=== PATIENT | male | born 1975 | race American Indian/Alaskan Native ===

== ENCOUNTER 2017-02-12 09:15 | Inpatient (IN) | payer MEDICARE, MEDICAID, OTHER ==
[2017-02-12 09:19] VITALS: BMI 40.4
--- NOTE | 2017-02-12 10:19 | ED PDOC ---
Arrival/HPI - General Chief Complaint: Psychiatric Evaluation Time Seen by Provider: 02/12/17 09:20 Historian: Patient - History of Present Illness Narrative History of Present Illness (Text): 02/12/17 10:16 Patient with past medical history of paranoid schizophrenia, presents for psychiatric evaluation for fear of living outside in the normal environment, states that he was recently d/c 1 week ago, after being hospitalized for psychiatric treatment for 6 months. States that he is afraid that people outside are going to kill him and he does not feel safe. States that he is compliant with his psych meds, risperdol and zoloft. Other psychiatric symptoms : (+) auditory hallucinations, (-) suicidal ideation, (-) homicidal ideation. Otherwise: (-) trauma, (-) fever, (-) headache, (-) dyspnea, (-) vomiting, (-) substance abuse, (-) suicidal ideation, (-) patient intent of initiating a suicide attempt, (-) plan. PMD none Past Medical History - Provider Review Nursing Documentation Reviewed: Yes - Past History Past History: Non-Contributing - Infectious Disease Hx of Infectious Diseases: None - Tetanus Immunization Tetanus Immunization: Unknown - Past Medical History Past Medical History: No Previous - Cardiac Hx Cardiac Disorders: No Hx Angina: No Hx Atrial Fibrillation: No Hx Cardiac Arrhythmia: No Hx Circulatory Problems: No Hx Congestive Heart Failure: No Hx VT: No Hx Heart Murmur: No Hx Heart Transplant: No - Pulmonary Hx Tuberculosis: No - Neurological HX Cerebrovascular Accident: No Hx Seizures: No - HEENT Hx HEENT Disorder: No - Renal Hx Renal Disorder: No - Endocrine/Metabolic Hx Endocrine Disorders: No - Hematological/Oncological Hx Cancer: No - Integumentary Hx Dermatological Disorder: Yes - Musculoskeletal/Rheumatological Hx Musculoskeletal Disorders: No Hx Falls: No - Gastrointestinal Hx Gastrointestinal Disorders: No - Genitourinary/Gynecological Hx Sexually Transmitted Diseases: No - Psychiatric Hx Depression: Yes Hx Schizophrenia: Yes (With previous suicide attempt 20 years ago) Hx Substance Use: Yes - Past Surgical History Past Surgical History: No Previous - Anesthesia Hx Anesthesia: No Hx Anesthesia Reactions: No Hx Malignant Hyperthermia: No - Suicidal Assessment Feels Threatened In Home Enviroment: No Family/Social History - Physician Review Nursing Documentation Reviewed: Yes Family/Social History: Unknown Family HX Smoking Status: Current Some Days Smoker Hx Alcohol Use: Yes Frequency of alcohol use: Socially Hx Substance Use: Yes Hx Substance Use Treatment: No Allergies/Home Meds Allergies/Adverse Reactions: Allergies No Known Allergies Allergy (Verified 05/14/16 05:07) Review of Systems - Review of Systems Constitutional: Normal. absent: Fatigue, Weight Change, Fevers Respiratory: Normal. absent: SOB, Cough Cardiovascular: Normal. absent: Chest Pain, Palpitations Gastrointestinal: Normal. absent: Abdominal Pain, Stool Changes Musculoskeletal: Normal. absent: Arthralgias, Back Pain Skin: Normal. absent: Rash, Skin Lesions Neurological: Normal. absent: Headache, Dizziness Psychiatric: Normal, Anxiety. absent: Depression, Suicidal Ideation Physical Exam - Physical Exam Narrative Physical Exam (Text): 02/12/17 10:19 GENERAL APPEARANCE: Patient is awake, alert, oriented x 3, is anxious. SKIN: Warm, dry; (-) cyanosis. HEAD: (-) scalp swelling, (-) scalp tenderness. EYES: (-) conjunctival pallor, (-) scleral icterus, (-) nystagmus. ENMT: Mucous membranes moist. Airway patent: (-) stridor. NECK: (-) tenderness, (-) stiffness, (-) lymphadenopathy. CHEST AND RESPIRATORY: (-) rales, (-) rhonchi, (-) wheezes; breath sounds equal. ABDOMEN: Soft, (-) distention, (-) tenderness, (-) guarding. NEURO AND PSYCH: Mental status as above. Affect: flat. Memory: Intact. manager data: Pupils equal and reactive; EOMI; (-) facial asymmetry; tongue and uvula midline. Strength and DTRs symmetric. Vital Signs Temp Pulse Resp BP Pulse Ox 02/12/17 09:15 98.7 F 85 18 144/97 H 97 Medical Decision Making ED Course and Treatment: 02/12/17 10:19 41 yo M with past medical history of paranoid schizophrenia presents for psychiatric evaluation today after being recently discharged from a six-month psychiatric hospitalization. Plan: -- Labs -- Etoh / drug screen -- Urinalysis -- EKG -- CXR -- PES evaluation 02/12/17 15:42 EKG: NSR at 74 bpm, (-) acute ST changes, as read by ANDREW. Chest x-ray: NAD, as read by PA Labs reviewed. Patient is medically cleared for PES evaluation. PES called and notified of consultation. PES evaluated the patient and decision made for further inpatient psychiatric treatment. - Lab Interpretations Lab Results: 02/12/17 11:10 02/12/17 11:10 Lab Results 02/12/17 14:45: Urine Color Yellow, Urine Appearance Clear, Urine pH 6.5, Ur Specific [place] 1.020, Urine Protein Negative, Urine Glucose (UA) Negative, Urine Ketones Negative, Urine Blood Negative, Urine Nitrate Negative, Urine Bilirubin Negative, Urine Urobilinogen 1.0 H, Ur Leukocyte Esterase Negative, Urine Opiates Screen Negative, Urine Methadone Screen Negative, Ur Barbiturates Screen Negative, Ur Phencyclidine Scrn Negative, Ur Amphetamines Screen Negative , U Benzodiazepines Scrn Negative, U Oth Cocaine Metabols Negative, U Cannabinoids Screen Negative 02/12/17 11:10: WBC 6.7, RBC 4.90, Hgb 13.1 L, Hct 38.6 L, MCV 78.8 L, MCH 26.7 , MCHC 33.9, RDW 15.6 H, Plt Count 263, MPV 9.4, Gran % 79.7 H, Lymph % (Auto) 12.8 L, [place] % (Auto) 7.0 H, Eos % (Auto) 0.4 L, Baso % (Auto) 0.1, Gran # 5.35 , Lymph # 0.9 L, [place] # 0.5, Eos # 0.0, Baso # 0.01, Sodium 139, Potassium 3.5 L , Chloride 102, Carbon Dioxide 26, Anion Gap 15, BUN 14, Creatinine 0.9, Est GFR ( Amer) > 60, Est GFR (Non-Af Amer) > 60, Random Glucose 116 H, Calcium 9.1, Total Bilirubin 0.3, AST 34, ALT 26, Alkaline Phosphatase 111, Total Protein 8.5 H, Albumin 4.3, Globulin 4.2, Albumin/Globulin Ratio 1.0 L, Alcohol, Quantitative < 10 - RAD Interpretation Radiology Orders: 02/12/17 09:30 CHEST PORTABLE [RAD] Stat - Medication Orders Current Medication Orders: Benztropine Mesylate (Cogentin) 1 mg PO HS GONZALO Risperidone (Risperdal Tab) 1 mg PO BID GONZALO PRN Reason: Protocol Sertraline HCl (Zoloft) 50 mg PO DAILY GONZALO Zaleplon (Sonata) 10 mg PO HS PRN PRN Reason: Insomnia Discontinued Medications Potassium Chloride (Potassium Chloride Oral Soln) 20 meq PO STAT STA Stop: 02/12/17 15:45 Last Admin: 02/12/17 17:28 Dose: 20 MEQ - PA / [employer] / Resident Statement /DO has reviewed & agrees with the documentation as recorded. Disposition/Present on Arrival - Present on Arrival Any Indicators Present on Arrival: No History of DVT/PE: No History of Uncontrolled Diabetes: No Urinary Catheter: No History of Decub. Ulcer: No History Surgical Site Infection Following: None - Disposition Have Diagnosis and Disposition been Completed?: Yes Diagnosis: Schizophrenia Disposition: HOSPITALIZED Disposition Time: 15:30 Patient Plan: Admission Patient Problems: Current Active Problems Problem Status Diagnosed Schizophrenia Acute Condition: STABLE
[2017-02-12 11:47] LABS: ADD MANUAL DIFF? NO
[2017-02-12 11:52] LABS: BASO # 0.01 K/mm3 (0.0-2.0); BASO % 0.1 % (0.0-3.0); EOS % 0.4 % (1.5-5.0); GRAN # 5.35 (1.4-6.5); GRAN % 79.7 % (50.0-68.0); HEMATOCRIT 38.6 % (42.0-52.0); LYMPH # 0.9 (1.2-3.4); LYMPH % 12.8 % (22.0-35.0); MEAN CELL VOLUME 78.8 fL (80.0-105.0); MEAN CORPUSCULAR HEMOGLOBIN 26.7 pg (25.0-35.0); MEAN CORPUSCULAR HGB CONC 33.9 g/dl (31.0-37.0); MEAN PLATELET VOLUME 9.4 fl (7.0-11.0); MONO # 0.5 (0.1-0.6); PLATELET COUNT 263 10^3/uL (120.0-450.0); RED CELL DISTRIBUTION WIDTH 15.6 % (11.5-14.5); WHITE BLOOD COUNT 6.7 10^3/ul (4.5-11.0)
[2017-02-12 12:02] LABS: ALKALINE PHOSPHATASE 111 U/L (38-133); ALT/SGPT 26 U/L (7-56); AST/SGOT 34 U/L (15-59); BILIRUBIN,TOTAL 0.3 mg/dL (0.2-1.3); BLOOD UREA NITROGEN 14 mg/dL (7-21); CALCIUM 9.1 mg/dL (8.4-10.5); CARBON DIOXIDE 26 mmol/L (21-33); CHLORIDE 102 mmol/L (98-107); GFR AFRICAN-AMERICAN > 60; GLUCOSE,RANDOM 116 mg/dL (70-110); POTASSIUM 3.5 mmol/L (3.6-5.0); SODIUM 139 mmol/L (132-148); TOTAL PROTEIN 8.5 g/dL (5.8-8.3)
--- NOTE | 2017-02-12 14:50 | RAD ---
HISTORY: PES COMPARISON: No prior. FINDINGS: LUNGS: No active pulmonary disease. PLEURA: No significant pleural effusion identified, no pneumothorax apparent. CARDIOVASCULAR: Normal. OSSEOUS STRUCTURES: No significant abnormalities. VISUALIZED UPPER ABDOMEN: Normal. OTHER FINDINGS: None. IMPRESSION: No active disease.
[2017-02-12 14:56] LABS: PH,URINE 6.5 (4.7-8.0); URINE BILIRUBIN NEGATIVE (NEGATIVE); URINE BLOOD NEGATIVE (NEGATIVE); URINE GLUCOSE (UA) NEGATIVE (NEGATIVE); URINE KETONE NEGATIVE (NEGATIVE); URINE LEUKOCYTE ESTERASE NEGATIVE Leu/uL (NEGATIVE); URINE PROTEIN NEGATIVE mg/dL (<30 mg/dL)
[2017-02-12 14:58] LABS: URINE APPEARANCE CLEAR (CLEAR); URINE COLOR YELLOW (YELLOW)
[2017-02-12] MEDS ORDERED: Potassium Chloride 20 mEq/15 ml LIQ UD PO STA (15:44)
--- NOTE | 2017-02-12 16:58 | CARD ---
APPROVED REPORT EKG Measurement Heart [id number] <Conclusion> Normal sinus rhythm Normal ECG
[2017-02-13 08:19] LABS: CHOLESTEROL 186 mg/dL (130-200); GLUCOSE,FASTING 102 mg/dL (65-110)
[2017-02-13 08:29] LABS: FREE T4 0.85 ng/dL (0.78-2.19); THYROID STIMULATING HORMONE 1.3 MIU/ml (0.46-4.68)
[2017-02-13] MEDS: OLANZapine 5 mg Disintegrating Tab PO SCH (11:54)
--- NOTE | 2017-02-13 15:54 | PCM.PSYCH ---
Initial Psychiatric Evaluation - Initial Psychiatric Evaluation Type of Admission: Voluntary Legal Status: Capacity (pt has capacity to sign consent for treatment) Chief Complaint (in patient's own words): "I don't know, I feel there is no escape from this situation, gangs are after me..., [employer] are trying to kill me." Patient's Reaction to Hospitalization: pt was admitted for for worsening of psychotic symptoms, inability to function, extreme paranoia, voices telling that all of his family History of Present Illness and Precipitating Events: Patient is a 41 years old -[place] male with long and debilitating h/o schizophrenia of paranoid type, multiple psychiatric admissions in the past, most recent less than a week ago [facility] where he staid for the six months, pt currently unemployed, lives in the hotel, was brought to the hospital by police for worsening of psychosis, feeling that gang members after him, hearing voices telling pt that all of his family are , pt needs further evaluation and stabilization , medication adjustment, observation. patient was seen in the treatment team meeting, patient presented to have acceptable personal hygiene, fare ADLs, flat affect, seems to be internally preoccupied, responding to internal stimuli, irritable, patient also had upper extremity pill-rolling tremor. S customs entry writer is very familiar with this patient from the previous admissions into psychiatric inpatient treatment here in [place], patient presented worst compared with the previous admissions. as per PES report: "pt was in the exchange place by the [place] [employer], who then called an ambulance for him to be sent to the hospital. Pt. stated he was at exchange place running from myself. Pt. stated, people are trying to kill me, gang members, I dont feel safe. Pt. stated that while he is not homeless, he chooses to live on the street because, I dont want to be around my family because I dont want to do anything to hurt them. Pt said that whenever he goes a gang members are after him, pt said that he chose to live in the hotel because he does not want his family to be killed. Pt said that he hears voices telling "my family is ". pt reported that he was compliant with medications, pt was on Invega sustenna and risperdal. pt was offered to be on clozaril, but pt did not want to have frequent lab work. Pt still has ICMS worker, will call for collaterals. Reported depressed mood, and feelings of hopelessness and helplessness, but denied any homicidal ideation or suicidal ideation. No reported manic symptoms reported anxiety but no reported panic attacks. No reported substance abuse Past psychiatric history: [facility] a week ago [facility] April 2016. History of multiple inpatient psychiatric hospitalizations History of follow-up with an unknown psychiatrist at [facility] , last follow-up is unknown History of suicidal ideation with 2 attempts in the past, last attempt was 3 years ago when patient slit his wrist, patient has a old scar on the right wrist History of homicidal ideation without any attempt in the past No history of any other substance abuse History of arrests due to assaultive behavior but denies any legal charges in the past Past medical history Sleep apnea obesity pt denied using any drugs, reported to smoke a pack a day, refused to be on nicotine patch, counseling provided. pt denied h/o abuse. pt willing to try zyprexa and this customs entry writer will switch to prolixin in order to have a Prolixin decanoate. family h/o unknown. 02/12/17 11:10 02/12/17 11:10 Lab Results 02/13/17 07:30: Fasting Glucose 102, Triglycerides 108, Cholesterol 186, LDL Cholesterol Direct 97, HDL Cholesterol 43, Free T4 0.85, TSH 3rd Generation 1.3 02/12/17 21:15: POC Glucose (mg/dL) 149 H 02/12/17 14:45: Urine Color Yellow, Urine Appearance Clear, Urine pH 6.5, Ur Specific [place] 1.020, Urine Protein Negative, Urine Glucose (UA) Negative, Urine Ketones Negative, Urine Blood Negative, Urine Nitrate Negative, Urine Bilirubin Negative, Urine Urobilinogen 1.0 H, Ur Leukocyte Esterase Negative, Urine Opiates Screen Negative, Urine Methadone Screen Negative, Ur Barbiturates Screen Negative, Ur Phencyclidine Scrn Negative, Ur Amphetamines Screen Negative , U Benzodiazepines Scrn Negative, U Oth Cocaine Metabols Negative, U Cannabinoids Screen Negative 02/12/17 11:10: WBC 6.7, RBC 4.90, Hgb 13.1 L, Hct 38.6 L, MCV 78.8 L, MCH 26.7 , MCHC 33.9, RDW 15.6 H, Plt Count 263, MPV 9.4, Gran % 79.7 H, Lymph % (Auto) 12.8 L, [place] % (Auto) 7.0 H, Eos % (Auto) 0.4 L, Baso % (Auto) 0.1, Gran # 5.35 , Lymph # 0.9 L, [place] # 0.5, Eos # 0.0, Baso # 0.01, Sodium 139, Potassium 3.5 L , Chloride 102, Carbon Dioxide 26, Anion Gap 15, BUN 14, Creatinine 0.9, Est GFR ( Amer) > 60, Est GFR (Non-Af Amer) > 60, Random Glucose 116 H, Calcium 9.1, Total Bilirubin 0.3, AST 34, ALT 26, Alkaline Phosphatase 111, Total Protein 8.5 H, Albumin 4.3, Globulin 4.2, Albumin/Globulin Ratio 1.0 L, Alcohol, Quantitative < 10 Vital Signs Temp Pulse Resp BP Pulse Ox 02/13/17 08:02 97.3 F L 89 20 135/88 02/12/17 19:04 98.1 F 85 18 137/92 H 95 02/12/17 09:15 98.7 F 85 18 144/97 H 97 Current Medications: Active Medications Generic Name Dose Route Start Last Admin Trade Name Freq PRN Reason Stop Dose Admin Benztropine Mesylate 1 mg 02/12/17 22:00 02/12/17 21:29 Cogentin PO 1 mg HS GONZALO Administration Risperidone 1 mg 02/13/17 08:00 02/13/17 09:18 Risperdal Tab PO 1 mg BID GONZALO Administration Protocol Sertraline HCl 50 mg 02/13/17 08:00 02/13/17 09:18 Zoloft PO 50 mg DAILY GONZALO Administration Zaleplon 10 mg 02/12/17 18:30 Sonata PO HS PRN Insomnia meds reviewed. Past Psychiatric History - Past Psychiatric History Previous Treatment History: Inpatient Prior Professional Help: see HPI Prior Psychiatric Treatment: see HPI At what hospital: see HPI Duration: see HPI Nature of Treatment: see HPI Explanation of prior treatment: see HPI History of Abuse: denied History of ETOH/Drug Use: denied History of Family Illness: see HPI Pertinent Medical Hx (Current Medical&Sleep Prob, Allergies): Allergies Allergy/AdvReac Type Severity Reaction Status Date / Time No Known Allergies Allergy Verified 02/12/17 21:26 Benztropine [Cogentin] 1 mg PO BID #60 tab 05/19/16 Sertraline [Zoloft] 200 mg PO DAILY #60 tab 05/19/16 risperiDONE [RisperDAL Tab] 3 mg PO BID #60 tab 05/19/16 Review of Systems - Review of Systems Systems not reviewed;Unavailable: Acuity of Condition - EENT Eyes: As Per HPI Ears: As Per HPI Nose/Mouth/Throat: As Per HPI - Cardiovascular Cardiovascular: As Per HPI - Respiratory Respiratory: As Per HPI - Gastrointestinal Gastrointestinal: As Per HPI - Genitourinary Genitourinary: As Per HPI - Reproductive: Male Reproductive:Male: As Per HPI - Musculoskeletal Musculoskeletal: As Par HPI - Integumentary Integumentary: As Per HPI - Neurological Neurological: As Per HPI - Psychiatric Psychiatric: As Per HPI - Endocrine Endocrine: As Per HPI - Hematologic/Lymphatic Hematologic: As Per HPI Mental Status Examination - Personal Presentation Personal Presentation: Looks stated age - Affect Affect: Flat - Motor Activity Motor Activity: Psychomotor Retardation - Reliability in Providing Information Reliability in Providing Information: Poor, due to alteration in thoughts, Poor , due to altered mood, Poor, due to cognitve impairment - Speech Speech: Disorganized - Mood Mood: Depressed, Anxious - Formal Thought Process Formal Thought Process: Hallucinations, Delusions, Paranoia, Circumstantial - Hallucinations/Delusions Hallucinations: Auditory Delusions: Persecution - Obsessions/Compulsions Obsessions: None Compulsions: None - Cognitive Functions Orientation: Person, Place Sensorium: Alert Attention/Concentration: Easily distracted Abstract Thinking: [place] Estimate of Intelligence: Average Judgement: Intact, as evidence by: Insight regarding need for hospitalization - Risk Risk: Suicidal, Self-mutilation, Diminished functioning - Strength & Assets Inventory Strength & Assets Inventory: Cooperative - Limitations Limitations: Other (severe mental illness) DSM 5 DX - DSM 5 DSM 5 Diagnosis: schizophrenia paranoid type Rule out schizoaffective disorder - Recommended/Plan of Treatment Treatment Recommendations and Plan of Treatment: milieu, structure, supportive therapy Will call for collateral information from ICMS worker or medical reports from the most recent hospitalization Will increase dose of Cogentin to 1 mg 3 times a day for EPS pt was on invega and risperdal, will d/c it we'll consider Prolixin decanoate monthly injection and will discontinue Abilifcassi Mccoy We'll start Zyprexa Zydis 5 mg daily for psychotic symptoms Medication for sleep, sonata 5mg hs Medical team evaluation We'll monitor closely We'll consider boarding home placement Projected ELOS: 10days Prognosis: guarded Discharge Plan and Discharge Criteria: Pt will be not depressed or manic, will be more hopeful, will be not psychotic or anxious, will be tolerating medications well, will not have major side effects, will be able to function, will not pose threat to self or others. - Smoking Cessation Smoking Cessation Initiated: Yes
[2017-02-14] MEDS: OLANZapine 5 mg Disintegrating Tab PO SCH ×2 (11:50→22:47)
--- NOTE | 2017-02-14 15:16 | CON ---
DATE: 02/14/2017 HISTORY OF PRESENT ILLNESS: The patient is 41 years old, known to me from previous admission. I cam e to Emergency Room because he was feeling depressed. The patient is currently homeless. The patien rory was admitted in psych unit before and he was in the unit for almost 6 months when he got discharged . He states he was fearful that people are after him and going to kill him and he does not feel safe . He states he takes his medication that was prescribed to him. That includes Risperdal and Zoloft. He does complain of auditory hallucination, feel depressed at times. No headache, no nausea, no vo miting, no fever, no chills. PAST MEDICAL HISTORY: Significant for obesity, hypertension, schizophrenia. ALLERGIES: He is not allergic to any medications. MEDICATIONS AT HOME: He is on Risperdal 3 mg twice a day, Zoloft ____ daily and Cogentin 1 mg twice a day. SOCIAL HISTORY: He has used illicit drugs in the past, but not lately. He does drink whatever he ca n find and he is currently a smoker. PHYSICAL EXAMINATION: GENERAL: He is awake and alert, comfortable lying in bed, not in any distress. VITAL SIGNS: He is afebrile, pulse 67, respirations 20, blood pressure 121/71. LUNGS: Bilateral fair airflow, no rhonchi or crackle. HEART: S1, S2 audible. No murmur. ABDOMEN: Soft, nontender, no rebound, no guarding. NEUROLOGIC: He is awake and alert, communicative. Moves all extremities. His urinalysis is unremarkable. LABORATORY EXAM: WBC 6.7, hemoglobin 13, hematocrit 38, platelet of 263. Chemistry: Sodium 139, po tassium 3.5, chloride 102, CO2 of 26, BUN 14, creatinine 0.9, blood sugar of 149. Urinalysis unremar kable. Urine tox is negative. ASSESSMENT AND PLAN: 1. Schizophrenia. 2. Depression. 3. Hypertension. 4. Morbid obesity. 5. Normocytic anemia, probably thalassemia because his MCV is 78 and his RDW is high. That is a pic ture of mild thalassemia. PLAN: The patient is currently on Ativan, lorazepam, Cogentin. I will order for hemoglobin electrop horesis. Thanks for consult. We will follow up with you. Crissy Gramajo MD cc: [phone] TT: 02/14/2017 15:16:09 Confirmation # [id number] Dictation # [id number]
--- NOTE | 2017-02-14 16:20 | PCM.PYCHPN ---
Psychiatric Progress Note - Psychiatric Progress Note Patient seen today, length of contact: 30 minutes Patient Chief Complaint: "I don't feels safe in here" Problems Identified/Issues Discussed: Suicide/ homicide prevention, past psychiatric h/o, current psychiatric symptoms , medical problems, risk/benefits and alternatives of medications, medications compliance, coping strategies, substance abuse h/o, relapse prevention, importance of follow up with psychiatrist and therapist, discharge plan. Medical Problems: obesity was seen by medical team Diagnostic Results: 02/12/17 11:10 02/12/17 11:10 Lab Results 02/13/17 07:30: Fasting Glucose 102, Triglycerides 108, Cholesterol 186, LDL Cholesterol Direct 97, HDL Cholesterol 43, Free T4 0.85, TSH 3rd Generation 1.3 02/12/17 21:15: POC Glucose (mg/dL) 149 H 02/12/17 14:45: Urine Color Yellow, Urine Appearance Clear, Urine pH 6.5, Ur Specific [place] 1.020, Urine Protein Negative, Urine Glucose (UA) Negative, Urine Ketones Negative, Urine Blood Negative, Urine Nitrate Negative, Urine Bilirubin Negative, Urine Urobilinogen 1.0 H, Ur Leukocyte Esterase Negative, Urine Opiates Screen Negative, Urine Methadone Screen Negative, Ur Barbiturates Screen Negative, Ur Phencyclidine Scrn Negative, Ur Amphetamines Screen Negative , U Benzodiazepines Scrn Negative, U Oth Cocaine Metabols Negative, U Cannabinoids Screen Negative 02/12/17 11:10: WBC 6.7, RBC 4.90, Hgb 13.1 L, Hct 38.6 L, MCV 78.8 L, MCH 26.7 , MCHC 33.9, RDW 15.6 H, Plt Count 263, MPV 9.4, Gran % 79.7 H, Lymph % (Auto) 12.8 L, [place] % (Auto) 7.0 H, Eos % (Auto) 0.4 L, Baso % (Auto) 0.1, Gran # 5.35 , Lymph # 0.9 L, [place] # 0.5, Eos # 0.0, Baso # 0.01, Sodium 139, Potassium 3.5 L , Chloride 102, Carbon Dioxide 26, Anion Gap 15, BUN 14, Creatinine 0.9, Est GFR ( Amer) > 60, Est GFR (Non-Af Amer) > 60, Random Glucose 116 H, Calcium 9.1, Total Bilirubin 0.3, AST 34, ALT 26, Alkaline Phosphatase 111, Total Protein 8.5 H, Albumin 4.3, Globulin 4.2, Albumin/Globulin Ratio 1.0 L, Alcohol, Quantitative < 10 Vital Signs Temp Pulse Resp BP Pulse Ox 02/14/17 10:00 98.5 F 67 20 121/71 02/13/17 08:02 97.3 F L 89 20 135/88 02/12/17 19:04 98.1 F 85 18 137/92 H 95 02/12/17 09:15 98.7 F 85 18 144/97 H 97 DSM 5 Symptoms Update: Patient is a 41 years old -[place] male with long and debilitating h/o schizophrenia of paranoid type, multiple psychiatric admissions in the past, most recent less than a week ago [facility] where he staid for the six months, pt currently unemployed, lives in the hotel, was brought to the hospital by police for worsening of psychosis, feeling that gang members after him, hearing voices telling pt that all of his family are , pt needs further evaluation and stabilization , medication adjustment, observation. patient was seen in his room, patient presented to have acceptable personal hygiene, fare ADLs, flat affect, seems to be internally preoccupied, responding to internal stimuli, irritable, patient also had upper extremity pill-rolling tremor. pt still paranoid, guarded, psychotic. pt reported feeling "not safe in here", denied voices. pt tolerates meds well, no side effects, pt still has tremor in UE. pt was seen by medical team. impression: DSM 5 Diagnosis: schizophrenia paranoid type Rule out schizoaffective disorder Medication Change: Yes (Zyprexa increased) Medical Record Reviewed: Yes Consults ordered or reviewed: medical consult appreciated Mental Status Examination - Cognitive Function Orientation: Person, Place Memory: Impaired Attention: Poor Concentration: Poor Association: Loose Fund of Knowledge: Poor - Mood Mood: Depressed, Anxious - Affect Affect: Flat - Formal Thought Process Formal Thought Process: Hallucinations, Delusions, Paranoia, Circumstantial - Suicidal Ideation Suicidal Ideation: No - Homicidal Ideation Homicidal Ideation: No Goal/Treatment Plan - Goal/Treatment Plan Need for Continued Stay: Remain at risks for inpatient hospitalization, Severe depression anxiety, Discharge may exacerbated symptoms, Severe functional impairment Progress Toward Problem(s) and Goals/Treatment Plan: milieu, structure, supportive therapy Will call for collateral information from ICMS worker or medical reports from the most recent hospitalization Will increase dose of Cogentin to mg 3 times a day for EPS pt was on invega and risperdal, will d/c it we'll consider Prolixin decanoate monthly injection and will discontinue Abilify [place] We'll start Zyprexa Zydis 5 mg bid for psychotic symptoms Medication for sleep, sonata 5mg hs Medical team evaluation We'll monitor closely We'll consider boarding home placement Estimated Date of D/C: 02/24/17 (wwe'll monitor closely)
[2017-02-15] MEDS: OLANZapine 5 mg Disintegrating Tab PO SCH (09:51)
--- NOTE | 2017-02-15 16:46 | PCM.PYCHPN ---
Psychiatric Progress Note - Psychiatric Progress Note Patient seen today, length of contact: 30 minutes Patient Chief Complaint: "medication make me weak, I feel very anxious, people are making me feel unease " Problems Identified/Issues Discussed: Suicide/ homicide prevention, past psychiatric h/o, current psychiatric symptoms , medical problems, risk/benefits and alternatives of medications, medications compliance, coping strategies, substance abuse h/o, relapse prevention, importance of follow up with psychiatrist and therapist, discharge plan. Medical Problems: obesity was seen by medical team Diagnostic Results: 02/12/17 11:10 02/12/17 11:10 Lab Results 02/13/17 07:30: Fasting Glucose 102, Triglycerides 108, Cholesterol 186, LDL Cholesterol Direct 97, HDL Cholesterol 43, Free T4 0.85, TSH 3rd Generation 1.3 02/12/17 21:15: POC Glucose (mg/dL) 149 H 02/12/17 14:45: Urine Color Yellow, Urine Appearance Clear, Urine pH 6.5, Ur Specific [place] 1.020, Urine Protein Negative, Urine Glucose (UA) Negative, Urine Ketones Negative, Urine Blood Negative, Urine Nitrate Negative, Urine Bilirubin Negative, Urine Urobilinogen 1.0 H, Ur Leukocyte Esterase Negative, Urine Opiates Screen Negative, Urine Methadone Screen Negative, Ur Barbiturates Screen Negative, Ur Phencyclidine Scrn Negative, Ur Amphetamines Screen Negative , U Benzodiazepines Scrn Negative, U Oth Cocaine Metabols Negative, U Cannabinoids Screen Negative 02/12/17 11:10: WBC 6.7, RBC 4.90, Hgb 13.1 L, Hct 38.6 L, MCV 78.8 L, MCH 26.7 , MCHC 33.9, RDW 15.6 H, Plt Count 263, MPV 9.4, Gran % 79.7 H, Lymph % (Auto) 12.8 L, [place] % (Auto) 7.0 H, Eos % (Auto) 0.4 L, Baso % (Auto) 0.1, Gran # 5.35 , Lymph # 0.9 L, [place] # 0.5, Eos # 0.0, Baso # 0.01, Sodium 139, Potassium 3.5 L , Chloride 102, Carbon Dioxide 26, Anion Gap 15, BUN 14, Creatinine 0.9, Est GFR ( Amer) > 60, Est GFR (Non-Af Amer) > 60, Random Glucose 116 H, Calcium 9.1, Total Bilirubin 0.3, AST 34, ALT 26, Alkaline Phosphatase 111, Total Protein 8.5 H, Albumin 4.3, Globulin 4.2, Albumin/Globulin Ratio 1.0 L, Alcohol, Quantitative < 10 Vital Signs Temp Pulse Resp BP Pulse Ox 02/14/17 10:00 98.5 F 67 20 121/71 02/13/17 08:02 97.3 F L 89 20 135/88 02/12/17 19:04 98.1 F 85 18 137/92 H 95 02/12/17 09:15 98.7 F 85 18 144/97 H 97 Temp Pulse Resp BP Pulse Ox 97.5 F L 49 L 20 106/54 L 95 02/15/17 07:30 02/15/17 07:30 02/15/17 07:30 02/15/17 07:30 02/12/17 19:04 DSM 5 Symptoms Update: Patient is a 41 years old -[place] male with long and debilitating h/o schizophrenia of paranoid type, multiple psychiatric admissions in the past, most recent less than a week ago [facility] where he staid for the six months, pt currently unemployed, lives in the hotel, was brought to the hospital by police for worsening of psychosis, feeling that gang members after him, hearing voices telling pt that all of his family are , pt needs further evaluation and stabilization , medication adjustment, observation. patient was seen in his room, patient presented to have acceptable personal hygiene, fare ADLs, flat affect, seems to be internally preoccupied, responding to internal stimuli, irritable, patient also had upper extremity pill-rolling tremor, pt still paranoid and psychotic, said he does not like medication "it is make me feel weak", pt's ICMS worker provided with the list of meds: Cogentin(2mg) BID Risperdone (6mg) BID Zoloft(200mg) AM Trazadone(100mg) HS Invega Sustena(234mg) every 4 weeks ( last injection on 02/06/17) pt's pill rolling tremor is not improving, will try amantadine, will d/c zyprexa , will start prolixin (low potency medication FGA), will increase ativan. pt tolerates meds well, no side effects, pt still has tremor in UE. pt was seen by medical team. impression: DSM 5 Diagnosis: schizophrenia paranoid type Rule out schizoaffective disorder Medication Change: Yes (prolixin, d/c zyprexa, increase ativan, d/c cogentin, start amantadine) Medical Record Reviewed: Yes Consults ordered or reviewed: medical consult appreciated Mental Status Examination - Cognitive Function Orientation: Person, Place Memory: Impaired Attention: Poor Concentration: Poor Association: Loose Fund of Knowledge: Poor - Mood Mood: Depressed, Anxious - Affect Affect: Flat - Formal Thought Process Formal Thought Process: Hallucinations, Delusions, Paranoia, Circumstantial - Suicidal Ideation Suicidal Ideation: No - Homicidal Ideation Homicidal Ideation: No Goal/Treatment Plan - Goal/Treatment Plan Need for Continued Stay: Remain at risks for inpatient hospitalization, Severe depression anxiety, Discharge may exacerbated symptoms, Severe functional impairment Progress Toward Problem(s) and Goals/Treatment Plan: milieu, structure, supportive therapy Will call for collateral information from ICMS worker or medical reports from the most recent hospitalization (appreciated) d/c Cogentin will start amantadine 100mg po tid for EPS will d/c zyprexa will stat prolixin 5mg tid for psychosis will not initiate risperdal (high EPS risk) will increase ativan 1mg bid for anxiety will not start zoloft will initiate prozac 20mg po daily Medication for sleep, sonata 5mg hs Medical team evaluation We'll monitor closely We'll consider boarding home placement pt still does not want to be on clozaril SW evaluation Estimated Date of D/C: 02/24/17 (wwe'll monitor closely)
--- NOTE | 2017-02-15 20:14 | PN ---
DATE: 02/15/2017 The patient is 41 years old, seen and examined lying in bed, comfortable, sleepy but arousable. VITAL SIGNS: He is afebrile, pulse 86, respirations 20, blood pressure 121/83. LUNGS: Bilateral fair airflow. No rhonchi or crackle. HEART: S1, S2 audible. No murmur. ABDOMEN: Soft and nontender, no rebound, no guarding. NEUROLOGICALLY: The patient is awake and alert, communicative, ambulatory. ASSESSMENT AND PLAN: 1. Schizophrenia. 2. Morbid obesity. 3. Borderline hypertension. 4. Hyperlipidemia. PLAN: The patient is medically stable. I will sign off and see the patient p.r.n. Her psych medica tion will be adjusted by psychiatrist. Crissy Gramajo MD cc: [phone] TT: 02/15/2017 20:14:12 Confirmation # [id number] Dictation # [id number] albino
[2017-02-16 01:26] LABS: HEMATOCRIT 36.4 % (38.5-50.0); RDW 18.5 % (11.0-15.0)
--- NOTE | 2017-02-16 10:47 | PCM.PYCHPN ---
Psychiatric Progress Note - Psychiatric Progress Note Patient seen today, length of contact: 30 minutes Patient Chief Complaint: "I need to give a chance to a new medication" Problems Identified/Issues Discussed: Suicide/ homicide prevention, past psychiatric h/o, current psychiatric symptoms , medical problems, risk/benefits and alternatives of medications, medications compliance, coping strategies, substance abuse h/o, relapse prevention, importance of follow up with psychiatrist and therapist, discharge plan. Medical Problems: obesity was seen by medical team Diagnostic Results: 02/12/17 11:10 02/12/17 11:10 Lab Results 02/13/17 07:30: Fasting Glucose 102, Triglycerides 108, Cholesterol 186, LDL Cholesterol Direct 97, HDL Cholesterol 43, Free T4 0.85, TSH 3rd Generation 1.3 02/12/17 21:15: POC Glucose (mg/dL) 149 H 02/12/17 14:45: Urine Color Yellow, Urine Appearance Clear, Urine pH 6.5, Ur Specific [place] 1.020, Urine Protein Negative, Urine Glucose (UA) Negative, Urine Ketones Negative, Urine Blood Negative, Urine Nitrate Negative, Urine Bilirubin Negative, Urine Urobilinogen 1.0 H, Ur Leukocyte Esterase Negative, Urine Opiates Screen Negative, Urine Methadone Screen Negative, Ur Barbiturates Screen Negative, Ur Phencyclidine Scrn Negative, Ur Amphetamines Screen Negative , U Benzodiazepines Scrn Negative, U Oth Cocaine Metabols Negative, U Cannabinoids Screen Negative 02/12/17 11:10: WBC 6.7, RBC 4.90, Hgb 13.1 L, Hct 38.6 L, MCV 78.8 L, MCH 26.7 , MCHC 33.9, RDW 15.6 H, Plt Count 263, MPV 9.4, Gran % 79.7 H, Lymph % (Auto) 12.8 L, [place] % (Auto) 7.0 H, Eos % (Auto) 0.4 L, Baso % (Auto) 0.1, Gran # 5.35 , Lymph # 0.9 L, [place] # 0.5, Eos # 0.0, Baso # 0.01, Sodium 139, Potassium 3.5 L , Chloride 102, Carbon Dioxide 26, Anion Gap 15, BUN 14, Creatinine 0.9, Est GFR ( Amer) > 60, Est GFR (Non-Af Amer) > 60, Random Glucose 116 H, Calcium 9.1, Total Bilirubin 0.3, AST 34, ALT 26, Alkaline Phosphatase 111, Total Protein 8.5 H, Albumin 4.3, Globulin 4.2, Albumin/Globulin Ratio 1.0 L, Alcohol, Quantitative < 10 Vital Signs Temp Pulse Resp BP Pulse Ox 02/14/17 10:00 98.5 F 67 20 121/71 02/13/17 08:02 97.3 F L 89 20 135/88 02/12/17 19:04 98.1 F 85 18 137/92 H 95 02/12/17 09:15 98.7 F 85 18 144/97 H 97 Temp Pulse Resp BP Pulse Ox 97.5 F L 49 L 20 106/54 L 95 02/15/17 07:30 02/15/17 07:30 02/15/17 07:30 02/15/17 07:30 02/12/17 19:04 Temp Pulse Resp BP Pulse Ox 97.7 F 58 L 20 98/58 L 95 02/16/17 07:51 02/16/17 07:51 02/16/17 07:51 02/16/17 07:51 02/12/17 19:04 Laboratory Results - last 24 hr 02/15/17 08:00 Hemoglobinopathy Red Blood Count 4.55 Hemoglobinopathy Hct 36.4 L Hemoglobinopathy Hgb 12.0 L Hemoglobinopathy MCV 79.9 L Hemoglobinopathy MCH 26.4 L Hemoglobinopathy RDW 18.5 H DSM 5 Symptoms Update: Patient is a 41 years old -Brazilian male with long and debilitating h/o schizophrenia of paranoid type, multiple psychiatric admissions in the past, most recent less than a week ago [facility] where he staid for the six months, pt currently unemployed, lives in the hotel, was brought to the hospital by police for worsening of psychosis, feeling that gang members after him, hearing voices telling pt that all of his family are , pt needs further evaluation and stabilization , medication adjustment, observation. patient was seen next to the nursing station, pt presented with some improvements with his hygiene, affect still constricted but more reactive. pt said that he still feels paranoid and has feeling that his family is . At the same time pt said that he feels more comfortable in the unit. pt's EPS symptoms are much better, there is no pill rolling tremor observed today. pt said he likes Amantadine better than cogenting. pt tolerates meds well, no side effects, pt still has tremor in UE. pt was seen by medical team. impression: DSM 5 Diagnosis: schizophrenia paranoid type Rule out schizoaffective disorder Medication Change: Yes (prolixin increased ) Medical Record Reviewed: Yes Consults ordered or reviewed: medical consult appreciated pt is f/u by medical team on daily basis Mental Status Examination - Cognitive Function Orientation: Person, Place Memory: Impaired Attention: Poor Concentration: Poor Association: Loose Fund of Knowledge: Poor - Mood Mood: Depressed, Anxious - Affect Affect: Flat - Formal Thought Process Formal Thought Process: Hallucinations, Delusions, Paranoia, Circumstantial - Suicidal Ideation Suicidal Ideation: No - Homicidal Ideation Homicidal Ideation: No Goal/Treatment Plan - Goal/Treatment Plan Need for Continued Stay: Remain at risks for inpatient hospitalization, Severe depression anxiety, Discharge may exacerbated symptoms, Severe functional impairment Progress Toward Problem(s) and Goals/Treatment Plan: milieu, structure, supportive therapy ICMS worker collaterals (appreciated), med list reviewed, see note 02/15/17 amantadine 100mg po tid for EPS prolixin 10mg amhs for psychosis with the plan to give prolixin Dec upon d/c ativan 1mg bid for anxiety prozac 20mg po daily for depression and anxiety Medication for sleep, sonata 5mg hs Medical team evaluation We'll monitor closely We'll consider boarding home placement pt still does not want to be on clozaril SW evaluation Estimated Date of D/C: 02/24/17 (wwe'll monitor closely)
[2017-02-16 12:51] LABS: HEMOGLOBIN F <1.0 Percent (<2.0)
--- NOTE | 2017-02-17 18:08 | PCM.PYCHPN ---
Psychiatric Progress Note - Psychiatric Progress Note Patient seen today, length of contact: 30 minutes Patient Chief Complaint: "voices are better, but I still feel paranoid" Problems Identified/Issues Discussed: Suicide/ homicide prevention, past psychiatric h/o, current psychiatric symptoms , medical problems, risk/benefits and alternatives of medications, medications compliance, coping strategies, substance abuse h/o, relapse prevention, importance of follow up with psychiatrist and therapist, discharge plan. Medical Problems: obesity was seen by medical team Diagnostic Results: 02/12/17 11:10 02/12/17 11:10 Lab Results 02/13/17 07:30: Fasting Glucose 102, Triglycerides 108, Cholesterol 186, LDL Cholesterol Direct 97, HDL Cholesterol 43, Free T4 0.85, TSH 3rd Generation 1.3 02/12/17 21:15: POC Glucose (mg/dL) 149 H 02/12/17 14:45: Urine Color Yellow, Urine Appearance Clear, Urine pH 6.5, Ur Specific [place] 1.020, Urine Protein Negative, Urine Glucose (UA) Negative, Urine Ketones Negative, Urine Blood Negative, Urine Nitrate Negative, Urine Bilirubin Negative, Urine Urobilinogen 1.0 H, Ur Leukocyte Esterase Negative, Urine Opiates Screen Negative, Urine Methadone Screen Negative, Ur Barbiturates Screen Negative, Ur Phencyclidine Scrn Negative, Ur Amphetamines Screen Negative , U Benzodiazepines Scrn Negative, U Oth Cocaine Metabols Negative, U Cannabinoids Screen Negative 02/12/17 11:10: WBC 6.7, RBC 4.90, Hgb 13.1 L, Hct 38.6 L, MCV 78.8 L, MCH 26.7 , MCHC 33.9, RDW 15.6 H, Plt Count 263, MPV 9.4, Gran % 79.7 H, Lymph % (Auto) 12.8 L, [place] % (Auto) 7.0 H, Eos % (Auto) 0.4 L, Baso % (Auto) 0.1, Gran # 5.35 , Lymph # 0.9 L, [place] # 0.5, Eos # 0.0, Baso # 0.01, Sodium 139, Potassium 3.5 L , Chloride 102, Carbon Dioxide 26, Anion Gap 15, BUN 14, Creatinine 0.9, Est GFR ( Amer) > 60, Est GFR (Non-Af Amer) > 60, Random Glucose 116 H, Calcium 9.1, Total Bilirubin 0.3, AST 34, ALT 26, Alkaline Phosphatase 111, Total Protein 8.5 H, Albumin 4.3, Globulin 4.2, Albumin/Globulin Ratio 1.0 L, Alcohol, Quantitative < 10 Vital Signs Temp Pulse Resp BP Pulse Ox 02/14/17 10:00 98.5 F 67 20 121/71 02/13/17 08:02 97.3 F L 89 20 135/88 02/12/17 19:04 98.1 F 85 18 137/92 H 95 02/12/17 09:15 98.7 F 85 18 144/97 H 97 Temp Pulse Resp BP Pulse Ox 97.5 F L 49 L 20 106/54 L 95 02/15/17 07:30 02/15/17 07:30 02/15/17 07:30 02/15/17 07:30 02/12/17 19:04 Temp Pulse Resp BP Pulse Ox 97.7 F 58 L 20 98/58 L 95 02/16/17 07:51 02/16/17 07:51 02/16/17 07:51 02/16/17 07:51 02/12/17 19:04 Laboratory Results - last 24 hr 02/15/17 08:00 Hemoglobinopathy Red Blood Count 4.55 Hemoglobinopathy Hct 36.4 L Hemoglobinopathy Hgb 12.0 L Hemoglobinopathy MCV 79.9 L Hemoglobinopathy MCH 26.4 L Hemoglobinopathy RDW 18.5 H Temp Pulse Resp BP Pulse Ox 97.3 F L 71 20 114/75 95 02/17/17 07:19 02/17/17 16:30 02/17/17 07:19 02/17/17 16:30 02/12/17 19:04 DSM 5 Symptoms Update: Patient is a 41 years old -A[place]ij[place] male with long and debilitating h/o schizophrenia of paranoid type, multiple psychiatric admissions in the past, most recent less than a week ago [facility] where he staid for the six months, pt currently unemployed, lives in the hotel, was brought to the hospital by police for worsening of psychosis, feeling that gang members after him, hearing voices telling pt that all of his family are , pt needs further evaluation and stabilization , medication adjustment, observation. patient was seen at the treatment team, pt presented with some improvements with his hygiene, affect still constricted but more reactive. pt said that he still feels paranoid and has feeling that his family is . At the same time pt said that he feels more comfortable in the unit. pt reported that voices "still there, but it is less, they are not bothering me no more", pt said that he still feels that gang members are after him. meeting with ICMS worker [employer] today. pt's EPS symptoms are much better, there is some mild tremor observed today, willing to increase amantadine. pt tolerates meds well, no side effects, pt still has tremor in UE, but improving. pt was seen by medical team. impression: DSM 5 Diagnosis: schizophrenia paranoid type Rule out schizoaffective disorder Medication Change: Yes (amantadine increased, prolixin increased) Medical Record Reviewed: Yes Consults ordered or reviewed: medical consult appreciated pt is f/u by medical team on daily basis Mental Status Examination - Cognitive Function Orientation: Person, Place Memory: Impaired Attention: Poor Concentration: Poor Association: Loose Fund of Knowledge: Poor - Mood Mood: Depressed, Anxious - Affect Affect: Flat - Formal Thought Process Formal Thought Process: Hallucinations, Delusions, Paranoia, Circumstantial - Suicidal Ideation Suicidal Ideation: No - Homicidal Ideation Homicidal Ideation: No Goal/Treatment Plan - Goal/Treatment Plan Need for Continued Stay: Remain at risks for inpatient hospitalization, Severe depression anxiety, Discharge may exacerbated symptoms, Severe functional impairment Progress Toward Problem(s) and Goals/Treatment Plan: milieu, structure, supportive therapy ICMS worker collaterals (appreciated), med list reviewed, see note 02/15/17, meeting 02/17/17 appreciated amantadine 100mg po tid for EPS prolixin 10mg tid for psychosis with the plan to give prolixin Dec upon d/c ativan 1mg bid for anxiety prozac 20mg po daily for depression and anxiety Medication for sleep, [place] 5mg hs Medical team evaluation We'll monitor closely We'll consider boarding home placement pt still does not want to be on clozaril SW evaluation Estimated Date of D/C: 02/24/17 (wwe'll monitor closely)
--- NOTE | 2017-02-18 09:25 | PCM.PYCHPN ---
Psychiatric Progress Note - Psychiatric Progress Note Patient seen today, length of contact: 25 minutes Patient Chief Complaint: "a little depressed" Problems Identified/Issues Discussed: I reviewed assessment and recent notes. Patient was interviewed at bedside. Patient responds to my questions from underneath his sheet. He appears paranoid and admits to paranoia. He is generally calm and cooperative during questioning. He is oriented to month and year. Affect is withdrawn and internally preoccupied. Speech is under productive. Patient indicates that he remains "a little depressed". Denies having any hallucinations since yesterday. Patient does not appear to be actively responding to internal stimuli during my meeting with him. Patient denies any new discomfort or pain and has been tolerating medications Nursing notes indicate that patient has been withdrawn on the unit. He remains in control and there were no behavioral issues overnight Diagnostic Results: schizophrenia paranoid type Rule out schizoaffective disorder Medication Change: No ( ) Medical Record Reviewed: Yes (reports, labs, vitals, notes) Mental Status Examination - Cognitive Function Orientation: Person, Place Memory: Impaired Attention: Poor Concentration: Poor Association: Loose Fund of Knowledge: Poor - Mood Mood: Depressed ("a little depressed"), Anxious - Affect Affect: Flat - Speech Speech: Soft - Formal Thought Process Formal Thought Process: Hallucinations (denies), Delusions, Paranoia, Circumstantial - Suicidal Ideation Suicidal Ideation: No - Homicidal Ideation Homicidal Ideation: No Goal/Treatment Plan - Goal/Treatment Plan Need for Continued Stay: Remain at risks for inpatient hospitalization, Severe depression anxiety, Discharge may exacerbated symptoms, Severe functional impairment Progress Toward Problem(s) and Goals/Treatment Plan: * c/w current tx and plan * No new labs over the weekend * Vitals reviewed and noted below: Selected Entries 02/17/17 02/17/17 07:19 16:30 Temperature 97.3 F L Pulse Rate 53 L 71 Respiratory 20 Rate Blood Pressure 97/58 L 114/75 Estimated Date of D/C: 02/24/17 (wwe'll monitor closely)
--- NOTE | 2017-02-19 09:58 | PCM.PYCHPN ---
Psychiatric Progress Note - Psychiatric Progress Note Patient seen today, length of contact: 25 minutes Patient Chief Complaint: "a little depressed" Problems Identified/Issues Discussed: I reviewed recent notes and met with patient at bedside. Patient is a little more alert and focused this morning though still appears withdrawn preoccupied and paranoid. He is generally calm and cooperative during questioning. He is oriented to month and year. Speech is under-productive. Patient indicates that he remains "a little depressed". Denies hallucinations today. Patient does not appear to be actively responding to internal stimuli during my meeting with him. Patient denies any new discomfort or pain and has been tolerating medications Nursing notes indicate that patient appears flat and withdrawn on the unit. Hallucinations are a little better with prolixin. He remains in control and there were no behavioral issues overnight Diagnostic Results: schizophrenia paranoid type Rule out schizoaffective disorder Medication Change: No ( ) Medical Record Reviewed: Yes (reports, labs, vitals, notes) Mental Status Examination - Cognitive Function Orientation: Person, Place Memory: Impaired Attention: Poor Concentration: Poor Association: Loose Fund of Knowledge: Poor - Mood Mood: Depressed ("a little depressed"), Anxious - Affect Affect: Flat - Speech Speech: Soft (underproductive) - Formal Thought Process Formal Thought Process: Hallucinations (improving with prolixin), Delusions, Paranoia, Circumstantial - Suicidal Ideation Suicidal Ideation: No - Homicidal Ideation Homicidal Ideation: No Goal/Treatment Plan - Goal/Treatment Plan Need for Continued Stay: Remain at risks for inpatient hospitalization, Severe depression anxiety, Discharge may exacerbated symptoms, Severe functional impairment Progress Toward Problem(s) and Goals/Treatment Plan: * c/w current tx and plan * No new labs over the weekend * Vitals reviewed and noted below: Selected Entries 02/19/17 07:55 Temperature 97.3 F L Pulse Rate 84 Respiratory 20 Rate Blood Pressure 132/80 Estimated Date of D/C: 02/24/17 (we'll monitor closely)
--- NOTE | 2017-02-20 18:40 | PCM.PYCHPN ---
Psychiatric Progress Note - Psychiatric Progress Note Patient seen today, length of contact: 30min Patient Chief Complaint: "I am depressed, I also feel paranoid..." Problems Identified/Issues Discussed: Suicide/ homicide prevention, past psychiatric h/o, current psychiatric symptoms , medical problems, risk/benefits and alternatives of medications, medications compliance, coping strategies, substance abuse h/o, relapse prevention, importance of follow up with psychiatrist and therapist, discharge plan. Medical Problems: obesity was seen by medical team Diagnostic Results: 02/12/17 11:10 02/12/17 11:10 Lab Results 02/13/17 07:30: Fasting Glucose 102, Triglycerides 108, Cholesterol 186, LDL Cholesterol Direct 97, HDL Cholesterol 43, Free T4 0.85, TSH 3rd Generation 1.3 02/12/17 21:15: POC Glucose (mg/dL) 149 H 02/12/17 14:45: Urine Color Yellow, Urine Appearance Clear, Urine pH 6.5, Ur Specific [place] 1.020, Urine Protein Negative, Urine Glucose (UA) Negative, Urine Ketones Negative, Urine Blood Negative, Urine Nitrate Negative, Urine Bilirubin Negative, Urine Urobilinogen 1.0 H, Ur Leukocyte Esterase Negative, Urine Opiates Screen Negative, Urine Methadone Screen Negative, Ur Barbiturates Screen Negative, Ur Phencyclidine Scrn Negative, Ur Amphetamines Screen Negative , U Benzodiazepines Scrn Negative, U Oth Cocaine Metabols Negative, U Cannabinoids Screen Negative 02/12/17 11:10: WBC 6.7, RBC 4.90, Hgb 13.1 L, Hct 38.6 L, MCV 78.8 L, MCH 26.7 , MCHC 33.9, RDW 15.6 H, Plt Count 263, MPV 9.4, Gran % 79.7 H, Lymph % (Auto) 12.8 L, [place] % (Auto) 7.0 H, Eos % (Auto) 0.4 L, Baso % (Auto) 0.1, Gran # 5.35 , Lymph # 0.9 L, [place] # 0.5, Eos # 0.0, Baso # 0.01, Sodium 139, Potassium 3.5 L , Chloride 102, Carbon Dioxide 26, Anion Gap 15, BUN 14, Creatinine 0.9, Est GFR ( Amer) > 60, Est GFR (Non-Af Amer) > 60, Random Glucose 116 H, Calcium 9.1, Total Bilirubin 0.3, AST 34, ALT 26, Alkaline Phosphatase 111, Total Protein 8.5 H, Albumin 4.3, Globulin 4.2, Albumin/Globulin Ratio 1.0 L, Alcohol, Quantitative < 10 Vital Signs Temp Pulse Resp BP Pulse Ox 02/14/17 10:00 98.5 F 67 20 121/71 02/13/17 08:02 97.3 F L 89 20 135/88 02/12/17 19:04 98.1 F 85 18 137/92 H 95 02/12/17 09:15 98.7 F 85 18 144/97 H 97 Temp Pulse Resp BP Pulse Ox 97.5 F L 49 L 20 106/54 L 95 02/15/17 07:30 02/15/17 07:30 02/15/17 07:30 02/15/17 07:30 02/12/17 19:04 Temp Pulse Resp BP Pulse Ox 97.7 F 58 L 20 98/58 L 95 02/16/17 07:51 02/16/17 07:51 02/16/17 07:51 02/16/17 07:51 02/12/17 19:04 Laboratory Results - last 24 hr 02/15/17 08:00 Hemoglobinopathy Red Blood Count 4.55 Hemoglobinopathy Hct 36.4 L Hemoglobinopathy Hgb 12.0 L Hemoglobinopathy MCV 79.9 L Hemoglobinopathy MCH 26.4 L Hemoglobinopathy RDW 18.5 H Temp Pulse Resp BP Pulse Ox 97.3 F L 71 20 114/75 95 02/17/17 07:19 02/17/17 16:30 02/17/17 07:19 02/17/17 16:30 02/12/17 19:04 Temp Pulse Resp BP Pulse Ox 97.9 F 79 20 115/76 93 L 02/20/17 07:00 02/20/17 17:56 02/20/17 07:00 02/20/17 17:56 02/18/17 07:00 DSM 5 Symptoms Update: Patient is a 41 years old -Welsh male with long and debilitating h/o schizophrenia of paranoid type, multiple psychiatric admissions in the past, most recent less than a week ago [facility] where he staid for the six months, pt currently unemployed, lives in the hotel, was brought to the hospital by police for worsening of psychosis, feeling that gang members after him, hearing voices telling pt that all of his family are , pt needs further evaluation and stabilization , medication adjustment, observation. patient was seen at the treatment team, pt presented with some improvements with his hygiene, affect still constricted but more reactive. pt said that he still feels paranoid and has feeling that his family is "I called them today, they are okay". At the same time pt said that he feels more comfortable in the unit. pt reported that voices "are better", pt said that he still feels that gang members are after him. pt was educated about Boarding home, pt was receptive pt's EPS symptoms are much better, there is some mild tremor observed today. pt tolerates meds well, no side effects, pt still has tremor in UE, but improving. pt was seen by medical team. impression: DSM 5 Diagnosis: schizophrenia paranoid type Rule out schizoaffective disorder Medication Change: Yes (prozac increased, prolixin increased) Medical Record Reviewed: Yes (reports, labs, vitals, notes) Consults ordered or reviewed: medical consult appreciated pt is f/u by medical team on daily basis Mental Status Examination - Cognitive Function Orientation: Person, Place Memory: Impaired Attention: Poor Concentration: Poor Association: Loose Fund of Knowledge: Poor - Mood Mood: Depressed ("a little depressed"), Anxious - Affect Affect: Flat - Speech Speech: Soft (underproductive) - Formal Thought Process Formal Thought Process: Hallucinations (improving with prolixin), Delusions, Paranoia, Circumstantial - Suicidal Ideation Suicidal Ideation: No - Homicidal Ideation Homicidal Ideation: No Goal/Treatment Plan - Goal/Treatment Plan Need for Continued Stay: Remain at risks for inpatient hospitalization, Severe depression anxiety, Discharge may exacerbated symptoms, Severe functional impairment Progress Toward Problem(s) and Goals/Treatment Plan: milieu, structure, supportive therapy ICMS worker collaterals (appreciated), med list reviewed, see note 02/15/17, meeting 02/17/17 appreciated amantadine 100mg po tid for EPS prolixin 20mg amhs for psychosis with the plan to give prolixin Dec upon d/c ativan was decreased 0.5bid for anxiety prozac 30mg po daily for depression and anxiety Medication for sleep, sonata 5mg hs Medical team evaluation We'll monitor closely We'll consider boarding home placement pt still does not want to be on clozaril SW evaluation Estimated Date of D/C: 02/24/17 (we'll monitor closely)
--- NOTE | 2017-02-21 11:38 | PCM.PYCHPN ---
Psychiatric Progress Note - Psychiatric Progress Note Patient seen today, length of contact: 30min Patient Chief Complaint: "I have nausea today" Problems Identified/Issues Discussed: Suicide/ homicide prevention, past psychiatric h/o, current psychiatric symptoms , medical problems, risk/benefits and alternatives of medications, medications compliance, coping strategies, substance abuse h/o, relapse prevention, importance of follow up with psychiatrist and therapist, discharge plan. Medical Problems: obesity was seen by medical team Diagnostic Results: 02/12/17 11:10 02/12/17 11:10 Lab Results 02/13/17 07:30: Fasting Glucose 102, Triglycerides 108, Cholesterol 186, LDL Cholesterol Direct 97, HDL Cholesterol 43, Free T4 0.85, TSH 3rd Generation 1.3 02/12/17 21:15: POC Glucose (mg/dL) 149 H 02/12/17 14:45: Urine Color Yellow, Urine Appearance Clear, Urine pH 6.5, Ur Specific [place] 1.020, Urine Protein Negative, Urine Glucose (UA) Negative, Urine Ketones Negative, Urine Blood Negative, Urine Nitrate Negative, Urine Bilirubin Negative, Urine Urobilinogen 1.0 H, Ur Leukocyte Esterase Negative, Urine Opiates Screen Negative, Urine Methadone Screen Negative, Ur Barbiturates Screen Negative, Ur Phencyclidine Scrn Negative, Ur Amphetamines Screen Negative , U Benzodiazepines Scrn Negative, U Oth Cocaine Metabols Negative, U Cannabinoids Screen Negative 02/12/17 11:10: WBC 6.7, RBC 4.90, Hgb 13.1 L, Hct 38.6 L, MCV 78.8 L, MCH 26.7 , MCHC 33.9, RDW 15.6 H, Plt Count 263, MPV 9.4, Gran % 79.7 H, Lymph % (Auto) 12.8 L, [place] % (Auto) 7.0 H, Eos % (Auto) 0.4 L, Baso % (Auto) 0.1, Gran # 5.35 , Lymph # 0.9 L, [place] # 0.5, Eos # 0.0, Baso # 0.01, Sodium 139, Potassium 3.5 L , Chloride 102, Carbon Dioxide 26, Anion Gap 15, BUN 14, Creatinine 0.9, Est GFR ( Amer) > 60, Est GFR (Non-Af Amer) > 60, Random Glucose 116 H, Calcium 9.1, Total Bilirubin 0.3, AST 34, ALT 26, Alkaline Phosphatase 111, Total Protein 8.5 H, Albumin 4.3, Globulin 4.2, Albumin/Globulin Ratio 1.0 L, Alcohol, Quantitative < 10 Vital Signs Temp Pulse Resp BP Pulse Ox 02/14/17 10:00 98.5 F 67 20 121/71 02/13/17 08:02 97.3 F L 89 20 135/88 02/12/17 19:04 98.1 F 85 18 137/92 H 95 02/12/17 09:15 98.7 F 85 18 144/97 H 97 Temp Pulse Resp BP Pulse Ox 97.5 F L 49 L 20 106/54 L 95 02/15/17 07:30 02/15/17 07:30 02/15/17 07:30 02/15/17 07:30 02/12/17 19:04 Temp Pulse Resp BP Pulse Ox 97.7 F 58 L 20 98/58 L 95 02/16/17 07:51 02/16/17 07:51 02/16/17 07:51 02/16/17 07:51 02/12/17 19:04 Laboratory Results - last 24 hr 02/15/17 08:00 Hemoglobinopathy Red Blood Count 4.55 Hemoglobinopathy Hct 36.4 L Hemoglobinopathy Hgb 12.0 L Hemoglobinopathy MCV 79.9 L Hemoglobinopathy MCH 26.4 L Hemoglobinopathy RDW 18.5 H Temp Pulse Resp BP Pulse Ox 97.3 F L 71 20 114/75 95 02/17/17 07:19 02/17/17 16:30 02/17/17 07:19 02/17/17 16:30 02/12/17 19:04 Temp Pulse Resp BP Pulse Ox 97.9 F 79 20 115/76 93 L 02/20/17 07:00 02/20/17 17:56 02/20/17 07:00 02/20/17 17:56 02/18/17 07:00 Temp Pulse Resp BP Pulse Ox 97.5 F L 52 L 20 104/67 93 L 02/21/17 08:32 02/21/17 08:32 02/21/17 08:32 02/21/17 08:32 02/18/17 07:00 DSM 5 Symptoms Update: Patient is a 41 years old -L[place] male with long and debilitating h/o schizophrenia of paranoid type, multiple psychiatric admissions in the past, most recent less than a week ago [facility] where he staid for the six months, pt currently unemployed, lives in the hotel, was brought to the hospital by police for worsening of psychosis, feeling that gang members after him, hearing voices telling pt that all of his family are , pt needs further evaluation and stabilization , medication adjustment, observation. patient was seen at the treatment team, pt presented with some improvements with his hygiene, affect still constricted but more reactive. pt said that he has some nausea, seems it is due to the prozac increased yesterday, denied vomiting, denied diarrhea. pt was educated about side effects of meds. pt said that he still feels paranoid and has feeling that his family is "I called them today, they are okay". At the same time pt said that he feels more comfortable in the unit. pt reported that voices "are better", pt said that he still feels that gang members are after him. pt was educated about Boarding home, pt was receptive, will meet with SW about options. pt's EPS symptoms are much better, there is some mild tremor observed today. pt tolerates meds well, no side effects, pt still has tremor in UE, but improving. pt was seen by medical team. impression: DSM 5 Diagnosis: schizophrenia paranoid type Rule out schizoaffective disorder Medication Change: No (prozac increased, prolixin increased 02/20/17) Medical Record Reviewed: Yes (reports, labs, vitals, notes) Consults ordered or reviewed: medical consult appreciated pt is f/u by medical team on daily basis Mental Status Examination - Cognitive Function Orientation: Person, Place Memory: Impaired Attention: Poor (some improvement) Concentration: Poor (some improvement) Association: Loose Fund of Knowledge: Poor - Mood Mood: Depressed ("a little depressed"), Anxious - Affect Affect: Flat - Speech Speech: Soft (underproductive) - Formal Thought Process Formal Thought Process: Hallucinations (improving with prolixin), Delusions, Paranoia, Circumstantial - Suicidal Ideation Suicidal Ideation: No - Homicidal Ideation Homicidal Ideation: No Goal/Treatment Plan - Goal/Treatment Plan Need for Continued Stay: Remain at risks for inpatient hospitalization, Severe depression anxiety, Discharge may exacerbated symptoms, Severe functional impairment Progress Toward Problem(s) and Goals/Treatment Plan: milieu, structure, supportive therapy ICMS worker collaterals (appreciated), med list reviewed, see note 02/15/17, meeting 02/17/17 appreciated amantadine 100mg po tid for EPS prolixin 20mg amhs for psychosis with the plan to give prolixin Dec upon d/c increased 02/20/17 considering the fact pt was psychotic on the Invega Sustena(234mg) every 4 weeks. PT's last injection on 02/06/17. it will be d/c with the plan to give Prolixin Dec. ativan was decreased 0.5bid for anxiety 02/20/17 prozac 30mg po daily for depression and anxiety increased 02/20/17 Medication for sleep, sonata 5mg hs Medical team evaluation We'll monitor closely We'll consider boarding home placement pt still does not want to be on clozaril SW evaluation Estimated Date of D/C: 02/24/17 (we'll monitor closely)
--- NOTE | 2017-02-22 11:59 | PCM.PYCHPN ---
Psychiatric Progress Note - Psychiatric Progress Note Patient seen today, length of contact: 25 min Patient Chief Complaint: "better" Problems Identified/Issues Discussed: I reviewed recent notes and met with patient at bedside. Patient appears brighter with more reactive and related affect during questioning. Focus is also improving. He remains oriented to month your location circumstances. Patient still appears a little withdrawn and preoccupied however he's not demonstrating any overt signs of disorganization or hallucinations. Patient indicates that his hallucinations and paranoia are improving though at times he still hears voices telling him that people are out to get him. Patient does not demonstrate hyper vigilance on the unit. He is generally calm and cooperative during questioning. Speech is under productive and soft. Patient denies any new discomfort or pain and has been tolerating medications Nursing notes indicate that patient appears flat and withdrawn on the unit. Hallucinations are improving. He remains in control and there were no behavioral issues overnight Diagnostic Results: schizophrenia paranoid type Rule out schizoaffective disorder Medication Change: No ( ) Medical Record Reviewed: Yes (reports, labs, vitals, notes) Mental Status Examination - Cognitive Function Orientation: Person, Place Memory: Impaired Attention: WNL (some improvement) Concentration: Poor (some improvement) Association: Loose Fund of Knowledge: Poor - Mood Mood: Depressed ("better"), Anxious - Affect Affect: Flat - Speech Speech: Soft (underproductive) - Formal Thought Process Formal Thought Process: Hallucinations (hallucinations and paranoia are improving though at times he still hears voices telling him that people are out to get him), Delusions, Paranoia, Circumstantial - Suicidal Ideation Suicidal Ideation: No - Homicidal Ideation Homicidal Ideation: No Goal/Treatment Plan - Goal/Treatment Plan Need for Continued Stay: Remain at risks for inpatient hospitalization, Severe depression anxiety, Discharge may exacerbated symptoms, Severe functional impairment Progress Toward Problem(s) and Goals/Treatment Plan: * c/w current tx and plan * c/w amantadine 100mg po tid for EPS * c/w ativan which was decreased to 0.5 bid for anxiety 02/20/17 * c/w prolixin, increased on 02/20/17 to 20mg amhs for psychosis with the plan to give prolixin Dec upon d/c ~possibly to Boarding Home if patient agrees * c/w Prozac 30 mg po daily for depression and anxiety * c/w Sonata 10 mg HS for insomnia * pt's EPS symptoms are much better, pt still has tremor in UE, but improving. * Continue to communicate with ICMS worker prn. Meeting was on 02/17/17 * No new labs overnight * Vitals reviewed and noted below: Selected Entries 02/22/17 06:31 Temperature 98.1 F Pulse Rate 57 L Respiratory 18 Rate Blood Pressure 97/56 L O2 Sat by Pulse 98 Oximetry Estimated Date of D/C: 02/24/17 (we'll monitor closely)
--- NOTE | 2017-02-23 10:55 | PCM.PYCHPN ---
Psychiatric Progress Note - Psychiatric Progress Note Patient seen today, length of contact: 25 min Patient Chief Complaint: "better" Problems Identified/Issues Discussed: I reviewed recent notes and met with patient at bedside. Patient still appears brighter with more reactive and related affect during questioning. Focus is definitely also improving. He remains well-oriented to circumstances. Still appears a little withdrawn and preoccupied however he's not demonstrating any overt signs of disorganization or hallucinations.Speech is under productive and soft. Patient indicates that his hallucinations and paranoia are improving though at times he still hears voices (mostly at night) telling him that people are out to get him. He tries his best to ignore these voices at night. Patient does not demonstrate hyper vigilance on the unit and paranoia seems to be improving as he is less guarded and engages more freely during our interviews. Patient is generally calm and cooperative during questioning. Patient denies any new discomfort or pain and has been tolerating medications Nursing notes indicate that patient appears more animated on unit. Smiles more readily and broadly. Attending groups but not verbally participating. He remains in good control and there were no behavioral issues overnight Diagnostic Results: schizophrenia paranoid type Rule out schizoaffective disorder Medication Change: No ( ) Medical Record Reviewed: Yes (reports, labs, vitals, notes) Mental Status Examination - Cognitive Function Orientation: Person, Place Memory: Impaired Attention: WNL (some improvement) Concentration: WNL (some improvement) Association: Loose Fund of Knowledge: Poor - Mood Mood: Depressed ("better"), Anxious - Affect Affect: Flat - Speech Speech: Soft (underproductive) - Formal Thought Process Formal Thought Process: Hallucinations (hallucinations and paranoia are improving though at times he still hears voices telling him that people are out to get him), Delusions, Paranoia, Circumstantial (improving) - Suicidal Ideation Suicidal Ideation: No - Homicidal Ideation Homicidal Ideation: No Goal/Treatment Plan - Goal/Treatment Plan Need for Continued Stay: Remain at risks for inpatient hospitalization, Severe depression anxiety, Discharge may exacerbated symptoms, Severe functional impairment Progress Toward Problem(s) and Goals/Treatment Plan: * c/w current tx and plan * c/w amantadine 100mg po tid for EPS * c/w ativan which was decreased to 0.5 bid for anxiety 02/20/17 * c/w prolixin, increased on 02/20/17 to 20mg amhs for psychosis with the plan to give prolixin Dec upon d/c ~possibly to Boarding Home if patient agrees * c/w Prozac 30 mg po daily for depression and anxiety * c/w Sonata 10 mg HS for insomnia * pt's EPS symptoms are much better, pt still has tremor in UE, but improving. * Continue to communicate with ICMS worker prn. Meeting was on 02/17/17 * No new labs overnight * Vitals reviewed and noted below: Selected Entries 02/22/17 02/22/17 02/23/17 06:31 18:00 06:28 Temperature 98.1 F 97.8 F Pulse Rate 57 L 74 58 L Respiratory 18 20 Rate Blood Pressure 97/56 L 112/81 102/59 L Estimated Date of D/C: 02/24/17 (we'll monitor closely)
--- NOTE | 2017-02-24 11:10 | PCM.PYCHPN ---
Psychiatric Progress Note - Psychiatric Progress Note Patient seen today, length of contact: 25 min Patient Chief Complaint: "better" Problems Identified/Issues Discussed: I reviewed recent notes and met with patient at bedside. Patient still appears brighter with more reactive and related affect during questioning. Focus is definitely also improving. He remains well-oriented to circumstances. Still appears a little withdrawn and preoccupied however he's not demonstrating any overt signs of disorganization or hallucinations. Speech is under productive and soft. Patient indicates that his hallucinations and paranoia are improving though he still hears voices (mostly at night) telling him that people are out to get him. He tries his best to ignore these voices at night. Patient does not demonstrate hypervigilance on the unit and paranoia seems to be improving as he is less guarded and engages more freely during our interviews. Patient is generally calm and cooperative during questioning. Patient denies any new discomfort or pain and has been tolerating medications Nursing notes indicate that patient appears more animated on unit though still isolative and withdrawn. Smiles more readily and broadly. Attending groups but not verbally participating. He remains in good control and there were no behavioral issues overnight Diagnostic Results: schizophrenia paranoid type Rule out schizoaffective disorder Medication Change: No ( ) Medical Record Reviewed: Yes (reports, labs, vitals, notes) Mental Status Examination - Cognitive Function Orientation: Person, Place Memory: Impaired Attention: WNL (some improvement) Concentration: WNL (some improvement) Association: Loose Fund of Knowledge: Poor - Mood Mood: Depressed ("better"), Anxious - Affect Affect: Flat - Speech Speech: Soft (underproductive) - Formal Thought Process Formal Thought Process: Hallucinations (hallucinations and paranoia are improving though at times he still hears voices telling him that people are out to get him), Delusions, Paranoia, Circumstantial (improving) - Suicidal Ideation Suicidal Ideation: No - Homicidal Ideation Homicidal Ideation: No Goal/Treatment Plan - Goal/Treatment Plan Need for Continued Stay: Remain at risks for inpatient hospitalization, Severe depression anxiety, Discharge may exacerbated symptoms, Severe functional impairment Progress Toward Problem(s) and Goals/Treatment Plan: * c/w current tx and plan * c/w amantadine 100mg po tid for EPS * c/w ativan which was decreased to 0.5 bid for anxiety 02/20/17 * c/w prolixin, increased on 02/20/17 to 20mg amhs for psychosis with the plan to give prolixin Dec upon d/c ~possibly to Boarding Home if patient agrees * c/w Prozac 30 mg po daily for depression and anxiety * c/w Sonata 10 mg HS for insomnia * Pt's EPS symptoms are much better, pt still has tremor in UE, but improving. * Continue to communicate with ICMS worker prn. Meeting was on 02/17/17 * No new labs overnight * Vitals reviewed and noted below: Selected Entries 02/24/17 02/24/17 08:34 16:25 Temperature 98.2 F Pulse Rate 56 L 80 Respiratory 18 Rate Blood Pressure 96/56 L 132/88 Estimated Date of D/C: 02/24/17 (we'll monitor closely)
--- NOTE | 2017-02-25 09:22 | PCM.PYCHPN ---
Psychiatric Progress Note - Psychiatric Progress Note Patient seen today, length of contact: 25 min Patient Chief Complaint: "better" Problems Identified/Issues Discussed: I reviewed recent notes and met with patient at bedside. Patient still appears brighter with more reactive and related affect during questioning. Focus demonstrates sustained improvement. He is well-oriented to circumstances. Still appears a little withdrawn and preoccupied however he's not demonstrating any overt signs of disorganization, paranoia or hallucinations. Speech is under productive and soft. Patient indicates that his hallucinations and paranoia persist but are improving. He still hears voices (mostly at night) telling him that people are out to get him. Denies any recent changes in perceptual disturbance, specifically denies any changes in intensity or frequency of hallucinations. Denies command type auditory hallucinations. Patient does not demonstrate hypervigilance on the unit and paranoia does seem to be improving as he is less guarded and engages more freely during our interviews. Patient is generally calm and cooperative during questioning. Patient denies any new discomfort or pain and has been tolerating medications. Nursing notes indicate that patient appears more animated on unit though can still be isolative and withdrawn. Smiles more readily and broadly. Attending groups but not verbally participating. He has been understanding and patient about the delay in finding disposition for him. He remains in good control and there were no behavioral issues overnight Diagnostic Results: schizophrenia paranoid type Rule out schizoaffective disorder Medication Change: No ( ) Medical Record Reviewed: Yes (reports, labs, vitals, notes) Mental Status Examination - Cognitive Function Orientation: Person, Place Memory: Impaired Attention: WNL (some improvement) Concentration: WNL (some improvement) Association: Loose Fund of Knowledge: Poor - Mood Mood: Depressed ("better"), Anxious - Affect Affect: Flat - Speech Speech: Soft (underproductive) - Formal Thought Process Formal Thought Process: Hallucinations (hallucinations and paranoia are improving though at times he still hears voices telling him that people are out to get him), Delusions, Paranoia, Circumstantial (improving) - Suicidal Ideation Suicidal Ideation: No - Homicidal Ideation Homicidal Ideation: No Goal/Treatment Plan - Goal/Treatment Plan Need for Continued Stay: Remain at risks for inpatient hospitalization, Severe depression anxiety, Discharge may exacerbated symptoms, Severe functional impairment Progress Toward Problem(s) and Goals/Treatment Plan: * c/w current tx and plan * c/w amantadine 100mg po tid for EPS * c/w ativan which was decreased to 0.5 bid for anxiety 02/20/17 * c/w prolixin, increased on 02/20/17 to 20mg amhs for psychosis with the plan to give prolixin Dec upon d/c ~possibly to Boarding Home if patient agrees * c/w Prozac 30 mg po daily for depression and anxiety * c/w Sonata 10 mg HS for insomnia * Pt's EPS symptoms are much better, pt still has tremor in UE, but improving. * Continue to communicate with ICMS worker prn. Meeting was on 02/17/17 * No new labs overnight * Vitals reviewed and noted below: Selected Entries 02/25/17 06:45 Temperature 98.0 F Pulse Rate 57 L Respiratory 16 Rate Blood Pressure 97/57 L Estimated Date of D/C: 02/24/17 (we'll monitor closely)
--- NOTE | 2017-02-26 08:59 | PCM.PYCHPN ---
Psychiatric Progress Note - Psychiatric Progress Note Patient seen today, length of contact: 25 min Patient Chief Complaint: "better" Problems Identified/Issues Discussed: I reviewed recent notes and met with patient at bedside. Patient still appears brighter with more reactive and related affect during questioning. Focus demonstrates sustained improvement. He is well-oriented to circumstances. Patient appears a little withdrawn and preoccupied however he's not demonstrating any overt signs of disorganization, paranoia or hallucinations. Speech is under-productive and soft. Patient indicates that his hallucinations and paranoia persist but are improving. He still hears voices (mostly at night) telling him that people are out to get him. Denies any recent changes in perceptual disturbance, specifically denies any changes in intensity, quality or frequency of hallucinations. Denies command type auditory hallucinations. Patient does not demonstrate hypervigilance on the unit and paranoia does seem to be improving as he is less guarded and engages more freely during our interviews. Patient is generally calm and cooperative during questioning. Patient denies any new discomfort or pain and has been tolerating medications. Nursing notes indicate that patient appears more animated on unit though can still be isolative and withdrawn. Smiles more readily. Attending groups but not verbally participating. He has been understanding and patient about the delay in finding disposition for him. He remains in good control and there were no behavioral issues over the weekend. Ativan is being decreased today due to reports of daytime sedation, patient is agreeable. Diagnostic Results: schizophrenia paranoid type Rule out schizoaffective disorder Medication Change: Yes (ativan decreased on 02/26/17 ) Medical Record Reviewed: Yes (reports, labs, vitals, notes) Mental Status Examination - Cognitive Function Orientation: Person, Place Memory: Impaired Attention: WNL (some improvement) Concentration: WNL (some improvement) Association: Loose Fund of Knowledge: Poor - Mood Mood: Depressed ("better"), Anxious - Affect Affect: Flat - Speech Speech: Soft (underproductive) - Formal Thought Process Formal Thought Process: Hallucinations (hallucinations and paranoia are improving though at times he still hears voices telling him that people are out to get him), Delusions, Paranoia, Circumstantial (improving) - Suicidal Ideation Suicidal Ideation: No - Homicidal Ideation Homicidal Ideation: No Goal/Treatment Plan - Goal/Treatment Plan Need for Continued Stay: Remain at risks for inpatient hospitalization, Severe depression anxiety, Discharge may exacerbated symptoms, Severe functional impairment Progress Toward Problem(s) and Goals/Treatment Plan: * c/w current tx and plan * c/w amantadine 100mg po tid for EPS * c/w ativan which was decreased from 0.5/0.5 to 0.5 HS on 02/26/17 * c/w prolixin, increased on 02/20/17 to 20mg amhs for psychosis with the plan to give prolixin Dec upon d/c ~possibly to an agreed upon Boarding Home * c/w Prozac 30 mg po daily for depression and anxiety * c/w Sonata 10 mg HS for insomnia * Pt's EPS symptoms are much better, pt still has tremor in UE, but improving. * Continue to communicate with ICMS worker prn. Meeting was on 02/17/17 * No new labs overnight * Vitals reviewed and noted below: Selected Entries 02/25/17 02/25/17 06:45 16:22 Temperature 98.0 F Pulse Rate 57 L 73 Respiratory 16 Rate Blood Pressure 97/57 L 120/81 Estimated Date of D/C: 02/24/17 (we'll monitor closely)
--- NOTE | 2017-02-27 05:17 | PCM.PYCHPN ---
Psychiatric Progress Note - Psychiatric Progress Note Patient seen today, length of contact: 25 min Patient Chief Complaint: "better" Problems Identified/Issues Discussed: I reviewed recent notes and met with patient at bedside. Patient still appears brighter with more reactive and related affect during questioning. Focus demonstrates sustained improvement. He is well-oriented to circumstances. Patient appears a little withdrawn and preoccupied however he's not demonstrating any overt signs of disorganization, paranoia or hallucinations. Speech is under-productive and soft. Patient indicates that his hallucinations and paranoia persist but are improving. He still hears voices (mostly at night) telling him that people are out to get him. Denies any recent changes in perceptual disturbance, specifically denies any changes in intensity, quality or frequency of hallucinations. Denies command type auditory hallucinations. Patient does not demonstrate hypervigilance on the unit and paranoia does seem to be improving as he is less guarded and engages more freely during our interviews. Patient is generally calm and cooperative during questioning. Patient denies any new discomfort or pain and has been tolerating medications. Nursing notes indicate that patient appears more animated on unit though can still be isolative and withdrawn. Smiles more readily. Attending groups but not verbally participating. He has been understanding and patient about the delay in finding disposition for him. He remains in good control and there were no behavioral issues over the weekend. Ativan is being decreased today due to reports of daytime sedation, patient is agreeable. Diagnostic Results: schizophrenia paranoid type Rule out schizoaffective disorder Medication Change: Yes (ativan decreased on 02/26/17 ) Medical Record Reviewed: Yes (reports, labs, vitals, notes) Mental Status Examination - Cognitive Function Orientation: Person, Place Memory: Impaired Attention: WNL (some improvement) Concentration: WNL (some improvement) Association: Loose Fund of Knowledge: Poor - Mood Mood: Depressed ("better"), Anxious - Affect Affect: Flat - Speech Speech: Soft (underproductive) - Formal Thought Process Formal Thought Process: Hallucinations (hallucinations and paranoia are improving though at times he still hears voices telling him that people are out to get him), Delusions, Paranoia, Circumstantial (improving) - Suicidal Ideation Suicidal Ideation: No - Homicidal Ideation Homicidal Ideation: No Goal/Treatment Plan - Goal/Treatment Plan Need for Continued Stay: Remain at risks for inpatient hospitalization, Severe depression anxiety, Discharge may exacerbated symptoms, Severe functional impairment Progress Toward Problem(s) and Goals/Treatment Plan: * c/w current tx and plan * c/w amantadine 100mg po tid for EPS * c/w ativan which was decreased from 0.5/0.5 to 0.5 HS on 02/26/17 * c/w prolixin, increased on 02/20/17 to 20mg amhs for psychosis with the plan to give prolixin Dec upon d/c ~possibly to an agreed upon Boarding Home * c/w Prozac 30 mg po daily for depression and anxiety * c/w Sonata 10 mg HS for insomnia * Pt's EPS symptoms are much better, pt still has tremor in UE, but improving. * Continue to communicate with ICMS worker prn. Meeting was on 02/17/17 * No new labs overnight * Vitals reviewed and noted below: Selected Entries 02/26/17 02/26/17 06:36 10:00 Temperature 98.2 F Pulse Rate 56 L 63 Respiratory 16 Rate Blood Pressure 101/55 L 113/81 Estimated Date of D/C: 02/24/17 (we'll monitor closely)
[2017-02-27 06:53] VITALS: O2SAT 100
--- NOTE | 2017-02-27 11:03 | PCM.PYCHPN ---
Psychiatric Progress Note - Psychiatric Progress Note Patient seen today, length of contact: 25 min Patient Chief Complaint: "better" Problems Identified/Issues Discussed: I reviewed recent notes and met with patient at bedside. Patient still appears brighter with more reactive and related affect during questioning. Focus demonstrates sustained improvement. He is well-oriented to circumstances. Patient appears a little withdrawn and preoccupied however he's not demonstrating any overt signs of disorganization, paranoia or hallucinations. Speech is under-productive and soft. Patient indicates that his hallucinations and paranoia persist but are improving. He still hears voices (mostly at night) telling him that people are out to get him. Denies any recent changes in perceptual disturbance, specifically denies any changes in intensity, quality or frequency of hallucinations. Denies command type auditory hallucinations. Patient does not demonstrate hypervigilance on the unit and paranoia does seem to be improving as he is less guarded and engages more freely during our interviews. Patient is generally calm and cooperative during questioning. Patient denies any new discomfort or pain and has been tolerating medications. Nursing notes indicate that patient appears more animated on unit though can still be isolative and withdrawn. Smiles more readily. Attending groups but not verbally participating very much. He remains in good control and there were no behavioral issues over the weekend. Patient is tolerating decrease in Ativan well thus far. Diagnostic Results: schizophrenia paranoid type Rule out schizoaffective disorder Medication Change: Yes (ativan decreased on 02/26/17 ) Medical Record Reviewed: Yes (reports, labs, vitals, notes) Mental Status Examination - Cognitive Function Orientation: Person, Place Memory: Impaired Attention: WNL (some improvement) Concentration: WNL (some improvement) Association: Loose Fund of Knowledge: Poor - Mood Mood: Depressed ("better"), Anxious - Affect Affect: Flat - Speech Speech: Soft (underproductive) - Formal Thought Process Formal Thought Process: Hallucinations (hallucinations and paranoia are improving though at times he still hears voices telling him that people are out to get him), Delusions, Paranoia, Circumstantial (improving) - Suicidal Ideation Suicidal Ideation: No - Homicidal Ideation Homicidal Ideation: No Goal/Treatment Plan - Goal/Treatment Plan Need for Continued Stay: Remain at risks for inpatient hospitalization, Severe depression anxiety, Discharge may exacerbated symptoms, Severe functional impairment Progress Toward Problem(s) and Goals/Treatment Plan: * c/w current tx and plan * c/w amantadine 100mg po tid for EPS * c/w ativan which was decreased from 0.5/0.5 to 0.5 HS on 02/26/17 * c/w prolixin, increased on 02/20/17 to 20mg amhs for psychosis with the plan to give prolixin Dec upon d/c ~possibly to an agreed upon Boarding Home * c/w Prozac 30 mg po daily for depression and anxiety * c/w Sonata 10 mg HS for insomnia * Pt's EPS symptoms are much better, pt still has tremor in UE, but improving. * Continue to communicate with ICMS worker prn. Meeting was on 02/17/17 * No new labs overnight * Vitals reviewed and noted below: Selected Entries 02/26/17 02/26/17 06:36 10:00 Temperature 98.2 F Pulse Rate 56 L 63 Respiratory 16 Rate Blood Pressure 101/55 L 113/81 Estimated Date of D/C: 02/24/17 (we'll monitor closely)
--- NOTE | 2017-02-28 10:18 | PCM.PYCHPN ---
Psychiatric Progress Note - Psychiatric Progress Note Patient seen today, length of contact: 25 min Patient Chief Complaint: "better" Problems Identified/Issues Discussed: I reviewed recent notes and met with patient at bedside. Patient still appears brighter with more reactive and related affect during questioning. Focus demonstrates sustained improvement. He is well-oriented to circumstances. Patient still appears a little withdrawn and preoccupied however he does not demonstrate any overt signs of disorganization, paranoia or hallucinations. Speech is under-productive and soft. Patient indicates that his hallucinations and paranoia persist but continue to improve. He still hears voices (mostly at night) telling him that people are out to get him. Denies any recent changes in perceptual disturbance, specifically denies any changes in intensity, quality or frequency of hallucinations. Denies command type auditory hallucinations. Patient does not demonstrate hypervigilance on the unit and paranoia does seem to be improving as he is less guarded and engages more freely with me and other staff members. Patient is generally calm and cooperative during questioning. Patient denies any new discomfort or pain and has been tolerating medications. Nursing notes indicate that patient appears more animated on unit though can still be isolative and withdrawn. Smiles more readily. Attending groups but not verbally participating very much. He remains in good control and there were no behavioral issues overnight. Patient is tolerating decrease in Ativan well thus far. Insight and judgment are improving. Diagnostic Results: schizophrenia paranoid type Rule out schizoaffective disorder Medication Change: Yes (ativan decreased on 02/26/17 ) Medical Record Reviewed: Yes (reports, labs, vitals, notes) Mental Status Examination - Cognitive Function Orientation: Person, Place Memory: Impaired Attention: WNL (some improvement) Concentration: WNL (some improvement) Association: Loose Fund of Knowledge: Poor - Mood Mood: Depressed ("better"), Anxious - Affect Affect: Flat - Speech Speech: Soft (underproductive) - Formal Thought Process Formal Thought Process: Hallucinations (hallucinations and paranoia are improving though at times he still hears voices telling him that people are out to get him), Delusions, Paranoia, Circumstantial (improving) - Suicidal Ideation Suicidal Ideation: No - Homicidal Ideation Homicidal Ideation: No Goal/Treatment Plan - Goal/Treatment Plan Need for Continued Stay: Remain at risks for inpatient hospitalization, Severe depression anxiety, Discharge may exacerbated symptoms, Severe functional impairment Progress Toward Problem(s) and Goals/Treatment Plan: * c/w current tx and plan * Note Dr. Gramajo signed off case on 02/15/17 * c/w amantadine 100mg po tid for EPS * c/w ativan which was decreased from 0.5/0.5 to 0.5 HS on 02/26/17 * c/w prolixin, increased on 02/20/17 to 20mg amhs for psychosis with the plan to give prolixin Dec upon d/c ~possibly to an agreed upon Boarding Home * c/w Prozac 30 mg po daily for depression and anxiety * c/w Sonata 10 mg HS for insomnia * Pt's EPS symptoms are much better, pt still has tremor in UE, but improving. * Continue to communicate with ICMS worker prn. Meeting was on 02/17/17 * No new labs overnight * Vitals reviewed and noted below: Selected Entries 02/27/17 02/27/17 06:52 16:30 Temperature 98.1 F Pulse Rate 92 H 67 Respiratory 20 Rate Blood Pressure 88/50 L 116/74 Estimated Date of D/C: 02/24/17 (we'll monitor closely)
[2017-03-01] MEDS ORDERED: fluPHENAZine Decanoate 25 mg/mL Inj(5ml) IM ONE (10:30)
--- NOTE | 2017-03-01 10:33 | PCM.PYCHPN ---
Psychiatric Progress Note - Psychiatric Progress Note Patient seen today, length of contact: 25 min Patient Chief Complaint: "better" Problems Identified/Issues Discussed: I reviewed recent notes and met with patient at bedside. Patient still appears brighter with more reactive and related affect during questioning. Focus demonstrates sustained improvement. He is well-oriented to circumstances. Patient still appears a little withdrawn and preoccupied however he does not demonstrate any overt signs of disorganization, paranoia or hallucinations. Speech is under-productive and soft. Patient indicates that his hallucinations and paranoia persist but continue to improve. He still hears voices (mostly at night) telling him that people are out to get him. Denies any recent changes in perceptual disturbance, specifically denies any changes in intensity, quality or frequency of hallucinations. Denies command type auditory hallucinations. Patient does not demonstrate hypervigilance on the unit and paranoia does seem to be improving as he is less guarded and engages more freely with me and other staff members. Patient is generally calm and cooperative during questioning. Patient denies any new discomfort or pain and has been tolerating medications. Patient is agreeable to prolixin dec today. Nursing notes indicate that patient appears more animated on unit though can still be isolative and withdrawn. Smiles more readily. Attending groups but not verbally participating very much. He remains in good control and there were no behavioral issues overnight. Patient is tolerating decrease in Ativan well thus far. Insight and judgment are improving. Diagnostic Results: schizophrenia paranoid type Rule out schizoaffective disorder Medication Change: Yes (ativan decreased on 02/26/17 ) Medical Record Reviewed: Yes (reports, labs, vitals, notes) Mental Status Examination - Cognitive Function Orientation: Person, Place Memory: Impaired Attention: WNL (some improvement) Concentration: WNL (some improvement) Association: Loose Fund of Knowledge: Poor - Mood Mood: Depressed ("better"), Anxious - Affect Affect: Flat - Speech Speech: Soft (underproductive) - Formal Thought Process Formal Thought Process: Hallucinations (hallucinations and paranoia are improving though at times he still hears voices telling him that people are out to get him), Delusions, Paranoia, Circumstantial (improving) - Suicidal Ideation Suicidal Ideation: No - Homicidal Ideation Homicidal Ideation: No Goal/Treatment Plan - Goal/Treatment Plan Need for Continued Stay: Remain at risks for inpatient hospitalization, Severe depression anxiety, Discharge may exacerbated symptoms, Severe functional impairment Progress Toward Problem(s) and Goals/Treatment Plan: * c/w current tx and plan * Note Dr. Gramajo signed off case on 02/15/17 * c/w amantadine 100mg po tid for EPS * c/w ativan which was decreased from 0.5/0.5 to 0.5 HS on 02/26/17 * c/w prolixin, increased on 02/20/17 to 20mg amhs for psychosis, patient to receive Prolixin Decanoate 12.5 mg x1 today in preparation for patient's discharge tomorrow. * c/w Prozac 30 mg po daily for depression and anxiety * c/w Sonata 10 mg HS for insomnia * Pt's EPS symptoms are much better, pt still has tremor in UE, but improving. * Continue to communicate with ICMS worker prn. Meeting was on 02/17/17 * No new labs overnight * Vitals reviewed and noted below: Selected Entries 02/28/17 02/28/17 06:37 16:43 Temperature 98.1 F Pulse Rate 68 68 Respiratory 20 Rate Blood Pressure 99/60 L 115/77 Estimated Date of D/C: 02/24/17 (we'll monitor closely) - Smoking Cessation Smoking Cessation Initiated: No
[2017-03-01 16:20] VITALS: PULSE 66
[2017-03-02 06:52] VITALS: BP 100/61; RESP 20; TEMP 97.8
--- NOTE | 2017-03-02 10:41 | PCM.PYCHDC ---
Mental Status Examination - Mental Status Examination Orientation: Person, Place, Situation Memory: Intact Mood: Neutral Affect: Flat Speech: Appropriate Attention: WNL Concentration: WNL Association: WNL Fund of Knowledge: WNL Formal Thought Process: Hallucinations (Much improved), Paranoia (Much improved) , Loosening of associations (Much improved) Description of patient's judgement and insight: Much improved, Fair I/J Psychotic Thoughts and Behaviors: Denies VH. AH much improved, no CAH PI much improved Paranoid delusions much improved Suicidal Ideation: No Current Homicidal Ideation?: No Discharge Summary - Discharge Note Reason for Hospitalization: Patient is a 41 years old -Nepalese male with long and debilitating h/o schizophrenia of paranoid type, multiple psychiatric admissions in the past, most recent less than a week ago [facility] where he staid for the six months, pt currently unemployed, lives in the hotel, was brought to the hospital by police for worsening of psychosis, feeling that gang members after him, hearing voices telling pt that all of his family are , pt needs further evaluation and stabilization , medication adjustment, observation. Psychiatric History (includes Medical, Family, Personal Hx): see HPI Laboratory Data: Laboratory Tests 02/12/17 02/12/17 02/12/17 11:10 14:45 21:15 WBC 6.7 RBC 4.90 Hgb 13.1 L Hct 38.6 L MCV 78.8 L MCH 26.7 MCHC 33.9 RDW 15.6 H Plt Count 263 MPV 9.4 Gran % 79.7 H Lymph % (Auto) 12.8 L Page % (Auto) 7.0 H Eos % (Auto) 0.4 L Baso % (Auto) 0.1 Gran # 5.35 Lymph # 0.9 L Page # 0.5 Eos # 0.0 Baso # 0.01 Hemoglobin A Hemoglobin A2 Hemoglobin C Hemoglobin F () Hemoglobin S Variant Hemoglobin Hemoglobinopathy Red Blood Count Hemoglobinopathy Hct Hemoglobinopathy Hgb Hemoglobinopathy MCV Hemoglobinopathy MCH Hemoglobinopathy RDW Hemoglobinopathy Interp Sodium 139 Potassium 3.5 L Chloride 102 Carbon Dioxide 26 Anion Gap 15 BUN 14 Creatinine 0.9 Est GFR ( Amer) > 60 Est GFR (Non-Af Amer) > 60 POC Glucose (mg/dL) 149 H Random Glucose 116 H Fasting Glucose Calcium 9.1 Total Bilirubin 0.3 AST 34 ALT 26 Alkaline Phosphatase 111 Total Protein 8.5 H Albumin 4.3 Globulin 4.2 Albumin/Globulin Ratio 1.0 L Triglycerides Cholesterol LDL Cholesterol Direct HDL Cholesterol Free T4 TSH 3rd Generation Urine Color Yellow Urine Appearance Clear Urine pH 6.5 Ur Specific Esmond 1.020 Urine Protein Negative Urine Glucose (UA) Negative Urine Ketones Negative Urine Blood Negative Urine Nitrate Negative Urine Bilirubin Negative Urine Urobilinogen 1.0 H Ur Leukocyte Esterase Negative Urine Opiates Screen Negative Urine Methadone Screen Negative Ur Barbiturates Screen Negative Ur Phencyclidine Scrn Negative Ur Amphetamines Screen Negative U Benzodiazepines Scrn Negative U Oth Cocaine Metabols Negative U Cannabinoids Screen Negative Alcohol, Quantitative < 10 02/13/17 02/15/17 07:30 08:00 WBC RBC Hgb Hct MCV MCH MCHC RDW Plt Count MPV Gran % Lymph % (Auto) Page % (Auto) Eos % (Auto) Baso % (Auto) Gran # Lymph # Page # Eos # Baso # Hemoglobin A 97.3 Hemoglobin A2 1.7 L Hemoglobin C 0.0 Hemoglobin F () <1.0 Hemoglobin S 0.0 Variant Hemoglobin 0.0 Hemoglobinopathy Red Blood Count 4.55 Hemoglobinopathy Hct 36.4 L Hemoglobinopathy Hgb 12.0 L Hemoglobinopathy MCV 79.9 L Hemoglobinopathy MCH 26.4 L Hemoglobinopathy RDW 18.5 H Hemoglobinopathy Interp See note Sodium Potassium Chloride Carbon Dioxide Anion Gap BUN Creatinine Est GFR ( Amer) Est GFR (Non-Af Amer) POC Glucose (mg/dL) Random Glucose Fasting Glucose 102 Calcium Total Bilirubin AST ALT Alkaline Phosphatase Total Protein Albumin Globulin Albumin/Globulin Ratio Triglycerides 108 Cholesterol 186 LDL Cholesterol Direct 97 HDL Cholesterol 43 Free T4 0.85 TSH 3rd Generation 1.3 Urine Color Urine Appearance Urine pH Ur Specific Esmond Urine Protein Urine Glucose (UA) Urine Ketones Urine Blood Urine Nitrate Urine Bilirubin Urine Urobilinogen Ur Leukocyte Esterase Urine Opiates Screen Urine Methadone Screen Ur Barbiturates Screen Ur Phencyclidine Scrn Ur Amphetamines Screen U Benzodiazepines Scrn U Oth Cocaine Metabols U Cannabinoids Screen Alcohol, Quantitative Consultations:: List each consultation separately and include: 1. Reason for request. 2. Findings. 3. Follow-up Consultations: Dr. Gramajo signed off case on 02/25/17 Summary of Hospital Course include:: 1. Description of specific treatment plan utilized for patients during their course of treatmen. 2. Summarize the time- course for resolution of acute symptoms and/or regressed behaviors. 3. Describe issues identified and worked on during hospitalization. 4. Describe medication utilized. 5. Describe medical problems identified and treated. 6. Reassessment of suicide risk Summary of Hospital Course: Patient is a 41 years old -Nepalese male with long and debilitating h/o schizophrenia of paranoid type, multiple psychiatric admissions in the past, most recent less than a week ago [facility] where he staid for the six months, pt currently unemployed, lives in the hotel, was brought to the hospital by police for worsening of psychosis, feeling that gang members after him, hearing voices telling pt that all of his family are , pt needs further evaluation and stabilization , medication adjustment, observation. Patient scheduled for discharge today and this provider meets with him to ensure stability for discharge. Patient reports improvement since his admission and denies having any new concerns. Indicates mood is improved and that he is more hopeful. Denies having any wishes, suicidal thoughts or thoughts to harm others. Patient also consistently reported that AH and PI were much improved since admission. Paranoid delusions much improved. Focus and eye contact are good. Patient is fairly related and affect demonstrates moderate range with appropriate reactivity. Overall he feels very comfortable with today's discharge date and after care plans. Reported to smoke a pack a day, refused to be on nicotine patch, counseling provided. - Final Diagnosis (DSM 5) Condition upon Discharge: STABLE DSM 5: schizophrenia paranoid type Rule out schizoaffective disorder Disposition: HOME/ ROUTINE Follow-up Treatment Plan: PER MIMI: 02/28/17 15:22 - by Pari Velázquez (REFER TO NOTE FOR FULL DISPOSITION SUMMARY) As per Sallie Madison, Coordinator at [facility], there are no beds available at this time, however a B level apartment in [facility] may become available in the next few days. instructed Sallie to contact pt's ICMS worker , Jamar Meier after regarding bed status as pt will be discharged. FOLLOWING MEDICATIONS 2 WEEKS + 1 RF WERE CALLED INTO [facility]: * amantadine 100mg po tid for EPS * ativan 0.5 HS for anxiety and EPS * prolixin 20mg amhs for psychosis, * Prozac 30 mg po daily for depression and anxiety * Sonata 10 mg HS for insomnia ~Patient to received Prolixin Decanoate 12.5 mg x1 on 03/01/17 - Smoking Cessation Smoking Cessation Medication prescribed: No Reason for not providing: Patient refused - Antipsychotic Medications Pt discharged on 2 or more routine antipsychotic medications: No
== END 2017-03-02 12:14 | disposition home or self-care (01) | DRG 885 ==
LOC: ED 09:15 → ERH 15:36 → PSYC 17:56
PROVIDERS: ADMIT Psychiatry & Neurology Psychiatry; ATTEND Psychiatry & Neurology Psychiatry
DX: F20.0 Paranoid schizophrenia (principal); E66.01 Morbid (severe) obesity due to excess calories; I10 Essential (primary) hypertension; D56.9 Thalassemia, unspecified; E78.5 Hyperlipidemia, unspecified; F17.210 Nicotine dependence, cigarettes, uncomplicated; G25.2 Other specified forms of tremor; G47.30 Sleep apnea, unspecified; Z59.0 Homelessness; Z79.899 Other long term (current) drug therapy; Z91.5 Personal history of self-harm; D58.2 Other hemoglobinopathies; G47.00 Insomnia, unspecified

== ENCOUNTER 2017-05-21 23:01 | Inpatient (IN) | payer MEDICARE, MEDICAID, OTHER ==
--- NOTE | 2017-05-21 23:10 | ED PDOC ---
Arrival/HPI - General Time Seen by Provider: 05/21/17 23:09 Historian: Patient - History of Present Illness Narrative History of Present Illness (Text): 05/21/17 23:09 Juan Carlos Cope is a 41 year old male who presents to the Emergency department transferred from [facility] [place] for schizophrenia. Patient states he has been hearing voices for 2 weeks. Patient was medically cleared at previous institution and accepted for psychiatric admission by psychiatrist pinion staker. Patient denies any fever, chills, chest pain, shortness of breath, nausea, vomiting, diarrhea, urinary symptoms, back pain, neck pain, headache, dizziness , or any other complaints. Symptom Onset: Gradual Symptom Course: Unchanged Activities at Onset: Light Context: Other (Transferred from [facility] [place]) Past Medical History - Provider Review Nursing Documentation Reviewed: Yes - Past History Past History: Non-Contributing - Infectious Disease Hx of Infectious Diseases: None - Tetanus Immunization Tetanus Immunization: Unknown - Past Medical History Past Medical History: No Previous - Cardiac Hx Hypertension: No - Pulmonary Hx Sleep Apnea: Yes - Neurological Hx Seizures: No - HEENT Hx HEENT Disorder: No - Endocrine/Metabolic Hx Endocrine Disorders: No - Hematological/Oncological Hx Cancer: No - Integumentary Hx Dermatological Disorder: No - Musculoskeletal/Rheumatological Hx Musculoskeletal Disorders: No Hx Falls: No - Gastrointestinal Hx Gastrointestinal Disorders: No - Genitourinary/Gynecological Hx Sexually Transmitted Diseases: No - Psychiatric Hx Anxiety: Yes Hx Depression: Yes Hx Paranoia: Yes Hx Schizophrenia: Yes (With previous suicide attempt 20 years ago) Hx Substance Use: No - Past Surgical History Past Surgical History: No Previous - Anesthesia Hx Anesthesia: No Hx Anesthesia Reactions: No Hx Malignant Hyperthermia: No - Suicidal Assessment Feels Threatened In Home Enviroment: No Family/Social History - Physician Review Nursing Documentation Reviewed: Yes Family/Social History: Unknown Family HX Smoking Status: Heavy Smoker > 10 Cigarettes Daily Hx Alcohol Use: No Hx Substance Use: No Hx Substance Use Treatment: No Allergies/Home Meds Allergies/Adverse Reactions: Allergies No Known Allergies Allergy (Verified 05/22/17 01:54) Home Medications: Home Meds Medication Instructions Recorded Confirmed Benztropine [Benztropine Mesylate] 1 mg PO BID 05/22/17 05/22/17 Sertraline [Zoloft] 100 mg PO DAILY 05/22/17 05/22/17 risperiDONE [RisperDAL Tab] 3 mg PO BID 05/22/17 05/22/17 traZODone [trazodone Hydrochloride] 100 mg PO HS 05/22/17 05/22/17 Review of Systems - Physician Review All systems were reviewed & negative as marked: Yes - Review of Systems Constitutional: Normal. absent: Fevers Eyes: Normal ENT: Normal Respiratory: Normal. absent: SOB, Cough Cardiovascular: Normal. absent: Chest Pain Gastrointestinal: Normal. absent: Abdominal Pain, Nausea, Vomiting Genitourinary Male: Normal. absent: Dysuria, Frequency, Hematuria, Urinary Output Changes Musculoskeletal: Normal. absent: Back Pain, Neck Pain Skin: Normal. absent: Rash Neurological: Normal. absent: Headache, Dizziness Endocrine: Normal Hemo/Lymphatic: Normal Psychiatric: Other (+audio hallucinations) Physical Exam Vital Signs Reviewed: Yes Vital Signs Temp Pulse Resp BP Pulse Ox 05/21/17 23:29 98.1 F 73 19 134/82 97 Temperature: Afebrile Blood Pressure: Normal Pulse: Regular Respiratory Rate: Normal Appearance: Positive for: Well-Appearing, Non-Toxic, Comfortable Pain Distress: None Mental Status: Positive for: Alert and Oriented X 3 - Systems Exam Head: Present: Atraumatic, Normocephalic Pupils: Present: PERRL Extroacular Muscles: Present: EOMI Conjunctiva: Present: Normal Mouth: Present: Moist Mucous Membranes Neck: Present: Normal Range of Motion Respiratory/Chest: Present: Clear to Auscultation, Good Air Exchange. No: Respiratory Distress, Accessory Muscle Use Cardiovascular: Present: Regular Rate and Rhythm, Normal S1, S2. No: Murmurs Abdomen: Present: Normal Bowel Sounds. No: Tenderness, Distention, Peritoneal Signs Back: Present: Normal Inspection Upper Extremity: Present: Normal Inspection. No: Cyanosis, Edema Lower Extremity: Present: Normal Inspection. No: Edema Neurological: Present: GCS=15, CN II-XII Intact, Speech Normal Skin: Present: Warm, Dry, Normal Color. No: Rashes Psychiatric: Present: Alert, Oriented x 3, Normal Insight, Normal Concentration Medical Decision Making ED Course and Treatment: 05/21/17 23:10 Impression: 41 year old male presented for hearing voices for 2 weeks. Differential Diagnosis included but are not limited to: schizophrenia Plan: -- Admission to Behavioral Health Prior Visits: Notes and results from previous visits were reviewed. On 05/21/2017, pt was seen at [facility] [place] for audio hallucinations and paranoia. Pt was subsequently transferred to [facility] for admission. Progress Notes: Patient was medically cleared at previous institution and accepted for psychiatric admission by psychiatrist pinion staker. Pt will be admitted to behavioral health for schizophrenia under Dr. Mendoza 's service. - Medication Orders Current Medication Orders: Acetaminophen (Tylenol 325mg Tab) 650 mg PO Q4H PRN PRN Reason: Pain, Mild (1-3) Al Hydrox/Mg Hydrox/Simethicone (Maalox Plus 30 Ml) 30 ml PO DAILY PRN PRN Reason: Upset Stomach Benztropine Mesylate (Cogentin) 0.5 mg PO BID [facility] Last Admin: 05/22/17 17:29 Dose: 0.5 mg Diphenhydramine HCl (Benadryl) 50 mg PO HS [facility] Last Admin: 05/22/17 22:03 Dose: 50 mg Lorazepam (Ativan) 0.5 mg PO TID GONZALO PRN Reason: Protocol Last Admin: 05/22/17 17:29 Dose: 0.5 mg Re-Assess: Reassess Psych Meds Document 05/22/17 18:29 TW (Rec: 05/22/17 18:35 [id number]) Reassess Psych Med Effective Magnesium Hydroxide (Milk Of Magnesia) 30 ml PO DAILY PRN PRN Reason: Constipation Risperidone (Risperdal Tab) 1 mg PO BID GONZALO PRN Reason: Protocol Last Admin: 05/22/17 17:29 Dose: 1 mg Re-Assess: Reassess Psych Meds Document 05/22/17 18:29 TW (Rec: 05/22/17 18:36 [id number]) Reassess Psych Med Effective Sertraline HCl (Zoloft) 50 mg PO DAILY [facility] Last Admin: 05/22/17 09:06 Dose: 50 mg Discontinued Medications Lorazepam (Ativan) 0.5 mg PO ONCE ONE PRN Reason: Protocol Stop: 05/22/17 00:37 Last Admin: 05/22/17 00:56 Dose: 0.5 mg Re-Assess: Reassess Psych Meds Document 05/22/17 08:43 TW (Rec: 05/22/17 08:43 [id number]) Reassess Psych Med Effective - Scribe Statement The provider has reviewed the documentation as recorded by the Priteshiberica Delacruz All medical record entries made by the Priteshiberica were at my direction and personally dictated by me. I have reviewed the chart and agree that the record accurately reflects my personal performance of the history, physical exam, medical decision making, and the department course for this patient. I have also personally directed, reviewed, and agree with the discharge instructions and disposition. Disposition/Present on Arrival - Present on Arrival Any Indicators Present on Arrival: No History of DVT/PE: No History of Uncontrolled Diabetes: No Urinary Catheter: No History Surgical Site Infection Following: None - Disposition Have Diagnosis and Disposition been Completed?: Yes Diagnosis: Schizophrenia Disposition: HOSPITALIZED Disposition Time: 23:15 Patient Problems: Current Active Problems Problem Status Onset Schizophrenia Acute Condition: GOOD
[2017-05-21 23:14] VITALS: BMI 44.5
[2017-05-22] MEDS ORDERED: Alum-Mag Hydrox-Simethicone Susp (30 mL) PO PRN (00:25)
[2017-05-22] MEDS ORDERED: Magnesium Hydroxide Susp 30 ml UD PO PRN (00:25)
--- NOTE | 2017-05-22 01:49 | PCM.BM ---
<Alexander Sharma - Last Filed: 05/22/17 01:49> Treatment Plan Problems - Problems identified on initial assessmt hearing voices Date Initiated: 05/22/17 Time Initiated: 01:00 Assessment reference: NA Status: Active depression Date Initiated: 05/22/17 Time Initiated: 01:00 Assessment reference: NA Status: Active Treatment assets and liabiliti Patient Assests: cooperative, educated, self-reliant, ADL independent, negotiates basic needs, good past tx response, cognitively intact Patient Liabilities: live alone, financial problems, poor support system, other (pt is homeless) - Milieu Protocol Maintain good personal hygiene: daily Encourage regular showers, every shift Remind patient to perform daily oral care, every shift Assist patient to perform ADL's Conduct patient checks and document Observation sheet: Q15 minutes Maintain personal safety: daily Educate patient to report safety concerns to staff, every shift Educate patient to report safety concerns to staff, every shift Monitor environment for contraband/sharps Medication safety: Monitor for expected outcome, potential side effects: every shift, Assess barriers to learning: every shift, Assess readiness for medication education: every shift Family Contact Family involvement: Family/SO is involved Family contact: Patient agrees to contact Family contact name: pooja rey - Goals for Treatment Patient goals for treatment: to get better and rachelle to m medications <Pari Velázquez - Last Filed: 05/22/17 09:03> Family Contact Family contact name: Pooja Rey(sister) Family contacted how many times per week?: 2 Discharge/Continuing Care - Education Needs Education Needs: Patient Medication, Patient Diagnosis/Disease Process, Patient Coping Skills, Patient Placement options, Patient Community resources, Patient Aftercare Safety Plan <Geovanny Woods - Last Filed: 05/22/17 09:06> Treatment Plan Problems - Problems identified on initial assessmt Auditory Hallucinations Date Initiated: 05/22/17 Time Initiated: 09:06 Status: Active Priority: 1 Hopelessness Date Initiated: 05/22/17 Time Initiated: 09:07 Assessment reference: NA Priority: 2 Medication nonadherence Date Initiated: 05/22/17 Time Initiated: 09:07 Assessment reference: NA Status: Active Priority: 3 <Renetta Mendoza - Last Filed: 05/22/17 15:11> - Diagnosis (1) Morbidly obese Status: Acute Interventions: 05/22/17 15:11 Pt will be seen by medical team as needed Medications will be confirmed and resumed Additional consultation by specialists as needed Lab work as needed (CBC, CMP, TSH, free T4, UA, Urine test for females as needed) CXR as needed EKG Physical therapy valuation as needed (2) Schizoaffective disorder Status: Acute Interventions: 05/22/17 15:12 Psychoeducation/psychotherapy Psychopharmacology/adjustment of medications as needed/ monitoring possible side effects Evaluate pt on daily basis Compliance with medications and follow up appointments Long acting medication if pt is noncompliant with pill form Suicide and homicide risk assessment and prevention, coping strategies, safety plan Relapse prevention Reduction of symptoms Improve functional status Possible assertive community treatment Cognitive behavioral therapy Family intervention Possible social skill training as outpatient (3) Suicidal ideation Status: Acute Interventions: 05/22/17 15:12 Psychoeducation/psychotherapy Psychopharmacology/adjustment of medications as needed/ monitoring possible side effects Evaluate pt on daily basis Compliance with medications and follow up appointments Long acting medication if pt is noncompliant with pill form Suicide and homicide risk assessment and prevention, coping strategies, safety plan Relapse prevention Reduction of symptoms Improve functional status Possible assertive community treatment Cognitive behavioral therapy Family intervention Possible social skill training as outpatient <Sulma Gillis - Last Filed: 05/23/17 09:28> Family Contact - Outside Agency [facility] Care involvment: Not involved Agency contact name: [facility]
[2017-05-22 07:34] LABS: GLUCOSE,FASTING 107 mg/dL (65-110); HDL CHOLESTEROL 45 mg/dL (29-60)
[2017-05-22 07:45] LABS: LDL CHOLESTEROL 117 mg/dL (0-129)
--- NOTE | 2017-05-22 15:27 | PCM.PSYCH ---
Initial Psychiatric Evaluation - Initial Psychiatric Evaluation Type of Admission: Voluntary Legal Status: Capacity (pt has capacity to sign sonsent for treatment) Chief Complaint (in patient's own words): "I was hearing voiced that they will kill me, I was not feeling safe, I came to the hospital for help, I was not taking my medications because of my insurance". Patient's Reaction to Hospitalization: pt was admitted for evaluation of depressive, psychotic symptoms, suicidal ideation, no intent or plan to kill himself. History of Present Illness and Precipitating Events: Patient is a 41 years old -Sammarinese male with long and debilitating h/o schizophrenia of paranoid type, multiple psychiatric admissions in the past, most recent was less than a month in [facility] where he staid for a week, pt currently unemployed, homeless, lives on the streets, was transferred from the [facility] ED for evaluation of worsening of psychosis, feeling that gang members after him, hearing voices telling pt that they will kill him, pt also said that he is off his meds because he was not able to see psychiatrist due to his insurance, pt needs further evaluation and stabilization , medication adjustment, observation. patient was seen in the treatment team meeting, patient presented to have poor personal hygiene, malodorous, fare ADLs, flat affect, seems to be internally preoccupied, responding to internal stimuli, irritable, patient also had upper extremity pill-rolling tremor, not new. This jingle writer is very familiar with this patient from the previous admissions into psychiatric inpatient treatment here in [place], patient presented worse compared with the previous admissions. Pt said that whenever he goes a gang members are after him, they are threatening pt to kill him. as per report pt supposed to be on prolixin, but pt said that Risperdal was helping him the most. Reported depressed mood, and feelings of hopelessness and helplessness, but denied any homicidal ideation or suicidal ideation. No reported manic symptoms reported anxiety but no reported panic attacks. No reported substance abuse Past psychiatric history: [facility] months ago [facility] April 2016. History of multiple inpatient psychiatric hospitalizations History of follow-up with an unknown psychiatrist at [facility] , last follow-up is unknown History of suicidal ideation with 2 attempts in the past, last attempt was 3 years ago when patient slit his wrist, patient has a old scar on the right wrist History of homicidal ideation without any attempt in the past No history of any other substance abuse History of arrests due to assaultive behavior but denies any legal charges in the past Past medical history Sleep apnea obesity pt denied using any drugs, reported to smoke a pack a day, refused to be on nicotine patch, counseling provided. pt denied h/o abuse. family h/o unknown. Lab Results 05/22/17 06:45: TSH 3rd Generation 1.01 05/22/17 06:45: Fasting Glucose 107, Triglycerides 88, Cholesterol 182, LDL Cholesterol Direct 117, HDL Cholesterol 45 Temp Pulse Resp BP Pulse Ox 98.3 F 69 20 120/76 97 05/22/17 01:35 05/22/17 01:35 05/22/17 01:35 05/22/17 01:35 05/21/17 23:29 Current Medications: Active Medications Generic Name Dose Route Start Last Admin Trade Name Freq PRN Reason Stop Dose Admin Acetaminophen 650 mg 05/22/17 00:25 Tylenol 325mg Tab PO Q4H PRN Pain, Mild (1-3) Al Hydrox/Mg Hydrox/Simethicone 30 ml 05/22/17 00:25 Maalox Plus 30 Ml PO DAILY PRN Upset Stomach Benztropine Mesylate 0.5 mg 05/22/17 08:00 Cogentin PO BID GONZALO Fluphenazine HCl 5 mg 05/22/17 08:00 Prolixin PO DAILY GONZALO Protocol Lorazepam 0.5 mg 05/22/17 08:00 Ativan PO TID GONZALO Protocol Magnesium Hydroxide 30 ml 05/22/17 00:25 Milk Of Magnesia PO DAILY PRN Constipation Sertraline HCl 50 mg 05/22/17 08:00 Zoloft PO DAILY GONZALO Trazodone HCl 50 mg 05/22/17 00:19 Desyrel PO HS PRN Insomnia Past Psychiatric History - Past Psychiatric History Previous Treatment History: Inpatient Prior Professional Help: see HPI Prior Psychiatric Treatment: see HPI At what hospital: see HPI Duration: see HPI Nature of Treatment: see HPI Explanation of prior treatment: see HPI History of Abuse: see HPI History of ETOH/Drug Use: see HPI History of Family Illness: see HPI Pertinent Medical Hx (Current Medical&Sleep Prob, Allergies): Allergies Allergy/AdvReac Type Severity Reaction Status Date / Time No Known Allergies Allergy Verified 05/22/17 01:54 Benztropine [Benztropine Mesylate] 1 mg PO BID 05/22/17 Sertraline [Zoloft] 100 mg PO DAILY 05/22/17 risperiDONE [RisperDAL Tab] 3 mg PO BID 05/22/17 traZODone [trazodone Hydrochloride] 100 mg PO HS 05/22/17 DSM 5 DX - DSM 5 DSM 5 Diagnosis: schizophrenia paranoid type Rule out schizoaffective disorder - Recommended/Plan of Treatment Treatment Recommendations and Plan of Treatment: milieu, structure, supportive therapy Will call for collateral information from ICMS worker Will start Cogentin0.5bid for EPS pt wants to be on risperdal, was started 1mg po bid for psychosis pt does not want to be on prolixin Medication for sleep, Benadayl 50mg po hs for EPS and insomnia Sertraline [Zoloft] 50mg po daily for mdd and anxiety Medical team evaluation We'll monitor closely We'll consider boarding home placement SW evaluation Projected ELOS: 10days Prognosis: guarded Discharge Plan and Discharge Criteria: Pt will be not depressed or manic, will be more hopeful, will be not psychotic or anxious, will be not having thoughts of harming self or others, will be tolerating medications well, will not have major side effects, will be able to function, will not pose threat to self or others. - Smoking Cessation Smoking Cessation Initiated: Yes
--- NOTE | 2017-05-23 14:01 | PCM.PYCHPN ---
Psychiatric Progress Note - Psychiatric Progress Note Patient seen today, length of contact: 30 minutes Patient Chief Complaint: "I I'm not doing Well now, I constantly hear voices, there is still talking to me' Problems Identified/Issues Discussed: Suicide/ homicide prevention, past psychiatric h/o, current psychiatric symptoms , medical problems, risk/benefits and alternatives of medications, medications compliance, coping strategies, substance abuse h/o, relapse prevention, importance of follow up with psychiatrist and therapist, discharge plan. Medical Problems: Sleep apnea obesity Diagnostic Results: Lab Results 05/22/17 06:45: TSH 3rd Generation 1.01 05/22/17 06:45: Fasting Glucose 107, Triglycerides 88, Cholesterol 182, LDL Cholesterol Direct 117, HDL Cholesterol 45 Vital Signs Temp Pulse Resp BP Pulse Ox 05/23/17 07:22 98.3 F 61 20 121/92 H 05/22/17 15:48 92 H 119/73 05/22/17 01:35 98.3 F 69 20 120/76 05/22/17 01:01 20 05/21/17 23:29 98.1 F 73 19 134/82 97 DSM 5 Symptoms Update: Patient is a 41 years old -Honduran male with long and debilitating h/o schizophrenia of paranoid type, multiple psychiatric admissions in the past, most recent was less than a month in [facility] where he staid for a week, pt currently unemployed, homeless, lives on the streets, was transferred from the [facility] ED for evaluation of worsening of psychosis, feeling that gang members after him, hearing voices telling pt that they will kill him, pt also said that he is off his meds because he was not able to see psychiatrist due to his insurance, pt needs further evaluation and stabilization , medication adjustment, observation. patient was seen at his room, personal hygiene is mildly better, still has strong body odor, fare ADLs, flat affect, seems to be internally preoccupied, responding to internal stimuli, irritable, patient also had upper extremity pill -rolling tremor, not new. patient reported that voices are still bothering him, last time "just now", patient had impression that getting member will kill him as well as his family. Patient reported that he was compliant with the medications, no side effects observed or reported, aims 0, no EPS. as per nursing report patient is self isolative, not participating in any groups , preferred to stay alone, no behavioral incidents, compliance with the medications good DSM 5 Diagnosis: schizophrenia paranoid type Rule out schizoaffective disorder Medication Change: Yes (risperdal increased Cogentin increased) Medical Record Reviewed: Yes Consults ordered or reviewed: medical consult appreciated Mental Status Examination - Cognitive Function Orientation: Person, Place, Situation Memory: Intact Attention: Poor Concentration: Poor Association: Loose Fund of Knowledge: Poor - Mood Mood: Depressed, Anxious - Affect Affect: Constricted - Speech Speech: Appropriate - Formal Thought Process Formal Thought Process: Hallucinations, Delusions, Paranoia - Suicidal Ideation Suicidal Ideation: No - Homicidal Ideation Homicidal Ideation: No Goal/Treatment Plan - Goal/Treatment Plan Need for Continued Stay: Remain at risks for inpatient hospitalization, Severe depression anxiety, Discharge may exacerbated symptoms, Failed transitioning, Severe functional impairment Progress Toward Problem(s) and Goals/Treatment Plan: milieu, structure, supportive therapy we will increase Cogentin to 0.5 milligrams 3 times a day for EPS risperdal, will be increased to 1 mg 3 times a dayfor psychosis pt does not want to be on prolixin Medication for sleep, Benadayl 50mg po hs for EPS and insomnia Sertraline [Zoloft] 50mg po daily for mdd and anxiety Medical consultation appreciated We'll monitor closely We'll consider boarding home placement SW evaluation Estimated Date of D/C: 06/02/17 (we will monitor closely) - Smoking Cessation Smoking Cessation Initiated: Yes
--- NOTE | 2017-05-24 14:04 | PCM.PYCHPN ---
Psychiatric Progress Note - Psychiatric Progress Note Patient seen today, length of contact: 30 minutes Patient Chief Complaint: "I still hear voices, there is still talking to me' Problems Identified/Issues Discussed: Suicide/ homicide prevention, past psychiatric h/o, current psychiatric symptoms , medical problems, risk/benefits and alternatives of medications, medications compliance, coping strategies, substance abuse h/o, relapse prevention, importance of follow up with psychiatrist and therapist, discharge plan. Medical Problems: Sleep apnea obesity Diagnostic Results: Lab Results 05/22/17 06:45: TSH 3rd Generation 1.01 05/22/17 06:45: Fasting Glucose 107, Triglycerides 88, Cholesterol 182, LDL Cholesterol Direct 117, HDL Cholesterol 45 Vital Signs Temp Pulse Resp BP Pulse Ox 05/23/17 07:22 98.3 F 61 20 121/92 H 05/22/17 15:48 92 H 119/73 05/22/17 01:35 98.3 F 69 20 120/76 05/22/17 01:01 20 05/21/17 23:29 98.1 F 73 19 134/82 97 DSM 5 Symptoms Update: Patient is a 41 years old -Turkish male with long and debilitating h/o schizophrenia of paranoid type, multiple psychiatric admissions in the past, most recent was less than a month in [facility] where he staid for a week, pt currently unemployed, homeless, lives on the streets, was transferred from the [facility] ED for evaluation of worsening of psychosis, feeling that gang members after him, hearing voices telling pt that they will kill him, pt also said that he is off his meds because he was not able to see psychiatrist due to his insurance, pt needs further evaluation and stabilization , medication adjustment, observation. patient was seen at his room, personal hygiene is mildly better, still has strong body odor, fare ADLs, flat affect, seems to be internally preoccupied, responding to internal stimuli, irritable, patient has improvement with tremor, pill rolling. patient reported that voices are still bothering him, last time "just now", patient had impression that getting member will kill him as well as his family. Patient reported that he was compliant with the medications, no side effects observed or reported, aims 0, no EPS. as per nursing report patient is self isolative, not participating in any groups , preferred to stay alone, no behavioral incidents, compliance with the medications good DSM 5 Diagnosis: schizophrenia paranoid type Rule out schizoaffective disorder Medication Change: Yes (risperdal increased zoloft 100mg ) Medical Record Reviewed: Yes Mental Status Examination - Cognitive Function Orientation: Person, Place, Situation Memory: Intact Attention: Poor Concentration: Poor Association: Loose Fund of Knowledge: Poor - Mood Mood: Depressed, Anxious - Affect Affect: Constricted - Speech Speech: Appropriate - Formal Thought Process Formal Thought Process: Hallucinations, Delusions, Paranoia - Suicidal Ideation Suicidal Ideation: No - Homicidal Ideation Homicidal Ideation: No Goal/Treatment Plan - Goal/Treatment Plan Need for Continued Stay: Remain at risks for inpatient hospitalization, Severe depression anxiety, Discharge may exacerbated symptoms, Failed transitioning, Severe functional impairment Progress Toward Problem(s) and Goals/Treatment Plan: milieu, structure, supportive therapy Cogentin to 0.5 milligrams 3 times a day for EPS risperdal, will be increased to 1 mg bid and 2mg hs for psychosis pt does not want to be on prolixin Medication for sleep, Benadayl 50mg po hs for EPS and insomnia Sertraline [Zoloft] 100mg po daily for mdd and anxiety Medical consultation appreciated We'll monitor closely We'll consider boarding home placement SW evaluation Estimated Date of D/C: 06/02/17 (we will monitor closely)
--- NOTE | 2017-05-25 12:58 | PCM.PYCHPN ---
Psychiatric Progress Note - Psychiatric Progress Note Patient seen today, length of contact: 30 minutes Patient Chief Complaint: "I still hear voices, they are threatening to kill me" Problems Identified/Issues Discussed: Suicide/ homicide prevention, past psychiatric h/o, current psychiatric symptoms , medical problems, risk/benefits and alternatives of medications, medications compliance, coping strategies, substance abuse h/o, relapse prevention, importance of follow up with psychiatrist and therapist, discharge plan. Medical Problems: Sleep apnea obesity Diagnostic Results: Lab Results 05/22/17 06:45: TSH 3rd Generation 1.01 05/22/17 06:45: Fasting Glucose 107, Triglycerides 88, Cholesterol 182, LDL Cholesterol Direct 117, HDL Cholesterol 45 Vital Signs Temp Pulse Resp BP Pulse Ox 05/23/17 07:22 98.3 F 61 20 121/92 H 05/22/17 15:48 92 H 119/73 05/22/17 01:35 98.3 F 69 20 120/76 05/22/17 01:01 20 05/21/17 23:29 98.1 F 73 19 134/82 97 Temp Pulse Resp BP Pulse Ox 97.9 F 64 20 119/81 97 05/25/17 07:27 05/25/17 07:27 05/25/17 07:27 05/25/17 07:27 05/21/17 23:29 DSM 5 Symptoms Update: Patient is a 41 years old -Indian male with long and debilitating h/o schizophrenia of paranoid type, multiple psychiatric admissions in the past, most recent was less than a month in [facility] where he staid for a week, pt currently unemployed, homeless, lives on the streets, was transferred from the [facility] ED for evaluation of worsening of psychosis, feeling that gang members after him, hearing voices telling pt that they will kill him, pt also said that he is off his meds because he was not able to see psychiatrist due to his insurance, pt needs further evaluation and stabilization , medication adjustment, observation. patient was seen at his room, personal hygiene is mildly better, no body odor, fare ADLs, pt was smiling once during the conversation, pt said that "voices are coming down", pt said that he still hears them "but they are not that loud, they are telling me that they will kill me". Patient reported that he was compliant with the medications, no side effects observed or reported, aims 0, no EPS. as per nursing report patient is self isolative, not participating in any groups , preferred to stay alone, no behavioral incidents, compliance with the medications good DSM 5 Diagnosis: schizophrenia paranoid type Rule out schizoaffective disorder Medication Change: No (yesterday risperdal and zoloft were increased) Medical Record Reviewed: Yes Consults ordered or reviewed: medical consult appreciated Mental Status Examination - Cognitive Function Orientation: Person, Place, Situation Memory: Intact Attention: Poor Concentration: Poor Association: Loose Fund of Knowledge: Poor - Mood Mood: Depressed, Anxious - Affect Affect: Constricted - Speech Speech: Appropriate - Formal Thought Process Formal Thought Process: Hallucinations ("voices were threatening to kill me"), Delusions, Paranoia - Suicidal Ideation Suicidal Ideation: No - Homicidal Ideation Homicidal Ideation: No Goal/Treatment Plan - Goal/Treatment Plan Need for Continued Stay: Remain at risks for inpatient hospitalization, Severe depression anxiety, Discharge may exacerbated symptoms, Failed transitioning, Severe functional impairment Progress Toward Problem(s) and Goals/Treatment Plan: milieu, structure, supportive therapy Cogentin to 0.5 milligrams 3 times a day for EPS risperdal 1 mg bid and 2mg hs for psychosis pt does not want to be on prolixin Medication for sleep, Benadayl 50mg po hs for EPS and insomnia Sertraline [Zoloft] 100mg po daily for mdd and anxiety Medical consultation appreciated We'll monitor closely We'll consider boarding home placement SW evaluation Estimated Date of D/C: 06/02/17 (we will monitor closely)
--- NOTE | 2017-05-26 10:26 | PCM.PYCHPN ---
Psychiatric Progress Note - Psychiatric Progress Note Patient seen today, length of contact: 30 minutes Patient Chief Complaint: "I don't know, I feel depressed, I am hearing voices..." Problems Identified/Issues Discussed: Suicide/ homicide prevention, past psychiatric h/o, current psychiatric symptoms , medical problems, risk/benefits and alternatives of medications, medications compliance, coping strategies, substance abuse h/o, relapse prevention, importance of follow up with psychiatrist and therapist, discharge plan. Medical Problems: Sleep apnea obesity Diagnostic Results: Lab Results 05/22/17 06:45: TSH 3rd Generation 1.01 05/22/17 06:45: Fasting Glucose 107, Triglycerides 88, Cholesterol 182, LDL Cholesterol Direct 117, HDL Cholesterol 45 Vital Signs Temp Pulse Resp BP Pulse Ox 05/23/17 07:22 98.3 F 61 20 121/92 H 05/22/17 15:48 92 H 119/73 05/22/17 01:35 98.3 F 69 20 120/76 05/22/17 01:01 20 05/21/17 23:29 98.1 F 73 19 134/82 97 Temp Pulse Resp BP Pulse Ox 97.9 F 64 20 119/81 97 05/25/17 07:27 05/25/17 07:27 05/25/17 07:27 05/25/17 07:27 05/21/17 23:29 Temp Pulse Resp BP Pulse Ox 97.9 F 64 20 97/66 L 97 05/26/17 07:56 05/26/17 07:56 05/26/17 07:56 05/26/17 07:56 05/21/17 23:29 DSM 5 Symptoms Update: Patient is a 41 years old -Vietnamese male with long and debilitating h/o schizophrenia of paranoid type, multiple psychiatric admissions in the past, most recent was less than a month in [facility] where he staid for a week, pt currently unemployed, homeless, lives on the streets, was transferred from the [facility] ED for evaluation of worsening of psychosis, feeling that gang members after him, hearing voices telling pt that they will kill him, pt also said that he is off his meds because he was not able to see psychiatrist due to his insurance, pt needs further evaluation and stabilization , medication adjustment, observation. patient was seen at his room, personal hygiene is mildly better, no body odor, fare ADLs, pt was depressed, flat affect, pt said that he feeld "depressed, voices are bothering me today...", paranoid, willing to increase meds. Patient reported that he was compliant with the medications, no side effects observed or reported, aims 0, no EPS. as per nursing report patient is self isolative, not participating in any groups , preferred to stay alone, no behavioral incidents, compliance with the medications good DSM 5 Diagnosis: schizophrenia paranoid type Rule out schizoaffective disorder Medication Change: Yes (risperdal and zoloft increased) Medical Record Reviewed: Yes Consults ordered or reviewed: medical consult appreciated Mental Status Examination - Cognitive Function Orientation: Person, Place, Situation Memory: Intact Attention: Poor Concentration: Poor Association: Loose Fund of Knowledge: Poor - Mood Mood: Depressed, Anxious - Affect Affect: Constricted - Speech Speech: Appropriate - Formal Thought Process Formal Thought Process: Hallucinations ("voices were threatening to kill me"), Delusions, Paranoia - Suicidal Ideation Suicidal Ideation: No - Homicidal Ideation Homicidal Ideation: No Goal/Treatment Plan - Goal/Treatment Plan Need for Continued Stay: Remain at risks for inpatient hospitalization, Severe depression anxiety, Discharge may exacerbated symptoms, Failed transitioning, Severe functional impairment Progress Toward Problem(s) and Goals/Treatment Plan: milieu, structure, supportive therapy Cogentin to 1 milligrams 3 times a day for EPS risperdal 1.5 mg bid and 2mg hs for psychosis pt does not want to be on prolixin Medication for sleep, Benadayl 50mg po hs for EPS and insomnia Sertraline [Zoloft] 150mg po daily for mdd and anxiety Medical consultation appreciated We'll monitor closely We'll consider boarding home placement SW evaluation Estimated Date of D/C: 06/02/17 (we will monitor closely)
--- NOTE | 2017-05-27 13:32 | PCM.PYCHPN ---
Psychiatric Progress Note - Psychiatric Progress Note Patient seen today, length of contact: 30 minutes Patient Chief Complaint: "I feel little better" Problems Identified/Issues Discussed: Suicide/ homicide prevention, past psychiatric h/o, current psychiatric symptoms , medical problems, risk/benefits and alternatives of medications, medications compliance, coping strategies, substance abuse h/o, relapse prevention, importance of follow up with psychiatrist and therapist, discharge plan. Medical Problems: Sleep apnea obesity Diagnostic Results: Lab Results 05/22/17 06:45: TSH 3rd Generation 1.01 05/22/17 06:45: Fasting Glucose 107, Triglycerides 88, Cholesterol 182, LDL Cholesterol Direct 117, HDL Cholesterol 45 Vital Signs Temp Pulse Resp BP Pulse Ox 05/23/17 07:22 98.3 F 61 20 121/92 H 05/22/17 15:48 92 H 119/73 05/22/17 01:35 98.3 F 69 20 120/76 05/22/17 01:01 20 05/21/17 23:29 98.1 F 73 19 134/82 97 Temp Pulse Resp BP Pulse Ox 97.9 F 64 20 119/81 97 05/25/17 07:27 05/25/17 07:27 05/25/17 07:27 05/25/17 07:27 05/21/17 23:29 Temp Pulse Resp BP Pulse Ox 97.9 F 64 20 97/66 L 97 05/26/17 07:56 05/26/17 07:56 05/26/17 07:56 05/26/17 07:56 05/21/17 23:29 Temp Pulse Resp BP Pulse Ox 98 F 67 17 112/67 97 05/27/17 07:07 05/27/17 07:07 05/27/17 07:07 05/27/17 07:07 05/21/17 23:29 DSM 5 Symptoms Update: Patient is a 41 years old -Y[place]i male with long and debilitating h/o schizophrenia of paranoid type, multiple psychiatric admissions in the past, most recent was less than a month in [facility] where he staid for a week, pt currently unemployed, homeless, lives on the streets, was transferred from the [facility] ED for evaluation of worsening of psychosis, feeling that gang members after him, hearing voices telling pt that they will kill him, pt also said that he is off his meds because he was not able to see psychiatrist due to his insurance, pt needs further evaluation and stabilization , medication adjustment, observation. patient was seen at his room, personal hygiene is mildly better, no body odor, fare ADLs, pt was depressed, flat affect, pt said that he feels "little better, voices are not that much today", meds were adjusted yesterday. Patient reported that he was compliant with the medications, no side effects observed or reported, aims 0, no EPS. as per nursing report patient is self isolative, not participating in any groups , preferred to stay alone, sleeps most of the time, no behavioral incidents, compliance with the medications good DSM 5 Diagnosis: schizophrenia paranoid type Rule out schizoaffective disorder Medication Change: Yes (risperdal and zoloft increased) Medical Record Reviewed: Yes Consults ordered or reviewed: medical consult appreciated Mental Status Examination - Cognitive Function Orientation: Person, Place, Situation Memory: Intact Attention: Poor (somewhat better) Concentration: Poor (somewhat better) Association: Loose Fund of Knowledge: Poor - Mood Mood: Depressed (in little better), Anxious - Affect Affect: Constricted - Speech Speech: Appropriate - Formal Thought Process Formal Thought Process: Hallucinations ("voices were threatening to kill me"), Delusions, Paranoia - Suicidal Ideation Suicidal Ideation: No - Homicidal Ideation Homicidal Ideation: No Goal/Treatment Plan - Goal/Treatment Plan Need for Continued Stay: Remain at risks for inpatient hospitalization, Severe depression anxiety, Discharge may exacerbated symptoms, Failed transitioning, Severe functional impairment Progress Toward Problem(s) and Goals/Treatment Plan: milieu, structure, supportive therapy Cogentin to 1 milligrams 3 times a day for EPS risperdal 1.5 mg bid and 2mg hs for psychosis pt does not want to be on prolixin Medication for sleep, Benadayl 50mg po hs for EPS and insomnia Sertraline [Zoloft] 150mg po daily for mdd and anxiety Medical consultation appreciated We'll monitor closely We'll consider boarding home placement SW evaluation Estimated Date of D/C: 06/02/17 (we will monitor closely)
--- NOTE | 2017-05-28 12:13 | PCM.PYCHPN ---
Psychiatric Progress Note - Psychiatric Progress Note Patient seen today, length of contact: 30 minutes Patient Chief Complaint: "no good today, I don't know why, I was not sleeping because of the voices" Problems Identified/Issues Discussed: Suicide/ homicide prevention, past psychiatric h/o, current psychiatric symptoms , medical problems, risk/benefits and alternatives of medications, medications compliance, coping strategies, substance abuse h/o, relapse prevention, importance of follow up with psychiatrist and therapist, discharge plan. Medical Problems: Sleep apnea obesity Diagnostic Results: Lab Results 05/22/17 06:45: TSH 3rd Generation 1.01 05/22/17 06:45: Fasting Glucose 107, Triglycerides 88, Cholesterol 182, LDL Cholesterol Direct 117, HDL Cholesterol 45 Vital Signs Temp Pulse Resp BP Pulse Ox 05/23/17 07:22 98.3 F 61 20 121/92 H 05/22/17 15:48 92 H 119/73 05/22/17 01:35 98.3 F 69 20 120/76 05/22/17 01:01 20 05/21/17 23:29 98.1 F 73 19 134/82 97 Temp Pulse Resp BP Pulse Ox 97.9 F 64 20 119/81 97 05/25/17 07:27 05/25/17 07:27 05/25/17 07:27 05/25/17 07:27 05/21/17 23:29 Temp Pulse Resp BP Pulse Ox 97.9 F 64 20 97/66 L 97 05/26/17 07:56 05/26/17 07:56 05/26/17 07:56 05/26/17 07:56 05/21/17 23:29 Temp Pulse Resp BP Pulse Ox 98 F 67 17 112/67 97 05/27/17 07:07 05/27/17 07:07 05/27/17 07:07 05/27/17 07:07 05/21/17 23:29 Temp Pulse Resp BP Pulse Ox 97.9 F 75 21 120/75 97 05/28/17 07:41 05/28/17 07:41 05/28/17 07:41 05/28/17 07:41 05/21/17 23:29 DSM 5 Symptoms Update: Patient is a 41 years old -[place] male with long and debilitating h/o schizophrenia of paranoid type, multiple psychiatric admissions in the past, most recent was less than a month in [facility] where he staid for a week, pt currently unemployed, homeless, lives on the streets, was transferred from the [facility] ED for evaluation of worsening of psychosis, feeling that gang members after him, hearing voices telling pt that they will kill him, pt also said that he is off his meds because he was not able to see psychiatrist due to his insurance, pt needs further evaluation and stabilization , medication adjustment, observation. patient was seen next to the nursing station, personal hygiene is mildly better , no body odor, fare ADLs, pt was depressed, flat affect, pt said that he feels "no good today, I don't know why, I was not sleeping because of the voices", as per report pt sleeps all day long, pt was advised not to take naps. risperdal will be increased today. Patient reported that he was compliant with the medications, no side effects observed or reported, aims 0, no EPS. as per nursing report patient is self isolative, not participating in any groups , preferred to stay alone, sleeps most of the time, no behavioral incidents, compliance with the medications good DSM 5 Diagnosis: schizophrenia paranoid type Rule out schizoaffective disorder Medication Change: Yes (risperdal increased) Medical Record Reviewed: Yes Consults ordered or reviewed: medical consult appreciated Mental Status Examination - Cognitive Function Orientation: Person, Place, Situation Memory: Intact Attention: Poor (somewhat better) Concentration: Poor (somewhat better) Association: Loose Fund of Knowledge: Poor - Mood Mood: Depressed ("I do not feel good today"), Anxious - Affect Affect: Constricted - Speech Speech: Appropriate - Formal Thought Process Formal Thought Process: Hallucinations ("voices were threatening to kill me"), Delusions, Paranoia - Suicidal Ideation Suicidal Ideation: No - Homicidal Ideation Homicidal Ideation: No Goal/Treatment Plan - Goal/Treatment Plan Need for Continued Stay: Remain at risks for inpatient hospitalization, Severe depression anxiety, Discharge may exacerbated symptoms, Failed transitioning, Severe functional impairment Progress Toward Problem(s) and Goals/Treatment Plan: milieu, structure, supportive therapy Cogentin to 1 milligrams 3 times a day for EPS risperdal 2mg bid and 2mg hs for psychosis pt does not want to be on prolixin Medication for sleep, Benadayl 50mg po hs for EPS and insomnia Sertraline [Zoloft] 150mg po daily for mdd and anxiety Medical consultation appreciated We'll monitor closely We'll consider boarding home placement SW evaluation Estimated Date of D/C: 06/02/17 (we will monitor closely)
--- NOTE | 2017-05-29 11:02 | PCM.BM ---
<Marnie Bates - Last Filed: 05/29/17 10:58> Treatment Plan Problems - Problems identified on initial assessmt hearing voices Date Initiated: 05/22/17 Time Initiated: 01:00 Assessment reference: NA Status: Active depression Date Initiated: 05/22/17 Time Initiated: 01:00 Date resolved: 05/29/17 Assessment reference: NA Status: Active Auditory Hallucinations Date Initiated: 05/22/17 Time Initiated: 09:06 Status: Active Priority: 1 Hopelessness Date Initiated: 05/22/17 Time Initiated: 09:07 Date resolved: 05/29/17 Assessment reference: NA Priority: 2 Medication nonadherence Date Initiated: 05/22/17 Time Initiated: 09: Date resolved: 05/29/17 Assessment reference: NA Status: Active Priority: 3 Treatment assets and liabiliti Patient Assests: cooperative, educated, self-reliant, ADL independent, negotiates basic needs, good past tx response, cognitively intact Patient Liabilities: live alone, financial problems, poor support system, other (pt is homeless) - Milieu Protocol Maintain good personal hygiene: daily Encourage regular showers, every shift Remind patient to perform daily oral care, every shift Assist patient to perform ADL's Conduct patient checks and document Observation sheet: Q15 minutes Maintain personal safety: daily Educate patient to report safety concerns to staff, every shift Educate patient to report safety concerns to staff, every shift Monitor environment for contraband/sharps Medication safety: Monitor for expected outcome, potential side effects: every shift, Assess barriers to learning: every shift, Assess readiness for medication education: every shift Milieu Narrative: milieu, structure, supportive therapy Cogentin to 1 milligrams 3 times a day for EPS risperdal 2mg bid and 2mg hs for psychosis pt does not want to be on prolixin Medication for sleep, Benadayl 50mg po hs for EPS and insomnia Sertraline [Zoloft] 150mg po daily for mdd and anxiety Medical consultation appreciated We'll monitor closely We'll consider boarding home placement SW evaluation Family Contact Family involvement: Family/SO is involved Family contact: Patient agrees to contact - Outside Agency [facility] Care involvment: Not involved Agency contact name: [facility] - Goals for Treatment Patient goals for treatment: "To get better." Discharge/Continuing Care - Education Needs Education Needs: Patient Medication, Patient Diagnosis/Disease Process, Patient Coping Skills, Patient Placement options, Patient Community resources, Patient Aftercare Safety Plan - Additional Comments milieu, structure, supportive therapy Cogentin to 1 milligrams 3 times a day for EPS risperdal 2mg bid and 2mg hs for psychosis pt does not want to be on prolixin Medication for sleep, Benadayl 50mg po hs for EPS and insomnia Sertraline [Zoloft] 150mg po daily for mdd and anxiety Medical consultation appreciated We'll monitor closely We'll consider boarding home placement SW evaluation - Treatment Team Participation Patient/Family/SO Statement: milieu, structure, supportive therapy Cogentin to 1 milligrams 3 times a day for EPS risperdal 2mg bid and 2mg hs for psychosis pt does not want to be on prolixin Medication for sleep, Benadayl 50mg po hs for EPS and insomnia Sertraline [Zoloft] 150mg po daily for mdd and anxiety Medical consultation appreciated We'll monitor closely We'll consider boarding home placement SW evaluation <Renetta Mendoza - Last Filed: 05/29/17 12:44> - Diagnosis (1) Morbidly obese Status: Acute Interventions: 05/29/17 12:44 heart healthy diet Patient was seen by med Team (2) Schizoaffective disorder Status: Chronic Interventions: 05/29/17 12:45 medication compliance Less psychotic No agitation improving (3) Suicidal ideation Status: Ruled-out Interventions: 05/29/17 12:45 patient denied thoughts of harming himself or other, denied intent or plan <Pari Velázquez - Last Filed: 05/29/17 15:29> Discharge/Continuing Care - Education Needs Education Needs: Patient Medication, Patient Diagnosis/Disease Process, Patient Coping Skills, Patient Placement options, Patient Community resources - Discharge Discharge Criteria: Tolerates medication w/o severe side effects, Free of Suicidal thoughts, Free of paranoid thoughts, Reduction of target symptoms Discharge to:: Other - Additional Comments 05/29/17 15:29 to friend's apartment in [place], [place] <Sulma Gillis - Last Filed: 05/29/17 16:14>
--- NOTE | 2017-05-29 14:06 | PCM.PYCHPN ---
Psychiatric Progress Note - Psychiatric Progress Note Patient seen today, length of contact: 30 minutes Patient Chief Complaint: "I hear voices only at night...' Problems Identified/Issues Discussed: Suicide/ homicide prevention, past psychiatric h/o, current psychiatric symptoms , medical problems, risk/benefits and alternatives of medications, medications compliance, coping strategies, substance abuse h/o, relapse prevention, importance of follow up with psychiatrist and therapist, discharge plan. Medical Problems: Sleep apnea obesity Diagnostic Results: Lab Results 05/22/17 06:45: TSH 3rd Generation 1.01 05/22/17 06:45: Fasting Glucose 107, Triglycerides 88, Cholesterol 182, LDL Cholesterol Direct 117, HDL Cholesterol 45 Vital Signs Temp Pulse Resp BP Pulse Ox 05/23/17 07:22 98.3 F 61 20 121/92 H 05/22/17 15:48 92 H 119/73 05/22/17 01:35 98.3 F 69 20 120/76 05/22/17 01:01 20 05/21/17 23:29 98.1 F 73 19 134/82 97 Temp Pulse Resp BP Pulse Ox 97.9 F 64 20 119/81 97 05/25/17 07:27 05/25/17 07:27 05/25/17 07:27 05/25/17 07:27 05/21/17 23:29 Temp Pulse Resp BP Pulse Ox 97.9 F 64 20 97/66 L 97 05/26/17 07:56 05/26/17 07:56 05/26/17 07:56 05/26/17 07:56 05/21/17 23:29 Temp Pulse Resp BP Pulse Ox 98 F 67 17 112/67 97 05/27/17 07:07 05/27/17 07:07 05/27/17 07:07 05/27/17 07:07 05/21/17 23:29 Temp Pulse Resp BP Pulse Ox 97.9 F 75 21 120/75 97 05/28/17 07:41 05/28/17 07:41 05/28/17 07:41 05/28/17 07:41 05/21/17 23:29 Temp Pulse Resp BP Pulse Ox 97.3 F L 69 20 126/80 97 05/29/17 07:31 05/29/17 07:31 05/29/17 07:31 05/29/17 07:31 07/09/17 23:29 DSM 5 Symptoms Update: Patient is a 41 years old -Spanish male with long and debilitating h/o schizophrenia of paranoid type, multiple psychiatric admissions in the past, most recent was less than a month in [facility] where he staid for a week, pt currently unemployed, homeless, lives on the streets, was transferred from the [facility] ED for evaluation of worsening of psychosis, feeling that gang members after him, hearing voices telling pt that they will kill him, pt also said that he is off his meds because he was not able to see psychiatrist due to his insurance, pt needs further evaluation and stabilization , medication adjustment, observation. patient was seen today at the treatment team meeting, personal hygiene is mildly better, no body odor, fare ADLs, pt was depressed, flat affect, pt said that he feels "little better, I am hearing voices at the night time only", was in agreement to increase hs risperdal. Patient reported that he was compliant with the medications, no side effects observed or reported, aims 0, no EPS. as per nursing report patient is self isolative, not participating in any groups , preferred to stay alone, sleeps most of the time, no behavioral incidents, compliance with the medications good DSM 5 Diagnosis: schizophrenia paranoid type Rule out schizoaffective disorder Medication Change: Yes (risperdal increased) Medical Record Reviewed: Yes Consults ordered or reviewed: medical consult appreciated Mental Status Examination - Cognitive Function Orientation: Person, Place, Situation Memory: Intact Attention: Poor (somewhat better) Concentration: Poor (somewhat better) Association: Loose Fund of Knowledge: Poor - Mood Mood: Depressed ("I do not feel good today"), Anxious - Affect Affect: Constricted - Speech Speech: Appropriate - Formal Thought Process Formal Thought Process: Hallucinations ("voices were threatening to kill me"), Delusions, Paranoia - Suicidal Ideation Suicidal Ideation: No - Homicidal Ideation Homicidal Ideation: No Goal/Treatment Plan - Goal/Treatment Plan Need for Continued Stay: Remain at risks for inpatient hospitalization, Severe depression anxiety, Discharge may exacerbated symptoms, Failed transitioning, Severe functional impairment Progress Toward Problem(s) and Goals/Treatment Plan: milieu, structure, supportive therapy Cogentin to 1 milligrams 3 times a day for EPS risperdal 2mg bid and 3mg hs for psychosis pt does not want to be on prolixin Medication for sleep, Benadayl 50mg po hs for EPS and insomnia Sertraline [Zoloft] 150mg po daily for mdd and anxiety Medical consultation appreciated We'll monitor closely We'll consider boarding home placement SW evaluation Estimated Date of D/C: 06/02/17 (we will monitor closely)
[2017-05-30 06:51] VITALS: O2SAT 96
--- NOTE | 2017-05-30 15:51 | PCM.PYCHPN ---
Psychiatric Progress Note - Psychiatric Progress Note Patient seen today, length of contact: 30 minutes Patient Chief Complaint: "I think risperdal needs to build up in my system" Problems Identified/Issues Discussed: Suicide/ homicide prevention, past psychiatric h/o, current psychiatric symptoms , medical problems, risk/benefits and alternatives of medications, medications compliance, coping strategies, substance abuse h/o, relapse prevention, importance of follow up with psychiatrist and therapist, discharge plan. Medical Problems: Sleep apnea obesity Diagnostic Results: Lab Results 05/22/17 06:45: TSH 3rd Generation 1.01 05/22/17 06:45: Fasting Glucose 107, Triglycerides 88, Cholesterol 182, LDL Cholesterol Direct 117, HDL Cholesterol 45 Vital Signs Temp Pulse Resp BP Pulse Ox 05/23/17 07:22 98.3 F 61 20 121/92 H 05/22/17 15:48 92 H 119/73 05/22/17 01:35 98.3 F 69 20 120/76 05/22/17 01:01 20 05/21/17 23:29 98.1 F 73 19 134/82 97 Temp Pulse Resp BP Pulse Ox 97.9 F 64 20 119/81 97 05/25/17 07:27 05/25/17 07:27 05/25/17 07:27 05/25/17 07:27 05/21/17 23:29 Temp Pulse Resp BP Pulse Ox 97.9 F 64 20 97/66 L 97 05/26/17 07:56 05/26/17 07:56 05/26/17 07:56 05/26/17 07:56 05/21/17 23:29 Temp Pulse Resp BP Pulse Ox 98 F 67 17 112/67 97 05/27/17 07:07 05/27/17 07:07 05/27/17 07:07 05/27/17 07:07 05/21/17 23:29 Temp Pulse Resp BP Pulse Ox 97.9 F 75 21 120/75 97 05/28/17 07:41 05/28/17 07:41 05/28/17 07:41 05/28/17 07:41 05/21/17 23:29 Temp Pulse Resp BP Pulse Ox 97.3 F L 69 20 126/80 97 05/29/17 07:31 05/29/17 07:31 05/29/17 07:31 05/29/17 07:31 05/21/17 23:29 Temp Pulse Resp BP Pulse Ox 97.7 F 87 20 125/91 H 96 05/30/17 06:50 05/30/17 06:50 05/30/17 06:50 05/30/17 06:50 05/30/17 06:50 DSM 5 Symptoms Update: Patient is a 41 years old -Cub[place] male with long and debilitating h/o schizophrenia of paranoid type, multiple psychiatric admissions in the past, most recent was less than a month in [facility] where he staid for a week, pt currently unemployed, homeless, lives on the streets, was transferred from the [facility] ED for evaluation of worsening of psychosis, feeling that gang members after him, hearing voices telling pt that they will kill him, pt also said that he is off his meds because he was not able to see psychiatrist due to his insurance, pt needs further evaluation and stabilization , medication adjustment, observation. patient was seen today at the treatment team meeting room, personal hygiene is mildly better, no body odor, fare ADLs, pt was depressed, flat affect, pt said that he feels "little better, I am hearing voices at the night time only, they are saying that they will kill me, it not that I am scared but it is annoying, I think risperdal needs to build up in my system", risperdal was increased yesterday. Patient reported that he was compliant with the medications, no side effects observed or reported, aims 0, no EPS. as per nursing report patient started to go to groups. med compliance is good. DSM 5 Diagnosis: schizophrenia paranoid type Rule out schizoaffective disorder Medication Change: Yes (risperdal increased yesteday) Medical Record Reviewed: Yes Consults ordered or reviewed: medical consult appreciated Mental Status Examination - Cognitive Function Orientation: Person, Place, Situation Memory: Intact Attention: Poor (somewhat better) Concentration: Poor (somewhat better) Association: Loose Fund of Knowledge: Poor - Mood Mood: Depressed ("I do not feel good today"), Anxious - Affect Affect: Constricted - Speech Speech: Appropriate - Formal Thought Process Formal Thought Process: Hallucinations ("voices were threatening to kill me"), Delusions, Paranoia - Suicidal Ideation Suicidal Ideation: No - Homicidal Ideation Homicidal Ideation: No Goal/Treatment Plan - Goal/Treatment Plan Need for Continued Stay: Remain at risks for inpatient hospitalization, Severe depression anxiety, Discharge may exacerbated symptoms, Failed transitioning, Severe functional impairment Progress Toward Problem(s) and Goals/Treatment Plan: milieu, structure, supportive therapy Cogentin to 1 milligrams 3 times a day for EPS risperdal 2mg bid and 3mg hs for psychosis pt does not want to be on prolixin Medication for sleep, Benadayl 50mg po hs for EPS and insomnia Sertraline [Zoloft] 150mg po daily for mdd and anxiety Medical consultation appreciated We'll monitor closely We'll consider boarding home placement SW evaluation Estimated Date of D/C: 06/02/17 (we will monitor closely)
--- NOTE | 2017-05-31 15:54 | PCM.PYCHPN ---
Psychiatric Progress Note - Psychiatric Progress Note Patient seen today, length of contact: 30 minutes Patient Chief Complaint: "I don't think I am ready for discharge, I am struggling with depression" Problems Identified/Issues Discussed: Suicide/ homicide prevention, past psychiatric h/o, current psychiatric symptoms , medical problems, risk/benefits and alternatives of medications, medications compliance, coping strategies, substance abuse h/o, relapse prevention, importance of follow up with psychiatrist and therapist, discharge plan. Medical Problems: Sleep apnea obesity Diagnostic Results: Lab Results 05/22/17 06:45: TSH 3rd Generation 1.01 05/22/17 06:45: Fasting Glucose 107, Triglycerides 88, Cholesterol 182, LDL Cholesterol Direct 117, HDL Cholesterol 45 Vital Signs Temp Pulse Resp BP Pulse Ox 05/23/17 07:22 98.3 F 61 20 121/92 H 05/22/17 15:48 92 H 119/73 05/22/17 01:35 98.3 F 69 20 120/76 05/22/17 01:01 20 05/21/17 23:29 98.1 F 73 19 134/82 97 Temp Pulse Resp BP Pulse Ox 97.9 F 64 20 119/81 97 05/25/17 07:27 05/25/17 07:27 05/25/17 07:27 05/25/17 07:27 05/21/17 23:29 Temp Pulse Resp BP Pulse Ox 97.9 F 64 20 97/66 L 97 05/26/17 07:56 05/26/17 07:56 05/26/17 07:56 05/26/17 07:56 05/21/17 23:29 Temp Pulse Resp BP Pulse Ox 98 F 67 17 112/67 97 05/27/17 07:07 05/27/17 07:07 05/27/17 07:07 05/27/17 07:07 05/21/17 23:29 Temp Pulse Resp BP Pulse Ox 97.9 F 75 21 120/75 97 05/28/17 07:41 05/28/17 07:41 05/28/17 07:41 05/28/17 07:41 05/21/17 23:29 Temp Pulse Resp BP Pulse Ox 97.3 F L 69 20 126/80 97 05/29/17 07:31 05/29/17 07:31 05/29/17 07:31 05/29/17 07:31 05/21/17 23:29 Temp Pulse Resp BP Pulse Ox 97.7 F 87 20 125/91 H 96 05/30/17 06:50 05/30/17 06:50 05/30/17 06:50 05/30/17 06:50 05/30/17 06:50 DSM 5 Symptoms Update: Patient is a 41 years old -Palest[place] male with long and debilitating h/o schizophrenia of paranoid type, multiple psychiatric admissions in the past, most recent was less than a month in [facility] where he staid for a week, pt currently unemployed, homeless, lives on the streets, was transferred from the [facility] ED for evaluation of worsening of psychosis, feeling that gang members after him, hearing voices telling pt that they will kill him, pt also said that he is off his meds because he was not able to see psychiatrist due to his insurance, pt needs further evaluation and stabilization , medication adjustment, observation. [facility] personal hygiene is mildly better, no body odor, fare ADLs, pt was depressed, flat affect, pt said that "I am fighting with my depression now, I don't know what to do", pt still hears voices , verbalized that he is not ready for d/c. will increase zoloft. Patient reported that he was compliant with the medications, no side effects observed or reported, aims 0, no EPS. as per nursing report patient started to go to groups. med compliance is good. DSM 5 Diagnosis: schizophrenia paranoid type Rule out schizoaffective disorder Medication Change: Yes (risperdal increased yesteday) Medical Record Reviewed: Yes Mental Status Examination - Cognitive Function Orientation: Person, Place, Situation Memory: Intact Attention: Poor (somewhat better) Concentration: Poor (somewhat better) Association: Loose Fund of Knowledge: Poor - Mood Mood: Depressed ("I do not feel good today"), Anxious - Affect Affect: Constricted - Speech Speech: Appropriate - Formal Thought Process Formal Thought Process: Hallucinations ("voices were threatening to kill me"), Delusions, Paranoia - Suicidal Ideation Suicidal Ideation: No - Homicidal Ideation Homicidal Ideation: No Goal/Treatment Plan - Goal/Treatment Plan Need for Continued Stay: Remain at risks for inpatient hospitalization, Severe depression anxiety, Discharge may exacerbated symptoms, Failed transitioning, Severe functional impairment Progress Toward Problem(s) and Goals/Treatment Plan: milieu, structure, supportive therapy Cogentin to 1 milligrams 3 times a day for EPS risperdal 2mg bid and 3mg hs for psychosis pt does not want to be on prolixin Medication for sleep, Benadayl 50mg po hs for EPS and insomnia Sertraline [Zoloft] 200mg po daily for mdd and anxiety Medical consultation appreciated We'll monitor closely We'll consider boarding home placement SW evaluation Estimated Date of D/C: 06/02/17 (we will monitor closely)
[2017-06-01 07:24] VITALS: RESP 20
--- NOTE | 2017-06-01 15:54 | PCM.PYCHPN ---
Psychiatric Progress Note - Psychiatric Progress Note Patient seen today, length of contact: 30 minutes Patient Chief Complaint: "voices are bothering me, but I am not paying attention..." Problems Identified/Issues Discussed: Suicide/ homicide prevention, past psychiatric h/o, current psychiatric symptoms , medical problems, risk/benefits and alternatives of medications, medications compliance, coping strategies, substance abuse h/o, relapse prevention, importance of follow up with psychiatrist and therapist, discharge plan. Medical Problems: Sleep apnea obesity Diagnostic Results: Lab Results 05/22/17 06:45: TSH 3rd Generation 1.01 05/22/17 06:45: Fasting Glucose 107, Triglycerides 88, Cholesterol 182, LDL Cholesterol Direct 117, HDL Cholesterol 45 Vital Signs Temp Pulse Resp BP Pulse Ox 05/23/17 07:22 98.3 F 61 20 121/92 H 05/22/17 15:48 92 H 119/73 05/22/17 01:35 98.3 F 69 20 120/76 05/22/17 01:01 20 05/21/17 23:29 98.1 F 73 19 134/82 97 Temp Pulse Resp BP Pulse Ox 97.9 F 64 20 119/81 97 05/25/17 07:27 05/25/17 07:27 05/25/17 07:27 05/25/17 07:27 05/21/17 23:29 Temp Pulse Resp BP Pulse Ox 97.9 F 64 20 97/66 L 97 05/26/17 07:56 05/26/17 07:56 05/26/17 07:56 05/26/17 07:56 05/21/17 23:29 Temp Pulse Resp BP Pulse Ox 98 F 67 17 112/67 97 05/27/17 07:07 05/27/17 07:07 05/27/17 07:07 05/27/17 07:07 05/21/17 23:29 Temp Pulse Resp BP Pulse Ox 97.9 F 75 21 120/75 97 05/28/17 07:41 05/28/17 07:41 05/28/17 07:41 05/28/17 07:41 05/21/17 23:29 Temp Pulse Resp BP Pulse Ox 97.3 F L 69 20 126/80 97 05/29/17 07:31 05/29/17 07:31 05/29/17 07:31 05/29/17 07:31 05/21/17 23:29 Temp Pulse Resp BP Pulse Ox 97.7 F 87 20 125/91 H 96 05/30/17 06:50 05/30/17 06:50 05/30/17 06:50 05/30/17 06:50 05/30/17 06:50 DSM 5 Symptoms Update: Patient is a 41 years old -Maldivian male with long and debilitating h/o schizophrenia of paranoid type, multiple psychiatric admissions in the past, most recent was less than a month in [facility] [place] where he staid for a week, pt currently unemployed, homeless, lives on the streets, was transferred from the [facility] ED for evaluation of worsening of psychosis, feeling that gang members after him, hearing voices telling pt that they will kill him, pt also said that he is off his meds because he was not able to see psychiatrist due to his insurance, pt needs further evaluation and stabilization , medication adjustment, observation. patient was seen today in his room, personal hygiene is mildly better, no body odor, fare ADLs. pt was deeply sleeping, at the same time pt c/o "voices bothering me"it is impossible to sleep and to have voices at the same time. Pt was in agreement to be d/c tomorrow. Patient reported that he was compliant with the medications, no side effects observed or reported, aims 0, no EPS. as per nursing report patient started to go to groups. med compliance is good. DSM 5 Diagnosis: schizophrenia paranoid type Rule out schizoaffective disorder Medication Change: No Medical Record Reviewed: Yes Consults ordered or reviewed: medical consult appreciated Mental Status Examination - Cognitive Function Orientation: Person, Place, Situation Memory: Intact Attention: Poor (somewhat better) Concentration: Poor (somewhat better) Association: Loose (better) Fund of Knowledge: Poor - Mood Mood: Depressed ("I am okay"), Anxious (denied) - Affect Affect: Constricted - Speech Speech: Appropriate - Formal Thought Process Formal Thought Process: Hallucinations ("voices are bothering me, but I am not paying attention"), Delusions (better), Paranoia (better) - Suicidal Ideation Suicidal Ideation: No - Homicidal Ideation Homicidal Ideation: No Goal/Treatment Plan - Goal/Treatment Plan Need for Continued Stay: Remain at risks for inpatient hospitalization, Severe depression anxiety, Discharge may exacerbated symptoms, Failed transitioning, Severe functional impairment Progress Toward Problem(s) and Goals/Treatment Plan: milieu, structure, supportive therapy Cogentin to 1 milligrams 3 times a day for EPS risperdal 2mg bid and 3mg hs for psychosis pt does not want to be on prolixin Medication for sleep, Benadayl 50mg po hs for EPS and insomnia Sertraline [Zoloft] 200mg po daily for mdd and anxiety Medical consultation appreciated We'll monitor closely We'll consider boarding home placement SW evaluation Estimated Date of D/C: 06/02/17 (we will monitor closely)
[2017-06-02 07:31] VITALS: BP 113/77; PULSE 67; TEMP 97.4
--- NOTE | 2017-06-02 16:31 | PCM.PYCHDC ---
Mental Status Examination - Mental Status Examination Orientation: Person, Place, Situation, Time Memory: Intact Mood: Neutral Affect: Constricted (but reactive mood congruent) Speech: Appropriate Attention: WNL Language: Word Retrieval Association: WNL Fund of Knowledge: WNL Formal Thought Process: Hallucinations (auditory hallucinations, which are chronic) Description of patient's judgement and insight: Pt has improved insight into mental and medical illness, pt was compliant with medications and unit rules and regulations, pt was going to groups, was calm, cooperative, socially appropriate, no behavioral incidents, no agitation, no aggression. Psychotic Thoughts and Behaviors: Pt denied v/a/t hallucinations, denied paranoid ideations, pt does not appear to be psychotic, and thought process is goal directed. Suicidal Ideation: No Current Homicidal Ideation?: No Plan: pt adamantly denied thoughts of harming self or others denied intent or plan. Discharge Summary - Discharge Note Reason for Hospitalization: pt was admitted for evaluation of depressive, psychotic symptoms, suicidal ideation, no intent or plan to kill himself. Psychiatric History (includes Medical, Family, Personal Hx): see HPI Laboratory Data: Lab Results 05/22/17 06:45: TSH 3rd Generation 1.01 05/22/17 06:45: Fasting Glucose 107, Triglycerides 88, Cholesterol 182, LDL Cholesterol Direct 117, HDL Cholesterol 45 Vital Signs Temp Pulse Resp BP Pulse Ox 06/02/17 07:30 97.4 F L 67 20 113/77 06/01/17 15:55 79 128/88 06/01/17 07:22 97.8 F 71 20 132/87 05/31/17 16:00 100 H 141/86 05/31/17 07:23 97.9 F 76 22 142/89 05/30/17 16:00 89 126/88 05/30/17 06:50 97.7 F 87 20 125/91 H 96 05/29/17 16:00 81 114/61 05/29/17 07:31 97.3 F L 69 20 126/80 05/28/17 16:41 94 H 117/82 05/28/17 07:41 97.9 F 75 21 120/75 05/27/17 16:36 78 116/66 05/27/17 07:07 98 F 67 17 112/67 05/26/17 16:00 66 130/79 05/26/17 07:56 97.9 F 64 20 97/66 L 05/26/17 07:47 97.9 F 64 20 05/25/17 15:00 84 126/81 05/25/17 07:27 97.9 F 64 20 119/81 05/24/17 16:21 100 H 143/91 H 05/24/17 06:49 97.6 F 57 L 18 117/77 05/23/17 16:34 56 L 119/69 05/23/17 07:22 98.3 F 61 20 121/92 H 05/22/17 15:48 92 H 119/73 05/22/17 01:35 98.3 F 69 20 120/76 05/22/17 01:01 20 05/21/17 23:29 98.1 F 73 19 134/82 97 Consultations:: List each consultation separately and include: 1. Reason for request. 2. Findings. 3. Follow-up Consultations: medical consult appreciated see notes for more detailed information Summary of Hospital Course include:: 1. Description of specific treatment plan utilized for patients during their course of treatmen. 2. Summarize the time- course for resolution of acute symptoms and/or regressed behaviors. 3. Describe issues identified and worked on during hospitalization. 4. Describe medication utilized. 5. Describe medical problems identified and treated. 6. Reassessment of suicide risk Summary of Hospital Course: Patient is a 41 years old -Turkish male with long and debilitating h/o schizophrenia of paranoid type, multiple psychiatric admissions in the past, most recent was less than a month in [facility] [place] where he staid for a week, pt currently unemployed, homeless, lives on the streets, was transferred from the [facility] ED for evaluation of worsening of psychosis, feeling that gang members after him, hearing voices telling pt that they will kill him, pt also said that he is off his meds because he was not able to see psychiatrist due to his insurance, pt needs further evaluation and stabilization , medication adjustment, observation. initially patient presented to have poor personal hygiene, malodorous, fare ADLs , flat affect, seems to be internally preoccupied, responding to internal stimuli, irritable, patient also had upper extremity pill-rolling tremor, not new. This advertising copywriter is very familiar with this patient from the previous admissions into psychiatric inpatient treatment here in [place], patient presented worse compared with the previous admissions. Pt said that whenever he goes a gang members are after him, they are threatening pt to kill him. as per report pt supposed to be on prolixin, but pt said that Risperdal was helping him the most. Reported depressed mood, and feelings of hopelessness and helplessness, but denied any homicidal ideation or suicidal ideation. No reported manic symptoms reported anxiety but no reported panic attacks. No reported substance abuse Past psychiatric history: [facility] [place] last month [facility] two months ago [facility] [place] April 2016. History of multiple inpatient psychiatric hospitalizations History of follow-up with an unknown psychiatrist at [facility] , last follow-up is unknown History of suicidal ideation with 2 attempts in the past, last attempt was 3 years ago when patient slit his wrist, patient has a old scar on the right wrist History of homicidal ideation without any attempt in the past No history of any other substance abuse History of arrests due to assaultive behavior but denies any legal charges in the past Past medical history Sleep apnea obesity pt denied using any drugs, reported to smoke a pack a day, refused to be on nicotine patch, counseling provided. pt denied h/o abuse. family h/o unknown. Lab Results 05/22/17 06:45: TSH 3rd Generation 1.01 05/22/17 06:45: Fasting Glucose 107, Triglycerides 88, Cholesterol 182, LDL Cholesterol Direct 117, HDL Cholesterol 45 Temp Pulse Resp BP Pulse Ox 98.3 F 69 20 120/76 97 05/22/17 01:35 05/22/17 01:35 05/22/17 01:35 05/22/17 01:35 05/21/17 23:29 patient was stabilized on the following medications: Cogentin to 1 milligrams 3 times a day for EPS risperdal 2mg bid and 3mg hs for psychosis Medication for sleep, Benadayl 50mg po hs for EPS and insomnia Sertraline [Zoloft] 200mg po daily for mdd and anxiety all meds were titrated up slowly. Patient tolerated medications well, no side effects observed or reported, aims 0 , no EPS. (pt has some resting tremor on is right UE, with improved significantly after cogentin was increased) pt had tendency of sleeping long hours, pt also was feeling very comfortable at the unit, takes passive role in his treatment. Over the course of this hospitalization pt was attending groups, pt also had medication management, had therapeutic milieu. Overall pt improved significantly, pt's affect became brighter, pt was less depressed, has realistic future oriented plans, pt also does not appear to be psychotic, or anxious, pt was socially appropriate, no behavioral issues, pts insight improved as well and soon pt deemed to be ready for discharge. At the time of the discharge pt denied been depressed, denied thoughts of harming self or others, denied psychotic symptoms, and pt does not appeared to be psychotic, denied been anxious, was considered to pose no threat to self or others, will be following up at [facility], information about follow up appointment, time and address provided to the pt, it is patient responsibility to follow up with outpatient clinic, PMD as well as specialists (see SW note for more detailed information). In case pt will need to obtain results of studies pending at discharge pt was provided with contact information of Psychiatric Inpatient unit [phone] as well as Medical Record Department [phone]. pt denied smoking or using drugs. pt was provided with prescriptions for all of medications (please see medication reconciliation form) Pt was educated about safety plan in case of worsening of symptoms or in case of suicidal or homicidal ideation call 911 or go to the nearest ER, also was educated to take meds as prescribed and stay away from drugs, pt verbalized understanding. - Diagnosis (1) Morbidly obese Status: Chronic Priority: High Comment: - will need nutrition counseling and consult - will order controlled calorie diet - hypertriglyceridemia noted - patientis high risk for DM II, monitor - U/A pending (2) Schizoaffective disorder Status: Chronic (3) Suicidal ideation Status: Ruled-out - Final Diagnosis (DSM 5) Condition upon Discharge: GOOD Disposition: HOME/ ROUTINE Follow-up Treatment Plan: At the time of the discharge pt denied been depressed, denied thoughts of harming self or others, denied psychotic symptoms, and pt does not appeared to be psychotic, denied been anxious, was considered to pose no threat to self or others, will be following up at [facility] information about follow up appointment, time and address provided to the pt, it is patient responsibility to follow up with outpatient clinic, PMD as well as specialists (see SW note for more detailed information). In case pt will need to obtain results of studies pending at discharge pt was provided with contact information of Psychiatric Inpatient unit [phone] as well as Medical Record Department [phone]. pt denied smoking or using drugs. pt was provided with prescriptions for all of medications (please see medication reconciliation form) Pt was educated about safety plan in case of worsening of symptoms or in case of suicidal or homicidal ideation call 911 or go to the nearest ER, also was educated to take meds as prescribed and stay away from drugs, pt verbalized understanding. Prescriptions/Medication Reconciliation: Benztropine [Cogentin] 1 mg PO HS #14 tab Benztropine [Cogentin] 1 mg PO BID #30 tab DiphenhydrAMINE [Benadryl] 50 mg PO HS #14 cap risperiDONE [RisperDAL Tab] 2 mg PO BID #30 tab risperiDONE [RisperDAL Tab] 3 mg PO HS #14 tab Sertraline [Zoloft] 200 mg PO DAILY #30 tab - Smoking Cessation Smoking Cessation Medication prescribed: No Reason for not providing: pt denied smoking - Antipsychotic Medications Pt discharged on 2 or more routine antipsychotic medications: No
== END 2017-06-02 13:59 | disposition home or self-care (01) | DRG 885 ==
LOC: ED 23:01 → ERH 23:14 → PSYC 23:41
PROVIDERS: ADMIT Psychiatry & Neurology Psychiatry; ATTEND Psychiatry & Neurology Psychiatry
DX: F20.0 Paranoid schizophrenia (principal); R45.851 Suicidal ideations; Z68.41 Body mass index [BMI] 40.0-44.9, adult; E66.01 Morbid (severe) obesity due to excess calories; F25.9 Schizoaffective disorder, unspecified; E78.1 Pure hyperglyceridemia; G25.2 Other specified forms of tremor; G47.00 Insomnia, unspecified; G47.30 Sleep apnea, unspecified; Z79.899 Other long term (current) drug therapy; Z91.5 Personal history of self-harm; F32.89 Other specified depressive episodes; F41.9 Anxiety disorder, unspecified

== ENCOUNTER 2017-11-25 11:13 | Inpatient (IN) | payer MEDICARE, OTHER ==
--- NOTE | 2017-11-25 11:30 | ED PDOC ---
Arrival/HPI - General Time Seen by Provider: 11/25/17 11:29 Historian: Patient - History of Present Illness Narrative History of Present Illness (Text): 11/25/17 11:29 42 y/o male, pmh including hyerplipidemia, psychiatric history including schizoaffective and schizophrenia, nkda, c/o feeling hearing voices and not taking his medications plus has idea of harming other people. Pt. stated that he has not been taking his psychiatric medication, admits been hearing voices which telling him to harm other people, no night sweat, no rash, no numbness or tingling, no other medical or psychological complaints. Past Medical History - Provider Review Nursing Documentation Reviewed: Yes - Past History Past History: Non-Contributing - Infectious Disease Hx of Infectious Diseases: None - Tetanus Immunization Tetanus Immunization: Unknown - Past Medical History Past Medical History: No Previous - Cardiac Hx Hypertension: No - Pulmonary Hx Sleep Apnea: Yes - Neurological Hx Seizures: No - HEENT Hx HEENT Disorder: No - Renal Hx Renal Disorder: No - Endocrine/Metabolic Hx Endocrine Disorders: No - Hematological/Oncological Hx Cancer: No - Integumentary Hx Dermatological Disorder: No - Musculoskeletal/Rheumatological Hx Musculoskeletal Disorders: No Hx Falls: No - Gastrointestinal Hx Gastrointestinal Disorders: No - Genitourinary/Gynecological Hx Sexually Transmitted Diseases: No - Psychiatric Hx Substance Use: No - Past Surgical History Past Surgical History: No Previous - Anesthesia Hx Anesthesia: No Hx Anesthesia Reactions: No Hx Malignant Hyperthermia: No - Suicidal Assessment Feels Threatened In Home Enviroment: No Family/Social History - Physician Review Nursing Documentation Reviewed: Yes Family/Social History: Unknown Family HX Smoking Status: Heavy Smoker > 10 Cigarettes Daily Hx Alcohol Use: No Hx Substance Use: No Hx Substance Use Treatment: No Allergies/Home Meds Allergies/Adverse Reactions: Allergies No Known Allergies Allergy (Verified 11/25/17 11:31) Home Medications: Home Meds Medication Instructions Recorded Confirmed No Known Home Med 11/25/17 11/25/17 Review of Systems - Review of Systems Constitutional: absent: Fatigue, Fevers Eyes: absent: Vision Changes ENT: absent: Hearing Changes Respiratory: absent: SOB, Cough Cardiovascular: absent: Chest Pain Gastrointestinal: absent: Abdominal Pain, Nausea, Vomiting Neurological: absent: Headache, Dizziness Hemo/Lymphatic: absent: Adenopathy, Easy Bleeding Psychiatric: absent: Anxiety, Depression, Suicidal Ideation Physical Exam Vital Signs Reviewed: Yes Vital Signs Temp Pulse Resp BP Pulse Ox 11/25/17 11:32 97.4 F L 84 21 143/84 95 11/25/17 11:31 97.4 F L 84 21 143/84 95 Temperature: Afebrile Blood Pressure: Normal Pulse: Regular Respiratory Rate: Normal Appearance: Positive for: Well-Appearing, Non-Toxic, Comfortable Pain Distress: None Mental Status: Positive for: Alert and Oriented X 3 - Systems Exam Head: Present: Atraumatic, Normocephalic Pupils: Present: PERRL Extroacular Muscles: Present: EOMI Conjunctiva: Present: Normal Mouth: Present: Moist Mucous Membranes Neck: Present: Normal Range of Motion Respiratory/Chest: Present: Clear to Auscultation, Good Air Exchange. No: Respiratory Distress, Accessory Muscle Use Cardiovascular: Present: Regular Rate and Rhythm, Normal S1, S2. No: Murmurs Abdomen: Present: Normal Bowel Sounds. No: Tenderness, Distention, Peritoneal Signs Back: Present: Normal Inspection Upper Extremity: Present: Normal Inspection. No: Cyanosis, Edema Lower Extremity: Present: Normal Inspection. No: Edema Neurological: Present: GCS=15, Speech Normal, Motor Func Grossly Intact, Gait Normal, Memory Normal Skin: Present: Warm, Dry, Normal Color. No: Rashes Psychiatric: Present: Alert, Oriented x 3, Normal Concentration, Hallucinations. No: Agitated, Depressed Mood, Delusional, Intoxicated, Lethargic Medical Decision Making ED Course and Treatment: 11/25/17 11:53 -labs -ekg/cxr -PES notified -Observe and reassess 11/25/17 15:15 -Chest xray show no active disease -Labs are non-significant -UA show no acute findings -UDS show no acute findings -Pt. is medically stable and clear for the psychiatric evaluation, pending PES evaluation. -Pt. evaluated by the PES 11/25/17 16:24 -Pt. evaluated by the PES Jhonny, pt. need to be admitted for schizophrenia to Dr. Renetta Phelan, - Lab Interpretations Lab Results: 11/25/17 12:50 11/25/17 12:50 Lab Results 11/25/17 14:38: Urine Opiates Screen Negative, Urine Methadone Screen Negative, Ur Barbiturates Screen Negative, Ur Phencyclidine Scrn Negative, Ur Amphetamines Screen Negative, U Benzodiazepines Scrn Negative, U Oth Cocaine Metabols Negative, U Cannabinoids Screen Negative 11/25/17 14:38: Urine Color Yellow, Urine Appearance Clear, Urine pH 6.0, Ur Specific [place] 1.025, Urine Protein Negative, Urine Glucose (UA) Negative, Urine Ketones Negative, Urine Blood Negative, Urine Nitrate Negative, Urine Bilirubin Negative, Urine Urobilinogen 0.2, Ur Leukocyte Esterase Negative 11/25/17 12:50: WBC 7.0, RBC 5.43, Hgb 14.8, Hct 44.5, MCV 82.0, MCH 27.3, MCHC 33.3, RDW 14.4, Plt Count 262, MPV 10.8, Gran % 58.7, Lymph % (Auto) 26.2, [place] % (Auto) 10.4 H, Eos % (Auto) 4.4, Baso % (Auto) 0.3, Gran # 4.10, Lymph # 1.8, [place] # 0.7 H, Eos # 0.3, Baso # 0.02 11/25/17 12:50: Alcohol, Quantitative < 10 11/25/17 12:50: Salicylates < 1 L, Acetaminophen < 10.0 L 11/25/17 12:50: Sodium 139, Potassium 4.4, Chloride 103, Carbon Dioxide 27, Anion Gap 13, BUN 16, Creatinine 1.0, Est GFR ( Amer) > 60, Est GFR (Non- Af Amer) > 60, Random Glucose 104, Calcium 9.5, Total Bilirubin 0.2, AST 20, ALT 33, Alkaline Phosphatase 114, Total Protein 7.5, Albumin 4.1, Globulin 3.4, Albumin/Globulin Ratio 1.2 - RAD Interpretation Radiology Orders: 11/25/17 11:43 CHEST PORTABLE [RAD] Stat - PA / THERAPIST RADIATION / Resident Statement MD/DO has reviewed & agrees with the documentation as recorded. Disposition/Present on Arrival - Present on Arrival Any Indicators Present on Arrival: No History of DVT/PE: No History of Uncontrolled Diabetes: No Urinary Catheter: No History of Decub. Ulcer: No History Surgical Site Infection Following: None - Disposition Have Diagnosis and Disposition been Completed?: Yes Diagnosis: Schizophrenia Disposition: HOSPITALIZED Disposition Time: 16:25 Patient Plan: Admission Condition: GOOD Referrals: Anne Marie Sierra Req, [Primary Care Provider] - Follow up with primary
[2017-11-25 11:31] VITALS: BMI 43.4
--- NOTE | 2017-11-25 13:04 | RAD ---
HISTORY: medical clearance COMPARISON: 02/12/2017 FINDINGS: LUNGS: No active pulmonary disease. PLEURA: No significant pleural effusion identified, no pneumothorax apparent. CARDIOVASCULAR: Normal. OSSEOUS STRUCTURES: No significant abnormalities. VISUALIZED UPPER ABDOMEN: Normal. OTHER FINDINGS: None. IMPRESSION: No active disease.
[2017-11-25 13:11] LABS: BASO # 0.02 [, K/mm3] (0.0-2.0); BASO % 0.3 % (0.0-3.0); EOS # 0.3 (0.0-0.7); EOS % 4.4 % (1.5-5.0); GRAN # 4.1 (1.4-6.5); GRAN % 58.7 % (50.0-68.0); HEMOGLOBIN 14.8 g/dL (14.0-18.0); LYMPH # 1.8 (1.2-3.4); LYMPH % 26.2 % (22.0-35.0); MEAN CORPUSCULAR HEMOGLOBIN 27.3 pg (25.0-35.0); MEAN CORPUSCULAR HGB CONC 33.3 g/dl (31.0-37.0); MEAN PLATELET VOLUME 10.8 fl (7.0-11.0); MONO # 0.7 (0.1-0.6); MONO % 10.4 % (1.0-6.0); RBC 5.43 [, 10^6/uL] (3.5-6.1); RED CELL DISTRIBUTION WIDTH 14.4 % (11.5-14.5)
[2017-11-25 13:12] LABS: ALB/GLOB RATIO 1.2 (1.1-1.8); ALBUMIN 4.1 g/dL (3.0-4.8); ALT/SGPT 33 U/L (7-56); AST/SGOT 20 U/L (17-59); BLOOD UREA NITROGEN 16 mg/dL (7-21); CALCIUM 9.5 mg/dL (8.4-10.5); GFR AFRICAN-AMERICAN > 60; GFR NON-AFRICAN AMERICAN > 60
[2017-11-25 13:16] LABS: ACETAMINOPHEN < 10.0 ug/ml (10.0-20.0); SALICYLATE < 1 mg/dL (2.0-20.0)
[2017-11-25 14:55] LABS: URINE APPEARANCE CLEAR (CLEAR); URINE BILIRUBIN NEGATIVE (NEGATIVE); URINE BLOOD NEGATIVE (NEGATIVE); URINE COLOR YELLOW (YELLOW); URINE GLUCOSE (UA) NEGATIVE (NEGATIVE); URINE LEUKOCYTE ESTERASE NEGATIVE Leu/uL (NEGATIVE); URINE NITRATE NEGATIVE (NEGATIVE); URINE PROTEIN NEGATIVE mg/dL (<30 mg/dL); URINE UROBILINOGEN 0.2 E.U./dL (<1 E.U./dL)
[2017-11-25 15:10] LABS: BARBITURATES, UR NEGATIVE (NEGATIVE); BENZODIAZEPINES, UR NEGATIVE (NEGATIVE); OPIATES, UR NEGATIVE (NEGATIVE); PHENCYCLIDINE, UR NEGATIVE (NEGATIVE)
--- NOTE | 2017-11-25 15:35 | CARD ---
APPROVED REPORT EKG Measurement Heart [id number] <Conclusion> Normal sinus rhythm Normal ECG
--- NOTE | 2017-11-25 23:21 | PCM.BM ---
<Alexander Sharma - Last Filed: 11/25/17 23:18> Treatment Plan Problems - Problems identified on initial assessmt AUDITORY HALLUCINATION Date Initiated: 11/25/17 Time Initiated: 20:00 Assessment reference: NA Status: Active DEPRESSION Date Initiated: 11/25/17 Assessment reference: NA Status: Active MEDS NON COMPLIANCE Date Initiated: 11/25/17 Time Initiated: 20:00 Assessment reference: NA Status: Active Treatment assets and liabiliti Patient Assests: adapts well, cooperative, educated, self-reliant, ADL independent, negotiates basic needs, good past tx response, cognitively intact Patient Liabilities: live alone, financial problems, poor support system, relationship conflicts, medical problems - Milieu Protocol Maintain good personal hygiene: every other day Encourage regular showers, every shift Remind patient to perform daily oral care, every shift Assist patient to perform ADL's Maintain personal safety: every shift Educate patient to report safety concerns to staff, every shift Monitor environment for contraband/sharps Medication safety: Monitor for expected outcome, potential side effects: every shift, Assess barriers to learning: every shift, Assess readiness for medication education: every shift Family Contact Family involvement: Family/SO is involved Family contact: Patient agrees to contact Discharge/Continuing Care - Education Needs Education Needs: Patient Medication, Patient Diagnosis/Disease Process, Patient Coping Skills, Patient Placement options, Patient Community resources, Patient Activities of Daily Living, Patient Health Practices/Safety - Discharge Discharge Criteria: Tolerates medication w/o severe side effects, Free of Suicidal thoughts, Free of paranoid thoughts, Normal sleep pattern, Ability to care for self <Marisela Brown - Last Filed: 11/26/17 10:33> - Diagnosis (1) Schizophrenia Status: Acute Interventions: RISPERDAL 2 MG AMHS WITH PLAN TO TITRATE TO 2/2/3 11/26/17 10:33 (2) Anxiety disorder Status: Acute Interventions: ZOLOFT 100 MG DAILY WITH PLAN TO TITRATE T0 200 MG DAILY 11/26/17 10:34 (3) Depressed Status: Acute Interventions: ZOLOFT 100 MG DAILY WITH PLAN TO TITRATE T0 200 MG DAILY 11/26/17 10:34 <Pari Velázquez - Last Filed: 11/27/17 16:34> Family Contact Family involvement: Famliy/SO not involved
[2017-11-25] MEDS ORDERED: Alum-Mag Hydrox-Simethicone Susp (30 mL) PO PRN (23:25)
[2017-11-25] MEDS ORDERED: Magnesium Hydroxide Susp 30 ml UD PO PRN (23:25)
[2017-11-26 08:09] LABS: GLUCOSE,FASTING 105 mg/dL (65-110); HDL CHOLESTEROL 36 mg/dL (29-60)
[2017-11-26 08:20] LABS: LDL CHOLESTEROL 87 mg/dL (0-129)
--- NOTE | 2017-11-26 10:33 | PCM.PSYCH ---
Initial Psychiatric Evaluation - Initial Psychiatric Evaluation Type of Admission: Voluntary History of Present Illness and Precipitating Events: Patient is a 42 yo AA male with Schizoaffective Disorder-Paranoid type, history of numerous admissions-most recently at [facility] in 07/2017, history of poor compliance with medications and aftercare, who presented to our Emergency Room on 11/15/17 complaining of paranoia and command auditory hallucinations to harm other people in context of noncompliance with medications. I reviewed his prior admission records as well as recent notes on the unit. Patient has had multiple admissions with similar symptoms of paranoia, suicidal/ homicidal thoughts and hallucinations in context of medication noncompliance. Patient was interviewed privately at bedside. He appears unkempt and preoccupied. His eye contact and focus are poor. He is oriented to month, year and location. Behavior is calm however patient is only superficially engaged during questioning . Affect is guarded and flat. Patient indicates he came to the ER to be stabilized on his medications again. Patient has not taken medications or followed up with outpatient treatment since discharge from [facility] in July 2017. He continues to endorse frequent auditory hallucinations, voices that tell patient that gang members are following him and will harm him. The voices also tell him to hurt others, something he doesn't want to do. Patient feels paranoid and distressed by the hallucinations. He feels depressed but doesn't want to . His major stressor is homelessness and loss of Medicaid benefits. Patient feels that discharge medications were beneficial before he stopped taking them. He indicates that he couldn't take his medications or see a psychiatrist due to loss of Medicaid. Patient presented in May 2017 with a similar story. At times, patient is an inconsistent historian and his insight and judgment are poor. PSYCHIATRIC HISTORY ~Patient has a long history of Paranoid Schizophrenia with multiple admissions at [facility] and [facility]. Patient has also been hospitalized at [place] in the past year. ~His most recent admission was to [facility] from 07/27/17-08/11/17. He was discharged on: Cogentin 1 mg po bid, Risperdal 2 mg po bid, Geodon 60 mg po bid , Zoloft 200 mg po daily, Trazodone 100 mg HS ~Hospitalized at [facility] from in 05/2017, discharged on Risperdal , cogentin 1 TID, Benadryl 50 HS and zoloft 200 mg daily. ~Hospitalized at [facility] 01/19/15-01/28/15 for hallucinations to harm self and/or others. He was discharged on Risperdal 3 BID, Cogentin 1 BID, Ativan 1 qday, Trazodone 100 qhs and Haldol 0.5 mg BID. ~Patient's other admission at [facility] was 12/22/14-12/31/14 with similar complaints and similar discharge medications. ~He also has a prior admission at [facility] in [place] in 2009 and [facility] in 2007. Reports his first psychiatric admission was in his early thirties. Patient reports 3 prior suicide attempts, however he is vague about circumstances except that he "tried to use a razor to cut myself". Per [facility] records 07/2017: Pt reports one prior suicide attempt 2 years ago by cutting his wrist SOCIAL HISTORY Born and raised in [place]. Single, never , no children. He is homeless and sleeps at shelters. He has been unemployed since 2007. 9th grade education. Denies drug or alcohol issues. Patient has a history of smoking tobacco 1-2 packs daily. Per prior records, patient has history of arrests due to assaultive behavior but denies any legal charges in past Current Medications: Active Medications Generic Name Dose Route Start Last Admin Trade Name Freq PRN Reason Stop Dose Admin Acetaminophen 650 mg 11/25/17 23:25 Tylenol 325mg Tab PO Q4H PRN Pain, Mild (1-3) Al Hydrox/Mg Hydrox/Simethicone 30 ml 11/25/17 23:25 Maalox Plus 30 Ml PO DAILY PRN Upset Stomach Benztropine Mesylate 1 mg 11/26/17 08:00 Cogentin PO BID GONZALO Benztropine Mesylate 1 mg 11/25/17 22:00 11/25/17 21:23 Cogentin PO 1 mg HS GONZALO Administration Diphenhydramine HCl 50 mg 11/25/17 22:00 11/25/17 21:23 Benadryl PO 50 mg HS GONZALO Administration Haloperidol 5 mg 11/25/17 19:56 Haldol PO Q8 PRN Moderate Agitation Lorazepam 2 mg 11/25/17 19:56 Ativan PO Q8 PRN Severe Agitation Magnesium Hydroxide 30 ml 11/25/17 23:25 Milk Of Magnesia PO DAILY PRN Constipation Risperidone 2 mg 11/25/17 22:00 11/25/17 21:23 Risperdal Tab PO 2 mg AMHS GONZALO Administration Sertraline HCl 50 mg 11/26/17 08:00 Zoloft PO DAILY GONZALO Past Psychiatric History - Past Psychiatric History Pertinent Medical Hx (Current Medical&Sleep Prob, Allergies): Allergies Allergy/AdvReac Type Severity Reaction Status Date / Time No Known Allergies Allergy Verified 11/25/17 23:24 No Known Home Med 11/25/17 Mental Status Examination - Personal Presentation Personal Presentation: Looks stated age - Affect Affect: Constricted - Motor Activity Motor Activity: Calm - Reliability in Providing Information Reliability in Providing Information: Poor, due to alteration in thoughts - Speech Speech: Organized - Mood Mood: Depressed - Formal Thought Process Formal Thought Process: Hallucinations ("to hurt others" and that gang members are following him), Delusions - Cognitive Functions Orientation: Person, Place, Situation Sensorium: Alert Attention/Concentration: Easily distracted Estimate of Intelligence: Average Judgement: Imparied, as evidence by: Poor judgement, Imparied, as evidence by: Lack of insight into illness - Risk Risk: Suicidal, Homicidal, Diminished functioning - Strength & Assets Inventory Strength & Assets Inventory: Cooperative DSM 5 DX - DSM 5 DSM 5 Diagnosis: Schizoaffective Disorder, Paranoid Type - Recommended/Plan of Treatment Treatment Recommendations and Plan of Treatment: * group, milieu and supportive tx * Risperdal 2 mg AMHS, with plan to titrate to prior effective dose of 2/2/3 * Cogentin 1 mg BID and HS for EPS prophylaxis * Zoloft 100 mg po daily, with plan to titrate to prior effective dose of 200 mg daily * Benadryl 50 mg HS * Awaiting medical f/u * Vitals reviewed and noted below: 11/25/17 11/26/17 17:09 07:43 Temperature 97.9 F 97.7 F Pulse Rate 88 72 Respiratory 19 20 Rate Blood Pressure 106/62 ER LABS AND STUDIES 11/25/17 15:15 -Chest xray show no active disease 11/25/17 14:38: Urine Opiates Screen Negative, Urine Methadone Screen Negative, Ur Barbiturates Screen Negative, Ur Phencyclidine Scrn Negative, Ur Amphetamines Screen Negative, U Benzodiazepines Scrn Negative, U Oth Cocaine Metabols Negative, U Cannabinoids Screen Negative 11/25/17 14:38: Urine Color Yellow, Urine Appearance Clear, Urine pH 6.0, Ur Specific [place] 1.025, Urine Protein Negative, Urine Glucose (UA) Negative, Urine Ketones Negative, Urine Blood Negative, Urine Nitrate Negative, Urine Bilirubin Negative, Urine Urobilinogen 0.2, Ur Leukocyte Esterase Negative 11/25/17 12:50: WBC 7.0, RBC 5.43, Hgb 14.8, Hct 44.5, MCV 82.0, MCH 27.3, MCHC 33.3, RDW 14.4, Plt Count 262, MPV 10.8, Gran % 58.7, Lymph % (Auto) 26.2, [place] % (Auto) 10.4 H, Eos % (Auto) 4.4, Baso % (Auto) 0.3, Gran # 4.10, Lymph # 1.8, [place] # 0.7 H, Eos # 0.3, Baso # 0.02 11/25/17 12:50: Alcohol, Quantitative < 10 11/25/17 12:50: Salicylates < 1 L, Acetaminophen < 10.0 L 11/25/17 12:50: Sodium 139, Potassium 4.4, Chloride 103, Carbon Dioxide 27, Anion Gap 13, BUN 16, Creatinine 1.0, Est GFR ( Amer) > 60, Est GFR (Non- Af Amer) > 60, Random Glucose 104, Calcium 9.5, Total Bilirubin 0.2, AST 20, ALT 33, Alkaline Phosphatase 114, Total Protein 7.5, Albumin 4.1, Globulin 3.4, Albumin/Globulin Ratio 1.2 FLOOR LABS 11/26/17 11/26/17 07:45 07:45 Fasting Glucose 105 Triglycerides 118 Cholesterol 148 LDL Cholesterol Direct 87 HDL Cholesterol 36 TSH 3rd Generation 1.72
--- NOTE | 2017-11-26 14:26 | CON ---
DATE: HISTORY OF PRESENT ILLNESS: I was called to see him in the psychiatric floor. He is a 42-year-old man, who from what I understand stopped taking his medications, started hearing voices to hurt other people, not doing well overall, new to come to the hospital. PAST MEDICAL HISTORY: He has a past medical history of sleep apnea, high cholesterol, history of schizoaffective disorder and schizophrenia, also having auditory hallucinations. ALLERGIES: NO KNOWN DRUG ALLERGIES. MEDICATIONS: He just told me he wants his Risperdal, I understand he stopped taking it. FAMILY HISTORY: Unknown. SOCIAL HISTORY: Heavy smoker. No alcohol. No drug. REVIEW OF SYSTEMS: No acute vision or hearing changes. No shortness of breath or cough. No chest pain or palpitation. No abdominal pain, nausea, vomiting, nausea, vomiting, constipation, or diarrhea. No headaches or dizziness. No sweating. No swelling. No easily bleeding. He is definitely got some anxiety situations. He is upset. He is asking for his Risperdal. He is hearing voices. PHYSICAL EXAMINATION: GENERAL: He is seen in bed upset, well-appearing, alert and oriented x3. VITAL SIGNS: He has a 97.4 temperature, 84 pulse, 21 respiratory rate, 143/84 blood pressure, and 95% O2 saturation. HEENT: Head is normocephalic and atraumatic. Extraocular muscles intact. Throat is moist. NECK: Supple. Thyroid midline. No palpable lymphadenopathy overall appreciative. HEART: Regular rate. Normal S1 and S2. LUNGS: Decreased breath sounds. Clear to auscultation. ABDOMEN: Soft and nontender. Positive bowel sounds. No guarding, rebound, or CVA tenderness. EXTREMITIES: No edema. NEUROLOGIC: GCS is 50. Cranial nerves II through XII are grossly intact. Speech is normal. SKIN: Warm and dry. No apparent rashes or ulcers appreciated. PSYCHIATRY: Alert and oriented x3. He is having some auditory hallucinations from what I understand. LABORATORY DATA: He had blood test. Urine is clean. Toxicology is clean. Sodium 139, potassium 4.4, BUN 16, creatinine 1, GFR is greater than 60, sugar 104, calcium 9.5, total bilirubin is 0.2, AST is 20, ALT is 33, alkaline phosphatase 114, total protein is 7.5, albumin is 4.1, and globulin 3.4. Cholesterol 148. TSH is 1.72. White count is 7.0, hemoglobin 14.8, hematocrit 44.5, and platelets of 262. Chest x-ray is clear. EKG has normal sinus rhythm. ASSESSMENT: Schizoaffective disorder, history of schizophrenia, and high cholesterol. PLAN: I will watch him medically. Repeat his labs tomorrow. He is here for being out of his medications. Otis Garrett DO
--- NOTE | 2017-11-27 13:05 | PN ---
DATE: 11/27/2017 SUBJECTIVE: I saw Juan Carlos in the Psych Unit. He slept very, very well, very He has taken his medications, not feeling great yet. PHYSICAL EXAMINATION: VITAL SIGNS: Temperature 97.3, 61 pulse, 99/63 blood pressure, 20 respiratory rate, and 98% O2 saturation on room air. HEART: Regular rate. LUNGS: Decreased breath sounds, but clear. ABDOMEN: Soft and obese. EXTREMITIES: No edema. MEDICATIONS: He is currently on Ativan, Benadryl, Cogentin, Haldol, Maalox, milk of magnesia, Risperdal, Tylenol, and Zoloft. LABORATORY DATA: He has a nonreactive RPR. Toxicology is negative. Urine is negative. Chemistry is completely normal, 139 sodium, potassium is 4.4, BUN is 16, and creatinine is 1. GFR is greater than 60. Sugar is 104, calcium is 9.5, and total bilirubin is 0.2. AST is 20, ALT is 33, and alkaline phosphatase is 114. Total protein is 7.5 and albumin is 4.1. Triglycerides are 118 and cholesterol is 148. TSH is 1.72. White count is 7, hemoglobin is 14.8, hematocrit is 44.5, and platelets are 262. DIAGNOSTIC DATA: Chest x-ray reveals no acute disease. EKG with normal sinus rhythm. ASSESSMENT AND PLAN: We will continue with aggressive treatment and care as per Psychiatry. I encouraged him to participate in groups. I will watch medically. I encouraged him to eat a diet. Otis Garrett DO MTDSherrie
--- NOTE | 2017-11-27 13:38 | PCM.PYCHPN ---
Psychiatric Progress Note - Psychiatric Progress Note Patient seen today, length of contact: 30min Patient Chief Complaint: "I stopped taking medications, started to hear voices...." Problems Identified/Issues Discussed: Suicide/ homicide prevention, past psychiatric h/o, current psychiatric symptoms , medical problems, risk/benefits and alternatives of medications, medications compliance, coping strategies, substance abuse h/o, relapse prevention, importance of follow up with psychiatrist and therapist, discharge plan. Medical Problems: denied any major medical issues, but pt is obese Diagnostic Results: 11/25/17 12:50 11/25/17 12:50 Lab Results 11/26/17 07:45: RPR Nonreactive 11/26/17 07:45: TSH 3rd Generation 1.72 11/26/17 07:45: Fasting Glucose 105, Triglycerides 118, Cholesterol 148, LDL Cholesterol Direct 87, HDL Cholesterol 36 11/25/17 14:38: Urine Opiates Screen Negative, Urine Methadone Screen Negative, Ur Barbiturates Screen Negative, Ur Phencyclidine Scrn Negative, Ur Amphetamines Screen Negative, U Benzodiazepines Scrn Negative, U Oth Cocaine Metabols Negative, U Cannabinoids Screen Negative 11/25/17 14:38: Urine Color Yellow, Urine Appearance Clear, Urine pH 6.0, Ur Specific [place] 1.025, Urine Protein Negative, Urine Glucose (UA) Negative, Urine Ketones Negative, Urine Blood Negative, Urine Nitrate Negative, Urine Bilirubin Negative, Urine Urobilinogen 0.2, Ur Leukocyte Esterase Negative 11/25/17 12:50: WBC 7.0, RBC 5.43, Hgb 14.8, Hct 44.5, MCV 82.0, MCH 27.3, MCHC 33.3, RDW 14.4, Plt Count 262, MPV 10.8, Gran % 58.7, Lymph % (Auto) 26.2, [place] % (Auto) 10.4 H, Eos % (Auto) 4.4, Baso % (Auto) 0.3, Gran # 4.10, Lymph # 1.8, [place] # 0.7 H, Eos # 0.3, Baso # 0.02 11/25/17 12:50: Alcohol, Quantitative < 10 11/25/17 12:50: Salicylates < 1 L, Acetaminophen < 10.0 L 11/25/17 12:50: Sodium 139, Potassium 4.4, Chloride 103, Carbon Dioxide 27, Anion Gap 13, BUN 16, Creatinine 1.0, Est GFR ( Amer) > 60, Est GFR (Non- Af Amer) > 60, Random Glucose 104, Calcium 9.5, Total Bilirubin 0.2, AST 20, ALT 33, Alkaline Phosphatase 114, Total Protein 7.5, Albumin 4.1, Globulin 3.4, Albumin/Globulin Ratio 1.2 Vital Signs Temp Pulse Resp BP Pulse Ox 11/27/17 07:02 97.3 F L 61 20 99/63 L 11/26/17 10:00 97.6 F 72 11/26/17 07:43 97.7 F 72 20 106/62 11/25/17 20:11 20 11/25/17 17:09 97.9 F 88 19 98 11/25/17 15:00 98.1 F 85 17 130/87 98 11/25/17 11:32 97.4 F L 84 21 143/84 95 11/25/17 11:31 97.4 F L 84 21 143/84 95 DSM 5 Symptoms Update: as per 's note: Patient is a 42 yo AA male with Schizoaffective Disorder-Paranoid type, history of numerous admissions-most recently at [facility] in 07/2017, history of poor compliance with medications and aftercare, who presented to our Emergency Room on 11/15/17 complaining of paranoia and command auditory hallucinations to harm other people in context of noncompliance with medications. pt was seen and examined at the treatment team meeting, pt presented to be with some psychomotor retardation, good ADLs. this telegraphic typewriter mechanic reviewed the admission note, meds, labs reviewed, discussed with staff. this telegraphic typewriter mechanic is very familiar with this pt from multiple psych admissions, pt presented the same way as usual, some psychomotor retardation, flat affect, said he was not compliant with meds and follow up appt because he lost his medicaid, pt said that he has medicare only. pt said last month he started to hear voices, said voices are negative, denied command type hallucinations today , but prior to come to the hospital pt had command type hallucinations to harm others. pt said current set of meds are "fine", denied side effects, none elicited, AIMS 0, no EPS. as per staff, pt is withdrawn, no behavioral issues. Impression: Schizoaffective disorder Medication Change: No ( resumed meds) Medical Record Reviewed: Yes Consults ordered or reviewed: notes reviewed, consult appreciated Mental Status Examination - Cognitive Function Orientation: Person, Place, Situation Memory: Impaired Attention: Poor Concentration: Poor Association: Loose Fund of Knowledge: Poor (baseline) - Mood Mood: Depressed - Affect Affect: Constricted - Speech Speech: Appropriate (but underproductive, poverty of speech) - Formal Thought Process Formal Thought Process: Hallucinations ("to hurt others" and that gang members are following him), Delusions - Suicidal Ideation Suicidal Ideation: No - Homicidal Ideation Homicidal Ideation: No Goal/Treatment Plan - Goal/Treatment Plan Need for Continued Stay: Remain at risks for inpatient hospitalization, Severe depression anxiety, Discharge may exacerbated symptoms, Failed transitioning, Severe functional impairment Progress Toward Problem(s) and Goals/Treatment Plan: Milieu/structure/supportive therapy Medical consult appreciated, see medical team note for more detailed info SW consultation for discharge plan and social issues Med management Risperdal 2mg po amhs for psychosis and mood stabilization cogentin 1mg po tid for possible EPS Zoloft 100mg po daily for depression and anxiety Family involvement Follow up on labs Will monitor closely Pt was educated about risk/benefits and alternatives of medications, coping strategies (safety plan, suicide prevention), relapse prevention, importance of follow up with psychiatrist and therapist, stay away from drugs/alcohol/smoking Estimated Date of D/C: 12/04/17 (will monitor closely) - Smoking Cessation Smoking Cessation Initiated: Yes Reason for not providing: pt smokes, but refused to have nicotine patch
--- NOTE | 2017-11-28 15:43 | PN ---
DATE: 11/28/2017 SUBJECTIVE: I saw Juan Carlos, resting comfortably in bed. He slept well. He has had no complaints. He is trying group. He is eating well. No complaints. He is trying to get better on Ativan, Benadryl, Cogentin, Haldol, Maalox, milk of magnesia, Risperdal, Tylenol, and Zoloft. PHYSICAL EXAMINATION: VITAL SIGNS: 97.8 temp, 86 pulse, 116/70 blood pressure, 17 respiratory rate. HEENT: Head is atraumatic and normocephalic. HEART: Regular rate. LUNGS: Clear to auscultation. ABDOMEN: Soft, obese, nontender. EXTREMITIES: No edema. LABORATORY DATA: He had labs on 11/25/2017 and he did well. Thyroid was good. Urine was good. Toxicology was good. RPR was nonreactive. ASSESSMENT AND PLAN: We will continue with aggressive treatment and care by Psychiatry. I encouraged him to participate in groups, eat the food well, take the medications, and he tells me he is starting to feel a little bit better. We will follow. Otis Garrett DO
--- NOTE | 2017-11-28 15:44 | PCM.PYCHPN ---
Psychiatric Progress Note - Psychiatric Progress Note Patient seen today, length of contact: 30min Patient Chief Complaint: "voices are getting down" Problems Identified/Issues Discussed: Suicide/ homicide prevention, past psychiatric h/o, current psychiatric symptoms , medical problems, risk/benefits and alternatives of medications, medications compliance, coping strategies, substance abuse h/o, relapse prevention, importance of follow up with psychiatrist and therapist, discharge plan. Medical Problems: denied any major medical issues, but pt is obese Diagnostic Results: 11/25/17 12:50 11/25/17 12:50 Lab Results 11/26/17 07:45: RPR Nonreactive 11/26/17 07:45: TSH 3rd Generation 1.72 11/26/17 07:45: Fasting Glucose 105, Triglycerides 118, Cholesterol 148, LDL Cholesterol Direct 87, HDL Cholesterol 36 11/25/17 14:38: Urine Opiates Screen Negative, Urine Methadone Screen Negative, Ur Barbiturates Screen Negative, Ur Phencyclidine Scrn Negative, Ur Amphetamines Screen Negative, U Benzodiazepines Scrn Negative, U Oth Cocaine Metabols Negative, U Cannabinoids Screen Negative 11/25/17 14:38: Urine Color Yellow, Urine Appearance Clear, Urine pH 6.0, Ur Specific [place] 1.025, Urine Protein Negative, Urine Glucose (UA) Negative, Urine Ketones Negative, Urine Blood Negative, Urine Nitrate Negative, Urine Bilirubin Negative, Urine Urobilinogen 0.2, Ur Leukocyte Esterase Negative 11/25/17 12:50: WBC 7.0, RBC 5.43, Hgb 14.8, Hct 44.5, MCV 82.0, MCH 27.3, MCHC 33.3, RDW 14.4, Plt Count 262, MPV 10.8, Gran % 58.7, Lymph % (Auto) 26.2, [place] % (Auto) 10.4 H, Eos % (Auto) 4.4, Baso % (Auto) 0.3, Gran # 4.10, Lymph # 1.8, [place] # 0.7 H, Eos # 0.3, Baso # 0.02 11/25/17 12:50: Alcohol, Quantitative < 10 11/25/17 12:50: Salicylates < 1 L, Acetaminophen < 10.0 L 11/25/17 12:50: Sodium 139, Potassium 4.4, Chloride 103, Carbon Dioxide 27, Anion Gap 13, BUN 16, Creatinine 1.0, Est GFR ( Amer) > 60, Est GFR (Non- Af Amer) > 60, Random Glucose 104, Calcium 9.5, Total Bilirubin 0.2, AST 20, ALT 33, Alkaline Phosphatase 114, Total Protein 7.5, Albumin 4.1, Globulin 3.4, Albumin/Globulin Ratio 1.2 Vital Signs Temp Pulse Resp BP Pulse Ox 11/27/17 07:02 97.3 F L 61 20 99/63 L 11/26/17 10:00 97.6 F 72 11/26/17 07:43 97.7 F 72 20 106/62 11/25/17 20:11 20 11/25/17 17:09 97.9 F 88 19 98 11/25/17 15:00 98.1 F 85 17 130/87 98 11/25/17 11:32 97.4 F L 84 21 143/84 95 11/25/17 11:31 97.4 F L 84 21 143/84 95 Temp Pulse Resp BP Pulse Ox 97.8 F 56 L 17 116/70 98 11/28/17 07:05 11/28/17 07:05 11/28/17 07:05 11/28/17 07:05 11/25/17 17:09 DSM 5 Symptoms Update: Patient is a 42 yo AA male with Schizoaffective Disorder-Paranoid type, history of numerous admissions-most recently at [facility]] in 07/2017, history of poor compliance with medications and aftercare, who presented to our Emergency Room on 11/15/17 complaining of paranoia and command auditory hallucinations to harm other people in context of noncompliance with medications. pt was seen next to the nursing station, pt presented to be with some psychomotor retardation, good ADLs. pt said that "voices are getting down...", some psychomotor retardation, flat affect, said he was not compliant with meds and follow up appt because he lost his medicaid, pt said that he has medicare only. pt said last month he started to hear voices, said voices are negative, denied command type hallucinations today, but prior to come to the hospital pt had command type hallucinations to harm others. pt said current set of meds are "fine", denied side effects, none elicited, AIMS 0, no EPS. as per staff, pt is withdrawn, no behavioral issues. Impression: Schizoaffective disorder Medication Change: No ( resumed meds) Medical Record Reviewed: Yes Consults ordered or reviewed: notes reviewed, consult appreciated Mental Status Examination - Cognitive Function Orientation: Person, Place, Situation Memory: Impaired Attention: Poor Concentration: Poor Association: Loose Fund of Knowledge: Poor (baseline) - Mood Mood: Depressed - Affect Affect: Constricted - Speech Speech: Appropriate (but underproductive, poverty of speech) - Formal Thought Process Formal Thought Process: Hallucinations ("voices are getting down"), Delusions ( gangs after me....) - Suicidal Ideation Suicidal Ideation: No - Homicidal Ideation Homicidal Ideation: No Goal/Treatment Plan - Goal/Treatment Plan Need for Continued Stay: Remain at risks for inpatient hospitalization, Severe depression anxiety, Discharge may exacerbated symptoms, Failed transitioning, Severe functional impairment Progress Toward Problem(s) and Goals/Treatment Plan: Milieu/structure/supportive therapy Medical consult appreciated, see medical team note for more detailed info SW consultation for discharge plan and social issues Med management Risperdal 2mg po am and 3mg po hs for psychosis and mood stabilization cogentin 1mg po tid for possible EPS Zoloft 100mg po daily for depression and anxiety Family involvement Follow up on labs Will monitor closely Pt was educated about risk/benefits and alternatives of medications, coping strategies (safety plan, suicide prevention), relapse prevention, importance of follow up with psychiatrist and therapist, stay away from drugs/alcohol/smoking Estimated Date of D/C: 12/04/17 (will monitor closely)
--- NOTE | 2017-11-29 15:41 | PN ---
DATE: SUBJECTIVE: I saw him resting comfortably in bed. He slept well. He is hungry. He is eating his food. He is taking his medication, may be a little bit better. He is on Ativan, Benadryl, Cogentin, Haldol, Maalox, milk of magnesia, Risperdal, Tylenol, and Zoloft. PHYSICAL EXAMINATION: VITAL SIGNS: Temperature 97.2, pulse 77, blood pressure 118/88, and respiratory rate 20. HEENT: Head is atraumatic and normocephalic. HEART: Regular rate. LUNGS: Clear to auscultation. ABDOMEN: Soft, obese. EXTREMITIES: No edema. LABORATORY DATA: He had labs on 11/25/2017. His CBC was very good. The SMA-20 was very good. His thyroid was good at 1.72. His urine was clean. His toxicology was clean. RPR was nonreactive. ASSESSMENT AND PLAN: He is being seen by Psychiatry. He has schizoaffective disorder, high cholesterol, schizophrenia. He is also a little paranoid. Poor compliance with his medicines that is what brought him here. I will continue with aggressive treatment and care per Psychiatry. I encouraged him to participate in groups, take his medications, and eat. He understands that he is starting to get better. We will follow. Otis Garrett DO
--- NOTE | 2017-11-29 16:36 | PCM.PYCHPN ---
Psychiatric Progress Note - Psychiatric Progress Note Patient seen today, length of contact: 30min Patient Chief Complaint: "voices are getting down, still have feeling that Shila is after me" Problems Identified/Issues Discussed: Suicide/ homicide prevention, past psychiatric h/o, current psychiatric symptoms , medical problems, risk/benefits and alternatives of medications, medications compliance, coping strategies, substance abuse h/o, relapse prevention, importance of follow up with psychiatrist and therapist, discharge plan. Medical Problems: denied any major medical issues, but pt is obese Diagnostic Results: 11/25/17 12:50 11/25/17 12:50 Lab Results 11/26/17 07:45: RPR Nonreactive 11/26/17 07:45: TSH 3rd Generation 1.72 11/26/17 07:45: Fasting Glucose 105, Triglycerides 118, Cholesterol 148, LDL Cholesterol Direct 87, HDL Cholesterol 36 11/25/17 14:38: Urine Opiates Screen Negative, Urine Methadone Screen Negative, Ur Barbiturates Screen Negative, Ur Phencyclidine Scrn Negative, Ur Amphetamines Screen Negative, U Benzodiazepines Scrn Negative, U Oth Cocaine Metabols Negative, U Cannabinoids Screen Negative 11/25/17 14:38: Urine Color Yellow, Urine Appearance Clear, Urine pH 6.0, Ur Specific [place] 1.025, Urine Protein Negative, Urine Glucose (UA) Negative, Urine Ketones Negative, Urine Blood Negative, Urine Nitrate Negative, Urine Bilirubin Negative, Urine Urobilinogen 0.2, Ur Leukocyte Esterase Negative 11/25/17 12:50: WBC 7.0, RBC 5.43, Hgb 14.8, Hct 44.5, MCV 82.0, MCH 27.3, MCHC 33.3, RDW 14.4, Plt Count 262, MPV 10.8, Gran % 58.7, Lymph % (Auto) 26.2, [place] % (Auto) 10.4 H, Eos % (Auto) 4.4, Baso % (Auto) 0.3, Gran # 4.10, Lymph # 1.8, [place] # 0.7 H, Eos # 0.3, Baso # 0.02 11/25/17 12:50: Alcohol, Quantitative < 10 11/25/17 12:50: Salicylates < 1 L, Acetaminophen < 10.0 L 11/25/17 12:50: Sodium 139, Potassium 4.4, Chloride 103, Carbon Dioxide 27, Anion Gap 13, BUN 16, Creatinine 1.0, Est GFR ( Amer) > 60, Est GFR (Non- Af Amer) > 60, Random Glucose 104, Calcium 9.5, Total Bilirubin 0.2, AST 20, ALT 33, Alkaline Phosphatase 114, Total Protein 7.5, Albumin 4.1, Globulin 3.4, Albumin/Globulin Ratio 1.2 Vital Signs Temp Pulse Resp BP Pulse Ox 11/27/17 07:02 97.3 F L 61 20 99/63 L 11/26/17 10:00 97.6 F 72 11/26/17 07:43 97.7 F 72 20 106/62 11/25/17 20:11 20 11/25/17 17:09 97.9 F 88 19 98 11/25/17 15:00 98.1 F 85 17 130/87 98 11/25/17 11:32 97.4 F L 84 21 143/84 95 11/25/17 11:31 97.4 F L 84 21 143/84 95 Temp Pulse Resp BP Pulse Ox 97.8 F 56 L 17 116/70 98 11/28/17 07:05 11/28/17 07:05 11/28/17 07:05 11/28/17 07:05 11/25/17 17:09 Temp Pulse Resp BP Pulse Ox 97.2 F L 57 L 20 111/68 98 11/29/17 07:44 11/29/17 16:10 11/29/17 07:44 11/29/17 16:10 11/25/17 17:09 DSM 5 Symptoms Update: Patient is a 42 yo AA male with Schizoaffective Disorder-Paranoid type, history of numerous admissions-most recently at [facility] in 07/2017, history of poor compliance with medications and aftercare, who presented to our Emergency Room on 11/15/17 complaining of paranoia and command auditory hallucinations to harm other people in context of noncompliance with medications. pt was seen next to the nursing station, pt presented to be with some psychomotor retardation, good ADLs. pt said that "voices are getting down..., I still feel [employer]afia is after me", some psychomotor retardation, flat affect, said he was not compliant with meds and follow up appt because he lost his medicaid, pt said that he has medicare only, will speak to the about medicaid application. pt said current set of meds are "fine", denied side effects, none elicited, AIMS 0, no EPS. as per staff, pt is withdrawn, no behavioral issues. Impression: Schizoaffective disorder Medication Change: Yes (risperdal increased) Medical Record Reviewed: Yes Mental Status Examination - Cognitive Function Orientation: Person, Place, Situation Memory: Impaired Attention: Poor Concentration: Poor Association: Loose Fund of Knowledge: Poor (baseline) - Mood Mood: Depressed - Affect Affect: Constricted - Speech Speech: Appropriate (but underproductive, poverty of speech) - Formal Thought Process Formal Thought Process: Hallucinations ("voices are getting down"), Delusions ( [employer]afia is after me) - Suicidal Ideation Suicidal Ideation: No - Homicidal Ideation Homicidal Ideation: No Goal/Treatment Plan - Goal/Treatment Plan Need for Continued Stay: Remain at risks for inpatient hospitalization, Severe depression anxiety, Discharge may exacerbated symptoms, Failed transitioning, Severe functional impairment Progress Toward Problem(s) and Goals/Treatment Plan: Milieu/structure/supportive therapy Medical consult appreciated, see medical team note for more detailed info consultation for discharge plan and social issues Med management Risperdal 2mg po am and 3mg po hs for psychosis and mood stabilization cogentin 1mg po tid for possible EPS Zoloft 100mg po daily for depression and anxiety Family involvement Follow up on labs Will monitor closely Pt was educated about risk/benefits and alternatives of medications, coping strategies (safety plan, suicide prevention), relapse prevention, importance of follow up with psychiatrist and therapist, stay away from drugs/alcohol/smoking Estimated Date of D/C: 12/04/17 (will monitor closely)
--- NOTE | 2017-11-30 15:03 | PN ---
DATE: SUBJECTIVE: I saw him. He is having some teeth problems, he had some Tylenol, he is to see a dentist. Otherwise, he is a little bit better. He is on Ativan, Benadryl, Cogentin, Haldol, MiraLax, milk of magnesia, Risperdal, Tylenol and Zoloft. PHYSICAL EXAMINATION: VITAL SIGNS: Temperature 97.3, 72 pulse, 106/75 blood pressure, 20 respiratory rate. HEENT: Head is atraumatic and normocephalic. HEART: Regular rate. LUNGS: Clear to auscultation. ABDOMEN: Soft, obese. EXTREMITIES: No edema. LABORATORY DATA: He had labs on 11/25/2017 and they were good. Thyroid was good. Urine was good. Tox screen was good. ASSESSMENT AND PLAN: We will continue with aggressive treatment and care as per psychiatry. Schizoaffective disorder, high cholesterol, schizophrenia, paranoia and tooth pain. Otis Garrett DO
--- NOTE | 2017-11-30 16:57 | PCM.PYCHPN ---
Psychiatric Progress Note - Psychiatric Progress Note Patient seen today, length of contact: 30min Patient Chief Complaint: "I am feeling better, but still little paranoid" Problems Identified/Issues Discussed: Suicide/ homicide prevention, past psychiatric h/o, current psychiatric symptoms , medical problems, risk/benefits and alternatives of medications, medications compliance, coping strategies, substance abuse h/o, relapse prevention, importance of follow up with psychiatrist and therapist, discharge plan. Medical Problems: denied any major medical issues, but pt is obese Diagnostic Results: 11/25/17 12:50 11/25/17 12:50 Lab Results 11/26/17 07:45: RPR Nonreactive 11/26/17 07:45: TSH 3rd Generation 1.72 11/26/17 07:45: Fasting Glucose 105, Triglycerides 118, Cholesterol 148, LDL Cholesterol Direct 87, HDL Cholesterol 36 11/25/17 14:38: Urine Opiates Screen Negative, Urine Methadone Screen Negative, Ur Barbiturates Screen Negative, Ur Phencyclidine Scrn Negative, Ur Amphetamines Screen Negative, U Benzodiazepines Scrn Negative, U Oth Cocaine Metabols Negative, U Cannabinoids Screen Negative 11/25/17 14:38: Urine Color Yellow, Urine Appearance Clear, Urine pH 6.0, Ur Specific [place] 1.025, Urine Protein Negative, Urine Glucose (UA) Negative, Urine Ketones Negative, Urine Blood Negative, Urine Nitrate Negative, Urine Bilirubin Negative, Urine Urobilinogen 0.2, Ur Leukocyte Esterase Negative 11/25/17 12:50: WBC 7.0, RBC 5.43, Hgb 14.8, Hct 44.5, MCV 82.0, MCH 27.3, MCHC 33.3, RDW 14.4, Plt Count 262, MPV 10.8, Gran % 58.7, Lymph % (Auto) 26.2, [place] % (Auto) 10.4 H, Eos % (Auto) 4.4, Baso % (Auto) 0.3, Gran # 4.10, Lymph # 1.8, [place] # 0.7 H, Eos # 0.3, Baso # 0.02 11/25/17 12:50: Alcohol, Quantitative < 10 11/25/17 12:50: Salicylates < 1 L, Acetaminophen < 10.0 L 11/25/17 12:50: Sodium 139, Potassium 4.4, Chloride 103, Carbon Dioxide 27, Anion Gap 13, BUN 16, Creatinine 1.0, Est GFR ( Amer) > 60, Est GFR (Non- Af Amer) > 60, Random Glucose 104, Calcium 9.5, Total Bilirubin 0.2, AST 20, ALT 33, Alkaline Phosphatase 114, Total Protein 7.5, Albumin 4.1, Globulin 3.4, Albumin/Globulin Ratio 1.2 Vital Signs Temp Pulse Resp BP Pulse Ox 11/27/17 07:02 97.3 F L 61 20 99/63 L 11/26/17 10:00 97.6 F 72 11/26/17 07:43 97.7 F 72 20 106/62 11/25/17 20:11 20 11/25/17 17:09 97.9 F 88 19 98 11/25/17 15:00 98.1 F 85 17 130/87 98 11/25/17 11:32 97.4 F L 84 21 143/84 95 11/25/17 11:31 97.4 F L 84 21 143/84 95 Temp Pulse Resp BP Pulse Ox 97.8 F 56 L 17 116/70 98 11/28/17 07:05 11/28/17 07:05 11/28/17 07:05 11/28/17 07:05 11/25/17 17:09 Temp Pulse Resp BP Pulse Ox 97.2 F L 57 L 20 111/68 98 11/29/17 07:44 11/29/17 16:10 11/29/17 07:44 11/29/17 16:10 11/25/17 17:09 DSM 5 Symptoms Update: Patient is a 42 yo AA male with Schizoaffective Disorder-Paranoid type, history of numerous admissions-most recently at [facility] in 07/2017, history of poor compliance with medications and aftercare, who presented to our Emergency Room on 11/15/17 complaining of paranoia and command auditory hallucinations to harm other people in context of noncompliance with medications. pt was seen next to the nursing station, pt presented to be with some psychomotor retardation, good ADLs. pt said that "voices are getting down..., I still feel Mafia is after me", asked to increase dose of Risperdal, pt has some positive changes, smiled back to this tag writer for the first time today. pt said current set of meds are "fine", denied side effects, none elicited, AIMS 0, no EPS. as per staff, pt is withdrawn, no behavioral issues. Impression: Schizoaffective disorder Medication Change: Yes (risperdal increased) Medical Record Reviewed: Yes Consults ordered or reviewed: notes reviewed, consult appreciated Mental Status Examination - Cognitive Function Orientation: Person, Place, Situation Memory: Impaired Attention: Poor (some improvement) Concentration: Poor (some improvement) Association: Loose Fund of Knowledge: Poor (baseline) - Mood Mood: Depressed ("I feel little better") - Affect Affect: Constricted (but more reactive today) - Speech Speech: Appropriate (but underproductive, poverty of speech) - Formal Thought Process Formal Thought Process: Hallucinations ("voices are getting down"), Delusions ( "I think I am doing better") - Suicidal Ideation Suicidal Ideation: No - Homicidal Ideation Homicidal Ideation: No Goal/Treatment Plan - Goal/Treatment Plan Need for Continued Stay: Remain at risks for inpatient hospitalization, Severe depression anxiety, Discharge may exacerbated symptoms, Failed transitioning, Severe functional impairment Progress Toward Problem(s) and Goals/Treatment Plan: Milieu/structure/supportive therapy Medical consult appreciated, see medical team note for more detailed info SW consultation for discharge plan and social issues Med management Risperdal 3mg po am and 3mg po hs for psychosis and mood stabilization cogentin 1mg po tid for possible EPS Zoloft 100mg po daily for depression and anxiety Family involvement Follow up on labs Will monitor closely Pt was educated about risk/benefits and alternatives of medications, coping strategies (safety plan, suicide prevention), relapse prevention, importance of follow up with psychiatrist and therapist, stay away from drugs/alcohol/smoking Estimated Date of D/C: 12/04/17 (will monitor closely)
--- NOTE | 2017-12-01 16:03 | PCM.PYCHPN ---
Psychiatric Progress Note - Psychiatric Progress Note Patient seen today, length of contact: 30min Patient Chief Complaint: "I am feeling better, Voices are gone, but still little paranoid" Problems Identified/Issues Discussed: Suicide/ homicide prevention, past psychiatric h/o, current psychiatric symptoms , medical problems, risk/benefits and alternatives of medications, medications compliance, coping strategies, substance abuse h/o, relapse prevention, importance of follow up with psychiatrist and therapist, discharge plan. Medical Problems: denied any major medical issues, but pt is obese Diagnostic Results: 11/25/17 12:50 11/25/17 12:50 Lab Results 11/26/17 07:45: RPR Nonreactive 11/26/17 07:45: TSH 3rd Generation 1.72 11/26/17 07:45: Fasting Glucose 105, Triglycerides 118, Cholesterol 148, LDL Cholesterol Direct 87, HDL Cholesterol 36 11/25/17 14:38: Urine Opiates Screen Negative, Urine Methadone Screen Negative, Ur Barbiturates Screen Negative, Ur Phencyclidine Scrn Negative, Ur Amphetamines Screen Negative, U Benzodiazepines Scrn Negative, U Oth Cocaine Metabols Negative, U Cannabinoids Screen Negative 11/25/17 14:38: Urine Color Yellow, Urine Appearance Clear, Urine pH 6.0, Ur Specific [place] 1.025, Urine Protein Negative, Urine Glucose (UA) Negative, Urine Ketones Negative, Urine Blood Negative, Urine Nitrate Negative, Urine Bilirubin Negative, Urine Urobilinogen 0.2, Ur Leukocyte Esterase Negative 11/25/17 12:50: WBC 7.0, RBC 5.43, Hgb 14.8, Hct 44.5, MCV 82.0, MCH 27.3, MCHC 33.3, RDW 14.4, Plt Count 262, MPV 10.8, Gran % 58.7, Lymph % (Auto) 26.2, [facility] % (Auto) 10.4 H, Eos % (Auto) 4.4, Baso % (Auto) 0.3, Gran # 4.10, Lymph # 1.8, [facility] # 0.7 H, Eos # 0.3, Baso # 0.02 11/25/17 12:50: Alcohol, Quantitative < 10 11/25/17 12:50: Salicylates < 1 L, Acetaminophen < 10.0 L 11/25/17 12:50: Sodium 139, Potassium 4.4, Chloride 103, Carbon Dioxide 27, Anion Gap 13, BUN 16, Creatinine 1.0, Est GFR ( Amer) > 60, Est GFR (Non- Af Amer) > 60, Random Glucose 104, Calcium 9.5, Total Bilirubin 0.2, AST 20, ALT 33, Alkaline Phosphatase 114, Total Protein 7.5, Albumin 4.1, Globulin 3.4, Albumin/Globulin Ratio 1.2 Vital Signs Temp Pulse Resp BP Pulse Ox 11/27/17 07:02 97.3 F L 61 20 99/63 L 11/26/17 10:00 97.6 F 72 11/26/17 07:43 97.7 F 72 20 106/62 11/25/17 20:11 20 11/25/17 17:09 97.9 F 88 19 98 11/25/17 15:00 98.1 F 85 17 130/87 98 11/25/17 11:32 97.4 F L 84 21 143/84 95 11/25/17 11:31 97.4 F L 84 21 143/84 95 Temp Pulse Resp BP Pulse Ox 97.8 F 56 L 17 116/70 98 11/28/17 07:05 11/28/17 07:05 11/28/17 07:05 11/28/17 07:05 11/25/17 17:09 Temp Pulse Resp BP Pulse Ox 97.2 F L 57 L 20 111/68 98 11/29/17 07:44 11/29/17 16:10 11/29/17 07:44 11/29/17 16:10 11/25/17 17:09 DSM 5 Symptoms Update: Patient is a 42 yo AA male with Schizoaffective Disorder-Paranoid type, history of numerous admissions-most recently at [facility] in 07/2017, history of poor compliance with medications and aftercare, who presented to our Emergency Room on 11/15/17 complaining of paranoia and command auditory hallucinations to harm other people in context of noncompliance with medications. pt was seen in his room, pt presented to be with some psychomotor retardation, good ADLs. pt said that "voices are gone, I feel less paranoid about Mafia", risperdal was increased yesterday, showed improvement. pt said current set of meds are "fine", denied side effects, none elicited, AIMS 0, no EPS. as per staff, pt is more visible, but prefer stay in his room, no behavioral issues. Impression: Schizoaffective disorder Medication Change: Yes (risperdal increased 11/30/17) Medical Record Reviewed: Yes Consults ordered or reviewed: notes reviewed, consult appreciated Mental Status Examination - Cognitive Function Orientation: Person, Place, Situation Memory: Impaired Attention: Poor (some improvement) Concentration: Poor (some improvement) Association: Loose Fund of Knowledge: Poor (baseline) - Mood Mood: Depressed ("I feel little better") - Affect Affect: Constricted (but more reactive today) - Speech Speech: Appropriate (but underproductive, poverty of speech) - Formal Thought Process Formal Thought Process: Hallucinations (vocies are gone), Delusions ("I think I am doing better") - Suicidal Ideation Suicidal Ideation: No - Homicidal Ideation Homicidal Ideation: No Goal/Treatment Plan - Goal/Treatment Plan Need for Continued Stay: Remain at risks for inpatient hospitalization, Severe depression anxiety, Discharge may exacerbated symptoms, Failed transitioning, Severe functional impairment Progress Toward Problem(s) and Goals/Treatment Plan: Milieu/structure/supportive therapy Medical consult appreciated, see medical team note for more detailed info SW consultation for discharge plan and social issues Med management Risperdal 3mg po am and 3mg po hs for psychosis and mood stabilization cogentin 1mg po tid for possible EPS Zoloft 100mg po daily for depression and anxiety Family involvement Follow up on labs Will monitor closely Pt was educated about risk/benefits and alternatives of medications, coping strategies (safety plan, suicide prevention), relapse prevention, importance of follow up with psychiatrist and therapist, stay away from drugs/alcohol/smoking Estimated Date of D/C: 12/04/17 (will monitor closely)
--- NOTE | 2017-12-01 16:47 | PN ---
DATE: SUBJECTIVE: I saw him resting comfortably in bed this morning. He is eating well. He is feeling well, going to the bathroom well. He states he is improving with taking the medication. He did have tooth pain that Tylenol helps. He is here for schizoaffective disorder, high cholesterol, schizophrenia, paranoia, and is having some tooth pain which Tylenol helps. OBJECTIVE: VITAL SIGNS: He has 97.3 temperature, 72 pulse, 106/75 blood pressure, 20 respiratory rate. HEAD: Atraumatic, normocephalic. HEART: Regular rate. LUNGS: Clear to auscultation. ABDOMEN: Soft, obese, nontender. EXTREMITIES: No edema. He is currently on Ativan, Benadryl, Cogentin, Haldol, Maalox, milk of magnesia, Risperdal, Tylenol, and Zoloft. Overall, I think he is slowly improving psychologically. He knows is here, he is going to find a dentist for his tooth pain. I encouraged him to participate in groups, take his medications, and let me know for anything going on. We will continue aggressive treatment and psychological care. Otis Garrett DO MTDD
--- NOTE | 2017-12-02 08:58 | PCM.PYCHPN ---
Psychiatric Progress Note - Psychiatric Progress Note Patient seen today, length of contact: 25 min Patient Chief Complaint: "better" Problems Identified/Issues Discussed: I reviewed recent notes. Patient was interviewed privately at bedside. He appears fairly groomed and cooperative. Alert and oriented x3. His eye contact and focus are improved since last weekend. Behavior is calm and affect remains a little guarded and flat. Patient reports improvement in paranoia and resolution of hallucinations. Staff notes indicate that patient has been calm and more visible but still mostly keeps to himself. Likes to stay in his room. There were no behavioral issues overnight. Diagnostic Results: Schizoaffective disorder Medication Change: Yes (risperdal increased 11/30/17) Medical Record Reviewed: Yes Mental Status Examination - Cognitive Function Orientation: Person, Place, Situation Memory: Impaired Attention: WNL (some improvement) Concentration: Poor (some improvement) Association: Loose Fund of Knowledge: Poor (baseline) - Mood Mood: Depressed ("I feel little better") - Affect Affect: Constricted (but more reactive today) - Speech Speech: Appropriate (but underproductive, poverty of speech) - Formal Thought Process Formal Thought Process: Hallucinations (denies), Delusions ("I think I am doing better"), Paranoia (Improving) - Suicidal Ideation Suicidal Ideation: No - Homicidal Ideation Homicidal Ideation: No Goal/Treatment Plan - Goal/Treatment Plan Need for Continued Stay: Remain at risks for inpatient hospitalization, Severe depression anxiety, Discharge may exacerbated symptoms, Failed transitioning, Severe functional impairment Progress Toward Problem(s) and Goals/Treatment Plan: * group, milieu and supportive tx * No new weekend labs thus far * Vitals reviewed and noted below: Selected Entries 11/30/17 11/30/17 11/30/17 07:38 10:00 16:00 Temperature 97.3 F L Pulse Rate 72 73 73 Respiratory 20 Rate Blood Pressure 106/75 112/69 112/69 12/01/17 08:00 Temperature 97.9 F Pulse Rate 62 Respiratory 20 Rate Blood Pressure 121/69 Estimated Date of D/C: 12/04/17 (will monitor closely)
--- NOTE | 2017-12-02 17:30 | PN ---
DATE: SUBJECTIVE: I saw him in his room taking a nap after breakfast. He is comfortable. He tells me he is feeling better. He is leaving on Monday, today is Monday. He is on Ativan, Benadryl, Cogentin, Haldol, Maalox, milk of magnesia, Risperdal, Tylenol, Zoloft. He is in good spirits. OBJECTIVE: VITAL SIGNS: 98.4 temperature, 70 pulse, 111/61 blood pressure, 20 respiratory rate. HEAD: Atraumatic, normocephalic. HEART: Regular rate, LUNGS: Clear to auscultation. ABDOMEN: Soft. EXTREMITIES: No edema. MEDICATIONS: He is currently on Ativan, Benadryl, Cogentin, Haldol, Maalox, milk of magnesia, Risperdal, Tylenol, Zoloft. LABORATORY DATA: His labs were good on the . Continue with aggressive treatment and care as per Psychiatry. He has schizoaffective disorder, high cholesterol, schizophrenia, tooth pain, paranoia. I believe the tooth pain has been letting up. Otis Garrett DO
--- NOTE | 2017-12-03 08:50 | PCM.PYCHPN ---
Psychiatric Progress Note - Psychiatric Progress Note Patient seen today, length of contact: 25 min Patient Chief Complaint: "better" Problems Identified/Issues Discussed: I reviewed recent notes and patient was interviewed privately at bedside. He appears fairly groomed and cooperative. Alert and oriented x3. His eye contact and focus are improved since last weekend. Behavior is calm and affect remains a little guarded and flat. Patient reports continued improvement in paranoia and resolution of hallucinations. Staff notes indicate that patient has been calm and more visible but still mostly keeps to himself. Likes to stay in his room. There were no behavioral issues over the weekend. Diagnostic Results: Schizoaffective disorder Medication Change: Yes (risperdal increased 11/30/17) Medical Record Reviewed: Yes Mental Status Examination - Cognitive Function Orientation: Person, Place, Situation Memory: Impaired Attention: WNL (some improvement) Concentration: Poor (some improvement) Association: Loose Fund of Knowledge: Poor (baseline) - Mood Mood: Depressed ("I feel little better") - Affect Affect: Constricted (but more reactive today) - Speech Speech: Appropriate (but underproductive, poverty of speech) - Formal Thought Process Formal Thought Process: Hallucinations (resolved (per patient)), Delusions ("I think I am doing better"), Paranoia (Improving) - Suicidal Ideation Suicidal Ideation: No - Homicidal Ideation Homicidal Ideation: No Goal/Treatment Plan - Goal/Treatment Plan Need for Continued Stay: Remain at risks for inpatient hospitalization, Severe depression anxiety, Discharge may exacerbated symptoms, Failed transitioning, Severe functional impairment Progress Toward Problem(s) and Goals/Treatment Plan: * group, milieu and supportive tx * Appreciate f/u by Dr. Garrett on 12/02/17 * No new weekend labs thus far * Vitals reviewed and noted below: 12/01/17 12/02/17 08:00 07:14 Temperature 97.9 F 98.4 F Pulse Rate 62 70 Respiratory 20 20 Rate Blood Pressure 121/69 111/61 Estimated Date of D/C: 12/04/17 (will monitor closely)
--- NOTE | 2017-12-03 18:59 | PN ---
DATE: SUBJECTIVE: I saw him resting comfortably in bed. He is doing better. He is eating well. Participating well. He tells me he is being discharge tomorrow. He is quite happy and he definitely feels so much better. MEDICATIONS: Ativan, Benadryl, Cogentin, Maalox, milk of magnesia,, Risperdal, Tylenol, and Zoloft. PHYSICAL EXAMINATION: VITAL SIGNS: 98.4 temperature, 70 pulse, 111/61 blood pressure and 20 respiratory rate. HEENT: Head atraumatic and normocephalic. HEART: Regular rate. LUNGS: Clear to auscultation. ABDOMEN: Soft and obese. EXTREMITIES: No edema. He definitely improved since he got to the hospital. I am happy to say medically and psychologically he is doing better. As per Psychiatry discharge tomorrow. I will see him one more time tomorrow, hopefully do well. If he needs nurses. Otis Garrett DO MTDD
[2017-12-04 07:00] VITALS: BP 111/59; PULSE 68; RESP 18; TEMP 98.1; O2SAT 95
--- NOTE | 2017-12-04 11:17 | PN ---
DATE: SUBJECTIVE: I understand he is going to be discharged today. I saw him in bed, we had a nice talk. He is very happy about going home. He feels a lot better. He is on Ativan, Benadryl, Cogentin, Maalox, milk of magnesia, Risperdal, Tylenol, and Zoloft. I do think he will be continuing with the medications can stay out of the hospital, he understands that. He is very happy about leaving, I will try and do that. PHYSICAL EXAMINATION: VITAL SIGNS: He has 98.1 temperature, 68 pulse, 111/59 blood pressure, 18 respiratory rate, and 95% O2 sat on room air. HEENT: Head is atraumatic and normocephalic. HEART: Regular rate. LUNGS: Clear to auscultation. ABDOMEN: Soft and obese. We discussed watching healthy diet, loose some weight. EXTREMITIES: No edema. LABORATORY DATA: Last labs on the , he did very well. ASSESSMENT AND PLAN: I am hoping he takes the medications, stays out of the hospital, and he is excited about going home and he was here for schizoaffective disorder, high cholesterol, schizophrenia, tooth pain, and paranoia. He will follow up with a dentist. Otis Garrett DO MTDD
--- NOTE | 2017-12-04 11:47 | PCM.BM ---
<Marnie Bates - Last Filed: 12/04/17 11:45> Treatment Plan Problems - Problems identified on initial assessmt AUDITORY HALLUCINATION Date Initiated: 11/25/17 Time Initiated: 20:00 Date resolved: 12/04/17 Assessment reference: NA Status: Referred DEPRESSION Date Initiated: 11/25/17 Date resolved: 12/04/17 Assessment reference: NA MEDS NON COMPLIANCE Date Initiated: 11/25/17 Time Initiated: 20:00 Date resolved: 12/04/17 Assessment reference: NA Status: Referred Treatment assets and liabiliti Patient Assests: adapts well, cooperative, educated, self-reliant, ADL independent, negotiates basic needs, good past tx response, cognitively intact Patient Liabilities: live alone, financial problems, poor support system, relationship conflicts, medical problems - Milieu Protocol Maintain good personal hygiene: every other day Encourage regular showers, every shift Remind patient to perform daily oral care, every shift Assist patient to perform ADL's Maintain personal safety: every shift Educate patient to report safety concerns to staff, every shift Monitor environment for contraband/sharps Medication safety: Monitor for expected outcome, potential side effects: every shift, Assess barriers to learning: every shift, Assess readiness for medication education: every shift Milieu Narrative: * group, milieu and supportive tx * Appreciate f/u by Dr. Garrett on 12/02/17 * No new weekend labs thus far * Vitals reviewed and noted below: 12/01/17 12/02/17 08:00 07:14 Temperature 97.9 F 98.4 F Pulse Rate 62 70 Respiratory 20 20 Rate Blood Pressure 121/69 111/61 Family Contact Family involvement: Famliy/SO not involved - Goals for Treatment Patient goals for treatment: "To stop hearing voices." Discharge/Continuing Care - Education Needs Education Needs: Patient Medication, Patient Diagnosis/Disease Process, Patient Coping Skills, Patient Placement options, Patient Community resources, Patient Activities of Daily Living, Patient Health Practices/Safety - Discharge Discharge Criteria: Tolerates medication w/o severe side effects, Free of Suicidal thoughts, Free of paranoid thoughts, Normal sleep pattern, Ability to care for self - Treatment Team Participation Patient/Family/SO Statement: * group, milieu and supportive tx * Appreciate f/u by Dr. Garrett on 12/02/17 * No new weekend labs thus far * Vitals reviewed and noted below: 12/01/17 12/02/17 08:00 07:14 Temperature 97.9 F 98.4 F Pulse Rate 62 70 Respiratory 20 20 Rate Blood Pressure 121/69 111/61 Treatment Plan Review - Problem AUDITORY HALLUCINATION Time Initiated: 20:00 MEDS NON COMPLIANCE Time Initiated: 20:00 <Renetta Mendoza - Last Filed: 12/04/17 17:12> - Diagnosis (1) Schizophrenia, chronic condition Status: Acute Interventions: 12/04/17 17:11 improving no voices residual paranoia deems ready for d/c denied thoughts of harming self or others
--- NOTE | 2017-12-04 17:22 | PCM.PYCHDC ---
Mental Status Examination - Mental Status Examination Orientation: Person, Place, Situation, Time Memory: Intact Mood: Neutral Affect: Constricted (but more reactive, mood congruent) Speech: Appropriate (but underproductive) Attention: WNL Concentration: WNL Association: WNL Fund of Knowledge: WNL Formal Thought Process: Paranoia (chronic paranoia which improved) Description of patient's judgement and insight: Pt has improved insight into mental and medical illness, pt was compliant with medications and unit rules and regulations, pt was going to groups, was calm, cooperative, socially appropriate, no behavioral incidents, no agitation, no aggression. Psychotic Thoughts and Behaviors: Pt denied v/a/t hallucinations, denied paranoid ideations, pt does not appear to be psychotic, and thought process is goal directed. Suicidal Ideation: No Current Homicidal Ideation?: No Plan: pt adamantly denied thoughts of harming self or others denied intent or plan. Discharge Summary - Discharge Note Reason for Hospitalization: worsening psychotic symptoms, paranoia command type hallucinations which improved Psychiatric History (includes Medical, Family, Personal Hx): patient has chronic schizophrenia, chronic noncompliance with meds Laboratory Data: 11/25/17 12:50 11/25/17 12:50 Lab Results 11/26/17 07:45: RPR Nonreactive 11/26/17 07:45: TSH 3rd Generation 1.72 11/26/17 07:45: Fasting Glucose 105, Triglycerides 118, Cholesterol 148, LDL Cholesterol Direct 87, HDL Cholesterol 36 11/25/17 14:38: Urine Opiates Screen Negative, Urine Methadone Screen Negative, Ur Barbiturates Screen Negative, Ur Phencyclidine Scrn Negative, Ur Amphetamines Screen Negative, U Benzodiazepines Scrn Negative, U Oth Cocaine Metabols Negative, U Cannabinoids Screen Negative 11/25/17 14:38: Urine Color Yellow, Urine Appearance Clear, Urine pH 6.0, Ur Specific [place] 1.025, Urine Protein Negative, Urine Glucose (UA) Negative, Urine Ketones Negative, Urine Blood Negative, Urine Nitrate Negative, Urine Bilirubin Negative, Urine Urobilinogen 0.2, Ur Leukocyte Esterase Negative 11/25/17 12:50: WBC 7.0, RBC 5.43, Hgb 14.8, Hct 44.5, MCV 82.0, MCH 27.3, MCHC 33.3, RDW 14.4, Plt Count 262, MPV 10.8, Gran % 58.7, Lymph % (Auto) 26.2, [place] % (Auto) 10.4 H, Eos % (Auto) 4.4, Baso % (Auto) 0.3, Gran # 4.10, Lymph # 1.8, [place] # 0.7 H, Eos # 0.3, Baso # 0.02 11/25/17 12:50: Alcohol, Quantitative < 10 11/25/17 12:50: Salicylates < 1 L, Acetaminophen < 10.0 L 11/25/17 12:50: Sodium 139, Potassium 4.4, Chloride 103, Carbon Dioxide 27, Anion Gap 13, BUN 16, Creatinine 1.0, Est GFR ( Amer) > 60, Est GFR (Non- Af Amer) > 60, Random Glucose 104, Calcium 9.5, Total Bilirubin 0.2, AST 20, ALT 33, Alkaline Phosphatase 114, Total Protein 7.5, Albumin 4.1, Globulin 3.4, Albumin/Globulin Ratio 1.2 Vital Signs Temp Pulse Resp BP Pulse Ox 12/04/17 06:59 98.1 F 68 18 111/59 L 95 12/02/17 07:14 98.4 F 70 20 111/61 12/01/17 08:00 97.9 F 62 20 121/69 11/30/17 16:00 73 112/69 11/30/17 10:00 73 112/69 11/30/17 07:38 97.3 F L 72 20 106/75 11/30/17 07:35 97.8 F 67 20 123/76 11/29/17 16:10 57 L 111/68 11/29/17 07:44 97.2 F L 77 20 118/88 11/28/17 15:59 65 98/54 L 11/28/17 07:05 97.8 F 56 L 17 116/70 11/27/17 07:02 97.3 F L 61 20 99/63 L 11/26/17 10:00 97.6 F 72 11/26/17 07:43 97.7 F 72 20 106/62 11/25/17 20:11 20 11/25/17 17:09 97.9 F 88 19 98 11/25/17 15:00 98.1 F 85 17 130/87 98 11/25/17 11:32 97.4 F L 84 21 143/84 95 11/25/17 11:31 97.4 F L 84 21 143/84 95 Consultations:: List each consultation separately and include: 1. Reason for request. 2. Findings. 3. Follow-up Consultations: notes reviewed, consult appreciated Summary of Hospital Course include:: 1. Description of specific treatment plan utilized for patients during their course of treatmen. 2. Summarize the time- course for resolution of acute symptoms and/or regressed behaviors. 3. Describe issues identified and worked on during hospitalization. 4. Describe medication utilized. 5. Describe medical problems identified and treated. 6. Reassessment of suicide risk Summary of Hospital Course: Patient is a 42 yo AA male with Schizoaffective Disorder-Paranoid type, history of numerous admissions-most recently at [facility] in 07/2017, history of poor compliance with medications and aftercare, who presented to our Emergency Room on 11/15/17 complaining of paranoia and command auditory hallucinations to harm other people in context of noncompliance with medications. Patient indicates he came to the ER to be stabilized on his medications again. Patient has not taken medications or followed up with outpatient treatment since discharge from [facility] in July 2017. pt endorsed frequent auditory hallucinations, voices that tell patient that gang members are following him and will harm him. The voices also tell him to hurt others, something he doesn't want to do. Patient feels paranoid and distressed by the hallucinations. He feels depressed but doesn't want to . His major stressor is homelessness and loss of Medicaid benefits. patient was stabilized on the following medications: Risperdal 3 mg twice a day titrated slowly. Psychotic symptoms and mood stabilization Cogentin 1 mg 3 times a day for EPS symptoms Zofran 100 mg daily for depression and anxiety Patient tolerated medications well, no side effects observed or reported, aims 0 , no EPS. Patient was seen by medical team, no major medical issues as of now. Over the course of this hospitalization pt was attending groups, pt also had medication management, had therapeutic milieu. Overall pt improved significantly, pt's affect became brighter, pt was less depressed, has realistic future oriented plans, pt also does not appear to be psychotic, or anxious, pt was socially appropriate, no behavioral issues, pts insight improved as well and soon pt deemed to be ready for discharge. At the time of the discharge pt denied been depressed, denied thoughts of harming self or others, denied psychotic symptoms, and pt does not appeared to be psychotic, denied been anxious, pt is not in imminent danger to self or others, will be following up at [facility], information about follow up appointment, time and address provided to the pt, it is patient responsibility to follow up with outpatient clinic, PMD as well as specialists (see SW note for more detailed information). In case pt will need to obtain results of studies pending at discharge pt was provided with contact information of Psychiatric Inpatient unit [phone] as well as Medical Record Department [phone]. patient denied smoking, does not use any drugs. pt was provided with prescriptions for all of medications (please see medication reconciliation form) Pt was educated about safety plan in case of worsening of symptoms or in case of suicidal or homicidal ideation call 911 or go to the nearest ER, also was educated to take meds as prescribed and stay away from drugs, pt verbalized understanding. - Diagnosis (1) Schizophrenia, chronic condition Status: Chronic Priority: High - Final Diagnosis (DSM 5) Condition upon Discharge: GOOD Disposition: HOME/ ROUTINE Follow-up Treatment Plan: At the time of the discharge pt denied been depressed, denied thoughts of harming self or others, denied psychotic symptoms, and pt does not appeared to be psychotic, denied been anxious, pt is not in imminent danger to self or others, will be following up at [facility], information about follow up appointment, time and address provided to the pt, it is patient responsibility to follow up with outpatient clinic, PMD as well as specialists (see SW note for more detailed information). In case pt will need to obtain results of studies pending at discharge pt was provided with contact information of Psychiatric Inpatient unit [phone] as well as Medical Record Department [phone]. patient denied smoking, does not use any drugs. pt was provided with prescriptions for all of medications (please see medication reconciliation form) Pt was educated about safety plan in case of worsening of symptoms or in case of suicidal or homicidal ideation call 911 or go to the nearest ER, also was educated to take meds as prescribed and stay away from drugs, pt verbalized understanding. Prescriptions/Medication Reconciliation: Benztropine [Cogentin] 1 mg PO TID #45 tab DiphenhydrAMINE [Benadryl] 50 mg PO HS #14 cap risperiDONE [RisperDAL Tab] 3 mg PO AMHS #30 tab Sertraline [Zoloft] 100 mg PO DAILY #14 tab - Smoking Cessation Smoking Cessation Medication prescribed: No Reason for not providing: pt denied smoking - Antipsychotic Medications Pt discharged on 2 or more routine antipsychotic medications: No
== END 2017-12-04 14:03 | disposition home or self-care (01) | DRG 885 ==
LOC: ED 11:13 → PSYC 16:25
PROVIDERS: ADMIT Psychiatry & Neurology Psychiatry; ATTEND Psychiatry & Neurology Psychiatry
DX: F20.0 Paranoid schizophrenia (principal); Z68.41 Body mass index [BMI] 40.0-44.9, adult; F32.9 Major depressive disorder, single episode, unspecified; E78.00 Pure hypercholesterolemia, unspecified; K08.89 Other specified disorders of teeth and supporting structures; E66.9 Obesity, unspecified; Z91.14 Patient's other noncompliance with medication regimen; Z59.0 Homelessness; Z72.0 Tobacco use

== ENCOUNTER 2018-10-12 19:49 | Inpatient (IN) | payer MEDICARE, OTHER ==
[2018-10-12 19:49] VITALS: BMI 44.9
--- NOTE | 2018-10-12 20:47 | ED PDOC ---
Arrival/HPI - General Chief Complaint: Psychiatric Evaluation Time Seen by Provider: 10/12/18 19:51 Historian: Patient - History of Present Illness Narrative History of Present Illness (Text): 10/12/18 20:43 42 year old male, whose past medical history includes schizophrenia, who presents to the Emergency department complaining of hearing voices x today. Patient states "they say they're going to kill me". Patient is suppose to be on medication but isn't. Patient denies any physical complaints, homicidal ideation, or suicidal ideation. Time/Duration: Other (today) Symptom Onset: Gradual Symptom Course: Unchanged Activities at Onset: Light Past Medical History - Provider Review Nursing Documentation Reviewed: Yes - Past History Past History: Non-Contributing - Infectious Disease Hx of Infectious Diseases: None - Tetanus Immunization Tetanus Immunization: Unknown - Past Medical History Past Medical History: No Previous - Cardiac Hx Hypertension: No - Pulmonary Hx Sleep Apnea: Yes - Neurological Hx Seizures: No - HEENT Hx HEENT Disorder: No - Renal Hx Renal Disorder: No - Endocrine/Metabolic Hx Endocrine Disorders: No - Hematological/Oncological Hx Cancer: No - Integumentary Hx Dermatological Disorder: No - Musculoskeletal/Rheumatological Hx Musculoskeletal Disorders: No Hx Falls: No - Gastrointestinal Hx Gastrointestinal Disorders: No - Genitourinary/Gynecological Hx Sexually Transmitted Diseases: No - Psychiatric Hx Depression: Yes Hx Schizophrenia: Yes Hx Substance Use: Yes - Past Surgical History Past Surgical History: No Previous - Anesthesia Hx Anesthesia: No Hx Anesthesia Reactions: No Hx Malignant Hyperthermia: No - Suicidal Assessment Feels Threatened In Home Enviroment: No Family/Social History - Physician Review Nursing Documentation Reviewed: Yes Family/Social History: Unknown Family HX Smoking Status: Heavy Smoker > 10 Cigarettes Daily Hx Alcohol Use: No Hx Substance Use: Yes Hx Substance Use Treatment: No Allergies/Home Meds Allergies/Adverse Reactions: Allergies No Known Allergies Allergy (Verified 03/13/18 10:02) Review of Systems - Physician Review All systems were reviewed & negative as marked: Yes - Review of Systems Constitutional: Normal Eyes: Normal ENT: Normal Respiratory: Normal. absent: SOB, Cough Cardiovascular: Normal. absent: Chest Pain Gastrointestinal: Normal. absent: Abdominal Pain, Diarrhea, Nausea, Vomiting Genitourinary Male: Normal. absent: Dysuria Musculoskeletal: Normal. absent: Back Pain, Neck Pain Skin: Normal. absent: Rash Neurological: Normal. absent: Headache, Dizziness Endocrine: Normal Hemo/Lymphatic: Normal Psychiatric: Other (hearing voices) Physical Exam - Physical Exam Narrative Physical Exam (Text): 10/12/18 20:48 Constitutional: No acute distress. Head: Normocephalic. Atraumatic. Eyes: PERRL. ENT: Moist mucous membranes. Neck: Supple. Cardiovascular: Regular rate. Chest: No tenderness. Respiratory: Clear to auscultation bilaterally. GI: Soft. Nontender. Nondistended. Back: No CVA tenderness. Musculoskeletal: Chronic skin changes to lower extremities. No tenderness or s welling of extremities. Skin: No rash. Neurologic: Alert, no focal deficit. Vital Signs Reviewed: Yes Vital Signs Temp Pulse Resp BP Pulse Ox 10/12/18 19:49 98.2 F 89 18 139/82 96 Temperature: Afebrile Blood Pressure: Normal Pulse: Regular Respiratory Rate: Normal Appearance: Positive for: Well-Appearing, Non-Toxic, Comfortable Pain Distress: None Mental Status: Positive for: Alert and Oriented X 3 Medical Decision Making ED Course and Treatment: 10/12/18 20:49 Impression: 42 year old male presents to the emergency department complaining of hearing voices. Plan: -- EKG -- Labs -- CXR -- UA -- Reassess and disposition Progress Notes: EKG reviewed, shows NSR at [address]/T wave changes. - Scribe Statement The provider has reviewed the documentation as recorded by the Scribe Dannielle Horne All medical record entries made by the Scribe were at my direction and perso felipa dictated by me. I have reviewed the chart and agree that the record accurately reflects my personal performance of the history, physical exam, medical decision making, and the department course for this patient. I have also personally directed, reviewed, and agree with the discharge instructions and disposition. Disposition/Present on Arrival - Present on Arrival Any Indicators Present on Arrival: No History of DVT/PE: No History of Uncontrolled Diabetes: No Urinary Catheter: No History of Decub. Ulcer: No History Surgical Site Infection Following: None - Disposition Have Diagnosis and Disposition been Completed?: Yes Diagnosis: Schizophrenia Disposition: HOSPITALIZED Disposition Time: 21:00 Patient Plan: Admission Patient Problems: Current Active Problems Problem Status Onset Schizophrenia Acute Condition: GUARDED
[2018-10-12 21:00] LABS: ACETAMINOPHEN < 10.0 ug/ml (10.0-20.0); SALICYLATE < 1 mg/dL (2.0-20.0)
[2018-10-12 21:01] LABS: ALB/GLOB RATIO 1.1 (1.1-1.8); ALBUMIN 3.9 g/dL (3.0-4.8); ALT/SGPT 21 U/L (7-56); AST/SGOT 24 U/L (17-59); BLOOD UREA NITROGEN 16 mg/dL (7-21); CALCIUM 8.7 mg/dL (8.4-10.5); GFR NON-AFRICAN AMERICAN > 60
[2018-10-12 21:13] LABS: HEMOGLOBIN 12.6 g/dL (14.0-18.0); MEAN CELL VOLUME 79.7 fl (80.0-105.0); MEAN CORPUSCULAR HEMOGLOBIN 26.3 pg (25.0-35.0); MEAN PLATELET VOLUME 9.6 fl (7.0-11.0); RBC 4.79 10^6/uL (3.5-6.1); RED CELL DISTRIBUTION WIDTH 17.4 % (11.5-14.5); WHITE BLOOD COUNT 6.7 10^3/uL (4.5-11.0)
[2018-10-12 21:14] LABS: BASO # 0.03 K/mm3 (0.0-2.0); BASO % 0.5 % (0.0-3.0); EOS # 0.3 (0.0-0.7); EOS % 4.5 % (1.5-5.0); GRAN # 4.24 (1.4-6.5); GRAN % 63.6 % (50.0-68.0); LYMPH # 1.5 (1.2-3.4); LYMPH % 21.9 % (22.0-35.0); MONO # 0.6 (0.1-0.6); MONO % 9.5 % (1.0-6.0)
[2018-10-12 23:56] LABS: URINE BILIRUBIN NEGATIVE (NEGATIVE); URINE BLOOD NEGATIVE (NEGATIVE); URINE GLUCOSE (UA) NEGATIVE (NEGATIVE); URINE LEUKOCYTE ESTERASE NEGATIVE Leu/uL (NEGATIVE); URINE PROTEIN NEGATIVE mg/dL (<30 mg/dL); URINE UROBILINOGEN 0.2 E.U./dL (<1 E.U./dL)
[2018-10-12 23:57] LABS: URINE APPEARANCE CLEAR (CLEAR); URINE COLOR YELLOW (YELLOW)
[2018-10-13 00:37] LABS: BARBITURATES, UR NEGATIVE (NEGATIVE); BENZODIAZEPINES, UR NEGATIVE (NEGATIVE); OPIATES, UR NEGATIVE (NEGATIVE); PHENCYCLIDINE, UR NEGATIVE (NEGATIVE)
[2018-10-13 00:53] VITALS: O2SAT 97
[2018-10-13] MEDS ORDERED: Magnesium Hydroxide Susp 30 ml UD PO PRN (01:18)
[2018-10-13] MEDS ORDERED: Alum-Mag Hydrox-Simethicone Susp (30 mL) PO PRN (01:18)
--- NOTE | 2018-10-13 02:34 | PCM.BM ---
<Colleen Steiner - Last Filed: 10/13/18 02:32> Treatment Plan Problems - Problems identified on initial assessmt hearing voices Date Initiated: 11/09/18 Time Initiated: 00:30 Assessment reference: NA Status: Active non-compliant with meds Date Initiated: 10/17/18 Time Initiated: 23:50 Assessment reference: NA Status: Active Treatment assets and liabiliti Patient Assests: cooperative, educated, self-reliant, ADL independent, physically healthy, negotiates basic needs, good past tx response, cognitively intact <Marisela Brown - Last Filed: 10/13/18 09:40> - Diagnosis (1) Schizo affective schizophrenia Status: Acute Interventions: * group, milieu and supportive tx * Risperdal 1 mg AMHS, with plan to titrate to prior effective dose of 3 mg bid * Cogentin 1 mg BID for EPS prophylaxis * Zoloft 50 mg po daily, with plan to titrate to 100-200 mg daily * Trazodone 50 mg HS, off label for sleep * Awaiting medical f/u 10/13/18 09:41 <Pari Velázquez - Last Filed: 10/15/18 12:14> Family Contact Family involvement: Famliy/SO not involved
--- NOTE | 2018-10-13 09:40 | PCM.PSYCH ---
Initial Psychiatric Evaluation - Initial Psychiatric Evaluation Type of Admission: Voluntary Legal Status: Capacity History of Present Illness and Precipitating Events: Patient is a 42 yo single AA male with Schizoaffective Disorder-Paranoid type, history of numerous admissions-most recently at [facility] in 03/2018, history of poor compliance with medications and aftercare (no longer attending [facility] program), who presented to our Emergency Room on 10/12/18 complaining of depression, paranoia and auditory hallucinations, voices saying "they are going to kill me". I reviewed his prior admission records as well as recent notes on the unit. Patient has had multiple admissions with similar symptoms of paranoia, suicidal/homicidal thoughts and hallucinations in context of medication noncompliance. Patient was interviewed privately at bedside. He appears unkempt and preoccupied. His eye contact and focus are poor. He is oriented to month, year and location. Behavior is calm however patient is only superficially engaged during questioning . Affect is guarded and flat. Patient indicates he came to the ER to be stabilized on his medications again. Patient has not taken medications or followed up with outpatient treatment. He continues to endorse intermittent auditory hallucinations, voices that tell patient that gang members are following him and will harm him. Patient has a history of hearing voices telling him to hurt others however he denies any CAH today. Patient feels paranoid and distressed by the hallucinations. He feels depressed but doesn't want to . His major stressor is homelessness. PSYCHIATRIC HISTORY ~Patient has a long history of Paranoid Schizophrenia with multiple admissions at [facility] and [facility]. Patient has also been hospitalized at [place] within the past 1- 2 years. ~~His most recent admission was to [facility] from 03/13/18-03/17/18. He was discharged on: Cogentin 1 mg po bid, Geodon 40 mg po bid, Zoloft 100 mg po daily, Trazodone 100 mg HS ~Hospitalized at 11/25/17-12/04/17. He was discharged on:Cogentin 1 mg po tid, Benadryl 50 mg po HS, Risperdal 3 mg AMHS, Zoloft 100 mg po daily. ~Hospitalized at [facility] from 07/27/17-08/11/17. He was discharged on: Cogentin 1 mg po bid, Risperdal 2 mg po bid, Geodon 60 mg po bid, Zoloft 200 mg po daily, Trazodone 100 mg HS ~Hospitalized at in 05/2017, discharged on Risperdal 3, cogentin 1 TID, Benadryl 50 HS and zoloft 200 mg daily. ~Hospitalized at 01/19/15-01/28/15 for hallucinations to harm self and/or others. He was discharged on Risperdal 3 BID, Cogentin 1 BID, Ativan 1 qday, Trazodone 100 qhs and Haldol 0.5 mg BID. ~Patient's other admission at was 12/22/14-12/31/14 with similar complaints and similar discharge medications. ~He also has a prior admission at [facility] in [place] in 2009 and [facility] in 2007. Reports his first psychiatric admission was in his early thirties. Patient reports 3 prior suicide attempts, however he is vague about circumstances except that he "tried to use a razor to cut myself". Per [facility] records 07/2017: Pt reports one prior suicide attempt 2 years ago by cutting his wrist SOCIAL HISTORY Born and raised in [place]. Single, never , no children. He is homeless. He has been unemployed since 2007. 9th grade education. Denies drug or alcohol issues however drank a few beers prior to coming to the ER on 10/12/18. Patient has a history of smoking tobacco 1-2 packs daily Per prior records, patient has history of arrests due to assaultive behavior but denies any legal charges in past The patient failed the outpatient lower level of care: Yes Current Medications: Active Medications Generic Name Dose Route Start Last Admin Trade Name Freq PRN Reason Stop Dose Admin Acetaminophen 650 mg 10/13/18 01:16 Tylenol 325mg Tab PO Q4H PRN Pain, moderate (4-7) Al Hydrox/Mg Hydrox/Simethicone 30 ml 10/13/18 01:18 Maalox Plus 30 Ml PO DAILY PRN Indigestion / Heartburn Magnesium Hydroxide 30 ml 10/13/18 01:18 Milk Of Magnesia PO DAILY PRN Constipation Zaleplon 10 mg 10/13/18 01:16 10/13/18 01:47 Sonata PO 10 mg HS PRN Administration Insomnia Present on Admission - Present on Admission Any Indicators Present on Admission: No - Notes: Notes:: Please refer to patient's physical exam and ROS findings from [facility] ER report dated 10/12/18 Review of Systems - Review of Systems Review of Systems: Please refer to patient's physical exam and ROS findings from [facility] ER report dated 10/12/18 - Constitutional Constitutional: As Per HPI - EENT Eyes: As Per HPI Ears: As Per HPI Nose/Mouth/Throat: As Per HPI - Cardiovascular Cardiovascular: As Per HPI - Respiratory Respiratory: As Per HPI - Gastrointestinal Gastrointestinal: As Per HPI - Genitourinary Genitourinary: As Per HPI - Reproductive: Male Reproductive:Male: As Per HPI - Musculoskeletal Musculoskeletal: As Per HPI - Integumentary Integumentary: As Per HPI - Neurological Neurological: As Per HPI - Psychiatric Psychiatric: Confusion, Difficulty Concentrating, Paranoia - Endocrine Endocrine: As Per HPI - Hematologic/Lymphatic Hematologic: As Per HPI Past Patient History - Past Psychiatric History Previous Treatment History: Inpatient Prior Professional Help: See HPI - PSYCHIATRIC Hx Depression: Yes Hx Schizophrenia: Yes Hx Substance Use: Yes - Infectious Disease Hx of Infectious Diseases: None - Tetanus Immunizations Tetanus Immunization: Unknown - Past Medical History & Family History Past Medical History?: Yes - CARDIAC Hx Hypertension: No - PULMONARY Hx Sleep Apnea: Yes - NEUROLOGICAL Hx Seizures: No - HEENT Hx HEENT Problems: No - RENAL Hx Chronic Kidney Disease: No - ENDOCRINE/METABOLIC Hx Endocrine Disorders: No - HEMATOLOGICAL/ONCOLOGICAL Hx Cancer: No - INTEGUMENTARY Hx Dermatological Problems: No - MUSCULOSKELETAL/RHEUMATOLOGICAL Hx Musculoskeletal Disorders: No Hx Falls: No - GASTROINTESTINAL Hx Gastrointestinal Disorders: No - GENITOURINARY/GYNECOLOGICAL Hx Sexually Transmitted Disorders: No - SURGICAL HISTORY Hx Surgeries: No - ANESTHESIA Hx Anesthesia: No Hx Anesthesia Reactions: No Hx Malignant Hyperthermia: No - Medical/Surgical History Reviewed & confirmed: by me (Please refer to patient's physical exam and ROS findings from [facility] ER report dated 10/12/18) Meds Allergies/Adverse Reactions: Allergies Allergy/AdvReac Type Severity Reaction Status Date / Time No Known Allergies Allergy Verified 03/13/18 10:02 Mental Status Examination - Personal Presentation Personal Presentation: Looks stated age - Affect Affect: Constricted - Motor Activity Motor Activity: Calm - Reliability in Providing Information Reliability in Providing Information: Poor, due to alteration in thoughts, Poor, due to altered mood - Speech Speech: Disorganized - Mood Mood: Depressed - Formal Thought Process Formal Thought Process: Hallucinations, Delusions, Paranoia, Loosening of associations - Hallucinations/Delusions Hallucinations: Auditory - Obsessions/Compulsions Obsessions: No Compulsions: No - Cognitive Functions Orientation: Person, Place, Situation (Superficial awareness) Sensorium: Drowsy Attention/Concentration: Easily distracted Abstract Thinking: [place] Estimate of Intelligence: Average Judgement: Imparied, as evidence by: Poor judgement, Imparied, as evidence by: Lack of insight into illness Memory: Recent impaired, as evidence by: Inability to recall events of the day, Remote intact, as evidenced by: Abilit to recall sig. life events - Risk Risk: Suicidal, Homicidal, Diminished functioning - Strength & Assets Inventory Strength & Assets Inventory: Cooperative Psychiatric Physical Exam - Physical Exam Reviewed and confirmed: Emergency Department Physical Exam (Please refer to patient's physical exam and ROS findings from [facility] ER report dated 10/12/18) Results - Vital Signs Recent Vital Signs: Last Vital Signs Temp 98.2 F 10/12/18 19:49 Pulse 78 10/12/18 23:49 Resp 18 10/13/18 01:53 BP 127/81 10/12/18 23:49 Pulse Ox 97 10/12/18 23:49 - Labs Result Diagrams: 10/12/18 20:45 10/12/18 20:45 Labs: Laboratory Results - last 24 hr 10/12/18 10/12/18 10/12/18 11:30 20:43 20:45 WBC 6.7 RBC 4.79 Hgb 12.6 L D Hct 38.2 L MCV 79.7 L MCH 26.3 MCHC 33.0 RDW 17.4 H Plt Count 288 MPV 9.6 Gran % 63.6 Lymph % (Auto) 21.9 L [place]ha % (Auto) 9.5 H Eos % (Auto) 4.5 Baso % (Auto) 0.5 Gran # 4.24 Lymph # (Auto) 1.5 Desha # (Auto) 0.6 Eos # (Auto) 0.3 Baso # (Auto) 0.03 Sodium Potassium Chloride Carbon Dioxide Anion Gap BUN Creatinine Est GFR ( Amer) Est GFR (Non-Af Amer) Random Glucose Calcium Total Bilirubin AST ALT Alkaline Phosphatase Total Protein Albumin Globulin Albumin/Globulin Ratio Urine Color Yellow Urine Appearance Clear Urine pH 6.0 Ur Specific [place] 1.015 Urine Protein Negative Urine Glucose (UA) Negative Urine Ketones Negative Urine Blood Negative Urine Nitrate Negative Urine Bilirubin Negative Urine Urobilinogen 0.2 Ur Leukocyte Esterase Negative Salicylates Urine Opiates Screen Negative Urine Methadone Screen Negative Acetaminophen Ur Barbiturates Screen Negative Ur Phencyclidine Scrn Negative Ur Amphetamines Screen Negative U Benzodiazepines Scrn Negative U Oth Cocaine Metabols Negative U Cannabinoids Screen Negative Alcohol, Quantitative 10/12/18 10/12/18 10/12/18 20:45 20:45 20:45 WBC RBC Hgb Hct MCV MCH MCHC RDW Plt Count MPV Gran % Lymph % (Auto) Desha % (Auto) Eos % (Auto) Baso % (Auto) Gran # Lymph # (Auto) Desha # (Auto) Eos # (Auto) Baso # (Auto) Sodium 136 Potassium 3.8 Chloride 102 Carbon Dioxide 24 Anion Gap 14 BUN 16 Creatinine 1.0 Est GFR ( Amer) > 60 Est GFR (Non-Af Amer) > 60 Random Glucose 127 H Calcium 8.7 Total Bilirubin 0.2 AST 24 ALT 21 Alkaline Phosphatase 87 Total Protein 7.3 Albumin 3.9 Globulin 3.4 Albumin/Globulin Ratio 1.1 Urine Color Urine Appearance Urine pH Ur Specific [place] Urine Protein Urine Glucose (UA) Urine Ketones Urine Blood Urine Nitrate Urine Bilirubin Urine Urobilinogen Ur Leukocyte Esterase Salicylates < 1 L Urine Opiates Screen Urine Methadone Screen Acetaminophen < 10.0 L Ur Barbiturates Screen Ur Phencyclidine Scrn Ur Amphetamines Screen U Benzodiazepines Scrn U Oth Cocaine Metabols U Cannabinoids Screen Alcohol, Quantitative 50 H - Impressions Impression: Please refer to patient's physical exam and ROS findings from [facility] ER report dated 10/12/18 DSM Plan - DSM 5 DSM 5 Diagnosis: Schizoaffective disorder Chronic noncompliance - Recommended/Plan of Treatment Treatment Recommendations and Plan of Treatment: * group, milieu and supportive tx * Risperdal 1 mg AMHS, with plan to titrate to prior effective dose of 3 mg bid * Cogentin 1 mg BID for EPS prophylaxis * Zoloft 50 mg po daily, with plan to titrate to 100-200 mg daily * Trazodone 50 mg HS, off label for sleep * Awaiting medical f/u * Vitals reviewed and noted below: Selected Entries 10/12/18 10/12/18 10/12/18 19:49 21:49 23:49 Temperature 98.2 F Pulse Rate 89 84 78 Respiratory 18 18 18 Rate Blood Pressure 139/82 134/82 127/81 10/13/18 01:53 Temperature Pulse Rate Respiratory 18 Rate Blood Pressure ER LABS AND STUDIES Please refer to patient's physical exam and ROS findings from [facility] ER report dated 10/12/18 11/25/17 15:15 Chest xray show no active disease 10/12/18 20:49 EKG reviewed, shows NSR at [address]/T wave changes. Admission LABS Laboratory Tests 10/12/18 10/12/18 10/12/18 11:30 20:43 20:45 WBC 6.7 RBC 4.79 Hgb 12.6 L D Hct 38.2 L MCV 79.7 L MCH 26.3 MCHC 33.0 RDW 17.4 H Plt Count 288 MPV 9.6 Gran % 63.6 Lymph % (Auto) 21.9 L Desha % (Auto) 9.5 H Eos % (Auto) 4.5 Baso % (Auto) 0.5 Gran # 4.24 Lymph # (Auto) 1.5 Desha # (Auto) 0.6 Eos # (Auto) 0.3 Baso # (Auto) 0.03 Sodium Potassium Chloride Carbon Dioxide Anion Gap BUN Creatinine Est GFR ( Amer) Est GFR (Non-Af Amer) Random Glucose Calcium Total Bilirubin AST ALT Alkaline Phosphatase Total Protein Albumin Globulin Albumin/Globulin Ratio Urine Color Yellow Urine Appearance Clear Urine pH 6.0 Ur Specific [place] 1.015 Urine Protein Negative Urine Glucose (UA) Negative Urine Ketones Negative Urine Blood Negative Urine Nitrate Negative Urine Bilirubin Negative Urine Urobilinogen 0.2 Ur Leukocyte Esterase Negative Salicylates Urine Opiates Screen Negative Urine Methadone Screen Negative Acetaminophen Ur Barbiturates Screen Negative Ur Phencyclidine Scrn Negative Ur Amphetamines Screen Negative U Benzodiazepines Scrn Negative U Oth Cocaine Metabols Negative U Cannabinoids Screen Negative Alcohol, Quantitative 10/12/18 10/12/18 10/12/18 20:45 20:45 20:45 WBC RBC Hgb Hct MCV MCH MCHC RDW Plt Count MPV Gran % Lymph % (Auto) Desha % (Auto) Eos % (Auto) Baso % (Auto) Gran # Lymph # (Auto) Desha # (Auto) Eos # (Auto) Baso # (Auto) Sodium 136 Potassium 3.8 Chloride 102 Carbon Dioxide 24 Anion Gap 14 BUN 16 Creatinine 1.0 Est GFR ( Amer) > 60 Est GFR (Non-Af Amer) > 60 Random Glucose 127 H Calcium 8.7 Total Bilirubin 0.2 AST 24 ALT 21 Alkaline Phosphatase 87 Total Protein 7.3 Albumin 3.9 Globulin 3.4 Albumin/Globulin Ratio 1.1 Urine Color Urine Appearance Urine pH Ur Specific [place] Urine Protein Urine Glucose (UA) Urine Ketones Urine Blood Urine Nitrate Urine Bilirubin Urine Urobilinogen Ur Leukocyte Esterase Salicylates < 1 L Urine Opiates Screen Urine Methadone Screen Acetaminophen < 10.0 L Ur Barbiturates Screen Ur Phencyclidine Scrn Ur Amphetamines Screen U Benzodiazepines Scrn U Oth Cocaine Metabols U Cannabinoids Screen Alcohol, Quantitative 50 H Prognosis: guarded Discharge Plan and Discharge Criteria: To outpatient services ([facility]) - Tobacco Cessation Tobacco Use Status for the last 30 days: Heavy User(>=5 cigs &/or cigars/pipes daily) Tobacco Use Treatment Practical Counseling Provided: Yes Tobacco Use Treatment FDA-Approved Cessation Medication Provided: No Reason for not providing: Patient refused tobacco cessation medication Initial Psych Certification - Initial Certification I certify that the inpatient psychiatric facility admission was medically necessary for either: Treatment which could reasonbly be expected to improve pt's condition, Diagnostic study I estimate of hospitalization is necessary for proper treatment of the patient: 7 Unit of Time: Days
--- NOTE | 2018-10-13 13:00 | RAD ---
Date of service: 10/12/2018 HISTORY: psych COMPARISON: Comparison chest 11/25/2017 FINDINGS: LUNGS: Poor inspiration with low lung volumes, crowded bronchovascular markings and mild bibasilar atelectasis.. PLEURA: No significant pleural effusion identified, no pneumothorax apparent. CARDIOVASCULAR: No aortic atherosclerotic calcification present. Heart size borderline enlarged.. No pulmonary vascular congestion. OSSEOUS STRUCTURES: No significant abnormalities. VISUALIZED UPPER ABDOMEN: Normal. OTHER FINDINGS: None. IMPRESSION: Poor inspiration with low lung volumes, crowded bronchovascular markings and mild bibasilar atelectasis..
--- NOTE | 2018-10-13 17:41 | CARD ---
APPROVED REPORT Date of service: 10/12/2018 EKG Measurement Heart [id number] <Conclusion> Normal sinus rhythm Left axis deviation Minimal voltage criteria for LVH, may be normal variant Abnormal ECG
--- NOTE | 2018-10-14 09:43 | PCM.PYCHPN ---
Psychiatric Progress Note - Psychiatric Progress Note Patient seen today, length of contact: 25 min Problems Identified/Issues Discussed: History of Present Illness and Precipitating Events: Patient is a 42 yo single AA male with Schizoaffective Disorder-Paranoid type, history of numerous admissions-most recently at [facility] in 03/2018, history of poor compliance with medications and aftercare (no longer attending [facility]), who presented to our Emergency Room on 10/12/18 complaining of depression, paranoia and auditory hallucinations, voices saying "they are going to kill me". I reviewed his prior admission records as well as recent notes on the unit. Patient has had multiple admissions with similar symptoms of paranoia, suicidal/homicidal thoughts and hallucinations in context of medication noncompliance. Patient was interviewed privately at bedside. He appears unkempt and preoccupied. His eye contact and focus are poor. He is oriented to month, year and location. Behavior is calm however patient is only superficially engaged during questioning . Affect is guarded and flat. Patient indicates he came to the ER to be stabilized on his medications again. Patient has not taken medications or followed up with outpatient treatment. He continues to endorse intermittent auditory hallucinations, voices that tell patient that gang members are following him and will harm him. Patient has a history of hearing voices telling him to hurt others however he denies any CAH today. Patient feels paranoid and distressed by the hallucinations. He feels depressed but doesn't want to . His major stressor is homelessness. PSYCHIATRIC HISTORY ~Patient has a long history of Paranoid Schizophrenia with multiple admissions at [facility] and [facility] Patient has also been hospitalized at [place] within the past 1- 2 years. ~~His most recent admission was to [facility] from 03/13/18-03/17/18. He was discharged on: Cogentin 1 mg po bid, Geodon 40 mg po bid, Zoloft 100 mg po daily, Trazodone 100 mg HS ~Hospitalized at [facility] 11/25/17-12/04/17. He was discharged on:Cogentin 1 mg po tid, Benadryl 50 mg po HS, Risperdal 3 mg AMHS, Zoloft 100 mg po daily. ~Hospitalized at [facility] from 07/27/17-9/29/17. He was discharged on: Cogentin 1 mg po bid, Risperdal 2 mg po bid, Geodon 60 mg po bid, Zoloft 200 mg po daily, Trazodone 100 mg HS ~Hospitalized at [facility] in 05/2017, discharged on Risperdal , cogentin 1 TID, Benadryl 50 HS and zoloft 200 mg daily. ~Hospitalized at [facility] 01/19/15-01/28/15 for hallucinations to harm self and/or others. He was discharged on Risperdal 3 BID, Cogentin 1 BID, Ativan 1 qday, Trazodone 100 qhs and Haldol 0.5 mg BID. ~Patient's other admission at [facility] was 12/22/14-12/31/14 with similar complaints and similar discharge medications. ~He also has a prior admission at [facility] in [place] in 2009 and [facility] in 2007. Reports his first psychiatric admission was in his early thirties. Patient reports 3 prior suicide attempts, however he is vague about circumstances except that he "tried to use a razor to cut myself". Per [facility] records 07/2017: Pt reports one prior suicide attempt 2 years ago by cutting his wrist SOCIAL HISTORY Born and raised in [place]. Single, never , no children. He is homeless. He has been unemployed since 2007. 9th grade education. Denies drug or alcohol issues however drank a few beers prior to coming to the ER on 10/12/18. Patient has a history of smoking tobacco 1-2 packs daily Per prior records, patient has history of arrests due to assaultive behavior but denies any legal charges in past PROGRESS NOTE 10/14/18 [facility]. He is calm and superficially cooperative with interview. Eye contact and focus remain poor. He states that he feels "okay". Affect is blunt. He continues to report auditory hallucinations, voices that tell him "they are going to kill you". He admits to paranoia however feels safe in the unit. Patient appears preoccupied but wasn't observed to be responding to internal stimuli. Patient has been in good control on the unit. Denies s/e, discomfort or pain. Generally keeps to himself and has been spending a lot of time in his room. There were no behavioral issues over the weekend. Diagnostic Results: Schizoaffective disorder Chronic noncompliance Medication Change: Yes (Increased risperdal and zoloft) Medical Record Reviewed: Yes Mental Status Examination - Cognitive Function Orientation: Person, Place, Situation (Superficial awareness) Attention: Poor Concentration: Poor Association: Loose Fund of Knowledge: Poor - Mood Mood: Depressed - Affect Affect: Constricted - Formal Thought Process Formal Thought Process: Hallucinations (persist), Delusions, Paranoia, Loosening of associations - Homicidal Ideation Homicidal Ideation: No Goal/Treatment Plan - Goal/Treatment Plan Progress Toward Problem(s) and Goals/Treatment Plan: * group, milieu and supportive tx * Risperdal increased to 2 mg AMHS on 10/14/18, with plan to titrate to prior effective dose of 3 mg bid * Cogentin 1 mg BID for EPS prophylaxis * Zoloft increased to 100 mg po daily on 10/14/18, with plan to titrate to 100- 200 mg daily * Trazodone 50 mg HS, off label for sleep * Awaiting medical f/u * Vitals reviewed and noted below: Selected Entries 10/13/18 10/13/18 07:00 16:00 Temperature 97.4 F L Pulse Rate 82 92 H Respiratory 20 Rate Blood Pressure 132/79 121/70 ER LABS AND STUDIES Please refer to patient's physical exam and ROS findings from [facility] [place] report dated 10/12/18 11/25/17 15:15 Chest xray show no active disease 10/12/18 20:49 EKG reviewed, shows NSR at [address]/T wave changes. Admission LABS Laboratory Tests 10/12/18 10/12/18 10/12/18 11:30 20:43 20:45 WBC 6.7 RBC 4.79 Hgb 12.6 L D Hct 38.2 L MCV 79.7 L MCH 26.3 MCHC 33.0 RDW 17.4 H Plt Count 288 MPV 9.6 Gran % 63.6 Lymph % (Auto) 21.9 L [place] % (Auto) 9.5 H Eos % (Auto) 4.5 Baso % (Auto) 0.5 Gran # 4.24 Lymph # (Auto) 1.5 [place] # (Auto) 0.6 Eos # (Auto) 0.3 Baso # (Auto) 0.03 Sodium Potassium Chloride Carbon Dioxide Anion Gap BUN Creatinine Est GFR ( Amer) Est GFR (Non-Af Amer) Random Glucose Calcium Total Bilirubin AST ALT Alkaline Phosphatase Total Protein Albumin Globulin Albumin/Globulin Ratio Urine Color Yellow Urine Appearance Clear Urine pH 6.0 Ur Specific [place] 1.015 Urine Protein Negative Urine Glucose (UA) Negative Urine Ketones Negative Urine Blood Negative Urine Nitrate Negative Urine Bilirubin Negative Urine Urobilinogen 0.2 Ur Leukocyte Esterase Negative Salicylates Urine Opiates Screen Negative Urine Methadone Screen Negative Acetaminophen Ur Barbiturates Screen Negative Ur Phencyclidine Scrn Negative Ur Amphetamines Screen Negative U Benzodiazepines Scrn Negative U Oth Cocaine Metabols Negative U Cannabinoids Screen Negative Alcohol, Quantitative 10/12/18 10/12/18 10/12/18 20:45 20:45 20:45 WBC RBC Hgb Hct MCV MCH MCHC RDW Plt Count MPV Gran % Lymph % (Auto) [place] % (Auto) Eos % (Auto) Baso % (Auto) Gran # Lymph # (Auto) [place] # (Auto) Eos # (Auto) Baso # (Auto) Sodium 136 Potassium 3.8 Chloride 102 Carbon Dioxide 24 Anion Gap 14 BUN 16 Creatinine 1.0 Est GFR ( Amer) > 60 Est GFR (Non-Af Amer) > 60 Random Glucose 127 H Calcium 8.7 Total Bilirubin 0.2 AST 24 ALT 21 Alkaline Phosphatase 87 Total Protein 7.3 Albumin 3.9 Globulin 3.4 Albumin/Globulin Ratio 1.1 Urine Color Urine Appearance Urine pH Ur Specific [place] Urine Protein Urine Glucose (UA) Urine Ketones Urine Blood Urine Nitrate Urine Bilirubin Urine Urobilinogen Ur Leukocyte Esterase Salicylates < 1 L Urine Opiates Screen Urine Methadone Screen Acetaminophen < 10.0 L Ur Barbiturates Screen Ur Phencyclidine Scrn Ur Amphetamines Screen U Benzodiazepines Scrn U Oth Cocaine Metabols U Cannabinoids Screen Alcohol, Quantitative 50 H
--- NOTE | 2018-10-15 16:23 | PCM.PYCHPN ---
Psychiatric Progress Note - Psychiatric Progress Note Patient seen today, length of contact: 25 min Patient Chief Complaint: "I hear male voice, they are going to kill me" Problems Identified/Issues Discussed: Suicide/ homicide prevention, past psychiatric h/o, current psychiatric symptoms, medical problems, risk/benefits and alternatives of medications, medications compliance, coping strategies, substance abuse h/o, relapse prevention, importance of follow up with psychiatrist and therapist, discharge plan. Medical Problems: pt is relatively healthy but obese Diagnostic Results: 10/12/18 20:45 10/12/18 20:45 Lab Results 10/12/18 20:45: Alcohol, Quantitative 50 H 10/12/18 20:45: Salicylates < 1 L, Acetaminophen < 10.0 L 10/12/18 20:45: Sodium 136, Potassium 3.8, Chloride 102, Carbon Dioxide 24, Anion Gap 14, BUN 16, Creatinine 1.0, Est GFR ( Amer) > 60, Est GFR (Non-Af Amer) > 60, Random Glucose 127 H, Calcium 8.7, Total Bilirubin 0.2, AST 24, ALT 21, Alkaline Phosphatase 87, Total Protein 7.3, Albumin 3.9, Globulin 3.4, Albumin/Globulin Ratio 1.1 10/12/18 20:45: WBC 6.7, RBC 4.79, Hgb 12.6 L D, Hct 38.2 L, MCV 79.7 L, MCH 26.3, MCHC 33.0, RDW 17.4 H, Plt Count 288, MPV 9.6, Gran % 63.6, Lymph % (Auto) 21.9 L, [place] % (Auto) 9.5 H, Eos % (Auto) 4.5, Baso % (Auto) 0.5, Gran # 4.24, Lymph # (Auto) 1.5, [place] # (Auto) 0.6, Eos # (Auto) 0.3, Baso # (Auto) 0.03 10/12/18 20:43: Urine Opiates Screen Negative, Urine Methadone Screen Negative, Ur Barbiturates Screen Negative, Ur Phencyclidine Scrn Negative, Ur Amphetamines Screen Negative, U Benzodiazepines Scrn Negative, U Oth Cocaine Metabols Negative, U Cannabinoids Screen Negative 10/12/18 11:30: Urine Color Yellow, Urine Appearance Clear, Urine pH 6.0, Ur Sp ecific [place] 1.015, Urine Protein Negative, Urine Glucose (UA) Negative, Urine Ketones Negative, Urine Blood Negative, Urine Nitrate Negative, Urine Bilirubin Negative, Urine Urobilinogen 0.2, Ur Leukocyte Esterase Negative Vital Signs Temp Pulse Resp BP Pulse Ox 10/15/18 07:29 97.3 F L 85 16 94/63 L 10/14/18 16:39 76 120/73 10/14/18 07:20 97.5 F L 91 H 18 109/71 10/13/18 16:00 92 H 121/70 10/13/18 07:00 97.4 F L 82 20 132/79 10/13/18 01:53 18 10/12/18 23:49 78 18 127/81 97 10/12/18 21:49 84 18 134/82 97 10/12/18 19:49 98.2 F 89 18 139/82 96 DSM 5 Symptoms Update: as per 's assessment: Patient is a 42 yo single AA male with Schizoaffective Disorder-Paranoid type, history of numerous admissions-most recently at [facility] in 03/2018, history of poor compliance with medications and aftercare ([facility] who presented to our Emergency Room on 10/12/18 complaining of depression, paranoia and auditory hallucinations, voices saying "they are going to kill me". pt is very familiar to this unit because of multiple psychiatric admissions in the past. pt was seen at the treatment team meeting, presented with poor personal hygiene, malodorous, poor ADLs. pt said that he staid on streets and currently he is homeless. pt said that he is afraid that he will be killed, "I hear man voice that they are going to kill me". pt reported that he was not taking meds for the past three months. pt agreed to be on risperdal, cogentin and trazodone. pt has h/o being on invega sustenna in the past, last injection was more than three months ago (as per pt). Patient feels paranoid and distressed by the hallucinations. He feels depressed but doesn't want to . Patient has been in good control on the unit over the weekend. pt tolerates meds well, no side effects observed or reported, AIMS 0, no EPS. Diagnostic Results: Schizoaffective disorder Chronic noncompliance Medication Change: No (Increased risperdal and zoloft yesterday) Medical Record Reviewed: Yes Consults ordered or reviewed: pt was seen by medical team in ED Mental Status Examination - Cognitive Function Orientation: Person, Place, Situation (Superficial awareness) Attention: Poor Concentration: Poor Association: Loose Fund of Knowledge: Poor - Mood Mood: Depressed - Affect Affect: Constricted - Formal Thought Process Formal Thought Process: Hallucinations (persist), Delusions, Paranoia, Loosening of associations - Homicidal Ideation Homicidal Ideation: No Goal/Treatment Plan - Goal/Treatment Plan Need for Continued Stay: Remain at risks for inpatient hospitalization, Severe depression anxiety, Discharge may exacerbated symptoms, Severe functional impairment Progress Toward Problem(s) and Goals/Treatment Plan: group, milieu and supportive tx Risperdal increased to 2 mg AMHS on 10/14/18, with plan to titrate to prior effective dose of 3 mg bid Cogentin 1 mg BID for EPS prophylaxis Zoloft increased to 100 mg po daily on 10/14/18, with plan to titrate to 100-200 mg daily Trazodone 50 mg HS, off label for sleep SW consultation for discharge plan and social issues Family involvement Follow up on labs Will monitor closely Pt was educated about risk/benefits and alternatives of medications, coping strategies (safety plan, suicide prevention), relapse prevention, importance of follow up with psychiatrist and therapist, stay away from drugs/alcohol/smoking Estimated Date of D/C: 10/22/18
[2018-10-16] MEDS ORDERED: DiphenhydrAMINE 1% 1 EA TUBE TOP PRN (10:17)
[2018-10-16] MEDS: Hydrocerin(120 gm) TOP SCH ×2 (11:49→17:07)
--- NOTE | 2018-10-16 15:35 | CP.PCM.CON ---
History of Present Illness - History of Present Illness History of Present Illness: PGY1 Medicine Consult Note for Dr. Fernandez Reason for consult: Lower extremity rash Patient is a 42 year old Male with past medical history of schizophrenia who presented to the Emergency Department on 10/12/18 complaining of hearing voices that day. Patient stated "they say they're going to kill me". Patient was on medications for schizophrenia, however is non-compliant. Patient denies any physical complaints, homicidal ideation, or suicidal ideation. Today the Patient was noted to have rash on bilateral lower extremities. Patient admits this to be a chronic issue. Patient admits to pruritus, and some tenderness to the areas affected. Patient otherwise denies fever, chills, nausea, vomiting, lesions, pus, bloody discharge, and/or other rash elsewhere. 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 Patient admits to history of smoking 1 pack per day > 20 years. PMH: Schizophrenia PSH: Patient denies Allergies: NKDA Family history: Hypertension and heart problems in mother Medications: Risperidone, Klonopin, INvega injections Review of Systems - Review of Systems All systems: reviewed and no additional remarkable complaints except Review of Systems: ROS negative other than mentioned in HPI. Past Patient History - Infectious Disease Hx of Infectious Diseases: None - Tetanus Immunizations Tetanus Immunization: Unknown - Past Medical History & Family History Past Medical History?: Yes - Past Social History Smoking Status: Heavy Smoker > 10 Cigarettes Daily - CARDIAC Hx Hypertension: No - PULMONARY Hx Sleep Apnea: Yes - NEUROLOGICAL Hx Seizures: No - HEENT Hx HEENT Problems: No - RENAL Hx Chronic Kidney Disease: No - ENDOCRINE/METABOLIC Hx Endocrine Disorders: No - HEMATOLOGICAL/ONCOLOGICAL Hx Cancer: No - INTEGUMENTARY Hx Dermatological Problems: No - MUSCULOSKELETAL/RHEUMATOLOGICAL Hx Musculoskeletal Disorders: No Hx Falls: No - GASTROINTESTINAL Hx Gastrointestinal Disorders: No - GENITOURINARY/GYNECOLOGICAL Hx Sexually Transmitted Disorders: No - PSYCHIATRIC Hx Depression: Yes Hx Schizophrenia: Yes Hx Substance Use: Yes - SURGICAL HISTORY Hx Surgeries: No - ANESTHESIA Hx Anesthesia: No Hx Anesthesia Reactions: No Hx Malignant Hyperthermia: No Meds Allergies/Adverse Reactions: Allergies Allergy/AdvReac Type Severity Reaction Status Date / Time No Known Allergies Allergy Verified 03/13/18 10:02 - Medications Medications: Current Medications Acetaminophen (Tylenol 325mg Tab) 650 mg PO Q4H PRN PRN Reason: Pain, moderate (4-7) Al Hydrox/Mg Hydrox/Simethicone (Maalox Plus 30 Ml) 30 ml PO DAILY PRN PRN Reason: Indigestion / Heartburn Benztropine Mesylate (Cogentin) 1 mg PO BID [facility] Last Admin: 10/16/18 09:25 Dose: 1 mg Diphenhydramine HCl (Benadryl Maximum Strength 1%) 1 ea TOP Q6H PRN PRN Reason: Itching / Pruritus Magnesium Hydroxide (Milk Of Magnesia) 30 ml PO DAILY PRN PRN Reason: Constipation Multi-Ingredient Cream (Hydrocerin Cream) 1 ea TOP BID [facility] Last Admin: 10/16/18 11:49 Dose: 1 applic Risperidone (Risperdal Tab) 2 mg PO HS [facility]; Protocol Risperidone (Risperdal Tab) 2 mg PO BID [facility]; Protocol Sertraline HCl (Zoloft) 100 mg PO DAILY [facility] Last Admin: 10/16/18 09:26 Dose: 100 mg Trazodone HCl (Desyrel) 50 mg PO HS [facility] Last Admin: 10/15/18 21:26 Dose: 50 mg Physical Exam - Constitutional Appears: Non-toxic, No Acute Distress - Head Exam Head Exam: ATRAUMATIC, NORMAL INSPECTION, NORMOCEPHALIC - Eye Exam Eye Exam: EOMI, Normal appearance, PERRL Pupil Exam: NORMAL ACCOMODATION - ENT Exam ENT Exam: Mucous Membranes Moist - Neck Exam Neck exam: Positive for: Normal Inspection - Respiratory Exam Respiratory Exam: Clear to Auscultation Bilateral, NORMAL BREATHING PATTERN - Cardiovascular Exam Cardiovascular Exam: REGULAR RHYTHM, +S1, +S2 - GI/Abdominal Exam GI & Abdominal Exam: Normal Bowel Sounds, Soft. absent: Tenderness - Extremities Exam Extremities exam: Positive for: pedal edema (non pitting edema +1 bilaterally) Additional comments: hyperpigmentation changes in bilateral lower extremities. Excoriations scabbed over noted in bilateral lower extremities. - Back Exam Back exam: NORMAL INSPECTION - Neurological Exam Neurological exam: Alert, CN II-XII Intact, Normal Gait, Oriented x3, Reflexes Normal - Psychiatric Exam Psychiatric exam: Flat Affect - Skin Skin Exam: Dry, Intact, Normal Color, Warm Results - Vital Signs Recent Vital Signs: Last Vital Signs Temp 98.2 F 10/16/18 06:46 Pulse 87 10/16/18 06:46 Resp 20 10/16/18 06:46 BP 116/71 10/16/18 06:46 Pulse Ox 97 10/12/18 23:49 - Labs Result Diagrams: 10/12/18 20:45 10/12/18 20:45 Labs: Laboratory Results - last 24 hr 10/16/18 11:00 NT-Pro-B Natriuret Pep < 11.1 Assessment & Plan - Assessment and Plan (Free Text) Assessment: Patient is a 42 year old Male with past medical history of schizophrenia who presented to the Emergency Department on 10/12/18 complaining of hearing voices that day. Patient stated "they say they're going to kill me". Patient was on medications for schizophrenia, however is non-compliant. Patient denies any physical complaints, homicidal ideation, or suicidal ideation. Today the Patient was noted to have rash on bilateral lower extremities. Patient admits this to be a chronic issue. Patient admits to pruritus, and some tenderness to the areas affected. Schizophrenia - Management per Psychiatric team Venous Stasis likely secondary to Chronic Venous Insufficiency - BNP ordered for AM - Afebrile - No leukocytosis - Start: Topical Benadryl Q6H PRN - Educated patient on avoiding scratching the area Thank you for allowing us to participate in the care of your Patient. Please consult again as needed. Patient seen and case discussed in detail with Dr. Rebecca Valentin PGY1
--- NOTE | 2018-10-16 15:37 | PCM.PYCHPN ---
Psychiatric Progress Note - Psychiatric Progress Note Patient seen today, length of contact: 30min Patient Chief Complaint: "I hear male voice, they are going to kill me" Problems Identified/Issues Discussed: Suicide/ homicide prevention, past psychiatric h/o, current psychiatric symptoms, medical problems, risk/benefits and alternatives of medications, medications compliance, coping strategies, substance abuse h/o, relapse prevention, importance of follow up with psychiatrist and therapist, discharge plan. Medical Problems: pt is relatively healthy but obese Diagnostic Results: 10/12/18 20:45 10/12/18 20:45 Lab Results 10/12/18 20:45: Alcohol, Quantitative 50 H 10/12/18 20:45: Salicylates < 1 L, Acetaminophen < 10.0 L 10/12/18 20:45: Sodium 136, Potassium 3.8, Chloride 102, Carbon Dioxide 24, Anion Gap 14, BUN 16, Creatinine 1.0, Est GFR ( Amer) > 60, Est GFR (Non- Af Amer) > 60, Random Glucose 127 H, Calcium 8.7, Total Bilirubin 0.2, AST 24, ALT 21, Alkaline Phosphatase 87, Total Protein 7.3, Albumin 3.9, Globulin 3.4, Albumin/Globulin Ratio 1.1 10/12/18 20:45: WBC 6.7, RBC 4.79, Hgb 12.6 L D, Hct 38.2 L, MCV 79.7 L, MCH 26.3, MCHC 33.0, RDW 17.4 H, Plt Count 288, MPV 9.6, Gran % 63.6, Lymph % (Auto) 21.9 L, [place] % (Auto) 9.5 H, Eos % (Auto) 4.5, Baso % (Auto) 0.5, Gran # 4.24, Lymph # (Auto) 1.5, [place] # (Auto) 0.6, Eos # (Auto) 0.3, Baso # (Auto) 0.03 10/12/18 20:43: Urine Opiates Screen Negative, Urine Methadone Screen Negative, Ur Barbiturates Screen Negative, Ur Phencyclidine Scrn Negative, Ur Amphetamines Screen Negative, U Benzodiazepines Scrn Negative, U Oth Cocaine Metabols Negative, U Cannabinoids Screen Negative 10/12/18 11:30: Urine Color Yellow, Urine Appearance Clear, Urine pH 6.0, Ur Spe cific [place] 1.015, Urine Protein Negative, Urine Glucose (UA) Negative, Urine Ketones Negative, Urine Blood Negative, Urine Nitrate Negative, Urine Bilirubin Negative, Urine Urobilinogen 0.2, Ur Leukocyte Esterase Negative Vital Signs Temp Pulse Resp BP Pulse Ox 10/15/18 07:29 97.3 F L 85 16 94/63 L 10/14/18 16:39 76 120/73 10/14/18 07:20 97.5 F L 91 H 18 109/71 10/13/18 16:00 92 H 121/70 10/13/18 07:00 97.4 F L 82 20 132/79 10/13/18 01:53 18 10/12/18 23:49 78 18 127/81 97 10/12/18 21:49 84 18 134/82 97 10/12/18 19:49 98.2 F 89 18 139/82 96 DSM 5 Symptoms Update: Patient is a 42 yo single AA male with Schizoaffective Disorder-Paranoid type, history of numerous admissions-most recently at [facility] in 03/2018, history of poor compliance with medications and aftercare (no longer attending [facility]), who presented to our Emergency Room on 10/12/18 complaining of depression, paranoia and auditory hallucinations, voices saying "they are going to kill me". pt is very familiar to this unit because of multiple psychiatric admissions in the past. pt was seen in his room, presented with poor personal hygiene, malodorous, poor ADLs. pt c/o voices, saying "to kill myself", pt denied any intent or plan to kill self or others. pt reported that he feels "little better". Patient feels paranoid and distressed by the hallucinations. He feels depressed but doesn't want to . Patient has been in good control on the unit over the weekend. pt tolerates meds well, no side effects observed or reported, AIMS 0, no EPS. Diagnostic Results: Schizoaffective disorder Chronic noncompliance Medication Change: Yes (riseprdal increased) Medical Record Reviewed: Yes Consults ordered or reviewed: pt was seen by medical team in ED Mental Status Examination - Cognitive Function Orientation: Person, Place, Situation (Superficial awareness) Attention: Poor Concentration: Poor Association: Loose Fund of Knowledge: Poor - Mood Mood: Depressed - Affect Affect: Constricted - Formal Thought Process Formal Thought Process: Hallucinations (persist), Delusions, Paranoia, Loosening of associations - Homicidal Ideation Homicidal Ideation: No Goal/Treatment Plan - Goal/Treatment Plan Need for Continued Stay: Remain at risks for inpatient hospitalization, Severe depression anxiety, Discharge may exacerbated symptoms, Severe functional imp airment Progress Toward Problem(s) and Goals/Treatment Plan: group, milieu and supportive tx Risperdal increased to 2 mg bid and for psychosis Cogentin 1 mg BID for EPS prophylaxis Zoloft 100 mg po daily for depression and anxiety Trazodone 50 mg HS, off label for sleep SW consultation for discharge plan and social issues Family involvement Follow up on labs Will monitor closely Pt was educated about risk/benefits and alternatives of medications, coping strategies (safety plan, suicide prevention), relapse prevention, importance of follow up with psychiatrist and therapist, stay away from drugs/alcohol/smoking Estimated Date of D/C: 10/22/18
[2018-10-17] MEDS: Hydrocerin(120 gm) TOP SCH ×2 (11:40→16:38)
--- NOTE | 2018-10-17 15:48 | PCM.PYCHPN ---
Psychiatric Progress Note - Psychiatric Progress Note Patient seen today, length of contact: 30min Patient Chief Complaint: "I hear male voice, they are going to kill me" Problems Identified/Issues Discussed: Suicide/ homicide prevention, past psychiatric h/o, current psychiatric symptoms, medical problems, risk/benefits and alternatives of medications, medications compliance, coping strategies, substance abuse h/o, relapse prevention, importance of follow up with psychiatrist and therapist, discharge plan. Medical Problems: pt is relatively healthy but obese Diagnostic Results: 10/12/18 20:45 10/12/18 20:45 Lab Results 10/12/18 20:45: Alcohol, Quantitative 50 H 10/12/18 20:45: Salicylates < 1 L, Acetaminophen < 10.0 L 10/12/18 20:45: Sodium 136, Potassium 3.8, Chloride 102, Carbon Dioxide 24, Anion Gap 14, BUN 16, Creatinine 1.0, Est GFR ( Amer) > 60, Est GFR (Non- Af Amer) > 60, Random Glucose 127 H, Calcium 8.7, Total Bilirubin 0.2, AST 24, ALT 21, Alkaline Phosphatase 87, Total Protein 7.3, Albumin 3.9, Globulin 3.4, Albumin/Globulin Ratio 1.1 10/12/18 20:45: WBC 6.7, RBC 4.79, Hgb 12.6 L D, Hct 38.2 L, MCV 79.7 L, MCH 26.3, MCHC 33.0, RDW 17.4 H, Plt Count 288, MPV 9.6, Gran % 63.6, Lymph % (Auto) 21.9 L, [place] % (Auto) 9.5 H, Eos % (Auto) 4.5, Baso % (Auto) 0.5, Gran # 4.24, Lymph # (Auto) 1.5, [place] # (Auto) 0.6, Eos # (Auto) 0.3, Baso # (Auto) 0.03 10/12/18 20:43: Urine Opiates Screen Negative, Urine Methadone Screen Negative, Ur Barbiturates Screen Negative, Ur Phencyclidine Scrn Negative, Ur Amphetamines Screen Negative, U Benzodiazepines Scrn Negative, U Oth Cocaine Metabols Negative, U Cannabinoids Screen Negative 10/12/18 11:30: Urine Color Yellow, Urine Appearance Clear, Urine pH 6.0, Ur Spe cific [place] 1.015, Urine Protein Negative, Urine Glucose (UA) Negative, Urine Ketones Negative, Urine Blood Negative, Urine Nitrate Negative, Urine Bilirubin Negative, Urine Urobilinogen 0.2, Ur Leukocyte Esterase Negative Vital Signs Temp Pulse Resp BP Pulse Ox 10/15/18 07:29 97.3 F L 85 16 94/63 L 10/14/18 16:39 76 120/73 10/14/18 07:20 97.5 F L 91 H 18 109/71 10/13/18 16:00 92 H 121/70 10/13/18 07:00 97.4 F L 82 20 132/79 10/13/18 01:53 18 10/12/18 23:49 78 18 127/81 97 10/12/18 21:49 84 18 134/82 97 10/12/18 19:49 98.2 F 89 18 139/82 96 DSM 5 Symptoms Update: Patient is a 42 yo single AA male with Schizoaffective Disorder-Paranoid type, history of numerous admissions-most recently at [facility] in 03/2018, history of poor compliance with medications and aftercare (no longer attending [facility]), who presented to our Emergency Room on 10/12/18 complaining of depression, paranoia and auditory hallucinations, voices saying "they are going to kill me". pt is very familiar to this unit because of multiple psychiatric admissions in the past. pt was seen in his room, presented with poor personal hygiene, malodorous, poor ADLs. pt voices are "little better", pt denied any intent or plan to kill self or others. c/o insomnia, does not want to increase medications. Patient feels paranoid and distressed by the hallucinations. He feels depressed but doesn't want to . Patient has been in good control on the unit over the weekend. pt tolerates meds well, no side effects observed or reported, AIMS 0, no EPS. Diagnostic Results: Schizoaffective disorder Chronic noncompliance Medication Change: Yes (riseprdal increased) Medical Record Reviewed: Yes Mental Status Examination - Cognitive Function Orientation: Person, Place, Situation (Superficial awareness) Attention: Poor Concentration: Poor Association: Loose Fund of Knowledge: Poor - Mood Mood: Depressed - Affect Affect: Constricted - Formal Thought Process Formal Thought Process: Hallucinations (persist), Delusions, Paranoia, Loosening of associations - Homicidal Ideation Homicidal Ideation: No Goal/Treatment Plan - Goal/Treatment Plan Need for Continued Stay: Remain at risks for inpatient hospitalization, Severe depression anxiety, Discharge may exacerbated symptoms, Severe functional impairment Progress Toward Problem(s) and Goals/Treatment Plan: group, milieu and supportive tx Risperdal increased to 2 mg bid and for psychosis Cogentin 1 mg BID for EPS prophylaxis Zoloft 100 mg po daily for depression and anxiety Trazodone 50 mg HS, off label for sleep SW consultation for discharge plan and social issues Family involvement Follow up on labs Will monitor closely Pt was educated about risk/benefits and alternatives of medications, coping strategies (safety plan, suicide prevention), relapse prevention, importance of follow up with psychiatrist and therapist, stay away from drugs/alcohol/smoking Estimated Date of D/C: 10/22/18
[2018-10-18] MEDS: Hydrocerin(120 gm) TOP SCH ×2 (09:30→17:16)
--- NOTE | 2018-10-18 14:30 | PCM.PYCHPN ---
Psychiatric Progress Note - Psychiatric Progress Note Patient seen today, length of contact: 30min Patient Chief Complaint: "I hear male voice, they are going to kill me, but they are not so loud " Problems Identified/Issues Discussed: Suicide/ homicide prevention, past psychiatric h/o, current psychiatric symptoms, medical problems, risk/benefits and alternatives of medications, medications compliance, coping strategies, substance abuse h/o, relapse prevention, importance of follow up with psychiatrist and therapist, discharge plan. Medical Problems: pt is relatively healthy but obese Diagnostic Results: 10/12/18 20:45 10/12/18 20:45 Lab Results 10/12/18 20:45: Alcohol, Quantitative 50 H 10/12/18 20:45: Salicylates < 1 L, Acetaminophen < 10.0 L 10/12/18 20:45: Sodium 136, Potassium 3.8, Chloride 102, Carbon Dioxide 24, Anion Gap 14, BUN 16, Creatinine 1.0, Est GFR ( Amer) > 60, Est GFR (Non- Af Amer) > 60, Random Glucose 127 H, Calcium 8.7, Total Bilirubin 0.2, AST 24, ALT 21, Alkaline Phosphatase 87, Total Protein 7.3, Albumin 3.9, Globulin 3.4, Albumin/Globulin Ratio 1.1 10/12/18 20:45: WBC 6.7, RBC 4.79, Hgb 12.6 L D, Hct 38.2 L, MCV 79.7 L, MCH 26.3, MCHC 33.0, RDW 17.4 H, Plt Count 288, MPV 9.6, Gran % 63.6, Lymph % (Auto) 21.9 L, [place] % (Auto) 9.5 H, Eos % (Auto) 4.5, Baso % (Auto) 0.5, Gran # 4.24, Lymph # (Auto) 1.5, [place] # (Auto) 0.6, Eos # (Auto) 0.3, Baso # (Auto) 0.03 10/12/18 20:43: Urine Opiates Screen Negative, Urine Methadone Screen Negative, Ur Barbiturates Screen Negative, Ur Phencyclidine Scrn Negative, Ur Amphetamines Screen Negative, U Benzodiazepines Scrn Negative, U Oth Cocaine Metabols Negative, U Cannabinoids Screen Negative 10/12/18 11:30: Urine Color Yellow, Urine Appearance Clear, Urine pH 6.0, Ur Specific [place] 1.015, Urine Protein Negative, Urine Glucose (UA) Negative, Urine Ketones Negative, Urine Blood Negative, Urine Nitrate Negative, Urine Bilirubin Negative, Urine Urobilinogen 0.2, Ur Leukocyte Esterase Negative Vital Signs Temp Pulse Resp BP Pulse Ox 10/15/18 07:29 97.3 F L 85 16 94/63 L 10/14/18 16:39 76 120/73 10/14/18 07:20 97.5 F L 91 H 18 109/71 10/13/18 16:00 92 H 121/70 10/13/18 07:00 97.4 F L 82 20 132/79 10/13/18 01:53 18 10/12/18 23:49 78 18 127/81 97 10/12/18 21:49 84 18 134/82 97 10/12/18 19:49 98.2 F 89 18 139/82 96 DSM 5 Symptoms Update: Patient is a 42 yo single AA male with Schizoaffective Disorder-Paranoid type, history of numerous admissions-most recently at [facility] in 03/2018, history of poor compliance with medications and aftercare (no longer attending [facility] program), who presented to our Emergency Room on 10/12/18 complaining of depression, paranoia and auditory hallucinations, voices saying "they are going to kill me". pt is very familiar to this unit because of multiple psychiatric admissions in the past. pt was seen in his room, presented with some improvement with personal hygiene, patient's symptoms taken shower. Patient reported that she feels "little better", patient reported that she still hears voices but "they are not so loud", patient complains of paranoia as well as insomnia, and depression. Patient denied any thoughts of harming himself or others but at times patient hears voices telling him that they are going to kill him. Patient has been in good control on the unit. pt tolerates meds well, no side effects observed or reported, AIMS 0, no EPS. Diagnostic Results: Schizoaffective disorder Chronic noncompliance Medication Change: Yes (riseprdal increased) Medical Record Reviewed: Yes Mental Status Examination - Cognitive Function Orientation: Person, Place, Situation (Superficial awareness) Attention: Poor (Some improvement) Concentration: Poor Association: Loose Fund of Knowledge: Poor - Mood Mood: Depressed - Affect Affect: Constricted - Formal Thought Process Formal Thought Process: Hallucinations (persist), Delusions, Paranoia, Loosening of associations - Homicidal Ideation Homicidal Ideation: No Goal/Treatment Plan - Goal/Treatment Plan Need for Continued Stay: Remain at risks for inpatient hospitalization, Severe depression anxiety, Discharge may exacerbated symptoms, Severe functional impairment Progress Toward Problem(s) and Goals/Treatment Plan: group, milieu and supportive tx Risperdal 2 mg bid and at bedtime for psychosis Cogentin 1 mg BID for EPS prophylaxis Zoloft 100 mg po daily for depression and anxiety Trazodone 100 mg HS, off label for sleep SW consultation for discharge plan and social issues Family involvement Follow up on labs Will monitor closely Pt was educated about risk/benefits and alternatives of medications, coping strategies (safety plan, suicide prevention), relapse prevention, importance of follow up with psychiatrist and therapist, stay away from drugs/alcohol/smoking Estimated Date of D/C: 10/22/18
[2018-10-19] MEDS: Hydrocerin(120 gm) TOP SCH ×2 (09:02→17:20)
--- NOTE | 2018-10-19 17:22 | PCM.PYCHPN ---
Psychiatric Progress Note - Psychiatric Progress Note Patient seen today, length of contact: 30min Patient Chief Complaint: "I hear male voice, they are going to kill me, but they are not so loud " Problems Identified/Issues Discussed: Suicide/ homicide prevention, past psychiatric h/o, current psychiatric symptoms, medical problems, risk/benefits and alternatives of medications, medications compliance, coping strategies, substance abuse h/o, relapse prevention, importance of follow up with psychiatrist and therapist, discharge plan. Medical Problems: pt is relatively healthy but obese Diagnostic Results: 10/12/18 20:45 10/12/18 20:45 Lab Results 10/12/18 20:45: Alcohol, Quantitative 50 H 10/12/18 20:45: Salicylates < 1 L, Acetaminophen < 10.0 L 10/12/18 20:45: Sodium 136, Potassium 3.8, Chloride 102, Carbon Dioxide 24, Anion Gap 14, BUN 16, Creatinine 1.0, Est GFR ( Amer) > 60, Est GFR (Non- Af Amer) > 60, Random Glucose 127 H, Calcium 8.7, Total Bilirubin 0.2, AST 24, ALT 21, Alkaline Phosphatase 87, Total Protein 7.3, Albumin 3.9, Globulin 3.4, Albumin/Globulin Ratio 1.1 10/12/18 20:45: WBC 6.7, RBC 4.79, Hgb 12.6 L D, Hct 38.2 L, MCV 79.7 L, MCH 26.3, MCHC 33.0, RDW 17.4 H, Plt Count 288, MPV 9.6, Gran % 63.6, Lymph % (Auto) 21.9 L, [place] % (Auto) 9.5 H, Eos % (Auto) 4.5, Baso % (Auto) 0.5, Gran # 4.24, Lymph # (Auto) 1.5, [place] # (Auto) 0.6, Eos # (Auto) 0.3, Baso # (Auto) 0.03 10/12/18 20:43: Urine Opiates Screen Negative, Urine Methadone Screen Negative, Ur Barbiturates Screen Negative, Ur Phencyclidine Scrn Negative, Ur Amphetamines Screen Negative, U Benzodiazepines Scrn Negative, U Oth Cocaine Metabols Negative, U Cannabinoids Screen Negative 10/12/18 11:30: Urine Color Yellow, Urine Appearance Clear, Urine pH 6.0, Ur Specific [place] 1.015, Urine Protein Negative, Urine Glucose (UA) Negative, Urine Ketones Negative, Urine Blood Negative, Urine Nitrate Negative, Urine Bilirubin Negative, Urine Urobilinogen 0.2, Ur Leukocyte Esterase Negative Vital Signs Temp Pulse Resp BP Pulse Ox 10/15/18 07:29 97.3 F L 85 16 94/63 L 10/14/18 16:39 76 120/73 10/14/18 07:20 97.5 F L 91 H 18 109/71 10/13/18 16:00 92 H 121/70 10/13/18 07:00 97.4 F L 82 20 132/79 10/13/18 01:53 18 10/12/18 23:49 78 18 127/81 97 10/12/18 21:49 84 18 134/82 97 10/12/18 19:49 98.2 F 89 18 139/82 96 DSM 5 Symptoms Update: Patient is a 42 yo single AA male with Schizoaffective Disorder-Paranoid type, history of numerous admissions-most recently at [facility] in 03/2018, history of poor compliance with medications and aftercare (no longer attending [facility] program), who presented to our Emergency Room on 10/12/18 complaining of depression, paranoia and auditory hallucinations, voices saying "they are going to kill me". Patient was seen next to the nursing station, this is the first day when patient was observed watching TV, today patient's birthday, patient was placed that pi tamy of cake was brought to the patient by kitchen, affect was little bit more reactive. Patient still reports hearing voices, but "they are not so loud", patient complains of paranoia as well as insomnia, and depression. Patient denied any thoughts of harming himself or others but at times patient hears voices telling him that they are going to kill him. Patient's hygiene is far from being ideal, but improving to compare with the time of admission. Patient has been in good control on the unit. pt tolerates meds well, no side effects observed or reported, AIMS 0, no EPS. Diagnostic Results: Schizoaffective disorder Chronic noncompliance Medication Change: Yes ( Zoloft increased) Medical Record Reviewed: Yes Consults ordered or reviewed: pt was seen by medical team in ED Mental Status Examination - Cognitive Function Orientation: Person, Place, Situation (Superficial awareness) Attention: Poor (Some improvement) Concentration: Poor Association: Loose Fund of Knowledge: Poor - Mood Mood: Depressed - Affect Affect: Constricted - Formal Thought Process Formal Thought Process: Hallucinations (persist), Delusions, Paranoia, Loosening of associations - Homicidal Ideation Homicidal Ideation: No Goal/Treatment Plan - Goal/Treatment Plan Need for Continued Stay: Remain at risks for inpatient hospitalization, Severe depression anxiety, Discharge may exacerbated symptoms, Severe functional impairment Progress Toward Problem(s) and Goals/Treatment Plan: group, milieu and supportive tx Risperdal 2 mg bid and at bedtime for psychosis Cogentin 1 mg BID for EPS prophylaxis Zoloft 150 mg po daily for depression and anxiety Trazodone 100 mg HS, off label for sleep SW consultation for discharge plan and social issues Family involvement Follow up on labs Will monitor closely Pt was educated about risk/benefits and alternatives of medications, coping strategies (safety plan, suicide prevention), relapse prevention, importance of follow up with psychiatrist and therapist, stay away from drugs/alcohol/smoking Estimated Date of D/C: 10/23/18
--- NOTE | 2018-10-20 10:26 | PCM.PYCHPN ---
Psychiatric Progress Note - Psychiatric Progress Note Patient seen today, length of contact: 30min Problems Identified/Issues Discussed: History of Present Illness and Precipitating Events: Patient is a 42 yo single AA male with Schizoaffective Disorder-Paranoid type, history of numerous admissions-most recently at [facility] in 03/2018, history of poor compliance with medications and aftercare (no longer attending [facility]), who presented to our Emergency Room on 10/12/18 complaining of depression, paranoia and auditory hallucinations, voices saying "they are going to kill me". I reviewed his prior admission records as well as recent notes on the unit. Patient has had multiple admissions with similar symptoms of paranoia, suicidal/homicidal thoughts and hallucinations in context of medication noncompliance. Patient was interviewed privately at bedside. He appears unkempt and preoccupied. His eye contact and focus are poor. He is oriented to month, year and location. Behavior is calm however patient is only superficially engaged during questioning . Affect is guarded and flat. Patient indicates he came to the ER to be stabilized on his medications again. Patient has not taken medications or followed up with outpatient treatment. He continues to endorse intermittent auditory hallucinations, voices that tell patient that gang members are following him and will harm him. Patient has a history of hearing voices telling him to hurt others however he denies any CAH today. Patient feels paranoid and distressed by the hallucinations. He feels depressed but doesn't want to . His major stressor is homelessness. PSYCHIATRIC HISTORY ~Patient has a long history of Paranoid Schizophrenia with multiple admissions at [facility] and [facility]. Patient has also been hospitalized at [place] within the past 1- 2 years. ~~His most recent admission was to [facility] from 03/13/18-03/17/18. He was discharged on: Cogentin 1 mg po bid, Geodon 40 mg po bid, Zoloft 100 mg po daily, Trazodone 100 mg HS ~Hospitalized at [facility] 11/25/17-12/04/17. He was discharged on:Cogentin 1 mg po tid, Benadryl 50 mg po HS, Risperdal 3 mg AMHS, Zoloft 100 mg po daily. ~Hospitalized at [facility] from 07/27/17-9/29/17. He was discharged on: Cogentin 1 mg po bid, Risperdal 2 mg po bid, Geodon 60 mg po bid, Zoloft 200 mg po daily, Trazodone 100 mg HS ~Hospitalized at [facility] in 05/2017, discharged on Risperdal , cogentin 1 TID, Benadryl 50 HS and zoloft 200 mg daily. ~Hospitalized at [facility] 01/19/15-01/28/15 for hallucinations to harm self and/or others. He was discharged on Risperdal 3 BID, Cogentin 1 BID, Ativan 1 qday, Trazodone 100 qhs and Haldol 0.5 mg BID. ~Patient's other admission at [facility] was 12/22/14-12/31/14 with similar complaints and similar discharge medications. ~He also has a prior admission at [facility] in [place] in 2009 and [facility] in 2007. Reports his first psychiatric admission was in his early thirties. Patient reports 3 prior suicide attempts, however he is vague about circumstances except that he "tried to use a razor to cut myself". Per [facility] records 07/2017: Pt reports one prior suicide attempt 2 years ago by cutting his wrist SOCIAL HISTORY Born and raised in [place]. Single, never , no children. He is homeless. He has been unemployed since 2007. 9th grade education. Denies drug or alcohol issues however drank a few beers prior to coming to the ER on 10/12/18. Patient has a history of smoking tobacco 1-2 packs daily Per prior records, patient has history of arrests due to assaultive behavior but denies any legal charges in past PROGRESS NOTE 10/20/18 I reviewed recent notes and patient was interviewed privately at bedside. He appears fairly groomed and cooperative. Alert and oriented x3. His eye contact and focus are improved since last weekend. Behavior is calm and affect remains a little guarded and flat. Patient reports continued improvement in paranoia as well as reduced frequency of hallucinations. Staff notes indicate that patient has been calm and more visible but still mostly keeps to himself. Appears withdrawn and likes to stay in his room. There were no behavioral issues overnight. Diagnostic Results: Schizoaffective disorder Chronic noncompliance Medication Change: Yes ( Zoloft increased) Medical Record Reviewed: Yes Mental Status Examination - Cognitive Function Orientation: Person, Place, Situation (Superficial awareness) Attention: Poor (Some improvement) Concentration: Poor Association: Loose Fund of Knowledge: Poor - Mood Mood: Depressed - Affect Affect: Constricted - Formal Thought Process Formal Thought Process: Hallucinations (persist), Delusions, Paranoia, Loosening of associations - Homicidal Ideation Homicidal Ideation: No Goal/Treatment Plan - Goal/Treatment Plan Need for Continued Stay: Remain at risks for inpatient hospitalization, Severe depression anxiety, Discharge may exacerbated symptoms, Severe functional impairment Progress Toward Problem(s) and Goals/Treatment Plan: * group, milieu and supportive tx * Risperdal 2 mg BID and HS * Cogentin 1 mg BID for EPS prophylaxis * Zoloft 150 mg po daily for depression and anxiety * Trazodone 100 mg HS, off label for sleep * Vitals reviewed and noted below: Selected Entries 10/18/18 10/18/18 10/19/18 07:28 15:00 07:27 Temperature 97.9 F 99.1 F Pulse Rate 72 85 82 Respiratory 20 20 Rate Blood Pressure 126/61 116/72 122/72 ER LABS AND STUDIES Please refer to patient's physical exam and ROS findings from [facility] ER report dated 10/12/18 11/25/17 15:15 Chest xray show no active disease 10/12/18 20:49 EKG reviewed, shows NSR at [address]/T wave changes. Admission LABS Laboratory Tests 10/12/18 10/12/18 10/12/18 11:30 20:43 20:45 WBC 6.7 RBC 4.79 Hgb 12.6 L D Hct 38.2 L MCV 79.7 L MCH 26.3 MCHC 33.0 RDW 17.4 H Plt Count 288 MPV 9.6 Gran % 63.6 Lymph % (Auto) 21.9 L [place] % (Auto) 9.5 H Eos % (Auto) 4.5 Baso % (Auto) 0.5 Gran # 4.24 Lymph # (Auto) 1.5 [place] # (Auto) 0.6 Eos # (Auto) 0.3 Baso # (Auto) 0.03 Sodium Potassium Chloride Carbon Dioxide Anion Gap BUN Creatinine Est GFR ( Amer) Est GFR (Non-Af Amer) Random Glucose Calcium Total Bilirubin AST ALT Alkaline Phosphatase Total Protein Albumin Globulin Albumin/Globulin Ratio Urine Color Yellow Urine Appearance Clear Urine pH 6.0 Ur Specific [place] 1.015 Urine Protein Negative Urine Glucose (UA) Negative Urine Ketones Negative Urine Blood Negative Urine Nitrate Negative Urine Bilirubin Negative Urine Urobilinogen 0.2 Ur Leukocyte Esterase Negative Salicylates Urine Opiates Screen Negative Urine Methadone Screen Negative Acetaminophen Ur Barbiturates Screen Negative Ur Phencyclidine Scrn Negative Ur Amphetamines Screen Negative U Benzodiazepines Scrn Negative U Oth Cocaine Metabols Negative U Cannabinoids Screen Negative Alcohol, Quantitative 10/12/18 10/12/18 10/12/18 20:45 20:45 20:45 WBC RBC Hgb Hct MCV MCH MCHC RDW Plt Count MPV Gran % Lymph % (Auto) [place] % (Auto) Eos % (Auto) Baso % (Auto) Gran # Lymph # (Auto) [place] # (Auto) Eos # (Auto) Baso # (Auto) Sodium 136 Potassium 3.8 Chloride 102 Carbon Dioxide 24 Anion Gap 14 BUN 16 Creatinine 1.0 Est GFR ( Amer) > 60 Est GFR (Non-Af Amer) > 60 Random Glucose 127 H Calcium 8.7 Total Bilirubin 0.2 AST 24 ALT 21 Alkaline Phosphatase 87 Total Protein 7.3 Albumin 3.9 Globulin 3.4 Albumin/Globulin Ratio 1.1 Urine Color Urine Appearance Urine pH Ur Specific [place] Urine Protein Urine Glucose (UA) Urine Ketones Urine Blood Urine Nitrate Urine Bilirubin Urine Urobilinogen Ur Leukocyte Esterase Salicylates < 1 L Urine Opiates Screen Urine Methadone Screen Acetaminophen < 10.0 L Ur Barbiturates Screen Ur Phencyclidine Scrn Ur Amphetamines Screen U Benzodiazepines Scrn U Oth Cocaine Metabols U Cannabinoids Screen Alcohol, Quantitative 50 H Estimated Date of D/C: 10/23/18
[2018-10-20] MEDS: Hydrocerin(120 gm) TOP SCH ×2 (10:59→16:59)
--- NOTE | 2018-10-21 09:14 | PCM.PYCHPN ---
Psychiatric Progress Note - Psychiatric Progress Note Patient seen today, length of contact: 30min Problems Identified/Issues Discussed: History of Present Illness and Precipitating Events: Patient is a 42 yo single AA male with Schizoaffective Disorder-Paranoid type, history of numerous admissions-most recently at [facility] in 03/2018, history of poor compliance with medications and aftercare (no longer attending [facility]), who presented to our Emergency Room on 10/12/18 complaining of depression, paranoia and auditory hallucinations, voices saying "they are going to kill me". I reviewed his prior admission records as well as recent notes on the unit. Patient has had multiple admissions with similar symptoms of paranoia, suicidal/homicidal thoughts and hallucinations in context of medication noncompliance. Patient was interviewed privately at bedside. He appears unkempt and preoccupied. His eye contact and focus are poor. He is oriented to month, year and location. Behavior is calm however patient is only superficially engaged during questioning . Affect is guarded and flat. Patient indicates he came to the ER to be stabilized on his medications again. Patient has not taken medications or followed up with outpatient treatment. He continues to endorse intermittent auditory hallucinations, voices that tell patient that gang members are following him and will harm him. Patient has a history of hearing voices telling him to hurt others however he denies any CAH today. Patient feels paranoid and distressed by the hallucinations. He feels depressed but doesn't want to . His major stressor is homelessness. PSYCHIATRIC HISTORY ~Patient has a long history of Paranoid Schizophrenia with multiple admissions at [facility] and [facility]. Patient has also been hospitalized at [facility] within the past 1- 2 years. ~~His most recent admission was to [facility] from 03/13/18-03/17/18. He was discharged on: Cogentin 1 mg po bid, Geodon 40 mg po bid, Zoloft 100 mg po daily, Trazodone 100 mg HS ~Hospitalized at [facility] 11/25/17-12/04/17. He was discharged on:Cogentin 1 mg po tid, Benadryl 50 mg po HS, Risperdal 3 mg AMHS, Zoloft 100 mg po daily. ~Hospitalized at [facility] from 07/27/17-9/29/17. He was discharged on: Cogentin 1 mg po bid, Risperdal 2 mg po bid, Geodon 60 mg po bid, Zoloft 200 mg po daily, Trazodone 100 mg HS ~Hospitalized at [facility] in 05/2017, discharged on Risperdal , cogentin 1 TID, Benadryl 50 HS and zoloft 200 mg daily. ~Hospitalized at [facility] 01/19/15-01/28/15 for hallucinations to harm self and/or others. He was discharged on Risperdal 3 BID, Cogentin 1 BID, Ativan 1 qday, Trazodone 100 qhs and Haldol 0.5 mg BID. ~Patient's other admission at [facility] was 12/22/14-12/31/14 with similar complaints and similar discharge medications. ~He also has a prior admission at [facility] in [place] in 2009 and [facility] in 2007. Reports his first psychiatric admission was in his early thirties. Patient reports 3 prior suicide attempts, however he is vague about circumstances except that he "tried to use a razor to cut myself". Per [facility] records 07/2017: Pt reports one prior suicide attempt 2 years ago by cutting his wrist SOCIAL HISTORY Born and raised in [place]. Single, never , no children. He is homeless. He has been unemployed since 2007. 9th grade education. Denies drug or alcohol issues however drank a few beers prior to coming to the ER on 10/12/18. Patient has a history of smoking tobacco 1-2 packs daily Per prior records, patient has history of arrests due to assaultive behavior but denies any legal charges in past PROGRESS NOTE 10/21/18 I reviewed recent notes and patient was interviewed privately at bedside. He appears fairly groomed and cooperative. Alert and oriented x3. His eye contact and focus are improved since last weekend. Behavior is calm and affect remains a little guarded and flat. Patient reports continued improvement in paranoia as well as reduced frequency of hallucinations. Denies any distress from auditory hallucinations. He has not been observed to be responding to internal stimuli. Staff notes indicate that patient has been calm and more visible but still mostly keeps to himself. Appears withdrawn and likes to stay in his room. There were no behavioral issues over the weekend. Diagnostic Results: Schizoaffective disorder Chronic noncompliance Medication Change: No ( ) Medical Record Reviewed: Yes Mental Status Examination - Cognitive Function Orientation: Person, Place, Situation (Superficial awareness) Attention: Poor (Some improvement) Concentration: Poor Association: Loose Fund of Knowledge: Poor - Mood Mood: Depressed - Affect Affect: Constricted - Formal Thought Process Formal Thought Process: Hallucinations (persist), Delusions, Paranoia, Loosening of associations - Homicidal Ideation Homicidal Ideation: No Goal/Treatment Plan - Goal/Treatment Plan Need for Continued Stay: Remain at risks for inpatient hospitalization, Severe depression anxiety, Discharge may exacerbated symptoms, Severe functional impairment Progress Toward Problem(s) and Goals/Treatment Plan: * group, milieu and supportive tx * Risperdal 2 mg BID and HS * Cogentin 1 mg BID for EPS prophylaxis * Zoloft 150 mg po daily for depression and anxiety * Trazodone 100 mg HS, off label for sleep * Vitals reviewed and noted below: 10/19/18 10/20/18 07:27 07:21 Temperature 99.1 F 97.6 F Pulse Rate 82 72 Respiratory 20 20 Rate Blood Pressure 122/72 132/85 ER LABS AND STUDIES Please refer to patient's physical exam and ROS findings from [facility] ER report dated 10/12/18 11/25/17 15:15 Chest xray show no active disease 10/12/18 20:49 EKG reviewed, shows NSR at [address]/T wave changes. Admission LABS Laboratory Tests 10/12/18 10/12/18 10/12/18 11:30 20:43 20:45 WBC 6.7 RBC 4.79 Hgb 12.6 L D Hct 38.2 L MCV 79.7 L MCH 26.3 MCHC 33.0 RDW 17.4 H Plt Count 288 MPV 9.6 Gran % 63.6 Lymph % (Auto) 21.9 L [place] % (Auto) 9.5 H Eos % (Auto) 4.5 Baso % (Auto) 0.5 Gran # 4.24 Lymph # (Auto) 1.5 [place] # (Auto) 0.6 Eos # (Auto) 0.3 Baso # (Auto) 0.03 Sodium Potassium Chloride Carbon Dioxide Anion Gap BUN Creatinine Est GFR ( Amer) Est GFR (Non-Af Amer) Random Glucose Calcium Total Bilirubin AST ALT Alkaline Phosphatase Total Protein Albumin Globulin Albumin/Globulin Ratio Urine Color Yellow Urine Appearance Clear Urine pH 6.0 Ur Specific [place] 1.015 Urine Protein Negative Urine Glucose (UA) Negative Urine Ketones Negative Urine Blood Negative Urine Nitrate Negative Urine Bilirubin Negative Urine Urobilinogen 0.2 Ur Leukocyte Esterase Negative Salicylates Urine Opiates Screen Negative Urine Methadone Screen Negative Acetaminophen Ur Barbiturates Screen Negative Ur Phencyclidine Scrn Negative Ur Amphetamines Screen Negative U Benzodiazepines Scrn Negative U Oth Cocaine Metabols Negative U Cannabinoids Screen Negative Alcohol, Quantitative 10/12/18 10/12/18 10/12/18 20:45 20:45 20:45 WBC RBC Hgb Hct MCV MCH MCHC RDW Plt Count MPV Gran % Lymph % (Auto) [place] % (Auto) Eos % (Auto) Baso % (Auto) Gran # Lymph # (Auto) [place] # (Auto) Eos # (Auto) Baso # (Auto) Sodium 136 Potassium 3.8 Chloride 102 Carbon Dioxide 24 Anion Gap 14 BUN 16 Creatinine 1.0 Est GFR ( Amer) > 60 Est GFR (Non-Af Amer) > 60 Random Glucose 127 H Calcium 8.7 Total Bilirubin 0.2 AST 24 ALT 21 Alkaline Phosphatase 87 Total Protein 7.3 Albumin 3.9 Globulin 3.4 Albumin/Globulin Ratio 1.1 Urine Color Urine Appearance Urine pH Ur Specific [place] Urine Protein Urine Glucose (UA) Urine Ketones Urine Blood Urine Nitrate Urine Bilirubin Urine Urobilinogen Ur Leukocyte Esterase Salicylates < 1 L Urine Opiates Screen Urine Methadone Screen Acetaminophen < 10.0 L Ur Barbiturates Screen Ur Phencyclidine Scrn Ur Amphetamines Screen U Benzodiazepines Scrn U Oth Cocaine Metabols U Cannabinoids Screen Alcohol, Quantitative 50 H Estimated Date of D/C: 10/23/18
[2018-10-21] MEDS: Hydrocerin(120 gm) TOP SCH ×2 (10:06→16:42)
--- NOTE | 2018-10-22 08:48 | PCM.PYCHPN ---
Psychiatric Progress Note - Psychiatric Progress Note Patient seen today, length of contact: 30min Problems Identified/Issues Discussed: History of Present Illness and Precipitating Events: Patient is a 42 yo single AA male with Schizoaffective Disorder-Paranoid type, history of numerous admissions-most recently at [facility] in 03/2018, history of poor compliance with medications and aftercare (no longer attending [facility]), who presented to our Emergency Room on 10/12/18 complaining of depression, paranoia and auditory hallucinations, voices saying "they are going to kill me". I reviewed his prior admission records as well as recent notes on the unit. Patient has had multiple admissions with similar symptoms of paranoia, suicidal/homicidal thoughts and hallucinations in context of medication noncompliance. Patient was interviewed privately at bedside. He appears unkempt and preoccupied. His eye contact and focus are poor. He is oriented to month, year and location. Behavior is calm however patient is only superficially engaged during questioning . Affect is guarded and flat. Patient indicates he came to the ER to be stabilized on his medications again. Patient has not taken medications or followed up with outpatient treatment. He continues to endorse intermittent auditory hallucinations, voices that tell patient that gang members are following him and will harm him. Patient has a history of hearing voices telling him to hurt others however he denies any CAH today. Patient feels paranoid and distressed by the hallucinations. He feels depressed but doesn't want to . His major stressor is homelessness. PSYCHIATRIC HISTORY ~Patient has a long history of Paranoid Schizophrenia with multiple admissions at [facility] and [facility]. Patient has also been hospitalized at [facility] within the past 1- 2 years. ~~His most recent admission was to [facility] from 03/13/18-03/17/18. He was discharged on: Cogentin 1 mg po bid, Geodon 40 mg po bid, Zoloft 100 mg po daily, Trazodone 100 mg HS ~Hospitalized at [facility] 11/25/17-12/04/17. He was discharged on:Cogentin 1 mg po tid, Benadryl 50 mg po HS, Risperdal 3 mg AMHS, Zoloft 100 mg po daily. ~Hospitalized at [facility] from 07/27/17-9/29/17. He was discharged on: Cogentin 1 mg po bid, Risperdal 2 mg po bid, Geodon 60 mg po bid, Zoloft 200 mg po daily, Trazodone 100 mg HS ~Hospitalized at [facility] in 05/2017, discharged on Risperdal , cogentin 1 TID, Benadryl 50 HS and zoloft 200 mg daily. ~Hospitalized at [facility] 01/19/15-01/28/15 for hallucinations to harm self and/or others. He was discharged on Risperdal 3 BID, Cogentin 1 BID, Ativan 1 qday, Trazodone 100 qhs and Haldol 0.5 mg BID. ~Patient's other admission at [facility] was 12/22/14-12/31/14 with similar complaints and similar discharge medications. ~He also has a prior admission at [facility] in [place] in 2009 and [facility] in 2007. Reports his first psychiatric admission was in his early thirties. Patient reports 3 prior suicide attempts, however he is vague about circumstances except that he "tried to use a razor to cut myself". Per [facility] records 07/2017: Pt reports one prior suicide attempt 2 years ago by cutting his wrist SOCIAL HISTORY Born and raised in [place]. Single, never , no children. He is homeless. He has been unemployed since 2007. 9th grade education. Denies drug or alcohol issues however drank a few beers prior to coming to the ER on 10/12/18. Patient has a history of smoking tobacco 1-2 packs daily Per prior records, patient has history of arrests due to assaultive behavior but denies any legal charges in past PROGRESS NOTE 10/22/18 I reviewed recent notes and patient was interviewed privately at bedside. He appears fairly groomed and cooperative. Alert and oriented x3. His eye contact and focus are improved since last weekend however he remains disengaged and passive during our meetings. Affect remains a little guarded and flat. Patient reports continued improvement in paranoia as well as reduced frequency of hallucinations. Denies any distress from auditory hallucinations. He has not been observed to be responding to internal stimuli. Patient appears depressed however denies any hopelessness, SI/HI. Staff notes indicate that patient has been calm and more visible but still mostly keeps to himself. Appears withdrawn and likes to stay in his room. There were no behavioral issues over the weekend or today thus far. Diagnostic Results: Schizoaffective disorder Chronic noncompliance Medication Change: No ( ) Medical Record Reviewed: Yes Mental Status Examination - Cognitive Function Orientation: Person, Place, Situation (Superficial awareness) Attention: Poor (Some improvement) Concentration: Poor Association: Loose Fund of Knowledge: Poor - Mood Mood: Depressed - Affect Affect: Constricted - Formal Thought Process Formal Thought Process: Hallucinations (persist), Delusions, Paranoia, Loosening of associations - Homicidal Ideation Homicidal Ideation: No Goal/Treatment Plan - Goal/Treatment Plan Need for Continued Stay: Remain at risks for inpatient hospitalization, Severe depression anxiety, Discharge may exacerbated symptoms, Severe functional impairment Progress Toward Problem(s) and Goals/Treatment Plan: * group, milieu and supportive tx * Risperdal 2 mg BID and HS * Cogentin 1 mg BID for EPS prophylaxis * Zoloft 150 mg po daily for depression and anxiety * Trazodone 100 mg HS, off label for sleep * Vitals reviewed and noted below: 10/22/18 07:03 Temperature 97.7 F Pulse Rate 78 Respiratory 19 Rate Blood Pressure 120/81 ER LABS AND STUDIES Please refer to patient's physical exam and ROS findings from [facility] ER report dated 10/12/18 11/25/17 15:15 Chest xray show no active disease 10/12/18 20:49 EKG reviewed, shows NSR at [address]/T wave changes. Admission LABS Laboratory Tests 10/12/18 10/12/18 10/12/18 11:30 20:43 20:45 WBC 6.7 RBC 4.79 Hgb 12.6 L D Hct 38.2 L MCV 79.7 L MCH 26.3 MCHC 33.0 RDW 17.4 H Plt Count 288 MPV 9.6 Gran % 63.6 Lymph % (Auto) 21.9 L [place] % (Auto) 9.5 H Eos % (Auto) 4.5 Baso % (Auto) 0.5 Gran # 4.24 Lymph # (Auto) 1.5 [place] # (Auto) 0.6 Eos # (Auto) 0.3 Baso # (Auto) 0.03 Sodium Potassium Chloride Carbon Dioxide Anion Gap BUN Creatinine Est GFR ( Amer) Est GFR (Non-Af Amer) Random Glucose Calcium Total Bilirubin AST ALT Alkaline Phosphatase Total Protein Albumin Globulin Albumin/Globulin Ratio Urine Color Yellow Urine Appearance Clear Urine pH 6.0 Ur Specific [place] 1.015 Urine Protein Negative Urine Glucose (UA) Negative Urine Ketones Negative Urine Blood Negative Urine Nitrate Negative Urine Bilirubin Negative Urine Urobilinogen 0.2 Ur Leukocyte Esterase Negative Salicylates Urine Opiates Screen Negative Urine Methadone Screen Negative Acetaminophen Ur Barbiturates Screen Negative Ur Phencyclidine Scrn Negative Ur Amphetamines Screen Negative U Benzodiazepines Scrn Negative U Oth Cocaine Metabols Negative U Cannabinoids Screen Negative Alcohol, Quantitative 10/12/18 10/12/18 10/12/18 20:45 20:45 20:45 WBC RBC Hgb Hct MCV MCH MCHC RDW Plt Count MPV Gran % Lymph % (Auto) [place] % (Auto) Eos % (Auto) Baso % (Auto) Gran # Lymph # (Auto) [place] # (Auto) Eos # (Auto) Baso # (Auto) Sodium 136 Potassium 3.8 Chloride 102 Carbon Dioxide 24 Anion Gap 14 BUN 16 Creatinine 1.0 Est GFR ( Amer) > 60 Est GFR (Non-Af Amer) > 60 Random Glucose 127 H Calcium 8.7 Total Bilirubin 0.2 AST 24 ALT 21 Alkaline Phosphatase 87 Total Protein 7.3 Albumin 3.9 Globulin 3.4 Albumin/Globulin Ratio 1.1 Urine Color Urine Appearance Urine pH Ur Specific [place] Urine Protein Urine Glucose (UA) Urine Ketones Urine Blood Urine Nitrate Urine Bilirubin Urine Urobilinogen Ur Leukocyte Esterase Salicylates < 1 L Urine Opiates Screen Urine Methadone Screen Acetaminophen < 10.0 L Ur Barbiturates Screen Ur Phencyclidine Scrn Ur Amphetamines Screen U Benzodiazepines Scrn U Oth Cocaine Metabols U Cannabinoids Screen Alcohol, Quantitative 50 H Estimated Date of D/C: 10/23/18
[2018-10-22] MEDS: Hydrocerin(120 gm) TOP SCH ×2 (08:50→17:04)
[2018-10-23 07:03] VITALS: RESP 20
[2018-10-23] MEDS: Hydrocerin(120 gm) TOP SCH ×2 (09:21→17:31)
--- NOTE | 2018-10-23 17:37 | PCM.PYCHPN ---
Psychiatric Progress Note - Psychiatric Progress Note Patient seen today, length of contact: 30min Patient Chief Complaint: "I feel little better" Problems Identified/Issues Discussed: Suicide/ homicide prevention, past psychiatric h/o, current psychiatric symptoms, medical problems, risk/benefits and alternatives of medications, medications compliance, coping strategies, substance abuse h/o, relapse prevention, importance of follow up with psychiatrist and therapist, discharge plan. Medical Problems: pt is relatively healthy but obese Diagnostic Results: 10/12/18 20:45 10/12/18 20:45 Lab Results 10/12/18 20:45: Alcohol, Quantitative 50 H 10/12/18 20:45: Salicylates < 1 L, Acetaminophen < 10.0 L 10/12/18 20:45: Sodium 136, Potassium 3.8, Chloride 102, Carbon Dioxide 24, Anion Gap 14, BUN 16, Creatinine 1.0, Est GFR ( Amer) > 60, Est GFR (Non- Af Amer) > 60, Random Glucose 127 H, Calcium 8.7, Total Bilirubin 0.2, AST 24, ALT 21, Alkaline Phosphatase 87, Total Protein 7.3, Albumin 3.9, Globulin 3.4, Albumin/Globulin Ratio 1.1 10/12/18 20:45: WBC 6.7, RBC 4.79, Hgb 12.6 L D, Hct 38.2 L, MCV 79.7 L, MCH 26.3, MCHC 33.0, RDW 17.4 H, Plt Count 288, MPV 9.6, Gran % 63.6, Lymph % (Auto) 21.9 L, [place] % (Auto) 9.5 H, Eos % (Auto) 4.5, Baso % (Auto) 0.5, Gran # 4.24, Lymph # (Auto) 1.5, [place] # (Auto) 0.6, Eos # (Auto) 0.3, Baso # (Auto) 0.03 10/12/18 20:43: Urine Opiates Screen Negative, Urine Methadone Screen Negative, Ur Barbiturates Screen Negative, Ur Phencyclidine Scrn Negative, Ur Amphetamines Screen Negative, U Benzodiazepines Scrn Negative, U Oth Cocaine Metabols Negative, U Cannabinoids Screen Negative 10/12/18 11:30: Urine Color Yellow, Urine Appearance Clear, Urine pH 6.0, Ur Specific [place] 1.015, Urine Protein Negative, Urine Glucose (UA) Negative, Urine Ketones Negative, Urine Blood Negative, Urine Nitrate Negative, Urine Bilirubin Negative, Urine Urobilinogen 0.2, Ur Leukocyte Esterase Negative Vital Signs Temp Pulse Resp BP Pulse Ox 10/15/18 07:29 97.3 F L 85 16 94/63 L 10/14/18 16:39 76 120/73 10/14/18 07:20 97.5 F L 91 H 18 109/71 10/13/18 16:00 92 H 121/70 10/13/18 07:00 97.4 F L 82 20 132/79 10/13/18 01:53 18 10/12/18 23:49 78 18 127/81 97 10/12/18 21:49 84 18 134/82 97 10/12/18 19:49 98.2 F 89 18 139/82 96 Temp Pulse Resp BP Pulse Ox 97.7 F 57 L 20 105/58 L 97 10/23/18 07:02 10/23/18 07:02 10/23/18 07:02 10/23/18 07:02 10/12/18 23:49 DSM 5 Symptoms Update: Patient was seen and examined today in his room, patient is withdrawn, patient was disengaged and not willing to have a formal conversation, patient reported that voices "under control", patient has future oriented plans to go to his sister house, patient denied thoughts of harming himself or others, denied intent or plan. Affect remains a little guarded and flat. Patient reports continued improvement in paranoia as well as reduced frequency of hallucinations. Denies any distress from auditory hallucinations. He has not been observed to be responding to inte rnal stimuli. Patient appears depressed however denies any hopelessness, SI/HI. Staff notes indicate that patient has been calm and more visible but still mostly keeps to himself. Appears withdrawn and likes to stay in his room. There were no behavioral issues over the weekend or today thus far. Patient tolerates medications well, no side effects observed or reported, aims 0, no EPS. Diagnostic Results: Schizoaffective disorder Chronic noncompliance Medication Change: No ( ) Medical Record Reviewed: Yes Consults ordered or reviewed: pt was seen by medical team in ED Mental Status Examination - Cognitive Function Orientation: Person, Place, Situation (Superficial awareness) Attention: Poor (Some improvement) Concentration: Poor (Some improvement) Association: Loose (Seems to be at baseline) Fund of Knowledge: Poor (Baseline) - Mood Mood: Depressed (I feel little better) - Affect Affect: Constricted - Formal Thought Process Formal Thought Process: Hallucinations (Denied today), Delusions, Paranoia, Loosening of associations - Suicidal Ideation Suicidal Ideation: No - Homicidal Ideation Homicidal Ideation: No Goal/Treatment Plan - Goal/Treatment Plan Need for Continued Stay: Remain at risks for inpatient hospitalization, Severe depression anxiety, Discharge may exacerbated symptoms, Severe functional impairment Progress Toward Problem(s) and Goals/Treatment Plan: group, milieu and supportive tx Risperdal 2 mg bid and at bedtime for psychosis Cogentin 1 mg BID for EPS prophylaxis Zoloft 150 mg po daily for depression and anxiety Trazodone 100 mg HS, off label for sleep SW consultation for discharge plan and social issues Family involvement Follow up on labs Will monitor closely Pt was educated about risk/benefits and alternatives of medications, coping strategies (safety plan, suicide prevention), relapse prevention, importance of follow up with psychiatrist and therapist, stay away from drugs/alcohol/smoking Estimated Date of D/C: 10/24/18
[2018-10-24 07:09] VITALS: BP 118/72; PULSE 72; TEMP 98.6
[2018-10-24] MEDS: Hydrocerin(120 gm) TOP SCH (09:25)
--- NOTE | 2018-10-24 17:33 | PCM.PYCHDC ---
Mental Status Examination - Mental Status Examination Orientation: Person, Place, Situation, Time Memory: Intact Mood: Neutral Affect: Constricted (But reactive, congruent) Speech: Appropriate (Overkill of speech) Attention: Poor (Much improved) Concentration: Poor (Much improved but still poor) Association: Loose (Baseline) Fund of Knowledge: Poor (Baseline) Formal Thought Process: Paranoia (Some residual paranoia and voices which not command type) Description of patient's judgement and insight: Pt has improved insight into mental and medical illness, pt was compliant with medications and unit rules and regulations, pt was going to groups, was calm, cooperative, socially appropriate, no behavioral incidents, no agitation, no aggression. Psychotic Thoughts and Behaviors: Pt denied v/a/t hallucinations, denied paranoid ideations, pt does not appear to be psychotic, and thought process is goal directed. Suicidal Ideation: No Current Homicidal Ideation?: No Plan: pt adamantly denied thoughts of harming self or others denied intent or plan. Discharge Summary - Discharge Note Reason for Hospitalization: Psychosis, disorganized thoughts and behavior Psychiatric History (includes Medical, Family, Personal Hx): History of schizophrenia Laboratory Data: 10/12/18 20:45 10/12/18 20:45 Lab Results 10/16/18 11:00: NT-Pro-B Natriuret Pep < 11.1 10/12/18 20:45: Alcohol, Quantitative 50 H 10/12/18 20:45: Salicylates < 1 L, Acetaminophen < 10.0 L 10/12/18 20:45: Sodium 136, Potassium 3.8, Chloride 102, Carbon Dioxide 24, Anion Gap 14, BUN 16, Creatinine 1.0, Est GFR ( Amer) > 60, Est GFR (Non- Af Amer) > 60, Random Glucose 127 H, Calcium 8.7, Total Bilirubin 0.2, AST 24, ALT 21, Alkaline Phosphatase 87, Total Protein 7.3, Albumin 3.9, Globulin 3.4, Albumin/Globulin Ratio 1.1 10/12/18 20:45: WBC 6.7, RBC 4.79, Hgb 12.6 L D, Hct 38.2 L, MCV 79.7 L, MCH 26.3, MCHC 33.0, RDW 17.4 H, Plt Count 288, MPV 9.6, Gran % 63.6, Lymph % (Auto) 21.9 L, [place] % (Auto) 9.5 H, Eos % (Auto) 4.5, Baso % (Auto) 0.5, Gran # 4.24, Lymph # (Auto) 1.5, [place] # (Auto) 0.6, Eos # (Auto) 0.3, Baso # (Auto) 0.03 10/12/18 20:43: Urine Opiates Screen Negative, Urine Methadone Screen Negative, Ur Barbiturates Screen Negative, Ur Phencyclidine Scrn Negative, Ur Amphetamines Screen Negative, U Benzodiazepines Scrn Negative, U Oth Cocaine Metabols Negative, U Cannabinoids Screen Negative 10/12/18 11:30: Urine Color Yellow, Urine Appearance Clear, Urine pH 6.0, Ur Specific [place] 1.015, Urine Protein Negative, Urine Glucose (UA) Negative, Urine Ketones Negative, Urine Blood Negative, Urine Nitrate Negative, Urine Bilirubin Negative, Urine Urobilinogen 0.2, Ur Leukocyte Esterase Negative Vital Signs Temp Pulse Resp BP Pulse Ox 10/24/18 07:00 98.6 F 72 20 118/72 10/23/18 16:00 73 111/80 10/23/18 07:02 97.7 F 57 L 20 105/58 L 10/22/18 15:00 97.2 F L 86 17 113/72 10/22/18 07:03 97.7 F 78 19 120/81 10/21/18 17:23 77 132/75 10/20/18 07:21 97.6 F 72 20 132/85 10/19/18 07:27 99.1 F 82 20 122/72 10/18/18 15:00 85 116/72 10/18/18 07:28 97.9 F 72 20 126/61 10/18/18 07:24 97.9 F 72 20 126/61 10/17/18 16:00 81 133/78 10/17/18 07:10 98.5 F 82 20 109/67 10/16/18 16:00 92 H 125/69 10/16/18 06:46 98.2 F 87 20 116/71 10/15/18 07:29 97.3 F L 85 16 94/63 L 10/14/18 16:39 76 120/73 10/14/18 07:20 97.5 F L 91 H 18 109/71 12/01/18 16:00 92 H 121/70 10/13/18 07:00 97.4 F L 82 20 132/79 10/13/18 01:53 18 10/12/18 23:49 78 18 127/81 97 10/12/18 21:49 84 18 134/82 97 10/12/18 19:49 98.2 F 89 18 139/82 96 Consultations:: List each consultation separately and include: 1. Reason for request. 2. Findings. 3. Follow-up Consultations: pt was seen by medical team in ED Notes for more detailed information Summary of Hospital Course include:: 1. Description of specific treatment plan utilized for patients during their course of treatmen. 2. Summarize the time- course for resolution of acute symptoms and/or regressed behaviors. 3. Describe issues identified and worked on during hospitalization. 4. Describe medication utilized. 5. Describe medical problems identified and treated. 6. Reassessment of suicide risk Summary of Hospital Course: as per 's assessment: Patient is a 42 yo single AA male with Schizoaffective Disorder-Paranoid type, history of numerous admissions-most recently at [facility] in 03/2018, history of poor compliance with medications and aftercare (no longer attending [facility] program), who presented to our Emergency Room on 10/12/18 complaining of depression, paranoia and auditory hallucinations, voices saying "they are going to kill me". pt is very familiar to this unit because of multiple psychiatric admissions in the past. pt was seen at the treatment team meeting, presented with poor personal hygiene, malodorous, poor ADLs. pt said that he staid on streets and currently he is homeless. pt said that he is afraid that he will be killed, "I hear man voice that they are going to kill me". pt reported that he was not taking meds for the past three months. pt agreed to be on risperdal, cogentin and trazodone. pt has h/o being on invega sustenna in the past, last injection was more than three months ago (as per pt). Patient feels paranoid and distressed by the hallucinations. He feels depressed but doesn't want to . Patient was stabilized on the following medications: Risperdal 2 mg bid and at bedtime for psychosis Cogentin 1 mg BID for EPS prophylaxis Zoloft 150 mg po daily for depression and anxiety Trazodone 100 mg HS, off label for sleep Patient tolerated medications well, no side effects observed or reported, aims 0, no EPS. Over the course of this hospitalization pt was attending groups, pt also had medication management, had therapeutic milieu. Overall pt improved significantly, pt's affect became brighter, pt was less depressed, has realistic future oriented plans, pt also does not appear to be psychotic, or anxious, pt was socially appropriate, no behavioral issues, pts insight improved as well and soon pt deemed to be ready for discharge. At the time of the discharge pt denied been depressed, denied thoughts of harming self or others, denied psychotic symptoms, and pt does not appeared to be psychotic, denied been anxious, pt is not in imminent danger to self or others, patient has appointment at [facility] on October 31, 2018 at 3:30pm, information about follow up appointment, time and address provided to the pt, it is patient responsibility to follow up with outpatient clinic, PMD as well as specialists (see SW note for more detailed information). In case pt will need to obtain results of studies pending at discharge pt was pr ovided with contact information of Psychiatric Inpatient unit [phone] as well as Medical Record Department [phone]. Naltrexone treatment not indicated at this time. Patient denied using drugs, denies smoking pt was provided with prescriptions for all of medications (please see medication reconciliation form) Pt was educated about safety plan in case of worsening of symptoms or in case of suicidal or homicidal ideation call 911 or go to the nearest ER, also was educated to take meds as prescribed and stay away from drugs, pt verbalized understanding. - Diagnosis (1) Schizophrenia Status: Chronic Priority: High Comment: AXIS I: SCHIZOPHRENIA, PARNANOID TYPE AXIS II: DEFERRED AXIS III: HYPERTRIGLYCERIDEMIA, LE EDEMA AXIS IV: HOUSING, NON-ADHERENCE, LACKS COPING SKILLS AXIS V: GAF 55 PT'S ACUTE PSYCHOTIC SYMPTOMS HAVE STABILIZED AND HE IS APPROPRIATE FOR STEP DOWN TO OUTPATIENT CARE IN THE COMMUNITY AT A [facility]. - Final Diagnosis (DSM 5) Condition upon Discharge: IMPROVED Disposition: HOME/ ROUTINE Follow-up Treatment Plan: At the time of the discharge pt denied been depressed, denied thoughts of harming self or others, denied psychotic symptoms, and pt does not appeared to be psychotic, denied been anxious, pt is not in imminent danger to self or others, patient has appointment at [facility] on October 31, 2018 at 3:30pm, information about follow up appointment, time and address provided to the pt, it is patient responsibility to follow up with outpatient clinic, PMD as well as specialists (see SW note for more detailed information). In case pt will need to obtain results of studies pending at discharge pt was provided with contact information of Psychiatric Inpatient unit [phone] as well as Medical Record Department [phone]. Naltrexone treatment not indicated at this time. Patient denied using drugs, denies smoking pt was provided with prescriptions for all of medications (please see medication reconciliation form) Pt was educated about safety plan in case of worsening of symptoms or in case of suicidal or homicidal ideation call 911 or go to the nearest ER, also was educated to take meds as prescribed and stay away from drugs, pt verbalized understanding. Prescriptions/Medication Reconciliation: Benztropine [Cogentin] 1 mg PO BID #30 tab risperiDONE [RisperDAL Tab] 2 mg PO TID #45 tab Sertraline [Zoloft] 100 mg PO DAILY #14 tab Sertraline [Zoloft] 50 mg PO DAILY #14 tab traZODone [Desyrel] 100 mg PO HS #14 tab - Smoking Cessation Smoking Cessation Medication prescribed: No Reason for not providing: denied smoking - Antipsychotic Medications Pt discharged on 2 or more routine antipsychotic medications: No
== END 2018-10-24 16:16 | disposition home or self-care (01) | DRG 885 ==
LOC: ED 19:49 → ERH 23:13 → PSYC 10-13 01:02
PROVIDERS: ADMIT Psychiatry & Neurology Psychiatry; ATTEND Psychiatry & Neurology Psychiatry
PROC: GZ3ZZZZ Medication Management (ICD-10-PCS; principal; 2018-10-13)
DX: F20.0 Paranoid schizophrenia (principal); Z68.41 Body mass index [BMI] 40.0-44.9, adult; F32.9 Major depressive disorder, single episode, unspecified; I87.2 Venous insufficiency (chronic) (peripheral); E78.1 Pure hyperglyceridemia; L29.9 Pruritus, unspecified; E66.9 Obesity, unspecified; G47.30 Sleep apnea, unspecified; F17.210 Nicotine dependence, cigarettes, uncomplicated; Z59.0 Homelessness; Z91.14 Patient's other noncompliance with medication regimen; Z91.19 Patient's noncompliance with other medical treatment and regimen; Z91.5 Personal history of self-harm

== ENCOUNTER 2019-03-12 20:36 | Inpatient (IN) | payer MEDICARE, MEDICAID ==
[2019-03-12 21:06] VITALS: BMI 43.8
[2019-03-12 21:34] LABS: PH,URINE 5.5 (4.7-8.0); URINE BILIRUBIN NEGATIVE (NEGATIVE); URINE BLOOD NEGATIVE (NEGATIVE); URINE GLUCOSE (UA) NEGATIVE (NEGATIVE); URINE LEUKOCYTE ESTERASE NEGATIVE Leu/uL (NEGATIVE); URINE PROTEIN TRACE mg/dL (<30 mg/dL); URINE UROBILINOGEN 0.2 E.U./dL (<1 E.U./dL)
[2019-03-12 21:38] LABS: URINE APPEARANCE CLEAR (CLEAR); URINE COLOR YELLOW (YELLOW)
[2019-03-12 21:53] LABS: URINE BACTERIA FEW /hpf; URINE EPITHELIAL CELLS 0 - 2 /hpf (0-5); URINE RBC 0 - 2 /hpf (0-2); URINE WBC 0 - 2 /hpf (0-6)
[2019-03-12 22:26] LABS: BARBITURATES, UR NEGATIVE (NEGATIVE); BENZODIAZEPINES, UR NEGATIVE (NEGATIVE); OPIATES, UR NEGATIVE (NEGATIVE); PHENCYCLIDINE, UR NEGATIVE (NEGATIVE)
--- NOTE | 2019-03-12 23:09 | ED PDOC ---
Arrival/HPI <Agustín Dean - Last Filed: 03/12/19 23:15> - General Historian: Patient - History of Present Illness Narrative History of Present Illness (Text): 03/12/19 23:02 43 y/o male with PMH of schizophrenia presents to the ED c/o auditory hallucinations for the last few months. States he is supposed to receive an IM med every 3 months to control the hallucinations but has not received it the last 2 times secondary to transportation issues. He does not currently have a psychiatrist. Also c/o bilateral lower extremity swelling for the last 2 months. Denies SI, HI, SOB, drug or alcohol use, chest pain, cough, congestion, abdominal pain, nausea, vomiting, constipation, diarrhea, fever, chills, or any other associated complaints. <Aurelia Doherty - Last Filed: 03/13/19 03:22> - General Chief Complaint: Psychiatric Evaluation Time Seen by Provider: 03/12/19 20:42 Past Medical History - Provider Review Nursing Documentation Reviewed: Yes - Past History Past History: Non-Contributing - Infectious Disease Hx of Infectious Diseases: None - Tetanus Immunization Tetanus Immunization: Unknown - Past Medical History Past Medical History: No Previous - Cardiac Hx Hypertension: No - Pulmonary Hx Sleep Apnea: Yes - Neurological Hx Seizures: No - HEENT Hx HEENT Disorder: No - Renal Hx Renal Disorder: No - Endocrine/Metabolic Hx Endocrine Disorders: No - Hematological/Oncological Hx Cancer: No - Integumentary Hx Dermatological Disorder: No - Musculoskeletal/Rheumatological Hx Musculoskeletal Disorders: No Hx Falls: No - Gastrointestinal Hx Gastrointestinal Disorders: No - Genitourinary/Gynecological Hx Sexually Transmitted Diseases: No - Psychiatric Hx Depression: Yes Hx Schizophrenia: Yes Hx Substance Use: Yes - Past Surgical History Past Surgical History: No Previous - Anesthesia Hx Anesthesia: No Hx Anesthesia Reactions: No Hx Malignant Hyperthermia: No - Suicidal Assessment Feels Threatened In Home Enviroment: No <Aurelia Doherty - Last Filed: 03/13/19 03:22> Family/Social History - Physician Review Nursing Documentation Reviewed: Yes Family/Social History: No Known Family HX Smoking Status: Heavy Smoker > 10 Cigarettes Daily Hx Alcohol Use: No Hx Substance Use: Yes Hx Substance Use Treatment: No <Aurelia Dohetry - Last Filed: 03/13/19 03:22> Allergies/Home Meds <Agustín Dean - Last Filed: 03/12/19 23:15> <Aurelia Doherty - Last Filed: 03/13/19 03:22> Allergies/Adverse Reactions: Allergies No Known Allergies Allergy (Verified 03/13/19 00:56) Review of Systems - Review of Systems Constitutional: Normal. absent: Fatigue, Fevers Eyes: Normal. absent: Vision Changes ENT: Normal. absent: Sore Throat, Sinus Congestion Respiratory: Normal. absent: SOB, Cough Cardiovascular: Normal. absent: Chest Pain, Palpitations, Syncope Gastrointestinal: Normal. absent: Abdominal Pain, Nausea, Vomiting Genitourinary Male: Normal. absent: Dysuria, Frequency Musculoskeletal: Normal. absent: Back Pain, Neck Pain Skin: Other (bilateral lower extremity edema) Neurological: Normal. absent: Headache, Dizziness Psychiatric: Other. absent: Suicidal Ideation <Aurelia Doherty - Last Filed: 03/13/19 03:22> Physical Exam Vital Signs Temp Pulse Resp BP Pulse Ox 03/12/19 23:12 98.7 F 103 H 18 109/67 98 03/12/19 21:06 98 F 115 H 19 116/63 97 <Agustín Dean - Last Filed: 03/12/19 23:15> Vital Signs Reviewed: Yes Temperature: Afebrile Blood Pressure: Normal Pulse: Tachycardic Respiratory Rate: Normal Appearance: Positive for: Well-Appearing, Non-Toxic, Comfortable Pain Distress: None Mental Status: Positive for: Alert and Oriented X 3 - Systems Exam Head: Present: Atraumatic, Normocephalic Pupils: Present: PERRL Extroacular Muscles: Present: EOMI Conjunctiva: Present: Normal Mouth: Present: Moist Mucous Membranes Neck: Present: Normal Range of Motion Respiratory/Chest: Present: Clear to Auscultation, Good Air Exchange. No: Respiratory Distress, Accessory Muscle Use Cardiovascular: Present: Regular Rate and Rhythm, Normal S1, S2, Peripheal Pulses Present Abdomen: Present: Normal Bowel Sounds. No: Tenderness, Peritoneal Signs, Rebound, Guarding Back: Present: Normal Inspection. No: CVA Tenderness Upper Extremity: Present: Normal Inspection, Normal ROM, NORMAL PULSES, Neurov ascularly Intact, Capillary Refill < 2s. No: Cyanosis, Edema, Temperature Abnormalties Lower Extremity: Present: Edema (bilateral lower extremity edema), NORMAL PULSES, Normal ROM, Neurovascularly Intact, Capillary Refill < 2 s. No: CALF TENDERNESS, Tenderness, Temperature Abnormalties Neurological: Present: GCS=15, CN II-XII Intact, Speech Normal, Motor Func Grossly Intact, Normal Sensory Function, Gait Normal Skin: Present: Warm, Dry, Normal Color. No: Rashes, Hot Psychiatric: Present: Alert, Oriented x 3, Anxious, Hallucinations, Other (Bizarre Affect) <Aurelia Doherty - Last Filed: 03/13/19 03:22> Medical Decision Making - Lab Interpretations Lab Results: Urine Color Yellow (YELLOW) 03/12/19 21:20 Urine Appearance Clear (CLEAR) 03/12/19 21:20 Urine pH 5.5 (4.7-8.0) 03/12/19 21:20 Ur Specific [place] >= 1.030 (1.005-1.035) 03/12/19 21:20 Urine Protein Trace mg/dL (<30 mg/dL) H 03/12/19 21:20 Urine Glucose (UA) Negative mg/dL (NEGATIVE) 03/12/19 21:20 Urine Ketones Trace mg/dL (NEGATIVE) H 03/12/19 21:20 Urine Blood Negative (NEGATIVE) 03/12/19 21:20 Urine Nitrate Negative (NEGATIVE) 03/12/19 21:20 Urine Bilirubin Negative (NEGATIVE) 03/12/19 21:20 Urine Urobilinogen 0.2 E.U./dL (<1 E.U./dL) 03/12/19 21:20 Ur Leukocyte Esterase Negative [place]/uL (NEGATIVE) 03/12/19 21:20 Urine RBC 0 - 2 /hpf (0-2) 03/12/19 21:20 Urine WBC 0 - 2 /hpf (0-6) 03/12/19 21:20 Ur Epithelial Cells 0 - 2 /hpf (0-5) 03/12/19 21:20 Urine Bacteria Few /hpf (NONE) 03/12/19 21:20 - RAD Interpretation Radiology Orders: 03/12/19 21:11 CHEST PORTABLE [RAD] Stat 03/12/19 21:22 DUPLEX LOWER EXTRM VEIN BILAT [US] Stat <Agustín Dean - Last Filed: 03/12/19 23:15> ED Course and Treatment: Initial Plan: * CBC, CMP * Salicylate, alcohol, acetaminophen levels * BNP * UA, UDS * CXR * EKG EKG shows NSR at 97; Normal intervals; Left [place]; No STEMI, nonspecific ST/T wave changes CXR shows no active disease as read by me 23:22 Patient accepted for psychiatric admission by Dr. Jackson with diagnosis of schizoaffective disorder per crisis team. Pending full medical clearance. 00:03 Venous duplex prelim read negative, pt is medically cleared for psychiatric admission. Bloodwork unremarkable. Patient updated with change in disposition. Resting comfortably in stretcher at this time. Vitals have improved since triage. - Lab Interpretations Lab Results: Urine Color Yellow (YELLOW) 03/12/19 21:20 Urine Appearance Clear (CLEAR) 03/12/19 21:20 Urine pH 5.5 (4.7-8.0) 03/12/19 21:20 Ur Specific [place] >= 1.030 (1.005-1.035) 03/12/19 21:20 Urine Protein Trace mg/dL (<30 mg/dL) H 03/12/19 21:20 Urine Glucose (UA) Negative mg/dL (NEGATIVE) 03/12/19 21:20 Urine Ketones Trace mg/dL (NEGATIVE) H 03/12/19 21:20 Urine Blood Negative (NEGATIVE) 03/12/19 21:20 Urine Nitrate Negative (NEGATIVE) 03/12/19 21:20 Urine Bilirubin Negative (NEGATIVE) 03/12/19 21:20 Urine Urobilinogen 0.2 E.U./dL (<1 E.U./dL) 03/12/19 21:20 Ur Leukocyte Esterase Negative [place]/uL (NEGATIVE) 03/12/19 21:20 Urine RBC 0 - 2 /hpf (0-2) 03/12/19 21:20 Urine WBC 0 - 2 /hpf (0-6) 03/12/19 21:20 Ur Epithelial Cells 0 - 2 /hpf (0-5) 03/12/19 21:20 Urine Bacteria Few /hpf (NONE) 03/12/19 21:20 03/12/19 22:58 03/12/19 22:58 Lab Results 03/12/19 22:58: Alcohol, Quantitative < 10 03/12/19 22:58: Salicylates < 1 L, Acetaminophen < 10.0 L 03/12/19 22:58: Sodium 140, Potassium 3.7, Chloride 100, Carbon Dioxide 30, Anion Gap 14, BUN 17, Creatinine 1.2, Est GFR ( Amer) > 60, Est GFR (Non- Af Amer) > 60, Random Glucose 90, Calcium 9.3, Total Bilirubin 0.3, AST 28, ALT 15, Alkaline Phosphatase 90, NT-Pro-B Natriuret Pep 11.7, Total Protein 7.8, Albumin 4.3, Globulin 3.5, Albumin/Globulin Ratio 1.2 03/12/19 22:58: WBC 8.4 D, RBC 5.56, Hgb 14.6 D, Hct 44.4, MCV 79.9 L, MCH 26.3, MCHC 32.9, RDW 15.5 H, Plt Count 309, MPV 10.4, Neut % (Auto) 67.6, Lymph % (Auto) 19.0 L, [place] % (Auto) 11.7 H, Eos % (Auto) 1.6, Baso % (Auto) 0.1, Lymph # (Auto) 1.6, [place] # (Auto) 1.0 H, Eos # (Auto) 0.1, Baso # (Auto) 0.01, Absolute Neuts (auto) 5.67 03/12/19 21:20: Urine Opiates Screen Negative, Urine Methadone Screen Negative, Ur Barbiturates Screen Negative, Ur Phencyclidine Scrn Negative, Ur Amphetamines Screen Negative, U Benzodiazepines Scrn Negative, U Oth Cocaine Metabols Negative, U Cannabinoids Screen Negative 03/12/19 21:20: Urine Color Yellow, Urine Appearance Clear, Urine pH 5.5, Ur Specific [place] >= 1.030, Urine Protein Trace H, Urine Glucose (UA) Negative, Urine Ketones Trace H, Urine Blood Negative, Urine Nitrate Negative, Urine Bilirubin Negative, Urine Urobilinogen 0.2, Ur Leukocyte Esterase Negative, Urine RBC 0 - 2, Urine WBC 0 - 2, Ur Epithelial Cells 0 - 2, Urine Bacteria Few I have reviewed the lab results: Yes - RAD Interpretation Radiology Orders: 03/12/19 21:11 CHEST PORTABLE [RAD] Stat 03/12/19 21:22 DUPLEX LOWER EXTRM VEIN BILAT [US] Stat Senior Principal Architect: Radiologist - EKG Interpretation EKG Interpretation (Text): 03/13/19 00:04 Rate 97; NSR; Normal intervals; Left [place]; No STEMI, nonspecific ST/T wave changes Interpreted by ED Physician: Yes Type: 12 lead EKG <Aurelia Doherty - Last Filed: 03/13/19 03:22> - PA / LONGWALL MACHINE OPERATOR HELPER / Resident Statement / has reviewed & agrees with the documentation as recorded. / has examined the patient and agrees with the treatment plan. <Agustín Dean - Last Filed: 03/12/19 23:15> Disposition/Present on Arrival <Agustín Dean - Last Filed: 03/12/19 23:15> - Present on Arrival Any Indicators Present on Arrival: No History of DVT/PE: No History of Uncontrolled Diabetes: No Urinary Catheter: No History of Decub. Ulcer: No History Surgical Site Infection Following: None - Disposition Have Diagnosis and Disposition been Completed?: Yes Disposition Time: 00:05 Patient Plan: Admission <Aurelia Doherty - Last Filed: 03/13/19 03:22> - Disposition Diagnosis: Schizoaffective disorder Disposition: HOSPITALIZED Patient Problems: Current Active Problems Problem Status Onset Schizoaffective disorder Chronic Condition: STABLE
[2019-03-12 23:12] LABS: BASO # 0.01 K/mm3 (0.0-2.0); BASO % 0.1 % (0.0-3.0); EOS # 0.1 (0.0-0.7); EOS % 1.6 % (1.5-5.0); HEMOGLOBIN 14.6 g/dL (14.0-18.0); LYMPH # 1.6 (1.2-3.4); MEAN CELL VOLUME 79.9 fl (80.0-105.0); MEAN CORPUSCULAR HEMOGLOBIN 26.3 pg (25.0-35.0); MEAN CORPUSCULAR HGB CONC 32.9 g/dl (31.0-37.0); MEAN PLATELET VOLUME 10.4 fl (7.0-11.0); MONO % 11.7 % (1.0-6.0); RBC 5.56 10^6/uL (3.5-6.1); RED CELL DISTRIBUTION WIDTH 15.5 % (11.5-14.5); WHITE BLOOD COUNT 8.4 10^3/uL (4.5-11.0)
[2019-03-12 23:19] LABS: ALB/GLOB RATIO 1.2 (1.1-1.8); ALBUMIN 4.3 g/dL (3.0-4.8); ALT/SGPT 15 U/L (7-56); AST/SGOT 28 U/L (17-59); BLOOD UREA NITROGEN 17 mg/dL (7-21); CALCIUM 9.3 mg/dL (8.4-10.5); GFR NON-AFRICAN AMERICAN > 60
[2019-03-12 23:20] LABS: ACETAMINOPHEN < 10.0 ug/ml (10.0-20.0); SALICYLATE < 1 mg/dL (2.0-20.0)
[2019-03-12 23:29] LABS: B-TYPE NATRIURETIC PEPTIDE 11.7 pg/mL (0-450)
[2019-03-13 00:21] VITALS: O2SAT 95
[2019-03-13] MEDS ORDERED: Alum-Mag Hydrox-Simethicone Susp (30 mL) PO PRN (00:59)
[2019-03-13] MEDS ORDERED: Magnesium Hydroxide Susp 30 ml UD PO PRN (00:59)
--- NOTE | 2019-03-13 01:29 | PCM.BM ---
<Oneida Dey - Last Filed: 03/13/19 01:26> Treatment Plan Problems - Problems identified on initial assessmt Medication non-adherence Date Initiated: 03/13/19 Time Initiated: Assessment reference: NA Status: Active Auditory Hallucinations Date Initiated: 03/13/19 Time Initiated: : Assessment reference: NA Status: Active Altered thought process Date Initiated: 03/13/19 Time Initiated: Assessment reference: NA Status: Active Ineffective coping Date Initiated: 03/13/19 Time Initiated: Assessment reference: NA Status: Active Treatment assets and liabiliti Patient Assests: cooperative, educated, motivated, self-reliant, ADL independent, physically healthy, negotiates basic needs, good past tx response, cognitively intact Patient Liabilities: financial problems (Homeless) - Milieu Protocol Maintain good personal hygiene: daily Encourage regular showers, daily Remind patient to perform daily oral care, daily Assist patient to perform ADL's Conduct patient checks and document Observation sheet: Q15 minutes Maintain personal safety: every shift Educate patient to report safety concerns to staff, every shift Monitor environment for contraband/sharps Medication safety: Monitor for expected outcome, potential side effects: every shift, Assess barriers to learning: every shift, Assess readiness for medication education: every shift Family Contact Family involvement: Patient does not wish Family/SO involvement Discharge/Continuing Care - Education Needs Education Needs: Patient Medication, Patient Diagnosis/Disease Process, Patient Coping Skills, Patient Community resources, Patient Activities of Daily Living, Patient Health Practices/Safety, Patient Aftercare Safety Plan - Discharge Discharge Criteria: Tolerates medication w/o severe side effects, Normal sleep pattern, Ability to care for self, No longer exhibiting s/s of withdrawal, Reduction of target symptoms Discharge to:: Home, Correction <Renetta Mendoza - Last Filed: 03/13/19 08:59> - Diagnosis (1) Alcohol abuse Status: Acute Interventions: 03/13/19 09:00 Monitoring of possible withdrawal symptoms Medical detoxification for possible alcohol withdrawals Pharmacotherapy for alcohol/benzos/opioid dependence Maintaining sobriety Relapse prevention Possible rehabilitation Motivational interviewing 12-step programs: AA meetings as outpatient (2) Schizoaffective disorder Status: Chronic Interventions: 03/13/19 09:02 Psychoeducation/psychotherapy Psychopharmacology/adjustment of medications as needed/ monitoring possible side effects Evaluate pt on daily basis Compliance with medications and follow up appointments will be discussed Resumption of long acting medication if pt is willing to Suicide and homicide risk assessment and prevention, coping strategies, safety plan Relapse prevention Reduction of symptoms Improve functional status Possible assertive community treatment if pt agrees pt does not want family involvement Possible social skill training as outpatient <Pari Velázquez - Last Filed: 03/14/19 08:11> Family Contact Family involvement: Famliy/SO not involved - Outside Agency [facility] Care involvment: Following patient during stay, Information-sharing - Goals for Treatment Patient goals for treatment: "I want to calm these voices." <Sulma Gillis - Last Filed: 03/14/19 08:41>
[2019-03-13 08:14] LABS: GLUCOSE,FASTING 120 mg/dL (65-110); HDL CHOLESTEROL 34 mg/dL (29-60)
[2019-03-13 08:24] LABS: LDL CHOLESTEROL 96 mg/dL (0-129)
--- NOTE | 2019-03-13 08:57 | US ---
HISTORY: Leg pain and swelling. Evaluate for DVT PHYSICIAN(S): Trace Jasso MD. TECHNIQUE: Duplex sonography and color-flow Doppler with graded compression were used to evaluate the deep venous systems of both lower extremities. FINDINGS: The visualized deep venous systems of both lower extremities are sonographically normal and compressible. Normal wave forms and augmentation are seen. There is no sonographic evidence for deep venous thrombosis in the visualized segments of both lower extremities. IMPRESSION: No sonographic evidence for deep venous thrombosis in the visualized segments of both lower extremities.
[2019-03-13] MEDS: Multivitamin With Minerals Tab PO SCH (10:11)
--- NOTE | 2019-03-13 10:15 | RAD ---
Date of service: 03/12/2019 HISTORY: psych COMPARISON: 10/12/2018 TECHNIQUE: 1 view obtained. FINDINGS: LUNGS: No active pulmonary disease. PLEURA: No significant pleural effusion identified, no pneumothorax apparent. CARDIOVASCULAR: No aortic atherosclerotic calcification present. Normal cardiac size. No pulmonary vascular congestion. OSSEOUS STRUCTURES: No significant abnormalities. VISUALIZED UPPER ABDOMEN: Normal. OTHER FINDINGS: None. IMPRESSION: No active disease.
--- NOTE | 2019-03-13 10:51 | CARD ---
APPROVED REPORT Date of service: 03/12/2019 EKG Measurement Heart [id number] <Conclusion> Normal sinus rhythm Left axis deviation Abnormal ECG
--- NOTE | 2019-03-13 13:16 | PCM.PSYCH ---
Initial Psychiatric Evaluation - Initial Psychiatric Evaluation Type of Admission: Voluntary Legal Status: Capacity Chief Complaint (in patient's own words): "Voices telling me they will kill me, they will kill me" Patient's Reaction to Hospitalization: Patient was admitted to the psychiatric inpatient stabilization of psychosis, inability to function. History of Present Illness and Precipitating Events: Shortly, patient is a 43-year old -Indian male, reported history of schizophrenia versus schizoaffective disorder, multiple previous psychiatric admissions including this facility, patient is homeless, has history of being noncompliant with her medications, presented in the emergency room complaining of paranoia, auditory hallucinations, patient requires further evaluation, stabilization, observation, medications adjustment. Patient was seen and examined today at the treatment team meeting, poor personal hygiene, flat affect, no eye contact, patient presented to be paranoid, psychotic, reported that he hears voices telling him "they will kill you, they will kill you", patient also presented to be suspicious, paranoid, guarded. Patient reported that he was homeless "not because I have no place to go, but I feel very uncomfortable, I feel people are after me." Patient reported that she was feeling depressed, hopeless, denied any intent or plan to kill himself or others. Patient reported that she was drinking beer, last time was 1 day ago. Patient denies that that she could have withdrawal symptoms, denies using drugs, reported that she was smoking cigarettes "a lot", this internal communications writer offered nicotine patch, counseling provided, patient refused nicotine patch. Patient denies being abused, denied any anxiety symptoms. Patient reported that she was followed up at [facility] in [place], [place]; last visit in January 2019 in which patient was given Invega every 3 months. Patient reports last injection was January 2019 agreed to give consent for collateral information. Patient reports having auditory hallucinations even though having injection. Patient reports that he was not following up with outpatient psychiatrist because of transportation problems. PSYCHIATRIC HISTORY: Multiple psychiatric admissions, history of self mutilating behavior about a year ago, patient tried to cut his right wrist with a razor. Based on the previous record: ~Patient has a long history of Paranoid Schizophrenia with multiple admissions at [facility] [place] [facility] [place] Patient has also been hospitalized at [facility] within the past 1- 2 years. ~~His most recent admission was to [facility] from 03/13/18-03/17/18. He was discharged on: Cogentin 1 mg po bid, Geodon 40 mg po bid, Zoloft 100 mg po daily, Trazodone 100 mg HS ~Hospitalized at [facility] 11/25/17-12/04/17. He was discharged on:Cogentin 1 mg po tid, Benadryl 50 mg po HS, Risperdal 3 mg AMHS, Zoloft 100 mg po daily. ~Hospitalized at [facility] from 07/27/17-08/11/17. He was discharged on: Cogentin 1 mg po bid, Risperdal 2 mg po bid, Geodon 60 mg po bid, Zoloft 200 mg po daily, Trazodone 100 mg HS ~Hospitalized at [facility] in 05/2017, discharged on Risperdal /12/16, cogentin 1 TID, Benadryl 50 HS and zoloft 200 mg daily. ~Hospitalized at [facility] 01/19/15-01/28/15 for hallucinations to harm self and/or others. He was discharged on Risperdal 3 BID, Cogentin 1 BID, Ativan 1 qday, Trazodone 100 qhs and Haldol 0.5 mg BID. ~Patient's other admission at [facility] was 12/22/14-12/31/14 with similar complaints and similar discharge medications. ~He also has a prior admission at [facility] in [place] in 2009 and in 2007. Reports his first psychiatric admission was in his early thirties. Per [facility] records 07/2017: Pt reports one prior suicide attempt 2 years ago by cutting his wrist SOCIAL HISTORY Born and raised in [place]. Single, never , no children. He is homeless. He has been unemployed since 2007. 9th grade education. Denies drug or alcohol issues however drank a few beers prior to coming to the ER on 10/12/18. Patient has a history of smoking tobacco 1-2 packs daily Per prior records, patient has history of arrests due to assaultive behavior but denies any legal charges in past pt responded well on following meds in the past: Patient was stabilized on the following medications: Risperdal 2 mg bid and at bedtime for psychosis Cogentin 1 mg BID for EPS prophylaxis Zoloft 150 mg po daily for depression and anxiety Trazodone 100 mg HS, off label for sleep Medical history: Patient is obese, denied any active medical issues. 03/12/19 22:58 03/12/19 22:58 Lab Results 03/13/19 07:30: TSH 3rd Generation 1.39 03/13/19 07:30: Fasting Glucose 120 H, Triglycerides 67, Cholesterol 151, LDL Cholesterol Direct 96, HDL Cholesterol 34 03/12/19 22:58: Alcohol, Quantitative < 10 03/12/19 22:58: Salicylates < 1 L, Acetaminophen < 10.0 L 03/12/19 22:58: Sodium 140, Potassium 3.7, Chloride 100, Carbon Dioxide 30, Anion Gap 14, BUN 17, Creatinine 1.2, Est GFR ( Amer) > 60, Est GFR (Non- Af Amer) > 60, Random Glucose 90, Calcium 9.3, Total Bilirubin 0.3, AST 28, ALT 15, Alkaline Phosphatase 90, NT-Pro-B Natriuret Pep 11.7, Total Protein 7.8, Albumin 4.3, Globulin 3.5, Albumin/Globulin Ratio 1.2 03/12/19 22:58: WBC 8.4 D, RBC 5.56, Hgb 14.6 D, Hct 44.4, MCV 79.9 L, MCH 26.3, MCHC 32.9, RDW 15.5 H, Plt Count 309, MPV 10.4, Neut % (Auto) 67.6, Lymph % (Auto) 19.0 L, [place] % (Auto) 11.7 H, Eos % (Auto) 1.6, Baso % (Auto) 0.1, Lymph # (Auto) 1.6, [place] # (Auto) 1.0 H, Eos # (Auto) 0.1, Baso # (Auto) 0.01, Absolute Neuts (auto) 5.67 03/12/19 21:20: Urine Opiates Screen Negative, Urine Methadone Screen Negative, Ur Barbiturates Screen Negative, Ur Phencyclidine Scrn Negative, Ur Amphetamines Screen Negative, U Benzodiazepines Scrn Negative, U Oth Cocaine Metabols Negative, U Cannabinoids Screen Negative 03/12/19 21:20: Urine Color Yellow, Urine Appearance Clear, Urine pH 5.5, Ur Specific [place] >= 1.030, Urine Protein Trace H, Urine Glucose (UA) Negative, Urine Ketones Trace H, Urine Blood Negative, Urine Nitrate Negative, Urine Bilir ubin Negative, Urine Urobilinogen 0.2, Ur Leukocyte Esterase Negative, Urine RBC 0 - 2, Urine WBC 0 - 2, Ur Epithelial Cells 0 - 2, Urine Bacteria Few Vital Signs Temp Pulse Resp BP Pulse Ox 03/13/19 07:10 98.3 F 89 18 125/79 03/13/19 00:20 98.7 F 99 H 18 134/67 95 03/12/19 23:12 98.7 F 103 H 18 109/67 98 03/12/19 21:06 98 F 115 H 19 116/63 97 The patient failed the outpatient lower level of care: Yes Current Medications: Active Medications Generic Name Dose Route Start Last Admin Trade Name Freq PRN Reason Stop Dose Admin Acetaminophen 650 mg 03/13/19 00:59 Tylenol 325mg Tab PO Q6H PRN Pain, moderate (4-7) Al Hydrox/Mg Hydrox/Simethicone 30 ml 03/13/19 00:59 Maalox Plus 30 Ml PO DAILY PRN Upset Stomach Benztropine Mesylate 1 mg 03/13/19 08:00 Cogentin PO BID GONZALO Haloperidol 5 mg 03/13/19 00:59 Haldol PO Q6 PRN Agitation Protocol Haloperidol Lactate 5 mg 03/13/19 01:08 Haldol IM Q6 PRN Agitation Protocol Lorazepam 2 mg 03/13/19 00:59 Ativan PO Q6H PRN Anxiety Protocol Lorazepam 2 mg 03/13/19 01:08 Ativan IM Q6H PRN Anxiety Protocol Magnesium Hydroxide 30 ml 03/13/19 00:59 Milk Of Magnesia PO DAILY PRN Constipation Risperidone 1 mg 03/13/19 10:00 Risperdal Tab PO AMHS GONZALO Protocol Sertraline HCl 50 mg 03/13/19 08:00 Zoloft PO DAILY GONZALO Trazodone HCl 100 mg 03/13/19 01:00 03/13/19 01:14 Desyrel PO 100 mg HS GONZALO Administration Present on Admission - Present on Admission Any Indicators Present on Admission: No History of DVT/PE: No History of Uncontrolled Diabetes: No Urinary Catheter: No Decubitus Ulcer Present: No Review of Systems - Review of Systems Systems not reviewed;Unavailable: Acuity of Condition - Constitutional Constitutional: As Per HPI - EENT Eyes: As Per HPI Ears: As Per HPI Nose/Mouth/Throat: As Per HPI - Cardiovascular Cardiovascular: As Per HPI - Respiratory Respiratory: As Per HPI - Gastrointestinal Gastrointestinal: As Per HPI - Genitourinary Genitourinary: As Per HPI - Reproductive: Male Reproductive:Male: As Per HPI - Musculoskeletal Musculoskeletal: As Per HPI - Integumentary Integumentary: As Per HPI - Neurological Neurological: As Per HPI - Psychiatric Psychiatric: As Per HPI - Endocrine Endocrine: As Per HPI - Hematologic/Lymphatic Hematologic: As Per HPI Past Patient History - Past Psychiatric History Previous Treatment History: Inpatient Prior Professional Help: See HPI Prior Psychiatric Treatment: See HPI At what hospital: See HPI Duration: See HPI Nature of Treatment: See HPI Explanation of prior treatment: See HPI - PSYCHIATRIC Hx Psychophysiologic Disorder: No Hx Depression: Yes Hx Schizophrenia: Yes Hx Substance Use: Yes - Infectious Disease Hx of Infectious Diseases: None - Tetanus Immunizations Tetanus Immunization: Unknown - Past Medical History & Family History Past Medical History?: Yes - CARDIAC Hx Hypertension: No - PULMONARY Hx Sleep Apnea: Yes - NEUROLOGICAL Hx Seizures: No - HEENT Hx HEENT Problems: No - RENAL Hx Chronic Kidney Disease: No - ENDOCRINE/METABOLIC Hx Endocrine Disorders: No - HEMATOLOGICAL/ONCOLOGICAL Hx Cancer: No - INTEGUMENTARY Hx Dermatological Problems: No - MUSCULOSKELETAL/RHEUMATOLOGICAL Hx Musculoskeletal Disorders: No Hx Falls: No - GASTROINTESTINAL Hx Gastrointestinal Disorders: No - GENITOURINARY/GYNECOLOGICAL Hx Sexually Transmitted Disorders: No - SURGICAL HISTORY Hx Surgeries: No - ANESTHESIA Hx Anesthesia: No Hx Anesthesia Reactions: No Hx Malignant Hyperthermia: No - Medical/Surgical History Reviewed & confirmed: by wa Meds Allergies/Adverse Reactions: Allergies Allergy/AdvReac Type Severity Reaction Status Date / Time No Known Allergies Allergy Verified 03/13/19 00:56 Mental Status Examination - Personal Presentation Personal Presentation: Looks stated age - Affect Affect: Flat - Motor Activity Motor Activity: Psychomotor Retardation - Reliability in Providing Information Reliability in Providing Information: Poor, due to alteration in thoughts, Poor, due to altered mood, Poor, due to cognitve impairment - Speech Speech: Disorganized - Mood Mood: Depressed - Formal Thought Process Formal Thought Process: Hallucinations, Delusions, Paranoia - Hallucinations/Delusions Delusions: Persecution - Obsessions/Compulsions Obsessions: None Compulsions: None - Cognitive Functions Orientation: Person, Place, Situation Sensorium: Alert Abstract Thinking: [place] Estimate of Intelligence: Below average Judgement: Intact, as evidence by: Insight regarding need for hospitalization - Risk Risk: Self-mutilation, Diminished functioning - Strength & Assets Inventory Strength & Assets Inventory: Cooperative, Other (good insight, relatively healthy, no SI/HI, no violence) - Limitations Limitations: Other (Poor social support, history of noncompliance with medications, homelessness) Psychiatric Physical Exam - Physical Exam Reviewed and confirmed: Emergency Department Physical Exam Results - Vital Signs Recent Vital Signs: Last Vital Signs Temp 98.3 F 03/13/19 07:10 Pulse 89 03/13/19 07:10 Resp 18 03/13/19 07:10 BP 125/79 03/13/19 07:10 Pulse Ox 95 03/13/19 00:20 - Labs Result Diagrams: 03/12/19 22:58 03/12/19 22:58 Labs: Laboratory Results - last 24 hr 03/12/19 03/12/19 03/12/19 21:20 21:20 22:58 WBC 8.4 D RBC 5.56 Hgb 14.6 D Hct 44.4 MCV 79.9 L MCH 26.3 MCHC 32.9 RDW 15.5 H Plt Count 309 MPV 10.4 Neut % (Auto) 67.6 Lymph % (Auto) 19.0 L [place] % (Auto) 11.7 H Eos % (Auto) 1.6 Baso % (Auto) 0.1 Lymph # (Auto) 1.6 [place] # (Auto) 1.0 H Eos # (Auto) 0.1 Baso # (Auto) 0.01 Absolute Neuts (auto) 5.67 Sodium Potassium Chloride Carbon Dioxide Anion Gap BUN Creatinine Est GFR ( Amer) Est GFR (Non-Af Amer) Random Glucose Fasting Glucose Calcium Total Bilirubin AST ALT Alkaline Phosphatase NT-Pro-B Natriuret Pep Total Protein Albumin Globulin Albumin/Globulin Ratio Triglycerides Cholesterol LDL Cholesterol Direct HDL Cholesterol TSH 3rd Generation Urine Color Yellow Urine Appearance Clear Urine pH 5.5 Ur Specific [place] >= 1.030 Urine Protein Trace H Urine Glucose (UA) Negative Urine Ketones Trace H Urine Blood Negative Urine Nitrate Negative Urine Bilirubin Negative Urine Urobilinogen 0.2 Ur Leukocyte Esterase Negative Urine RBC 0 - 2 Urine WBC 0 - 2 Ur Epithelial Cells 0 - 2 Urine Bacteria Few Salicylates Urine Opiates Screen Negative Urine Methadone Screen Negative Acetaminophen Ur Barbiturates Screen Negative Ur Phencyclidine Scrn Negative Ur Amphetamines Screen Negative U Benzodiazepines Scrn Negative U Oth Cocaine Metabols Negative U Cannabinoids Screen Negative Alcohol, Quantitative 03/12/19 03/12/19 03/12/19 22:58 22:58 22:58 WBC RBC Hgb Hct MCV MCH MCHC RDW Plt Count MPV Neut % (Auto) Lymph % (Auto) [place] % (Auto) Eos % (Auto) Baso % (Auto) Lymph # (Auto) [place] # (Auto) Eos # (Auto) Baso # (Auto) Absolute Neuts (auto) Sodium 140 Potassium 3.7 Chloride 100 Carbon Dioxide 30 Anion Gap 14 BUN 17 Creatinine 1.2 Est GFR ( Amer) > 60 Est GFR (Non-Af Amer) > 60 Random Glucose 90 Fasting Glucose Calcium 9.3 Total Bilirubin 0.3 AST 28 ALT 15 Alkaline Phosphatase 90 NT-Pro-B Natriuret Pep 11.7 Total Protein 7.8 Albumin 4.3 Globulin 3.5 Albumin/Globulin Ratio 1.2 Triglycerides Cholesterol LDL Cholesterol Direct HDL Cholesterol TSH 3rd Generation Urine Color Urine Appearance Urine pH Ur Specific [place] Urine Protein Urine Glucose (UA) Urine Ketones Urine Blood Urine Nitrate Urine Bilirubin Urine Urobilinogen Ur Leukocyte Esterase Urine RBC Urine WBC Ur Epithelial Cells Urine Bacteria Salicylates < 1 L Urine Opiates Screen Urine Methadone Screen Acetaminophen < 10.0 L Ur Barbiturates Screen Ur Phencyclidine Scrn Ur Amphetamines Screen U Benzodiazepines Scrn U Oth Cocaine Metabols U Cannabinoids Screen Alcohol, Quantitative < 10 03/13/19 03/13/19 07:30 07:30 WBC RBC Hgb Hct MCV MCH MCHC RDW Plt Count MPV Neut % (Auto) Lymph % (Auto) [place] % (Auto) Eos % (Auto) Baso % (Auto) Lymph # (Auto) [place] # (Auto) Eos # (Auto) Baso # (Auto) Absolute Neuts (auto) Sodium Potassium Chloride Carbon Dioxide Anion Gap BUN Creatinine Est GFR ( Amer) Est GFR (Non-Af Amer) Random Glucose Fasting Glucose 120 H Calcium Total Bilirubin AST ALT Alkaline Phosphatase NT-Pro-B Natriuret Pep Total Protein Albumin Globulin Albumin/Globulin Ratio Triglycerides 67 Cholesterol 151 LDL Cholesterol Direct 96 HDL Cholesterol 34 TSH 3rd Generation 1.39 Urine Color Urine Appearance Urine pH Ur Specific [place] Urine Protein Urine Glucose (UA) Urine Ketones Urine Blood Urine Nitrate Urine Bilirubin Urine Urobilinogen Ur Leukocyte Esterase Urine RBC Urine WBC Ur Epithelial Cells Urine Bacteria Salicylates Urine Opiates Screen Urine Methadone Screen Acetaminophen Ur Barbiturates Screen Ur Phencyclidine Scrn Ur Amphetamines Screen U Benzodiazepines Scrn U Oth Cocaine Metabols U Cannabinoids Screen Alcohol, Quantitative - EKG Data EKG Interpreted by: ER Physician DSM Plan - DSM 5 DSM 5 Diagnosis: Schizophrenia versus schizoaffective disorder Alcohol abuse r/o alcohol withdrawals - Recommended/Plan of Treatment Treatment Recommendations and Plan of Treatment: Milieu/structure/supportive therapy SW consultation for discharge plan and social issues Med management pt responded well on following meds in the past: Risperdal 2 mg bid and at bedtime for psychosis, will resume with smaller doses Cogentin 1 mg BID for EPS prophylaxis Zoloft 150 mg po daily for depression and anxiety, will resume with smaller dose Trazodone 100 mg HS, off label for sleep Multivitamins, thiamine, folic acid ativan for possible withdrawal symptoms Family involvement Follow up on labs Will monitor closely Pt was educated about risk/benefits and alternatives of medications, coping strategies (safety plan, suicide prevention), relapse prevention, importance of follow up with psychiatrist and therapist, stay away from drugs/alcohol/smoking Projected ELOS: 7days Prognosis: guarded Discharge Plan and Discharge Criteria: Patient will be elicited, will pose no imminent danger to self or others - Tobacco Cessation Tobacco Use Status for the last 30 days: Heavy User(>=5 cigs &/or cigars/pipes daily) Tobacco Use Treatment Practical Counseling Provided: No Tobacco Use Treatment FDA-Approved Cessation Medication Provided: Yes Reason for not providing: Patient refused tobacco cessation medication - Alcohol or Substance Abuse Does the patient have an Alcohol or Substance Abuse Disorder: Yes Initial Psych Certification - Initial Certification I certify that the inpatient psychiatric facility admission was medically nece ssary for either: Treatment which could reasonbly be expected to improve pt's condition I estimate of hospitalization is necessary for proper treatment of the patient: 7 Unit of Time: Days My plans for post-hospital care for this patient are: DTP
[2019-03-14] MEDS: Multivitamin With Minerals Tab PO SCH (09:28)
--- NOTE | 2019-03-14 15:58 | PCM.PYCHPN ---
Psychiatric Progress Note - Psychiatric Progress Note Patient seen today, length of contact: 30 minutes Patient Chief Complaint: "I still hear voices, they are the same, they told me that I will be killed..." Problems Identified/Issues Discussed: Risk/benefits/alternatives of medications, treatment plan, medical issues. Medical Problems: Patient complains of feeling that he is not able to predict at the nighttime, possibly patient has sleep apnea, GERD, obesity. Diagnostic Results: 03/12/19 22:58 03/12/19 22:58 Lab Results 03/13/19 07:30: RPR Nonreactive 03/13/19 07:30: TSH 3rd Generation 1.39 03/13/19 07:30: Fasting Glucose 120 H, Triglycerides 67, Cholesterol 151, LDL Cholesterol Direct 96, HDL Cholesterol 34 03/12/19 22:58: Alcohol, Quantitative < 10 03/12/19 22:58: Salicylates < 1 L, Acetaminophen < 10.0 L 03/12/19 22:58: Sodium 140, Potassium 3.7, Chloride 100, Carbon Dioxide 30, Anion Gap 14, BUN 17, Creatinine 1.2, Est GFR ( Amer) > 60, Est GFR (Non- Af Amer) > 60, Random Glucose 90, Calcium 9.3, Total Bilirubin 0.3, AST 28, ALT 15, Alkaline Phosphatase 90, NT-Pro-B Natriuret Pep 11.7, Total Protein 7.8, Albumin 4.3, Globulin 3.5, Albumin/Globulin Ratio 1.2 03/12/19 22:58: WBC 8.4 D, RBC 5.56, Hgb 14.6 D, Hct 44.4, MCV 79.9 L, MCH 26.3, MCHC 32.9, RDW 15.5 H, Plt Count 309, MPV 10.4, Neut % (Auto) 67.6, Lymph % (Auto) 19.0 L, [place] % (Auto) 11.7 H, Eos % (Auto) 1.6, Baso % (Auto) 0.1, Lymph # (Auto) 1.6, [place] # (Auto) 1.0 H, Eos # (Auto) 0.1, Baso # (Auto) 0.01, Absolute Neuts (auto) 5.67 03/12/19 21:20: Urine Opiates Screen Negative, Urine Methadone Screen Negative, Ur Barbiturates Screen Negative, Ur Phencyclidine Scrn Negative, Ur Amphetamines Screen Negative, U Benzodiazepines Scrn Negative, U Oth Cocaine Metabols Negative, U Cannabinoids Screen Negative 03/12/19 21:20: Urine Color Yellow, Urine Appearance Clear, Urine pH 5.5, Ur Specific [place] >= 1.030, Urine Protein Trace H, Urine Glucose (UA) Negative, Urine Ketones Trace H, Urine Blood Negative, Urine Nitrate Negative, Urine Bilirubin Negative, Urine Urobilinogen 0.2, Ur Leukocyte Esterase Negative, Urine RBC 0 - 2, Urine WBC 0 - 2, Ur Epithelial Cells 0 - 2, Urine Bacteria Few Vital Signs Temp Pulse Resp BP Pulse Ox 03/14/19 06:34 97.2 F L 86 18 125/81 03/13/19 16:00 97 H 113/73 03/13/19 07:10 98.3 F 89 18 125/79 03/13/19 00:20 98.7 F 99 H 18 134/67 95 03/12/19 23:12 98.7 F 103 H 18 109/67 98 03/12/19 21:06 98 F 115 H 19 116/63 97 DSM 5 Symptoms Update: Shortly, patient is a 43-year old -[place] male, reported history of schizophrenia versus schizoaffective disorder, multiple previous psychiatric admissions including this facility, patient is homeless, has history of being noncompliant with her medications, presented in the emergency room complaining of paranoia, auditory hallucinations, patient requires further evaluation, stabilization, observation, medications adjustment. Patient was seen and examined today in his room, patient still presented to be paranoid, psychotic, patient reported voices are the same "they are telling me that they will kill me". Patient complaining that he was not able to breathe during the nighttime, dyspepsia, this show card writer will call for pulmonology consultation for possible sleep apnea. As per staff patient is self isolating, not participating in activities, guarded and paranoid, but no agitated no aggressive. So far patient tolerates medications well, no side effects observed or reported, aims 0, no EPS. Impression: Schizophrenia Medication Change: Yes (Respiratory no increased) Medical Record Reviewed: Yes Consults ordered or reviewed: Pulmonology consult requested Mental Status Examination - Cognitive Function Orientation: Person, Place, Situation Memory: Intact Attention: Poor Concentration: Poor Association: Loose Fund of Knowledge: Poor - Mood Mood: Depressed - Affect Affect: Flat - Formal Thought Process Formal Thought Process: Hallucinations, Delusions, Paranoia - Suicidal Ideation Suicidal Ideation: No - Homicidal Ideation Homicidal Ideation: No Goal/Treatment Plan - Goal/Treatment Plan Need for Continued Stay: Remain at risks for inpatient hospitalization, Severe depression anxiety, Discharge may exacerbated symptoms, Severe functional impairment Progress Toward Problem(s) and Goals/Treatment Plan: Milieu/structure/supportive therapy SW consultation for discharge plan and social issues Med management pt responded well on following meds in the past: Risperdal 2 mg at the morning time and at the nighttime for psychosis Cogentin 1 mg BID for EPS prophylaxis Zoloft 50 mg po daily for depression and anxiety Trazodone Multivitamins, thiamine, folic acid ativan is on tapering dose 1mg po tid for possible withdrawal symptoms Family involvement Follow up on labs Will monitor closely Pt was educated about risk/benefits and alternatives of medications, coping strategies (safety plan, suicide prevention), relapse prevention, importance of follow up with psychiatrist and therapist, stay away from drugs/alcohol/smoking Estimated Date of D/C: 03/21/19
[2019-03-15] MEDS: Multivitamin With Minerals Tab PO SCH (09:53)
[2019-03-15] MEDS ORDERED: Albuterol HFA 90 mcg/actuation (8 g) IH PRN (12:03)
--- NOTE | 2019-03-15 13:23 | CON ---
DATE: 03/15/2019 PULMONARY CONSULT NOTE REFERRING PHYSICIAN: Dr. Renetta Mendoza. REASON FOR CONSULTATION: Sleep apnea. HISTORY OF PRESENT ILLNESS: This is a 43-year-old male with past medical history significant for schizophrenia, hallucinations, obesity, hypertension, and sleep apnea. The patient presented to the emergency department complaining of auditory hallucination for the last few months. In the emergency room, he reported he was supposed to be receiving intramuscular medications every three months to control his hallucinations, but he has missed his last two dosage due to transportation issue. In the emergency room, also complained of bilateral lower extremity swelling for the last two months. The patient seems to be lying in bed, in no acute distress. He does have nonproductive cough, shortness of breath with exertion. He does snore at times has runny nose, suffers from daytime fatigue, does suffer from acid reflux. PAST MEDICAL HISTORY: As per history of present illness. ALLERGIES: NO KNOWN ALLERGIES. FAMILY HISTORY: Unknown. SOCIAL HISTORY: Smoker one to two packs per day. No EtOH abuse. No illicit drug use reported. MEDICATIONS: Reviewed. Tylenol 650 mg every 6 hours p.r.n. for moderate pain, Maalox 30 mL p.o. daily p.r.n., Cogentin 1 mg twice a day, Pepcid 20 mg twice a day, folic acid 1 mg daily, Haldol 5 mg every 6 hours p.r.n., Haldol 5 mg IM every 6 hours p.r.n., Ativan 2 mg every 6 hours p.r.n., Ativan 10 mg IM every 6 hours p.r.n., Ativan 1 mg p.o. three times a day, milk of magnesia 30 mL p.o. daily, multivitamins and minerals one tab daily, Risperdal 2 mg a.m. and at bedside, Zoloft 50 mg daily, thiamine 100 mg daily, and trazodone 100 mg at bedtime. REVIEW OF SYSTEMS: No headache, chest pain, abdominal pain, nausea, vomiting, diarrhea, leg pain or leg swelling reported. The patient does report nonproductive cough, shortness of breath with exertion, snoring. He does report having runny nose on occasion, daytime fatigue. PHYSICAL EXAMINATION: GENERAL: No acute distress. VITAL SIGNS: Blood pressure 116/78, pulse 81, temperature 97.4, oxygen saturation 95% on room air. HEENT: Moist mucous membranes. Mallampati score of 4. Crowded airway. NECK: Supple. No JVD. CARDIOVASCULAR: S1 and S2. RESPIRATORY: Fair airflow bilaterally. ABDOMEN: Soft and nontender. No distention. No organomegaly. EXTREMITIES: Bilateral lower extremity edema. NEUROLOGIC: Appears tired, awake, verbal. Following simple commands. LABORATORY DATA: Reviewed. WBC 8.4, RBC 5.56, hemoglobin 14.6, hematocrit 44.4, platelets 309. Sodium 140, potassium 3.7, chloride 100, carbon dioxide 30, anion gap 14, BUN 17, creatinine 1.2, GFR greater than 60, random glucose 90, fasting glucose 120, calcium 9.3, total bilirubin 0.3, AST 20, ALT 15, alkaline phosphatase 90, ProBNP 11.7, total protein 7.8, albumin 4.3, globulin 3.5, albumin and globulin ratio 1.2, triglycerides 67, cholesterol 151, LDL cholesterol 96, HDL cholesterol 34, TSH 1.39. Urinalysis shows urine protein trace, urine ketone trace. Toxicology; salicylates less than 1, acetaminophen less than 10. RPR nonreactive. Chest x-ray shows no active disease. EKG shows normal sinus rhythm. Extremity ultrasound; no evidence of deep venous thrombosis in both lower extremities. IMPRESSION AND PLAN: Sleep apnea syndrome, schizophrenia, active smoker, suspect chronic lung disease. Discussed with the patient using continuous positive airway pressure machine for sleep apnea syndrome. The patient agreed to use continuous positive airway pressure machine. We will place the patient on continuous positive airway pressure 7 cm H2O. We will place the patient on Flonase nasal spray. We will place the patient on Advair Diskus 250/50 one puff by mouth twice a day. We will place the patient on Ventolin HFA two puffs every 4 hours as needed for chronic lung disease, sleep apnea precautions, head of bed elevated 45 degrees, gastroesophageal reflux disease precautions. Continue gastric prophylaxis. Continue psychiatry followup. Recommend smoking cessation, the patient refused nicotine patch. We recommend the patient have full pulmonary function test and sleep study as outpatient. This patient was seen and examined with Dr. Bonilla. Discussed assessment and plan as described above. This patient was seen and examined with Roland Rajan, nurse practitioner. Discussed assessment and plan as described above. Thank you for this consult and we will follow with you. Roland Rajan APN Anselmo Bonilla MD
--- NOTE | 2019-03-15 15:14 | PCM.PYCHPN ---
Psychiatric Progress Note - Psychiatric Progress Note Patient seen today, length of contact: 30 minutes Patient Chief Complaint: "voices are little better" Problems Identified/Issues Discussed: Risk/benefits/alternatives of medications, treatment plan, medical issues. Medical Problems: Patient complains of feeling that he is not able to predict at the nighttime, possibly patient has sleep apnea, GERD, obesity. Diagnostic Results: 03/12/19 22:58 03/12/19 22:58 Lab Results 03/13/19 07:30: RPR Nonreactive 03/13/19 07:30: TSH 3rd Generation 1.39 03/13/19 07:30: Fasting Glucose 120 H, Triglycerides 67, Cholesterol 151, LDL Cholesterol Direct 96, HDL Cholesterol 34 03/12/19 22:58: Alcohol, Quantitative < 10 03/12/19 22:58: Salicylates < 1 L, Acetaminophen < 10.0 L 03/12/19 22:58: Sodium 140, Potassium 3.7, Chloride 100, Carbon Dioxide 30, Anion Gap 14, BUN 17, Creatinine 1.2, Est GFR ( Amer) > 60, Est GFR (Non- Af Amer) > 60, Random Glucose 90, Calcium 9.3, Total Bilirubin 0.3, AST 28, ALT 15, Alkaline Phosphatase 90, NT-Pro-B Natriuret Pep 11.7, Total Protein 7.8, Albumin 4.3, Globulin 3.5, Albumin/Globulin Ratio 1.2 03/12/19 22:58: WBC 8.4 D, RBC 5.56, Hgb 14.6 D, Hct 44.4, MCV 79.9 L, MCH 26.3, MCHC 32.9, RDW 15.5 H, Plt Count 309, MPV 10.4, Neut % (Auto) 67.6, Lymph % (Auto) 19.0 L, [place] % (Auto) 11.7 H, Eos % (Auto) 1.6, Baso % (Auto) 0.1, Lymph # (Auto) 1.6, [place] # (Auto) 1.0 H, Eos # (Auto) 0.1, Baso # (Auto) 0.01, Absolute Neuts (auto) 5.67 03/12/19 21:20: Urine Opiates Screen Negative, Urine Methadone Screen Negative, Ur Barbiturates Screen Negative, Ur Phencyclidine Scrn Negative, Ur Amphetamines Screen Negative, U Benzodiazepines Scrn Negative, U Oth Cocaine Metabols Negative, U Cannabinoids Screen Negative 03/12/19 21:20: Urine Color Yellow, Urine Appearance Clear, Urine pH 5.5, Ur Specific [place] >= 1.030, Urine Protein Trace H, Urine Glucose (UA) Negative, Urine Ketones Trace H, Urine Blood Negative, Urine Nitrate Negative, Urine Bilirubin Negative, Urine Urobilinogen 0.2, Ur Leukocyte Esterase Negative, Urine RBC 0 - 2, Urine WBC 0 - 2, Ur Epithelial Cells 0 - 2, Urine Bacteria Few Vital Signs Temp Pulse Resp BP Pulse Ox 03/14/19 06:34 97.2 F L 86 18 125/81 03/13/19 16:00 97 H 113/73 03/13/19 07:10 98.3 F 89 18 125/79 03/13/19 00:20 98.7 F 99 H 18 134/67 95 03/12/19 23:12 98.7 F 103 H 18 109/67 98 03/12/19 21:06 98 F 115 H 19 116/63 97 DSM 5 Symptoms Update: Shortly, patient is a 43-year old -Filipino male, reported history of schizophrenia versus schizoaffective disorder, multiple previous psychiatric admissions including this facility, patient is homeless, has history of being noncompliant with her medications, presented in the emergency room complaining of paranoia, auditory hallucinations, patient requires further evaluation, stabi lization, observation, medications adjustment. Patient was seen and examined today in his room, patient still presented to be paranoid, psychotic, patient reported voices are "little better", but pt reported "they are telling me that they will kill me". pt was educated about treatment options, ECT included, pt seems to be interested, but compliance and maintenance could be a problem. As per staff patient is self isolating, not participating in activities, guarded and paranoid, but no agitated no aggressive. So far patient tolerates medications well, no side effects observed or reported, aims 0, no EPS. Impression: Schizophrenia Medication Change: Yes (risperdal increased) Medical Record Reviewed: Yes Consults ordered or reviewed: Pulmonology consult requested Mental Status Examination - Cognitive Function Orientation: Person, Place, Situation Memory: Intact Attention: Poor Concentration: Poor Association: Loose Fund of Knowledge: Poor - Mood Mood: Depressed - Affect Affect: Flat - Formal Thought Process Formal Thought Process: Hallucinations, Delusions, Paranoia - Suicidal Ideation Suicidal Ideation: No - Homicidal Ideation Homicidal Ideation: No Goal/Treatment Plan - Goal/Treatment Plan Need for Continued Stay: Remain at risks for inpatient hospitalization, Severe depression anxiety, Discharge may exacerbated symptoms, Severe functional impai rment Progress Toward Problem(s) and Goals/Treatment Plan: Milieu/structure/supportive therapy SW consultation for discharge plan and social issues Med management pt responded well on following meds in the past: Risperdal 2 mg at the morning time and at the nighttime for psychosis Cogentin 1 mg BID for EPS prophylaxis Zoloft 50 mg po daily for depression and anxiety Trazodone Multivitamins, thiamine, folic acid ativan is on tapering dose 1mg po tid for possible withdrawal symptoms ECT discussed Family involvement Follow up on labs Will monitor closely Pt was educated about risk/benefits and alternatives of medications, coping strategies (safety plan, suicide prevention), relapse prevention, importance of follow up with psychiatrist and therapist, stay away from drugs/alcohol/smoking Estimated Date of D/C: 03/21/19
[2019-03-15] MEDS: Fluticasone-Salmeterol 250-50mcg Diskus IH SCH (18:13)
[2019-03-15] MEDS: Fluticasone Nasal 50 mcg/Spray NS SCH (21:07)
[2019-03-16] MEDS: Fluticasone-Salmeterol 250-50mcg Diskus IH SCH ×2 (06:36→17:41)
[2019-03-16] MEDS: Multivitamin With Minerals Tab PO SCH (08:42)
--- NOTE | 2019-03-16 09:15 | PCM.PYCHPN ---
Psychiatric Progress Note - Psychiatric Progress Note Patient seen today, length of contact: 30 minutes Problems Identified/Issues Discussed: Patient is a 43 yo single homeless -Lily male with Schizoaffective Disorder-Paranoid type, history of numerous psychiatric admissions, history of poor compliance with medications and aftercare who presented to our Emergency Room complaining of paranoia and auditory hallucinations. I reviewed his prior admission records as well as recent notes on the unit. Patient has had multiple admissions with similar symptoms of paranoia and hallucinations {as well as SI or HI} in context of medication noncompliance. Patient was interviewed privately at bedside. He appears unkempt and preoccupied. His eye contact and focus are poor. He is oriented to month, year and location. Behavior is calm however patient is only superficially engaged during questioning . Affect is guarded and flat. Patient continues to experience intermittent auditory hallucinations, voices that tell patient that he will be harmed. Patient has a history of hearing v oices telling him to hurt others however he denies any CAH today. Patient feels paranoid however hallucinations are becoming less frequent, less intense and less distressful with the medications. He denies any side effects or new discomfort or pain. As per staff patient is unkempt, isolating with very minimal participation in unit activities. He appears guarded and paranoid but has not been agitated or aggressive. There were no behavioral issues overnight. Diagnostic Results: Schizophrenia Medication Change: No ( ) Medical Record Reviewed: Yes Mental Status Examination - Cognitive Function Orientation: Person, Place, Situation Memory: Intact Attention: Poor Concentration: Poor Association: Loose Fund of Knowledge: Poor - Mood Mood: Depressed - Affect Affect: Flat - Formal Thought Process Formal Thought Process: Hallucinations, Delusions, Paranoia - Suicidal Ideation Suicidal Ideation: No - Homicidal Ideation Homicidal Ideation: No Goal/Treatment Plan - Goal/Treatment Plan Need for Continued Stay: Remain at risks for inpatient hospitalization, Severe depression anxiety, Discharge may exacerbated symptoms, Severe functional impairment Progress Toward Problem(s) and Goals/Treatment Plan: * c/w current tx and plan * c/w ativan taper, currently @1 mg po TID * No new lab results thus far this weekend * Vitals reviewed and noted below: Selected Entries 03/15/19 03/15/19 03/15/19 06:40 17:39 23:30 Temperature 97.4 F L Pulse Rate 81 80 72 Respiratory 16 Rate Blood Pressure 116/78 143/84 Estimated Date of D/C: 03/21/19
--- NOTE | 2019-03-16 10:49 | CP.PCM.CON ---
<Essie Montes De Oca - Last Filed: 03/18/19 06:56> History of Present Illness - History of Present Illness History of Present Illness: 43 y/o male with PMH of schizophrenia complained of auditory hallucinations for the last few months. States he is supposed to receive an IM med every 3 months to control the hallucinations but has not received it the last 2 times secondary to transportation issues. Patient complains of bilateral foot pain due to long nails, no other pedal complains. Denies SI, HI, SOB, drug or alcohol use, chest pain, cough, congestion, abdominal pain, nausea, vomiting, constipation, diarrhea, fever, chills, or any other associated complaints. Past Patient History - Infectious Disease Hx of Infectious Diseases: None - Tetanus Immunizations Tetanus Immunization: Unknown - Past Medical History & Family History Past Medical History?: Yes - Past Social History Smoking Status: Heavy Smoker > 10 Cigarettes Daily - CARDIAC Hx Hypertension: No - PULMONARY Hx Sleep Apnea: Yes - NEUROLOGICAL Hx Seizures: No - HEENT Hx HEENT Problems: No - RENAL Hx Chronic Kidney Disease: No - ENDOCRINE/METABOLIC Hx Endocrine Disorders: No - HEMATOLOGICAL/ONCOLOGICAL Hx Cancer: No - INTEGUMENTARY Hx Dermatological Problems: No - MUSCULOSKELETAL/RHEUMATOLOGICAL Hx Musculoskeletal Disorders: No Hx Falls: No - GASTROINTESTINAL Hx Gastrointestinal Disorders: No - GENITOURINARY/GYNECOLOGICAL Hx Sexually Transmitted Disorders: No - PSYCHIATRIC Hx Psychophysiologic Disorder: No Hx Depression: Yes Hx Schizophrenia: Yes Hx Substance Use: Yes - SURGICAL HISTORY Hx Surgeries: No - ANESTHESIA Hx Anesthesia: No Hx Anesthesia Reactions: No Hx Malignant Hyperthermia: No Meds Allergies/Adverse Reactions: Allergies Allergy/AdvReac Type Severity Reaction Status Date / Time No Known Allergies Allergy Verified 03/13/19 00:56 - Medications Medications: Current Medications Acetaminophen (Tylenol 325mg Tab) 650 mg PO Q6H PRN PRN Reason: Pain, moderate (4-7) Al Hydrox/Mg Hydrox/Simethicone (Maalox Plus 30 Ml) 30 ml PO DAILY PRN PRN Reason: Upset Stomach Albuterol (Ventolin Hfa 90 Mcg/Actuation (8 G)) 2 puff IH [id number] PRN PRN Reason: Wheezing Benztropine Mesylate (Cogentin) 1 mg PO BID GONZALO Last Admin: 03/16/19 08:45 Dose: 1 mg Famotidine (Pepcid) 20 mg PO 1000,2200 [facility] Last Admin: 03/16/19 10:29 Dose: 20 mg Fluticasone Propionate (Flonase) 1 actuation NS HS [facility] Last Admin: 03/15/19 21:07 Dose: 1 spr Folic Acid (Folic Acid) 1 mg PO DAILY [facility] Last Admin: 03/16/19 08:41 Dose: 1 mg Haloperidol (Haldol) 5 mg PO Q6 PRN; Protocol PRN Reason: Agitation Haloperidol Lactate (Haldol) 5 mg IM Q6 PRN; Protocol PRN Reason: Agitation Lorazepam (Ativan) 2 mg PO Q6H PRN; Protocol PRN Reason: Anxiety Lorazepam (Ativan) 2 mg IM Q6H PRN; Protocol PRN Reason: Anxiety Lorazepam (Ativan) 1 mg PO TID [facility]; Protocol Last Admin: 03/16/19 08:42 Dose: 1 mg Magnesium Hydroxide (Milk Of Magnesia) 30 ml PO DAILY PRN PRN Reason: Constipation Multivitamins/Minerals (Therapeutic-M Tab) 1 tab PO DAILY [facility] Last Admin: 03/16/19 08:42 Dose: 1 tab Risperidone (Risperdal Tab) 2 mg PO AMHS [facility]; Protocol Last Admin: 03/16/19 10:29 Dose: 2 mg Fluticasone/Salmeterol (Advair Diskus 250/50) 1 puff IH Q12 [facility] Last Admin: 03/16/19 06:36 Dose: 1 puff Sertraline HCl (Zoloft) 50 mg PO DAILY [facility] Last Admin: 03/16/19 08:42 Dose: 50 mg Thiamine HCl (Vitamin B1 Tab) 100 mg PO DAILY [facility] Last Admin: 03/16/19 08:41 Dose: 100 mg Trazodone HCl (Desyrel) 100 mg PO HS [facility] Last Admin: 03/15/19 21:07 Dose: 100 mg Physical Exam - Constitutional Appears: Well, Non-toxic, No Acute Distress - Head Exam Head Exam: ATRAUMATIC - Eye Exam Eye Exam: Normal appearance - Extremities Exam Additional comments: Vascular: DP/PT 2/4 b/l, no erythema, CFT <3 secs x 10, TG warm to cool derm: no open lesions, elongated thickened toenails x 10, no clinical signs of infection ortho: pain on palpation to the hallucal toenails, hallucal toenails noted to be digging into the medial aspect of the second toe, no open lesions noted. neuro: protective sensation intact via ipswich 4./4 b/l Results - Vital Signs Recent Vital Signs: Last Vital Signs Temp 97.8 F 03/16/19 08:12 Pulse 67 03/16/19 08:12 Resp 20 03/16/19 08:12 BP 145/65 03/16/19 08:12 Pulse Ox 95 03/13/19 00:20 - Labs Result Diagrams: 03/12/19 22:58 03/12/19 22:58 Assessment & Plan - Assessment and Plan (Free Text) Assessment: 43 yo male seen and evaluated with complains of elongated painful toenails x 10 Plan: Patient seen and evaluated chart reviewed Nails debrided x 10 using sterile nail nippers; patient tolerated without any complications podiatry will now sign off. please reconsult if necessary thank you <Kalin Mayers - Last Filed: 03/19/19 11:17> Meds - Medications Medications: Current Medications Acetaminophen (Tylenol 325mg Tab) 650 mg PO Q6H PRN PRN Reason: Pain, moderate (4-7) Al Hydrox/Mg Hydrox/Simethicone (Maalox Plus 30 Ml) 30 ml PO DAILY PRN PRN Reason: Upset Stomach Albuterol (Ventolin Hfa 90 Mcg/Actuation (8 G)) 2 puff IH [id number] PRN PRN Reason: Wheezing Benztropine Mesylate (Cogentin) 1 mg PO AMHS [facility] Last Admin: 03/19/19 09:44 Dose: 1 mg Famotidine (Pepcid) 20 mg PO 1000,2200 [facility] Last Admin: 03/19/19 09:44 Dose: 20 mg Fluticasone Propionate (Flonase) 1 actuation NS HS [facility] Last Admin: 03/18/19 21:20 Dose: 1 spr Folic Acid (Folic Acid) 1 mg PO DAILY [facility] Last Admin: 03/19/19 09:44 Dose: 1 mg Haloperidol (Haldol) 5 mg PO Q6 PRN; Protocol PRN Reason: Agitation Haloperidol Lactate (Haldol) 5 mg IM Q6 PRN; Protocol PRN Reason: Agitation Lorazepam (Ativan) 2 mg PO Q6H PRN; Protocol PRN Reason: Anxiety Lorazepam (Ativan) 2 mg IM Q6H PRN; Protocol PRN Reason: Anxiety Lorazepam (Ativan) 1 mg PO AMHS [facility]; Protocol Last Admin: 03/19/19 09:44 Dose: 1 mg Magnesium Hydroxide (Milk Of Magnesia) 30 ml PO DAILY PRN PRN Reason: Constipation Multivitamins/Minerals (Therapeutic-M Tab) 1 tab PO DAILY [facility] Last Admin: 03/19/19 09:46 Dose: 1 tab Risperidone (Risperdal Tab) 3 mg PO HS [facility]; Protocol Last Admin: 03/18/19 21:21 Dose: 3 mg Risperidone (Risperdal Tab) 2 mg PO QAM [facility]; Protocol Last Admin: 03/19/19 09:45 Dose: 2 mg Fluticasone/Salmeterol (Advair Diskus 250/50) 1 puff IH Q12 [facility] Last Admin: 03/19/19 06:21 Dose: 1 puff Sertraline HCl (Zoloft) 100 mg PO DAILY [facility] Last Admin: 03/19/19 09:44 Dose: 100 mg Thiamine HCl (Vitamin B1 Tab) 100 mg PO DAILY [facility] Last Admin: 03/19/19 09:45 Dose: 100 mg Trazodone HCl (Desyrel) 100 mg PO HS [facility] Last Admin: 03/18/19 21:21 Dose: 100 mg Results - Vital Signs Recent Vital Signs: Last Vital Signs Temp 98.4 F 03/19/19 06:34 Pulse 70 03/19/19 06:34 Resp 18 03/19/19 06:34 BP 124/85 03/19/19 06:34 Pulse Ox 95 03/13/19 00:20 - Labs Result Diagrams: 03/12/19 22:58 03/12/19 22:58 Attending/Attestation - Attestation I have personally seen and examined this patient.: Yes I have fully participated in the care of the patient.: Yes I have reviewed all pertinent clinical information: Yes
--- NOTE | 2019-03-16 11:04 | PN ---
DATE: 03/16/2019 PULMONARY PROGRESS NOTE REFERRING PHYSICIAN: Renetta Mendoza MD SUBJECTIVE: The patient was seen lying bed, asleep, easily arousable, in no acute distress, reports wearing CPAP machine last night. Reports that he tolerated CPAP machine well last night. Denies any coughing, shortness of breath, headache, rhinitis, chest pain, abdominal pain, nausea, vomiting, diarrhea, leg pain or leg swelling. Reports he would like to have his toenails clipped. OBJECTIVE: GENERAL: No acute distress. VITAL SIGNS: Blood pressure 145/65, pulse 67, and temperature 97.8. HEENT: Moist mucous membranes. Mallampati score of 4. Crowded airway. NECK: Supple. No JVD. CARDIOVASCULAR: S1 and S2. RESPIRATORY: Fair airflow bilaterally. ABDOMEN: Soft and nontender. No distention. No organomegaly. EXTREMITIES: No bilateral lower extremity edema. NEUROLOGIC: Asleep, easily arousable, verbal. Following commands. MEDICATIONS: Reviewed. Tylenol 650 every 6 hours p.r.n., Maalox 30 mL p.o. daily p.r.n., Ventolin HFA two puffs inhalation every 4 hours, Cogentin 1 mg p.o. twice a day, Pepcid 20 mg twice a day, Flonase nasal spray at bedtime, folic acid 1 mg daily, Haldol 5 mg every 6 hours p.r.n., Haldol 5 mg IM every 6 hours p.r.n., Ativan 2 mg p.o. every 6 hours p.r.n., Ativan 2 mg IM every 6 hours p.r.n., Ativan 1 mg three times a day, milk of magnesia 30 mL daily p.r.n., multivitamins and minerals one tab daily, Risperdal 2 mg a.m. and h.s., Advair Diskus one puff inhalation every 12 hours, Zoloft 50 mg daily, vitamin B 100 mg daily, and trazodone 100 mg at bedtime. LABORATORY DATA: Reviewed. No new labs. ASSESSMENT AND PLAN: Sleep apnea syndrome, schizophrenia, active smoker, suspected chronic lung disease. Continue to encourage continuous positive airway pressure use at bedtime, sleep apnea precaution, and head of bed elevated at 45 degrees. Continue Advair and Ventolin inhalers for chronic lung disease. Continue gastric prophylaxis. Gastroesophageal reflux disease precautions. Recommend smoking cessation. We will consult Dr. Skinner, Podiatry consulted for toenail clipping. Case was discussed with nursing staff. Recommend the patient have full pulmonary function test and sleep study as outpatient. The patient was seen and examined with Dr. Bonilla. Discussed assessment and plan as described above. The patient was seen and examined with Roland Rajan, nurse practitioner. Discussed assessment and plan as described above. Thank you for this consult. We will follow with you. Roland Rajan APN Anselmo Bonilla MD [facility]
[2019-03-16] MEDS: Fluticasone Nasal 50 mcg/Spray NS SCH (21:15)
[2019-03-17] MEDS: Fluticasone-Salmeterol 250-50mcg Diskus IH SCH ×2 (06:29→17:37)
--- NOTE | 2019-03-17 07:51 | PN ---
DATE: 03/17/2019 REFERRING PHYSICIAN: Renetta Mendoza MD SUBJECTIVE: The patient was seen lying in bed, asleep, easily arousable. Nursing staff reports the patient wore CPAP machine for about an hour last night. The patient does not report any complaints with CPAP machine. No headache, rhinitis, cough, shortness of breath, chest pain, abdominal pain, nausea, vomiting, diarrhea, leg pain or leg swelling reported. OBJECTIVE: VITAL SIGNS: Blood pressure 140/80, pulse 70, and temperature 97.8. GENERAL: No acute distress. HEENT: Moist mucous membranes. Mallampati score of 4. Crowded airway. NECK: Supple. No JVD. LUNGS: Fair airflow bilaterally. CARDIOVASCULAR: S1 and S2. ABDOMEN: Soft and nontender. No distention. No organomegaly. EXTREMITIES: No bilateral lower extremity edema. NEUROLOGIC: Asleep, easily arousable, verbal. Following commands. MEDICATIONS: Reviewed. Tylenol 650 every 6 hours p.r.n., Maalox 30 mL p.o. daily, Ventolin HFA two puffs inhalation every 4 hours p.r.n., Cogentin 1 mg twice a day, Pepcid 20 mg twice a day, Flonase nasal spray at bedtime, folic acid 1 mg daily, Haldol 5 mg every 6 hours p.r.n., Haldol 5 mg IM every 6 hours p.r.n., Ativan 2 mg every 6 hours p.r.n., Ativan 2 mg IM every 6 hours p.r.n., Ativan 1 mg in the morning and at bedtime, milk of magnesia 30 mL p.o. daily p.r.n., multivitamins and minerals one tab daily, Risperdal 2 mg in the morning and at bedtime, Advair Diskus one puff inhalation every 12 hours, Zoloft 50 mg daily, thiamine 100 mg daily, trazodone 100 mg at bedtime. LABORATORY DATA: Reviewed. No new labs. IMPRESSION AND PLAN: Sleep apnea syndrome, schizophrenia, active smoker, suspected chronic lung disease, gastroesophageal reflux disease. Continue to encourage CPAP use at bedtime, sleep apnea precautions, head of bed elevated 45 degrees. Gastroesophageal reflux disease precautions. Recommend smoking cessation. Continue Advair and Ventolin inhalers for chronic lung disease. Gastric prophylaxis. Recommend the patient have full pulmonary function test and sleep study as outpatient. The patient was seen and examined with Dr. Bonilla. Discussed assessment and plan as described above. The patient was seen and examined with Roland Rajan, nurse practitioner. Discussed assessment and plan as described above. Thank you for this consult. We will follow with you. Roland Rajan APN Anselmo Bonilla MD
[2019-03-17] MEDS: Multivitamin With Minerals Tab PO SCH (08:33)
--- NOTE | 2019-03-17 08:46 | PCM.PYCHPN ---
Psychiatric Progress Note - Psychiatric Progress Note Patient seen today, length of contact: 30 minutes Problems Identified/Issues Discussed: Patient is a 43 yo single homeless -[place] male with Schizoaffective Disorder-Paranoid type, history of numerous psychiatric admissions, history of poor compliance with medications and aftercare who presented to our Emergency Room complaining of paranoia and auditory hallucinations. I reviewed his prior admission records as well as recent notes on the unit. Patient has had multiple admissions with similar symptoms of paranoia and hallucinations {as well as SI or HI} in context of medication noncompliance. Patient was interviewed privately at bedside. He appears unkempt and preoccupied. His eye contact and focus are poor. He is oriented to month, year and location. Behavior is calm however patient is only superficially engaged during questioning . Affect is guarded and flat. Patient continues to experience intermittent auditory hallucinations, voices that tell patient that he will be harmed. Patient has a history of hearing v oices telling him to hurt others however he denied any CAH over the weekend. On Monday patient told staff he was also experiencing visual hallucinations of "seeing the curtain move and being ripped open". He denied having any VH on Monday during my visit with him. Patient feels paranoid however hallucinations are becoming less frequent, less intense and less distressful with the medications. He denies any side effects except for sedation during the day. Patient explains that he is too tired to engage in activities in the daytime. Other than that, he denies any new discomfort or pain and doesn't appear to be in any physical distress. As per staff patient is unkempt, isolating with very minimal participation in unit activities. He appears guarded and paranoid but has not been agitated or aggressive. There were no behavioral issues over the weekend. Diagnostic Results: Schizophrenia Medication Change: Yes (decreased ativan, changed risperdal dosing) Medical Record Reviewed: Yes Mental Status Examination - Cognitive Function Orientation: Person, Place, Situation Memory: Intact Attention: Poor Concentration: Poor Association: Loose Fund of Knowledge: Poor - Mood Mood: Depressed - Affect Affect: Flat - Formal Thought Process Formal Thought Process: Hallucinations, Delusions, Paranoia - Suicidal Ideation Suicidal Ideation: No - Homicidal Ideation Homicidal Ideation: No Goal/Treatment Plan - Goal/Treatment Plan Need for Continued Stay: Remain at risks for inpatient hospitalization, Severe depression anxiety, Discharge may exacerbated symptoms, Severe functional impairment Progress Toward Problem(s) and Goals/Treatment Plan: * c/w current tx and plan * Appreciate f/u by Falguni on 03/16/19~no new recommendations noted * Risperdal dosing changed from 2 mg po AMHS to 1 mg qAM & 3 mg HS on 03/17/19 to help with daytime sedation. * Ativan decreased to 1 mg po AMHS on 03/17/19, continue with taper which will likely also decrease daytime sedation. * No new lab results this weekend * Vitals reviewed and noted below: Selected Entries 03/16/19 03/16/19 03/16/19 08:12 15:58 22:35 Temperature 97.8 F Pulse Rate 67 98 H Respiratory 20 Rate Blood Pressure 145/65 140/80 Estimated Date of D/C: 03/21/19
[2019-03-17] MEDS: Fluticasone Nasal 50 mcg/Spray NS SCH (21:32)
[2019-03-18] MEDS: Fluticasone-Salmeterol 250-50mcg Diskus IH SCH ×3 (05:33→17:58)
[2019-03-18] MEDS: Multivitamin With Minerals Tab PO SCH (11:09)
--- NOTE | 2019-03-18 13:33 | PN ---
DATE: 03/18/2019 PULMONARY PROGRESS NOTE REFERRING PHYSICIAN: Renetta Mendoza MD SUBJECTIVE: The patient was seen sitting in the room, no acute distress. Reports he did not wear CPAP machine last night. No headache, rhinitis, cough, shortness of breath, chest pain, abdominal pain, nausea, vomiting, diarrhea, leg pain or leg swelling reported. OBJECTIVE: GENERAL: No acute distress. VITAL SIGNS: Blood pressure 129/88, pulse 62, temperature 97.2, and respirations 20. HEENT: Moist mucous membranes. Mallampati score of 4. Crowded airway. NECK: Supple. No JVD. LUNGS: Fair airflow bilaterally. CARDIOVASCULAR: S1 and S2. ABDOMEN: Soft and nontender. No distension. No organomegaly. EXTREMITIES: No bilateral lower extremity edema. NEUROLOGIC: Awake, alert, verbal, following commands. MEDICATIONS: Reviewed. Tylenol 650 every 6 hours p.r.n., Maalox 30 mL p.o. daily p.r.n., Ventolin HFA two puffs every 4 hours p.r.n., Cogentin 1 mg in the morning and evening, Pepcid 20 mg twice a day, Flonase nasal spray at bedtime, folic acid 1 mg p.o. daily, Haldol 5 mg every 6 hours p.r.n., Haldol 5 mg IM every 6 hours p.r.n., Ativan 2 mg every 6 hours p.r.n., Ativan 2 mg IM every 6 hours p.r.n., Ativan 1 mg p.o. a.m. and at bedtime, milk of magnesia 30 mL p.o. daily p.r.n., multivitamins and minerals one tab daily, Risperdal 1 mg in the morning, Risperdal 3 mg at bedtime, Advair Diskus one puff inhalation every 12 hours, Zoloft 50 mg daily, thiamine 100 mg daily, and trazodone 100 mg at bedtime. LABORATORY DATA: Reviewed. No new labs. IMPRESSION AND PLAN: Sleep apnea syndrome, schizophrenia, active smoker, suspected chronic lung disease and gastroesophageal reflux disease. Discussed with the patient sleep apnea and reason for using CPAP machine. The patient verbalizes, but he would try CPAP machine again tonight. Continue to encourage CPAP use at bedtime, sleep apnea precaution, head of bed elevated at 45 degrees, GERD precautions. Continue smoking cessation. Continue Advair and Ventolin inhalers for chronic lung disease, gastric prophylaxis. Recommend the patient have full pulmonary function tests and sleep study as outpatient. The patient was seen and examined with Dr. Bonilla. Discussed assessment and plan as described above. The patient was seen and examined with Roland Rajan, nurse practitioner. Discussed assessment and plan as described above. Thank you for this consult. We will follow with you. Roland Rajan APN Anselmo Bonilla MD
--- NOTE | 2019-03-18 17:45 | PCM.PYCHPN ---
Psychiatric Progress Note - Psychiatric Progress Note Patient seen today, length of contact: 30 minutes Patient Chief Complaint: "voices are gone.." Problems Identified/Issues Discussed: Risk/benefits/alternatives of medications, treatment plan, medical issues. Medical Problems: Patient complains of feeling that he is not able to predict at the nighttime, possibly patient has sleep apnea, GERD, obesity. Diagnostic Results: 03/12/19 22:58 03/12/19 22:58 Lab Results 03/13/19 07:30: RPR Nonreactive 03/13/19 07:30: TSH 3rd Generation 1.39 03/13/19 07:30: Fasting Glucose 120 H, Triglycerides 67, Cholesterol 151, LDL Cholesterol Direct 96, HDL Cholesterol 34 03/12/19 22:58: Alcohol, Quantitative < 10 03/12/19 22:58: Salicylates < 1 L, Acetaminophen < 10.0 L 03/12/19 22:58: Sodium 140, Potassium 3.7, Chloride 100, Carbon Dioxide 30, Anion Gap 14, BUN 17, Creatinine 1.2, Est GFR ( Amer) > 60, Est GFR (Non- Af Amer) > 60, Random Glucose 90, Calcium 9.3, Total Bilirubin 0.3, AST 28, ALT 15, Alkaline Phosphatase 90, NT-Pro-B Natriuret Pep 11.7, Total Protein 7.8, Albumin 4.3, Globulin 3.5, Albumin/Globulin Ratio 1.2 03/12/19 22:58: WBC 8.4 D, RBC 5.56, Hgb 14.6 D, Hct 44.4, MCV 79.9 L, MCH 26.3, MCHC 32.9, RDW 15.5 H, Plt Count 309, MPV 10.4, Neut % (Auto) 67.6, Lymph % (Auto) 19.0 L, [place] % (Auto) 11.7 H, Eos % (Auto) 1.6, Baso % (Auto) 0.1, Lymph # (Auto) 1.6, [place] # (Auto) 1.0 H, Eos # (Auto) 0.1, Baso # (Auto) 0.01, Absolute Neuts (auto) 5.67 03/12/19 21:20: Urine Opiates Screen Negative, Urine Methadone Screen Negative, Ur Barbiturates Screen Negative, Ur Phencyclidine Scrn Negative, Ur Amphetamines Screen Negative, U Benzodiazepines Scrn Negative, U Oth Cocaine Metabols Negative, U Cannabinoids Screen Negative 03/12/19 21:20: Urine Color Yellow, Urine Appearance Clear, Urine pH 5.5, Ur Specific [place] >= 1.030, Urine Protein Trace H, Urine Glucose (UA) Negative, Urine Ketones Trace H, Urine Blood Negative, Urine Nitrate Negative, Urine Bilirubin Negative, Urine Urobilinogen 0.2, Ur Leukocyte Esterase Negative, Urine RBC 0 - 2, Urine WBC 0 - 2, Ur Epithelial Cells 0 - 2, Urine Bacteria Few Vital Signs Temp Pulse Resp BP Pulse Ox 03/14/19 06:34 97.2 F L 86 18 125/81 03/13/19 16:00 97 H 113/73 03/13/19 07:10 98.3 F 89 18 125/79 03/13/19 00:20 98.7 F 99 H 18 134/67 95 03/12/19 23:12 98.7 F 103 H 18 109/67 98 03/12/19 21:06 98 F 115 H 19 116/63 97 DSM 5 Symptoms Update: Shortly, patient is a 43-year old -[place] male, reported history of schizophrenia versus schizoaffective disorder, multiple previous psychiatric admissions including this facility, patient is homeless, has history of being noncompliant with her medications, presented in the emergency room complaining of paranoia, auditory hallucinations, patient requires further evaluation, stabilization, observation, medications adjustment. Patient was seen and examined today at the treatment team meeting, patient said that she is feeling better, patient reported that the voices are "gone", patient presented with flat affect, disengaged, just yes-no answers only. Patient still presented to be paranoid, but more social. As per staff patient is self isolating, but more visible on the unit no agitated no aggressive. So far patient tolerates medications well, no side effects observed or reported, aims 0, no EPS. Impression: Schizophrenia Medication Change: Yes (zoloft increased, risperdal increased) Medical Record Reviewed: Yes Mental Status Examination - Cognitive Function Orientation: Person, Place, Situation Memory: Intact Attention: Poor Concentration: Poor Association: Loose Fund of Knowledge: Poor - Mood Mood: Depressed - Affect Affect: Flat - Formal Thought Process Formal Thought Process: Hallucinations, Delusions, Paranoia - Suicidal Ideation Suicidal Ideation: No - Homicidal Ideation Homicidal Ideation: No Goal/Treatment Plan - Goal/Treatment Plan Need for Continued Stay: Remain at risks for inpatient hospitalization, Severe depression anxiety, Discharge may exacerbated symptoms, Severe functional impairment Progress Toward Problem(s) and Goals/Treatment Plan: Milieu/structure/supportive therapy SW consultation for discharge plan and social issues Med management pt responded well on following meds in the past: Risperdal 2 mg at the morning time and 3gm at the nighttime for psychosis Cogentin 1 mg BID for EPS prophylaxis Zoloft 50 mg po daily for depression and anxiety Trazodone Multivitamins, thiamine, folic acid ativan is on tapering dose 1mg po tid for possible withdrawal symptoms ECT discussed Family involvement Follow up on labs Will monitor closely Pt was educated about risk/benefits and alternatives of medications, coping strategies (safety plan, suicide prevention), relapse prevention, importance of follow up with psychiatrist and therapist, stay away from drugs/alcohol/smoking Estimated Date of D/C: 03/21/19
[2019-03-18] MEDS: Fluticasone Nasal 50 mcg/Spray NS SCH (21:20)
[2019-03-19] MEDS: Fluticasone-Salmeterol 250-50mcg Diskus IH SCH ×2 (06:21→18:24)
[2019-03-19] MEDS: Multivitamin With Minerals Tab PO SCH (09:46)
--- NOTE | 2019-03-19 10:57 | PN ---
DATE: 03/19/2019 PULMONARY PROGRESS NOTE REFERRING PHYSICIAN: Renetta Mendoza MD SUBJECTIVE: The patient was seen lying in bed asleep, easily arousable. No acute distress. Reports he did not wear CPAP machine last night. The patient reports that he is having difficulty staying asleep when he uses CPAP machine. No headache, rhinitis, cough, shortness of breath, chest pain, abdominal pain, nausea, vomiting, diarrhea, leg pain or leg swelling reported. OBJECTIVE: GENERAL: No acute distress. VITAL SIGNS: Blood pressure 124/85, pulse 70 and temperature 98.4. HEENT: Moist mucous membranes. Mallampati score of 4. Crowded airway. NECK: Supple. No JVD. LUNGS: Fair airflow bilaterally. CARDIOVASCULAR: S1 and S2. ABDOMEN: Soft and nontender. No distension. No organomegaly. EXTREMITIES: No bilateral lower extremity edema. NEUROLOGIC: Awake, alert and verbal. Following commands. MEDICATIONS: Reviewed. Tylenol 650 every 6 hours p.r.n. for moderate pain, Maalox 30 mL p.o. daily p.r.n., Ventolin HFA two puffs every 4 hours p.r.n., Cogentin 1 mg in the morning and at bedtime, Pepcid 20 mg twice a day, Flonase nasal spray at bedtime, folic acid 1 mg daily, Haldol 5 mg every 6 hours p.r.n., Haldol 5 mg IM every 6 hours p.r.n., Ativan 2 mg p.o. every 6 hours p.r.n., Ativan 2 mg IM every 6 hours p.r.n., Ativan 1 mg in the morning and at bedtime, milk of magnesia 30 mL p.o. daily p.r.n., multivitamins and minerals one tab daily, Risperdal 3 mg p.o. at bedtime, Risperdal 2 mg daily, Advair Diskus one puff inhalation every 12 hours, Zoloft 100 mg daily, thiamine 100 mg daily, and trazodone 100 mg at bedtime. LABORATORY DATA: Reviewed. No new labs. IMPRESSION AND PLAN: Sleep apnea syndrome, schizophrenia, active smoker, suspected chronic lung disease, gastroesophageal reflux disease and obesity. Continue to encourage continuous positive airway pressure use at bedtime, sleep apnea precaution, head of bed elevated at 45 degrees and gastroesophageal reflux disease precautions. Continue smoking cessations. Continue Ativan and Ventolin for chronic lung disease. Continue gastric prophylaxis. We recommend weight loss, diet and exercise for this patient. Recommend full pulmonary function test to evaluate chronic lung disease as outpatient and sleep study to evaluate sleep apnea syndrome as outpatient. The patient was seen and examined with Dr. Bonilla. Discussed assessment and plan as described above. The patient was seen and examined with Roland Rajan, nurse practitioner. Discussed assessment and plan as described above. Thank you for this consult and we will follow with you. Roland Rajan APN Anselmo Bonilla MD LATANYA
--- NOTE | 2019-03-19 17:21 | PCM.PYCHPN ---
Psychiatric Progress Note - Psychiatric Progress Note Patient seen today, length of contact: 30 minutes Patient Chief Complaint: "I heard voices, but it is better..." Problems Identified/Issues Discussed: Risk/benefits/alternatives of medications, treatment plan, medical issues. Medical Problems: Patient complains of feeling that he is not able to predict at the nighttime, possibly patient has sleep apnea, GERD, obesity. Diagnostic Results: 03/12/19 22:58 03/12/19 22:58 Lab Results 03/13/19 07:30: RPR Nonreactive 03/13/19 07:30: TSH 3rd Generation 1.39 03/13/19 07:30: Fasting Glucose 120 H, Triglycerides 67, Cholesterol 151, LDL Cholesterol Direct 96, HDL Cholesterol 34 03/12/19 22:58: Alcohol, Quantitative < 10 03/12/19 22:58: Salicylates < 1 L, Acetaminophen < 10.0 L 03/12/19 22:58: Sodium 140, Potassium 3.7, Chloride 100, Carbon Dioxide 30, Anion Gap 14, BUN 17, Creatinine 1.2, Est GFR ( Amer) > 60, Est GFR (Non- Af Amer) > 60, Random Glucose 90, Calcium 9.3, Total Bilirubin 0.3, AST 28, ALT 15, Alkaline Phosphatase 90, NT-Pro-B Natriuret Pep 11.7, Total Protein 7.8, Al bumin 4.3, Globulin 3.5, Albumin/Globulin Ratio 1.2 03/12/19 22:58: WBC 8.4 D, RBC 5.56, Hgb 14.6 D, Hct 44.4, MCV 79.9 L, MCH 26.3, MCHC 32.9, RDW 15.5 H, Plt Count 309, MPV 10.4, Neut % (Auto) 67.6, Lymph % (Auto) 19.0 L, [place] % (Auto) 11.7 H, Eos % (Auto) 1.6, Baso % (Auto) 0.1, Lymph # (Auto) 1.6, [place] # (Auto) 1.0 H, Eos # (Auto) 0.1, Baso # (Auto) 0.01, Absolute Neuts (auto) 5.67 03/12/19 21:20: Urine Opiates Screen Negative, Urine Methadone Screen Negative, Ur Barbiturates Screen Negative, Ur Phencyclidine Scrn Negative, Ur Amphetamines Screen Negative, U Benzodiazepines Scrn Negative, U Oth Cocaine Metabols Negative, U Cannabinoids Screen Negative 03/12/19 21:20: Urine Color Yellow, Urine Appearance Clear, Urine pH 5.5, Ur Specific [place] >= 1.030, Urine Protein Trace H, Urine Glucose (UA) Negative, Urine Ketones Trace H, Urine Blood Negative, Urine Nitrate Negative, Urine Bilirubin Negative, Urine Urobilinogen 0.2, Ur Leukocyte Esterase Negative, Urine RBC 0 - 2, Urine WBC 0 - 2, Ur Epithelial Cells 0 - 2, Urine Bacteria Few Vital Signs Temp Pulse Resp BP Pulse Ox 03/14/19 06:34 97.2 F L 86 18 125/81 03/13/19 16:00 97 H 113/73 03/13/19 07:10 98.3 F 89 18 125/79 03/13/19 00:20 98.7 F 99 H 18 134/67 95 03/12/19 23:12 98.7 F 103 H 18 109/67 98 03/12/19 21:06 98 F 115 H 19 116/63 97 DSM 5 Symptoms Update: Shortly, patient is a 43-year old -[place] male, reported history of don izophrenia versus schizoaffective disorder, multiple previous psychiatric admissions including this facility, patient is homeless, has history of being noncompliant with her medications, presented in the emergency room complaining of paranoia, auditory hallucinations, patient requires further evaluation, stabilization, observation, medications adjustment. Patient was seen and examined today next to the nursing station, hygiene is improving, patient was observed in groups today (first day), patient reported that the voices are getting better, patient still presented to be paranoid, but more social. As per staff patient is self isolating, but more visible on the unit no agitated no aggressive. So far patient tolerates medications well, no side effects observed or reported, aims 0, no EPS. Impression: Schizophrenia Medication Change: Yes (zoloft increased, risperdal increased 03/18/19) Medical Record Reviewed: Yes Mental Status Examination - Cognitive Function Orientation: Person, Place, Situation Memory: Intact Attention: Poor Concentration: Poor Association: Loose Fund of Knowledge: Poor - Mood Mood: Depressed - Affect Affect: Flat - Formal Thought Process Formal Thought Process: Hallucinations, Delusions, Paranoia - Suicidal Ideation Suicidal Ideation: No - Homicidal Ideation Homicidal Ideation: No Goal/Treatment Plan - Goal/Treatment Plan Need for Continued Stay: Remain at risks for inpatient hospitalization, Severe depression anxiety, Discharge may exacerbated symptoms, Severe functional impairment Progress Toward Problem(s) and Goals/Treatment Plan: Milieu/structure/supportive therapy SW consultation for discharge plan and social issues Med management pt responded well on following meds in the past: Risperdal 2 mg at the morning time and 3gm at the nighttime for psychosis Cogentin 1 mg BID for EPS prophylaxis Zoloft 100 mg po daily for depression and anxiety Trazodone Multivitamins, thiamine, folic acid ativan is on tapering dose 1mg po tid for possible withdrawal symptoms ECT discussed Family involvement Follow up on labs Will monitor closely Pt was educated about risk/benefits and alternatives of medications, coping strategies (safety plan, suicide prevention), relapse prevention, importance of follow up with psychiatrist and therapist, stay away from drugs/alcohol/smoking Estimated Date of D/C: 03/21/19
[2019-03-19] MEDS: Fluticasone Nasal 50 mcg/Spray NS SCH (21:36)
[2019-03-20] MEDS: Fluticasone-Salmeterol 250-50mcg Diskus IH SCH ×2 (06:25→17:39)
[2019-03-20] MEDS: Multivitamin With Minerals Tab PO SCH (09:33)
--- NOTE | 2019-03-20 12:23 | PCM.BM ---
<Pari Velázquez Y - Last Filed: 03/20/19 12:22> Treatment Plan Problems - Problems identified on initial assessmt Medication non-adherence Date Initiated: 03/13/19 Time Initiated: Assessment reference: NA Status: Active Auditory Hallucinations Date Initiated: 03/13/19 Time Initiated: Assessment reference: NA Status: Active Altered thought process Date Initiated: 03/13/19 Time Initiated: Assessment reference: NA Status: Active Ineffective coping Date Initiated: 03/13/19 Time Initiated: Assessment reference: NA Status: Active Treatment assets and liabiliti Patient Assests: cooperative, educated, motivated, self-reliant, ADL independent, physically healthy, negotiates basic needs, good past tx response, cognitively intact Patient Liabilities: financial problems (Homeless) - Milieu Protocol Maintain good personal hygiene: daily Encourage regular showers, daily Remind patient to perform daily oral care, daily Assist patient to perform ADL's Conduct patient checks and document Observation sheet: Q15 minutes Maintain personal safety: every shift Educate patient to report safety concerns to staff, every shift Monitor environment for contraband/sharps Medication safety: Monitor for expected outcome, potential side effects: every shift, Assess barriers to learning: every shift, Assess readiness for medication education: every shift Milieu Narrative: Milieu/structure/supportive therapy SW consultation for discharge plan and social issues Med management pt responded well on following meds in the past: Risperdal 2 mg at the morning time and 3gm at the nighttime for psychosis Cogentin 1 mg BID for EPS prophylaxis Zoloft 100 mg po daily for depression and anxiety Trazodone Multivitamins, thiamine, folic acid ativan is on tapering dose 1mg po tid for possible withdrawal symptoms ECT discussed Family involvement Follow up on labs Will monitor closely Pt was educated about risk/benefits and alternatives of medications, coping strategies (safety plan, suicide prevention), relapse prevention, importance of follow up with psychiatrist and therapist, stay away from drugs/alcohol/smoking Family Contact Family involvement: Famliy/SO not involved - Outside Agency [facility] Care involvment: Following patient during stay, Information-sharing - Goals for Treatment Patient goals for treatment: "I need to calm down these voices." Discharge/Continuing Care - Education Needs Education Needs: Patient Medication, Patient Diagnosis/Disease Process, Patient Coping Skills, Patient Community resources, Patient Activities of Daily Living, Patient Health Practices/Safety, Patient Aftercare Safety Plan - Discharge Discharge Criteria: Tolerates medication w/o severe side effects, Normal sleep pattern, Ability to care for self, No longer exhibiting s/s of withdrawal, Reduction of target symptoms Discharge to:: Home, Long-Term - Treatment Team Participation Patient/Family/SO Statement: Milieu/structure/supportive therapy SW consultation for discharge plan and social issues Med management pt responded well on following meds in the past: Risperdal 2 mg at the morning time and 3gm at the nighttime for psychosis Cogentin 1 mg BID for EPS prophylaxis Zoloft 100 mg po daily for depression and anxiety Trazodone Multivitamins, thiamine, folic acid ativan is on tapering dose 1mg po tid for possible withdrawal symptoms ECT discussed Family involvement Follow up on labs Will monitor closely Pt was educated about risk/benefits and alternatives of medications, coping strategies (safety plan, suicide prevention), relapse prevention, importance of follow up with psychiatrist and therapist, stay away from drugs/alcohol/smoking Treatment Plan Review - Problem Medication non-adherence Time Initiated: : Auditory Hallucinations Time Initiated: : Altered thought process Time Initiated: 01:27 Ineffective coping Time Initiated: 01:27 <Renetta Mendoza - Last Filed: 03/20/19 14:20> - Diagnosis (1) Alcohol abuse Status: Acute Interventions: 03/20/19 14:20 Patient did not exhibit any alcohol withdrawal symptoms, patient is on multivitamins, folic acid, thiamine (2) Schizoaffective disorder Status: Chronic Interventions: 03/20/19 14:20 Patient is compliant with her medications, psychosis is improving, no aggression, no agitation, patient is socially appropriate Denied thoughts of harming himself or others denied intent or plan Discharge planning <Sulma Gillis - Last Filed: 03/20/19 15:11>
--- NOTE | 2019-03-20 14:25 | PCM.PYCHPN ---
Psychiatric Progress Note - Psychiatric Progress Note Patient seen today, length of contact: 30 minutes Patient Chief Complaint: "I heard voices, but it is better..." Problems Identified/Issues Discussed: Risk/benefits/alternatives of medications, treatment plan, medical issues. Medical Problems: Patient complains of feeling that he is not able to predict at the nighttime, possibly patient has sleep apnea, GERD, obesity. Diagnostic Results: 03/12/19 22:58 03/12/19 22:58 Lab Results 03/13/19 07:30: RPR Nonreactive 03/13/19 07:30: TSH 3rd Generation 1.39 03/13/19 07:30: Fasting Glucose 120 H, Triglycerides 67, Cholesterol 151, LDL Cholesterol Direct 96, HDL Cholesterol 34 03/12/19 22:58: Alcohol, Quantitative < 10 03/12/19 22:58: Salicylates < 1 L, Acetaminophen < 10.0 L 03/12/19 22:58: Sodium 140, Potassium 3.7, Chloride 100, Carbon Dioxide 30, Anion Gap 14, BUN 17, Creatinine 1.2, Est GFR ( Amer) > 60, Est GFR (Non- Af Amer) > 60, Random Glucose 90, Calcium 9.3, Total Bilirubin 0.3, AST 28, ALT 15, Alkaline Phosphatase 90, NT-Pro-B Natriuret Pep 11.7, Total Protein 7.8, Al bumin 4.3, Globulin 3.5, Albumin/Globulin Ratio 1.2 03/12/19 22:58: WBC 8.4 D, RBC 5.56, Hgb 14.6 D, Hct 44.4, MCV 79.9 L, MCH 26.3, MCHC 32.9, RDW 15.5 H, Plt Count 309, MPV 10.4, Neut % (Auto) 67.6, Lymph % (Auto) 19.0 L, [place] % (Auto) 11.7 H, Eos % (Auto) 1.6, Baso % (Auto) 0.1, Lymph # (Auto) 1.6, [place] # (Auto) 1.0 H, Eos # (Auto) 0.1, Baso # (Auto) 0.01, Absolute Neuts (auto) 5.67 03/12/19 21:20: Urine Opiates Screen Negative, Urine Methadone Screen Negative, Ur Barbiturates Screen Negative, Ur Phencyclidine Scrn Negative, Ur Amphetamines Screen Negative, U Benzodiazepines Scrn Negative, U Oth Cocaine Metabols Negative, U Cannabinoids Screen Negative 03/12/19 21:20: Urine Color Yellow, Urine Appearance Clear, Urine pH 5.5, Ur Specific [place] >= 1.030, Urine Protein Trace H, Urine Glucose (UA) Negative, Urine Ketones Trace H, Urine Blood Negative, Urine Nitrate Negative, Urine Bilirubin Negative, Urine Urobilinogen 0.2, Ur Leukocyte Esterase Negative, Urine RBC 0 - 2, Urine WBC 0 - 2, Ur Epithelial Cells 0 - 2, Urine Bacteria Few Vital Signs Temp Pulse Resp BP Pulse Ox 03/14/19 06:34 97.2 F L 86 18 125/81 03/13/19 16:00 97 H 113/73 03/13/19 07:10 98.3 F 89 18 125/79 03/13/19 00:20 98.7 F 99 H 18 134/67 95 03/12/19 23:12 98.7 F 103 H 18 109/67 98 03/12/19 21:06 98 F 115 H 19 116/63 97 DSM 5 Symptoms Update: Shortly, patient is a 43-year old -[place] male, reported history of don izophrenia versus schizoaffective disorder, multiple previous psychiatric admissions including this facility, patient is homeless, has history of being noncompliant with her medications, presented in the emergency room complaining of paranoia, auditory hallucinations, patient requires further evaluation, stabilization, observation, medications adjustment. Patient was seen and examined today at the treatment team meeting, patient presented with somewhat improved personal hygiene, but still pt seems to be careless about his appearance. pt asked intelligent questions about medicaitons and d/c planning. Patient reported that his voices are improving, patient reported at times he feels depressed, denied feeling hopelessness or helplessness denied thoughts of harming himself or others. As per staff patient started to participate in unit activities, was observed to be in groups, more visible on the unit no agitated no aggressive. So far patient tolerates medications well, no side effects observed or reported, aims 0, no EPS. Impression: Schizophrenia Medication Change: Yes (Ativan decreased) Medical Record Reviewed: Yes Mental Status Examination - Cognitive Function Orientation: Person, Place, Situation Memory: Intact Attention: Poor (Somewhat better) Concentration: Poor (Improving) Association: Loose (Baseline) Fund of Knowledge: WNL - Mood Mood: Depressed - Affect Affect: Flat - Formal Thought Process Formal Thought Process: Hallucinations (Improving), Delusions (Improving), Paranoia - Suicidal Ideation Suicidal Ideation: No - Homicidal Ideation Homicidal Ideation: No Goal/Treatment Plan - Goal/Treatment Plan Need for Continued Stay: Remain at risks for inpatient hospitalization (Improving), Severe depression anxiety, Discharge may exacerbated symptoms, Severe functional impairment Progress Toward Problem(s) and Goals/Treatment Plan: Milieu/structure/supportive therapy SW consultation for discharge plan and social issues Med management pt responded well on following meds in the past: Risperdal 2 mg at the morning time and 3gm at the nighttime for psychosis Cogentin 1 mg BID for EPS prophylaxis Zoloft 100 mg po daily for depression and anxiety Trazodone Multivitamins, thiamine, folic acid ativan is on tapering dose 1mg po tid for possible withdrawal symptoms ECT discussed Family involvement Follow up on labs Will monitor closely Pt was educated about risk/benefits and alternatives of medications, coping strategies (safety plan, suicide prevention), relapse prevention, importance of follow up with psychiatrist and therapist, stay away from drugs/alcohol/smoking Estimated Date of D/C: 03/21/19
--- NOTE | 2019-03-20 14:48 | PN ---
DATE: 03/20/2019 PULMONARY PROGRESS NOTE REFERRING PHYSICIAN: Renetta Mendoza MD SUBJECTIVE: The patient was seen. No acute distress. No overnight events reported. Reports did not using CPAP machine last night. Reports feeling well today. No headache, rhinitis, cough, shortness of breath, chest pain, abdominal pain, nausea, vomiting, diarrhea, leg pain or leg swelling reported. OBJECTIVE: GENERAL: No acute distress. VITAL SIGNS: Blood pressure 112/72, pulse 76 and temperature 97.9. HEENT: Moist mucous membranes. Mallampati score of 4. Crowded airway. NECK: Supple. No JVD. LUNGS: Fair airflow bilaterally. CARDIOVASCULAR: S1 and S2. ABDOMEN: Soft and nontender. No distension. No organomegaly. EXTREMITIES: No bilateral lower extremity edema. NEUROLOGIC: Awake, alert and verbal. Following commands. MEDICATIONS: Reviewed. Tylenol 650 every 6 hours p.r.n., Maalox 30 mL p.o. daily p.r.n., Ventolin HFA two puffs inhalation every 4 hours p.r.n., Cogentin 1 mg a.m. and at bedtime, Pepcid 20 mg twice a day, Flonase nasal spray at bedtime, folic acid 1 mg daily, Haldol 5 mg every 6 hours p.r.n., Haldol 5 mg IM every 6 hours p.r.n., Ativan 2 mg every 6 hours p.r.n., Ativan 2 mg IM every 6 hours p.r.n., Ativan 1 mg at bedtime, milk of magnesia 30 mL p.o. daily p.r.n., multivitamins and minerals one tab daily, Risperdal 3 mg at bedtime, Risperdal 2 mg in the morning, Advair Diskus one puff inhalation every 12 hours, Zoloft 100 mg daily, thiamine 100 mg daily, and trazodone 100 mg at bedtime. LABORATORY DATA: Reviewed. No new labs. IMPRESSION AND PLAN: Sleep apnea syndrome, schizophrenia, active smoker, suspected chronic lung disease, gastroesophageal reflux disease and obesity. Spoke with the patient regarding sleep apnea and need for continuous positive airway pressure machine. Spoke with the patient regarding risk associated with sleep apnea such as cardiopulmonary diseases. The patient verbalizes understanding. We will try to use continuous positive airway pressure machine tonight. Continue inhaled bronchodilators and inhalers. Smoking cessation. Gastroesophageal reflux disease precautions. Head of bed elevated at 45 degrees, Sleep apnea precaution. Continue to encourage continuous positive airway pressure use at bedtime. Recommend weight loss for this patient. Recommend the patient have full pulmonary function tests to evaluate chronic lung disease as outpatient. Recommend the patient have sleep study as outpatient to evaluate sleep apnea syndrome. The patient was seen and examined with Dr. Bonilla. Discussed assessment and plan as described above. The patient was seen and examined with Roland Rajan, nurse practitioner. Discussed assessment and plan as described above. Thank you for this consult and we will follow with you. Roland Rajan APN Anselmo Bonilla MD
[2019-03-20] MEDS: Fluticasone Nasal 50 mcg/Spray NS SCH (21:39)
[2019-03-21] MEDS: Fluticasone-Salmeterol 250-50mcg Diskus IH SCH ×2 (06:35→17:45)
[2019-03-21 07:17] VITALS: TEMP 97.5
[2019-03-21] MEDS: Multivitamin With Minerals Tab PO SCH (10:06)
--- NOTE | 2019-03-21 10:42 | PN ---
DATE: 03/21/2019 PULMONARY PROGRESS NOTE REFERRING PHYSICIAN: Renetta Mendoza MD SUBJECTIVE: The patient is seen sitting in day room. No acute distress. No overnight events reported. Did not wear CPAP machine last night. No headache, rhinitis, cough, shortness of breath, chest pain, abdominal pain, nausea, vomiting, diarrhea, leg pain or leg swelling reported. OBJECTIVE: GENERAL: No acute distress. VITAL SIGNS: Blood pressure 116/68, pulse 64 and temperature 97.5. HEENT: Moist mucous membranes. Mallampati score of 4. Crowded airway. NECK: Supple. No JVD. LUNGS: Fair airflow bilaterally. CARDIOVASCULAR: S1 and S2. ABDOMEN: Soft and nontender. No distension. No organomegaly. EXTREMITIES: No bilateral lower extremity edema. NEUROLOGIC: Awake, alert and verbal. Following commands. MEDICATIONS: Reviewed. Tylenol 650 every 6 hours p.r.n. for moderate pain, Maalox 30 mL p.o. daily p.r.n., Ventolin HFA two puffs inhalation every 4 hours p.r.n., Cogentin 1 mg in the morning and at bedtime, Pepcid 20 mg twice a day, Flonase nasal spray at bedtime, folic acid 1 mg daily, Haldol 5 mg every 6 hours p.r.n., Haldol 5 mg IM every 6 hours p.r.n., Ativan 2 mg every 6 hours p.r.n., Ativan 2 mg IM every 6 hours p.r.n., Ativan 1 mg p.o. at bedtime, milk of magnesia 30 mL p.o. daily p.r.n., multivitamins and minerals one tab daily, Risperdal 3 mg at bedtime, Risperdal 2 mg in the morning, Advair Diskus 250/50 one puff inhalation every 12 hours, Zoloft 100 mg daily, thiamine B 100 mg daily, and trazodone 100 mg at bedtime. LABORATORY DATA: Reviewed. No new labs. IMPRESSION AND PLAN: Sleep apnea syndrome, schizophrenia, active smoker, suspected chronic lung disease, gastroesophageal reflux disease and obesity. Continue to encourage continuous positive airway pressure use at bedtime. Sleep apnea precaution. Head of bed elevated at 45 degrees. Gastroesophageal reflux disease precautions. Continue smoking cessation. Recommend weight loss. Recommend this patient have full pulmonary function tests to evaluate chronic lung disease as outpatient. Recommend the patient have sleep study as outpatient to evaluate for sleep apnea syndrome. The patient was seen and examined with Dr. Bonilla. Discussed assessment and plan as described above. The patient was seen and examined with Roland Rajan, nurse practitioner. Discussed assessment and plan as described above. Thank you for this consult and we will follow with you. Roland Rajan APN Anselmo Bonilla MD
--- NOTE | 2019-03-21 11:59 | PCM.PYCHPN ---
Psychiatric Progress Note - Psychiatric Progress Note Patient seen today, length of contact: 30 minutes Patient Chief Complaint: "I heard voices, but it is better..." Problems Identified/Issues Discussed: Risk/benefits/alternatives of medications, treatment plan, medical issues. Medical Problems: Patient complains of feeling that he is not able to predict at the nighttime, possibly patient has sleep apnea, GERD, obesity. Diagnostic Results: 03/12/19 22:58 03/12/19 22:58 Lab Results 03/13/19 07:30: RPR Nonreactive 03/13/19 07:30: TSH 3rd Generation 1.39 03/13/19 07:30: Fasting Glucose 120 H, Triglycerides 67, Cholesterol 151, LDL Cholesterol Direct 96, HDL Cholesterol 34 03/12/19 22:58: Alcohol, Quantitative < 10 03/12/19 22:58: Salicylates < 1 L, Acetaminophen < 10.0 L 03/12/19 22:58: Sodium 140, Potassium 3.7, Chloride 100, Carbon Dioxide 30, Anion Gap 14, BUN 17, Creatinine 1.2, Est GFR ( Amer) > 60, Est GFR (Non- Af Amer) > 60, Random Glucose 90, Calcium 9.3, Total Bilirubin 0.3, AST 28, ALT 15, Alkaline Phosphatase 90, NT-Pro-B Natriuret Pep 11.7, Total Protein 7.8, Al bumin 4.3, Globulin 3.5, Albumin/Globulin Ratio 1.2 03/12/19 22:58: WBC 8.4 D, RBC 5.56, Hgb 14.6 D, Hct 44.4, MCV 79.9 L, MCH 26.3, MCHC 32.9, RDW 15.5 H, Plt Count 309, MPV 10.4, Neut % (Auto) 67.6, Lymph % (Auto) 19.0 L, [place] % (Auto) 11.7 H, Eos % (Auto) 1.6, Baso % (Auto) 0.1, Lymph # (Auto) 1.6, [place] # (Auto) 1.0 H, Eos # (Auto) 0.1, Baso # (Auto) 0.01, Absolute Neuts (auto) 5.67 03/12/19 21:20: Urine Opiates Screen Negative, Urine Methadone Screen Negative, Ur Barbiturates Screen Negative, Ur Phencyclidine Scrn Negative, Ur Amphetamines Screen Negative, U Benzodiazepines Scrn Negative, U Oth Cocaine Metabols Negative, U Cannabinoids Screen Negative 03/12/19 21:20: Urine Color Yellow, Urine Appearance Clear, Urine pH 5.5, Ur Specific [place] >= 1.030, Urine Protein Trace H, Urine Glucose (UA) Negative, Urine Ketones Trace H, Urine Blood Negative, Urine Nitrate Negative, Urine Bilirubin Negative, Urine Urobilinogen 0.2, Ur Leukocyte Esterase Negative, Urine RBC 0 - 2, Urine WBC 0 - 2, Ur Epithelial Cells 0 - 2, Urine Bacteria Few Vital Signs Temp Pulse Resp BP Pulse Ox 03/14/19 06:34 97.2 F L 86 18 125/81 03/13/19 16:00 97 H 113/73 03/13/19 07:10 98.3 F 89 18 125/79 03/13/19 00:20 98.7 F 99 H 18 134/67 95 03/12/19 23:12 98.7 F 103 H 18 109/67 98 03/12/19 21:06 98 F 115 H 19 116/63 97 DSM 5 Symptoms Update: Shortly, patient is a 43-year old -[place] male, reported history of don izophrenia versus schizoaffective disorder, multiple previous psychiatric admissions including this facility, patient is homeless, has history of being noncompliant with her medications, presented in the emergency room complaining of paranoia, auditory hallucinations, patient requires further evaluation, stabilization, observation, medications adjustment. Patient was seen and examined today at the day treatment area, patient participated in volumes activities, less psychotic, patient is in the process of being weaned off of Ativan. Patient reported that his voices are improving, patient reported at times he feels depressed, denied feeling hopelessness or helplessness denied thoughts of harming himself or others. Patient is ready for being discharged tomorrow. As per staff patient started to participate in unit activities, was observed to be in groups, more visible on the unit no agitated no aggressive. So far patient tolerates medications well, no side effects observed or reported, aims 0, no EPS. Impression: Schizophrenia Medication Change: Yes (Ativan decreased) Medical Record Reviewed: Yes Mental Status Examination - Cognitive Function Orientation: Person, Place, Situation Memory: Intact Attention: Poor (Somewhat better) Concentration: Poor (Improving) Association: Loose (Baseline) Fund of Knowledge: WNL - Mood Mood: Depressed - Affect Affect: Flat - Formal Thought Process Formal Thought Process: Hallucinations (Improving), Delusions (Improving), Paranoia - Suicidal Ideation Suicidal Ideation: No - Homicidal Ideation Homicidal Ideation: No Goal/Treatment Plan - Goal/Treatment Plan Need for Continued Stay: Remain at risks for inpatient hospitalization (Improving), Severe depression anxiety, Discharge may exacerbated symptoms, Severe functional impairment Progress Toward Problem(s) and Goals/Treatment Plan: Milieu/structure/supportive therapy SW consultation for discharge plan and social issues Med management pt responded well on following meds in the past: Risperdal 2 mg at the morning time and 3gm at the nighttime for psychosis Cogentin 1 mg BID for EPS prophylaxis Zoloft 100 mg po daily for depression and anxiety Trazodone Multivitamins, thiamine, folic acid ativan was discontinued today, will monitor how she tolerates it ECT discussed Family involvement Follow up on labs Will monitor closely Pt was educated about risk/benefits and alternatives of medications, coping strategies (safety plan, suicide prevention), relapse prevention, importance of follow up with psychiatrist and therapist, stay away from drugs/alcohol/smoking Estimated Date of D/C: 03/21/19
[2019-03-21] MEDS: Fluticasone Nasal 50 mcg/Spray NS SCH (21:37)
[2019-03-22 06:55] VITALS: BP 129/84; PULSE 71; RESP 16
[2019-03-22] MEDS: Fluticasone-Salmeterol 250-50mcg Diskus IH SCH (07:39)
[2019-03-22] MEDS: Multivitamin With Minerals Tab PO SCH (09:38)
--- NOTE | 2019-03-22 11:22 | PN ---
DATE: 03/22/2019 PULMONARY PROGRESS NOTE REFERRING PHYSICIAN: Renetta Mendoza MD SUBJECTIVE: The patient is seen lying in bed. No acute distress. No overnight events reported. Reports that he wore CPAP machine for a little bit last night, but then states that he had to take it off, could not tolerate it. No headache, rhinitis, cough, shortness of breath, chest pain, abdominal pain, nausea, vomiting, diarrhea, leg pain or leg swelling reported. OBJECTIVE: GENERAL: No acute distress. VITAL SIGNS: Blood pressure 129/84, pulse 71 and temperature 97.5. HEENT: Moist mucous membranes. Mallampati score of 4. Crowded airway. NECK: Supple. No JVD. LUNGS: Fair airflow bilaterally. CARDIOVASCULAR: S1 and S2. ABDOMEN: Soft and nontender. No distension. No organomegaly. EXTREMITIES: No bilateral lower extremity edema. NEUROLOGIC: Awake, alert and verbal. Following commands. MEDICATIONS: Reviewed. Tylenol 650 mg every 6 hours p.r.n. for moderate pain, Maalox 30 mL p.o. daily p.r.n., albuterol two puffs inhalation every 4 hours p.r.n., Cogentin 1 mg in the a.m. and HS, Pepcid 20 mg twice a day, Flonase nasal spray at bedtime, folic acid 1 mg daily, Haldol 5 mg p.o. every 6 hours p.r.n., Haldol 5 mg IM every 6 hours p.r.n., Ativan 2 mg every 6 hours p.r.n., Ativan 2 mg IM every 6 hours p.r.n., milk of magnesia 30 mL p.o. daily p.r.n., multivitamins and minerals one tab daily, Risperdal 3 mg at bedtime, Risperdal 2 mg in the morning, Advair Diskus one puff inhalation every 12 hours, Zoloft 100 mg daily, vitamin b1 100 mg daily, and trazodone 100 mg at bedtime. LABORATORY DATA: Reviewed. No new labs. IMPRESSION AND PLAN: Sleep apnea syndrome, schizophrenia, active smoker, suspected chronic lung disease, gastroesophageal reflux disease, and obesity. Continue continuous positive airway pressure use at bedtime. Sleep apnea precaution. Head of bed elevated at 45 degrees. Gastroesophageal reflux disease precautions. Continue smoking cessation. Recommend weight loss. Recommend the patient have full pulmonary function test as outpatient to evaluate for chronic lung disease. Recommend the patient have sleep study as outpatient to evaluate for sleep apnea syndrome. This patient was seen and examined with Dr. Bonilla. Discussed assessment and plan as described above. This patient was seen and examined with Roland Rajan, nurse practitioner. Discussed assessment and plan as described above. Thank you for this consult and we will follow with you. Mohini Watkins APN Anselmo Bonilla MD [facility]
--- NOTE | 2019-03-22 17:06 | PCM.PYCHDC ---
Mental Status Examination - Mental Status Examination Orientation: Person, Place, Situation, Time Memory: Intact Mood: Neutral Affect: Broad (Mood congruent) Speech: Appropriate (Blood underproductive) Attention: WNL (Much improved) Concentration: WNL (Much improved) Association: Loose (Baseline) Fund of Knowledge: WNL Formal Thought Process: Paranoia (Grooming/ residual) Description of patient's judgement and insight: Pt has improved insight into mental and medical illness, pt was compliant with medications and unit rules and regulations, pt was going to groups, was calm, cooperative, socially appropriate, no behavioral incidents, no agitation, no aggression. Psychotic Thoughts and Behaviors: Pt denied v/a/t hallucinations, denied paranoid ideations, pt does not appear to be psychotic, and thought process is goal directed. Suicidal Ideation: No Current Homicidal Ideation?: No Plan: pt adamantly denied thoughts of harming self or others denied intent or plan. Discharge Summary - Discharge Note Reason for Hospitalization: Patient was admitted to the psychiatric inpatient stabilization of psychosis, inability to function. Psychiatric History (includes Medical, Family, Personal Hx): See HPI Laboratory Data: 03/12/19 22:58 03/12/19 22:58 Lab Results 03/13/19 07:30: RPR Nonreactive 03/13/19 07:30: TSH 3rd Generation 1.39 03/13/19 07:30: Fasting Glucose 120 H, Triglycerides 67, Cholesterol 151, LDL Cholesterol Direct 96, HDL Cholesterol 34 03/12/19 22:58: Alcohol, Quantitative < 10 03/12/19 22:58: Salicylates < 1 L, Acetaminophen < 10.0 L 03/12/19 22:58: Sodium 140, Potassium 3.7, Chloride 100, Carbon Dioxide 30, Anion Gap 14, BUN 17, Creatinine 1.2, Est GFR ( Amer) > 60, Est GFR (Non- Af Amer) > 60, Random Glucose 90, Calcium 9.3, Total Bilirubin 0.3, AST 28, ALT 15, Alkaline Phosphatase 90, NT-Pro-B Natriuret Pep 11.7, Total Protein 7.8, Albumin 4.3, Globulin 3.5, Albumin/Globulin Ratio 1.2 03/12/19 22:58: WBC 8.4 D, RBC 5.56, Hgb 14.6 D, Hct 44.4, MCV 79.9 L, MCH 26.3, MCHC 32.9, RDW 15.5 H, Plt Count 309, MPV 10.4, Neut % (Auto) 67.6, Lymph % (Auto) 19.0 L, Gonzales % (Auto) 11.7 H, Eos % (Auto) 1.6, Baso % (Auto) 0.1, Lymph # (Auto) 1.6, Gonzales # (Auto) 1.0 H, Eos # (Auto) 0.1, Baso # (Auto) 0.01, Absolute Neuts (auto) 5.67 03/12/19 21:20: Urine Opiates Screen Negative, Urine Methadone Screen Negative, Ur Barbiturates Screen Negative, Ur Phencyclidine Scrn Negative, Ur Amphetamines Screen Negative, U Benzodiazepines Scrn Negative, U Oth Cocaine Metabols Negative, U Cannabinoids Screen Negative 03/12/19 21:20: Urine Color Yellow, Urine Appearance Clear, Urine pH 5.5, Ur Specific Preston >= 1.030, Urine Protein Trace H, Urine Glucose (UA) Negative, Urine Ketones Trace H, Urine Blood Negative, Urine Nitrate Negative, Urine Bilirubin Negative, Urine Urobilinogen 0.2, Ur Leukocyte Esterase Negative, Urine RBC 0 - 2, Urine WBC 0 - 2, Ur Epithelial Cells 0 - 2, Urine Bacteria Few Vital Signs Temp Pulse Resp BP Pulse Ox 03/22/19 06:55 97.5 F L 71 16 129/84 03/21/19 22:35 70 03/21/19 16:00 98 H 131/80 03/21/19 07:16 97.5 F L 64 20 116/68 03/20/19 16:00 79 133/82 03/20/19 07:15 97.9 F 76 20 112/72 03/19/19 16:00 86 108/70 03/19/19 06:34 98.4 F 70 18 124/85 03/18/19 16:00 82 120/83 03/18/19 06:57 97.2 F L 62 20 129/88 03/17/19 16:45 86 114/81 03/17/19 07:00 97.8 F 83 20 133/80 03/16/19 22:35 98 H 03/16/19 15:58 70 140/80 03/16/19 08:12 97.8 F 67 20 145/65 03/15/19 23:30 72 03/15/19 17:39 80 143/84 03/15/19 06:40 97.4 F L 81 16 116/78 03/14/19 16:00 78 145/94 H 03/14/19 06:34 97.2 F L 86 18 125/81 03/13/19 16:00 97 H 113/73 03/13/19 07:10 98.3 F 89 18 125/79 03/13/19 00:20 98.7 F 99 H 18 134/67 95 03/12/19 23:12 98.7 F 103 H 18 109/67 98 03/12/19 21:06 98 F 115 H 19 116/63 97 Consultations:: List each consultation separately and include: 1. Reason for request. 2. Findings. 3. Follow-up Consultations: Pulmonology consult requested, appreciated, see notes for more detailed information Summary of Hospital Course include:: 1. Description of specific treatment plan utilized for patients during their course of treatmen. 2. Summarize the time- course for resolution of acute symptoms and/or regressed behaviors. 3. Describe issues identified and worked on during hospitalization. 4. Describe medication utilized. 5. Describe medical problems identified and treated. 6. Reassessment of suicide risk Summary of Hospital Course: Shortly, patient is a 43-year old -[place] male, reported history of sc hizophrenia versus schizoaffective disorder, multiple previous psychiatric admissions including this facility, patient is homeless, has history of being noncompliant with her medications, presented in the emergency room complaining of paranoia, auditory hallucinations, patient required further evaluation, stabilization, observation, medications adjustment. At the time of initial evaluation patient presented with poor personal hygiene, flat affect, no eye contact, patient presented to be paranoid, psychotic, reported that he hears voices telling him "they will kill you, they will kill you", patient also presented to be suspicious, paranoid, guarded. Please see admission note for more detailed information Patient was stabilized on the following medications: Risperdal 3 mg bid and at bedtime for psychosis Cogentin 1 mg BID for EPS prophylaxis Zoloft 100 mg po daily for depression and anxiety Trazodone 100 mg HS, off label for sleep Patient tolerated medications well, no side effects observed or reported, aims 0, no EPS. Initially patient was seclusive, not interested to participate in unit activities, but gradually patient became more active, participated in group activities, less paranoid, more organized, pleasant, no agitation, no aggression, pt had good appetite, sleep, was making appropriate jokes. Patient reached maximum effect from this acute hospitalization, deemed ready for discharge. At the time of the discharge patient was considered to pose no imminent danger to self or others, will be following up at [facility], information about follow up appointment, time and address provided to the pt, (see SW note for more detailed information). It is a patient responsibility to follow up with outpatient clinic, PMD as well as specialists Patient denied smoking, occasional drinking alcohol, denied addiction, does not meet a criteria for naltrexone initiation. In case patient will need to obtain results of studies pending at discharge, cherelle bob was provided with contact information of Psychiatric Inpatient unit [phone] as well as Medical Record Department [phone], as well as [facility] team [phone]. pt was provided with prescriptions see medication reconciliation form Pt was educated about safety plan in case of worsening of symptoms or in case of suicidal or homicidal ideation call 911 or go to the nearest ER, also was educated to take meds as prescribed and stay away from drugs, pt verbalized understanding. 03/12/19 22:58 03/12/19 22:58 Lab Results 03/13/19 07:30: TSH 3rd Generation 1.39 03/13/19 07:30: Fasting Glucose 120 H, Triglycerides 67, Cholesterol 151, LDL Cholesterol Direct 96, HDL Cholesterol 34 03/12/19 22:58: Alcohol, Quantitative < 10 03/12/19 22:58: Salicylates < 1 L, Acetaminophen < 10.0 L 03/12/19 22:58: Sodium 140, Potassium 3.7, Chloride 100, Carbon Dioxide 30, Anion Gap 14, BUN 17, Creatinine 1.2, Est GFR ( Amer) > 60, Est GFR (Non- Af Amer) > 60, Random Glucose 90, Calcium 9.3, Total Bilirubin 0.3, AST 28, ALT 15, Alkaline Phosphatase 90, NT-Pro-B Natriuret Pep 11.7, Total Protein 7.8, Albumin 4.3, Globulin 3.5, Albumin/Globulin Ratio 1.2 03/12/19 22:58: WBC 8.4 D, RBC 5.56, Hgb 14.6 D, Hct 44.4, MCV 79.9 L, MCH 26.3, MCHC 32.9, RDW 15.5 H, Plt Count 309, MPV 10.4, Neut % (Auto) 67.6, Lymph % (Auto) 19.0 L, Gonzales % (Auto) 11.7 H, Eos % (Auto) 1.6, Baso % (Auto) 0.1, Lymph # (Auto) 1.6, Gonzales # (Auto) 1.0 H, Eos # (Auto) 0.1, Baso # (Auto) 0.01, Absolute Neuts (auto) 5.67 03/12/19 21:20: Urine Opiates Screen Negative, Urine Methadone Screen Negative, Ur Barbiturates Screen Negative, Ur Phencyclidine Scrn Negative, Ur Amphetamines Screen Negative, U Benzodiazepines Scrn Negative, U Oth Cocaine Metabols Negative, U Cannabinoids Screen Negative 03/12/19 21:20: Urine Color Yellow, Urine Appearance Clear, Urine pH 5.5, Ur Sp ecific Preston >= 1.030, Urine Protein Trace H, Urine Glucose (UA) Negative, Urine Ketones Trace H, Urine Blood Negative, Urine Nitrate Negative, Urine Bilirubin Negative, Urine Urobilinogen 0.2, Ur Leukocyte Esterase Negative, Urine RBC 0 - 2, Urine WBC 0 - 2, Ur Epithelial Cells 0 - 2, Urine Bacteria Few Vital Signs Temp Pulse Resp BP Pulse Ox 03/13/19 07:10 98.3 F 89 18 125/79 03/13/19 00:20 98.7 F 99 H 18 134/67 95 03/12/19 23:12 98.7 F 103 H 18 109/67 98 03/12/19 21:06 98 F 115 H 19 116/63 97 - Diagnosis (1) Alcohol abuse Status: Suspected Priority: Low (2) Schizoaffective disorder Status: Chronic Priority: High - Final Diagnosis (DSM 5) Condition upon Discharge: STABLE Disposition: HOME/ ROUTINE Follow-up Treatment Plan: At the time of the discharge patient was considered to pose no imminent danger to self or others, will be following up at [facility], information about follow up appointment, time and address provided to the pt, (see SW note for more detailed information). It is a patient responsibility to follow up with outpatient clinic, PMD as well as specialists Patient denied smoking, occasional drinking alcohol, denied addiction, does not meet a criteria for naltrexone initiation. In case patient will need to obtain results of studies pending at discharge, patient was provided with contact information of Psychiatric Inpatient unit [phone] as well as Medical Record Department [phone], as well as [facility] team [phone]. pt was provided with prescriptions see medication reconciliation form Pt was educated about safety plan in case of worsening of symptoms or in case of suicidal or homicidal ideation call 911 or go to the nearest ER, also was educated to take meds as prescribed and stay away from drugs, pt verbalized understanding. Prescriptions/Medication Reconciliation: Benztropine [Cogentin] 1 mg PO AMHS #30 tab Famotidine [Pepcid] 20 mg PO 1000,2200 #14 tab Fluticasone Nasal [Flonase] 1 actuation NS HS #1 spr Fluticasone/Salmeterol 250/50 [Advair Diskus 250/50] 1 puff IH Q12 #1 puff Multimineral/Multivitamin [Therapeutic-M Tab] 1 tab PO DAILY #14 tab Risperidone [Risperdal] 3 mg PO AMHS #30 tablet Sertraline [Zoloft] 100 mg PO DAILY #14 tab traZODone [Desyrel] 100 mg PO HS #14 tab - Smoking Cessation Smoking Cessation Medication prescribed: No Reason for not providing: Denies smoking - Antipsychotic Medications Pt discharged on 2 or more routine antipsychotic medications: No
== END 2019-03-22 11:45 | disposition home or self-care (01) | DRG 885 ==
LOC: ED 20:36 → ERH 03-13 00:08 → PSYC 03-13 00:42
PROVIDERS: ADMIT Psychiatry & Neurology Psychiatry; ATTEND Psychiatry & Neurology Psychiatry
PROC: GZ3ZZZZ Medication Management (ICD-10-PCS; principal; 2019-03-13)
DX: F25.9 Schizoaffective disorder, unspecified (principal); Z68.41 Body mass index [BMI] 40.0-44.9, adult; F10.10 Alcohol abuse, uncomplicated; F32.9 Major depressive disorder, single episode, unspecified; Z91.14 Patient's other noncompliance with medication regimen; I10 Essential (primary) hypertension; E66.9 Obesity, unspecified; K21.9 Gastro-esophageal reflux disease without esophagitis; F41.9 Anxiety disorder, unspecified; F17.210 Nicotine dependence, cigarettes, uncomplicated; G47.30 Sleep apnea, unspecified; Z59.0 Homelessness; Z91.5 Personal history of self-harm